=== PATIENT | male | born 1965 | race Caucasian/White ===

== ENCOUNTER 2019-08-29 09:37 | Outpatient (CLI) | payer MEDICARE, SELFPAY ==
[2019-08-29 09:49] LABS: Basophils Absolute Auto 0.06 K/mm3 (0.00-0.10); Basophils Percent Auto 1.2 % (0.0-1.0); Eosinophils Absolute Auto 0.16 K/mm3 (0.02-0.50); Eosinophils Percent Auto 3.2 % (1.0-6.0); Hematocrit 47.7 % (40.0-54.0); Hemoglobin 16.5 g/dL (14.0-18.0); Immature Granulocyte Absolute 0.02 K/mm3 (0.00-0.00); Immature Granulocyte Percent A 0.4 % (0.0-0.0); Lymphocytes Absolute Auto 1.23 K/mm3 (1.10-4.50); Lymphocytes Percent Auto 24.7 % (18.0-42.0); Mean Corpuscular HGB Conc 34.6 g/dL (32.0-36.0); Mean Corpuscular Hemoglobin 30.1 pg (27.0-31.0); Mean Corpuscular Volume 86.9 fL (78.0-102.0); Mean Platelet Volume 8.8 fl (8.7-11.0); Neutrophils Percent Auto 60.5 % (50.0-70.0); Platelet Count Result 269 K/mm3 (150-420); Red Blood Count 5.49 M/mm3 (4.70-6.10); Red Cell Distribution Width 12.8 % (11.6-14.4)
[2019-08-29 09:52] LABS: Add Urine Microscopic? NO; Appearance Urine Clear (Clear); Bilirubin Urine Negative (Negative); Blood Urine Negative (Negative); Color Urine Yellow (Yellow); Glucose Urine UA Negative (Negative); Ketones Urine Negative (Negative); Leukocyte Esterase Ur Negative (Negative); Nitrate Urine Negative (Negative); Protein Urine Negative (Negative); Specific Grav Ur <= 1.005 (1.010-1.020); Urobilinogen Urine 0.2 mg/dL (0.2-1.0)
[2019-08-29 10:00] LABS: Creatinine Urine < 13.00 mg/dL (40-278)
[2019-08-29 10:20] LABS: Microalbumin Urine Random < 1.3 mg/L
[2019-08-29 10:39] LABS: Alanine Aminotransferase 20 U/L (16-63); Alkaline Phosphatase 176 U/L (46-116); Anion Gap 10.2 mmol/L (7-16); Aspartate Amino Transferase 16 U/L (15-37); Bilirubin,Total 0.9 mg/dL (0.00-1.00); Blood Urea Nitrogen 9 mg/dL (7-18); Calcium 9.9 mg/dL (8.5-10.1); Carbon Dioxide 34 mmol/L (21-32); Chloride 99 mmol/L (98-108); Estimated Glomerular Filt Rate > 60; Glucose 90 mg/dL (70-99); Osmolality Calculated 286 mOsm/kg (285-295); Potassium 4.2 mmol/L (3.5-5.1); Sodium 139 mmol/L (136-145); Thyroid Stimulating Hormone 0.98 uIU/mL (0.36-3.74); Total Protein 7.4 g/dL (6.4-8.2)
== END 2019-08-29 09:38 | disposition home or self-care (01) ==
PROVIDERS: PCP Family Medicine; Visit Provider Family Medicine
DX: I10 Essential (primary) hypertension (principal)
CPT/HCPCS: 36415; 80053; 81003; 82043; 84443; 85025

== ENCOUNTER 2020-03-27 07:57 | Outpatient (CLI) | payer MEDICARE, SELFPAY ==
[2020-03-27 08:09] LABS: Basophils Absolute Auto 0.04 K/mm3 (0.00-0.10); Basophils Percent Auto 0.8 % (0.0-1.0); Eosinophils Absolute Auto 0.15 K/mm3 (0.02-0.50); Hematocrit 44.2 % (40.0-54.0); Hemoglobin 15.2 g/dL (14.0-18.0); Immature Granulocyte Absolute 0.01 K/mm3 (0.00-0.00); Immature Granulocyte Percent A 0.2 % (0.0-0.0); Lymphocytes Absolute Auto 1.13 K/mm3 (1.10-4.50); Mean Corpuscular HGB Conc 34.4 g/dL (32.0-36.0); Mean Corpuscular Hemoglobin 30.8 pg (27.0-31.0); Mean Corpuscular Volume 89.7 fL (78.0-102.0); Mean Platelet Volume 8.9 fl (8.7-11.0); Monocytes Absolute Auto 0.45 K/mm3 (0.10-0.90); Monocytes Percent Auto 9.1 % (2.0-11.0); Neutrophils Absolute Auto 3.1 K/mm3 (1.7-7.2); Neutrophils Percent Auto 63.9 % (50.0-70.0); Platelet Count Result 246 K/mm3 (150-420); Red Blood Count 4.93 M/mm3 (4.70-6.10); Red Cell Distribution Width 12.9 % (11.6-14.4); White Blood Count 4.9 K/mm3 (4.8-10.8)
[2020-03-27 08:24] LABS: Hemoglobin A1C 4.9 % (<5.7)
[2020-03-27 08:51] LABS: Alanine Aminotransferase 14 U/L (16-63); Albumin Level 3.9 g/dL (3.4-5.0); Alkaline Phosphatase 156 U/L (46-116); Anion Gap 8 mmol/L (8-16); Aspartate Amino Transferase < 10 U/L (15-37); Bilirubin,Total 0.9 mg/dL (0.00-1.00); Blood Urea Nitrogen 10 mg/dL (7-18); Calcium 9.6 mg/dL (8.5-10.1); Carbon Dioxide 31 mmol/L (21-32); Chloride 102 mmol/L (98-108); Cholesterol 155 mg/dL (0-200); Estimated Glomerular Filt Rate > 60; Glucose 100 mg/dL (70-99); HDL Direct 38 mg/dL (40-60); LDL Cholesterol Calculated 92 mg/dL (<130); Osmolality Calculated 291 mOsm/kg (285-295); Potassium 3.9 mmol/L (3.5-5.1); Sodium 141 mmol/L (136-145); Triglycerides 126 mg/dL (0-150)
== END 2020-03-27 07:58 | disposition home or self-care (01) ==
PROVIDERS: PCP Family Medicine; Visit Provider Family Medicine
DX: Z79.899 Other long term (current) drug therapy (principal); I10 Essential (primary) hypertension
CPT/HCPCS: 36415; 80053; 80061; 83036; 85025

== ENCOUNTER 2020-04-11 09:28 | Outpatient (CLI) | payer MEDICARE, SELFPAY ==
[2020-04-11 10:19] LABS: Influenza Control Valid (Valid); SARS-CoV-2 Ag Positive (Negative)
== END 2020-04-11 09:29 | disposition home or self-care (01) ==
LOC: CHSLAB 09:31
PROVIDERS: PCP Family Medicine; Visit Provider Family Medicine
DX: U07.1 COVID-19 (principal)
CPT/HCPCS: 87426; 87804

== ENCOUNTER 2020-05-23 12:26 | Emergency (ER) | payer MEDICARE, OTHER, SELFPAY ==
--- NOTE | ~2020-05-23 | XR_ITS ---
EXAMINATION: XR chest 2V DATE: 05/23/2020 13:30 INDICATION: Cough. Dyspnea. TECHNIQUE: Frontal and lateral views of the chest were obtained. COMPARISON: Chest 2 views 11/18/2018, chest CT 11/19/2018 FINDINGS: A calcified left lung nodule is consistent with old granulomatous disease. There are airspa ce opacities in right middle lobe and right lower lobe. There is an air/fluid level in right lower lo be. There are mild airspace opacities at left lung base. There is a small right pleural effusion. No pneumothorax. The heart size is normal. IMPRESSION: 1. Airspace opacities in right middle lobe and right lower lobe, consistent with pneumonia. An air/fl uid level in right lower lobe is suspicious for abscess. 2. Small right pleural effusion. 3. Mild airspace opacities at left lung base, consistent with atelectasis versus pneumonia. Reviewed, dictated and finalized at location [facility]. STRAPPER IMPRESSION: 1. Airspace opacities in right middle lobe and right lower lobe, consistent wit h pneumonia. An air/fluid level in right lower lobe is suspicious for abscess. 2. Small right pleural effusion. 3. Mild airspace opacities at left lung base, consistent with atelectasis versu s pneumonia.
[2020-05-23 12:51] VITALS: BP 145/85; PULSE 112; RESP 20; TEMP 36.3; O2SAT 98
--- NOTE | 2020-05-23 13:07 | ECG_ITS ---
Measurements Intervals [place] Rate: 112 P: 60 NE: 156 QRS: 74 QRSD: 91 T: 34 QT: 258 QTc: 353 Interpretive Statements SINUS TACHYCARDIA VOLTAGE CRITERIA FOR LVH BORDERLINE ST-T WAVE ABNORMALITY- ANTEROLAT/INF LEADS BASELINE WANDER- II, III, AVF ABNORMAL ECG Electronically Signed On 05-23-2020 15:10:58 CASH MANAGEMENT COORDINATOR by Flo Chowdary D.O.
[2020-05-23] MEDS: methylPREDNISolone SOD SUCC 125 MG VIAL IV PUSH (13:25)
[2020-05-23 13:28] LABS: Basophils Absolute Auto 0.02 K/mm3 (0.00-0.10); Basophils Percent Auto 0.1 % (0.0-1.0); Eosinophils Absolute Auto 0.02 K/mm3 (0.02-0.50); Eosinophils Percent Auto 0.1 % (1.0-6.0); Hematocrit 36.6 % (40.0-54.0); Hemoglobin 13.1 g/dL (14.0-18.0); Immature Granulocyte Absolute 0.12 K/mm3 (0.00-0.00); Immature Granulocyte Percent A 0.8 % (0.0-0.0); Lymphocytes Absolute Auto 1.05 K/mm3 (1.10-4.50); Lymphocytes Percent Auto 6.9 % (18.0-42.0); Mean Corpuscular HGB Conc 35.8 g/dL (32.0-36.0); Mean Corpuscular Hemoglobin 31.4 pg (27.0-31.0); Mean Corpuscular Volume 87.8 fL (78.0-102.0); Monocytes Absolute Auto 1.35 K/mm3 (0.10-0.90); Monocytes Percent Auto 8.8 % (2.0-11.0); Neutrophils Absolute Auto 12.7 K/mm3 (1.7-7.2); Neutrophils Percent Auto 83.3 % (50.0-70.0); Platelet Count Result 365 K/mm3 (150-420); Red Blood Count 4.17 M/mm3 (4.70-6.10); Red Cell Distribution Width 13.5 % (11.6-14.4); White Blood Count 15.3 K/mm3 (4.8-10.8)
[2020-05-23 13:45] VITALS: PULSE 114; RESP 24; O2SAT 96
[2020-05-23 13:45] LABS: Alanine Aminotransferase 26 U/L (16-63); Albumin Level 2.1 g/dL (3.4-5.0); Alkaline Phosphatase 259 U/L (46-116); Anion Gap 9 mmol/L (8-16); Aspartate Amino Transferase 26 U/L (15-37); Bilirubin,Total 1.1 mg/dL (0.00-1.00); Blood Urea Nitrogen 4 mg/dL (7-18); Calcium 8.4 mg/dL (8.5-10.1); Carbon Dioxide 32 mmol/L (21-32); Chloride 85 mmol/L (98-108); Estimated CRCL calculation 81 ml/min; Estimated Glomerular Filt Rate > 60; Glucose 153 mg/dL (70-99); Osmolality Calculated 261 mOsm/kg (285-295); Sodium 126 mmol/L (136-145); Total Protein 6.5 g/dL (6.4-8.2)
[2020-05-23 13:48] LABS: BNP 29.6 pg/mL (0-100); Potassium 2.3 mmol/L (3.5-5.1); Troponin I < 4.0 ng/L (0.00-60.4)
[2020-05-23] MEDS: IPRATROPIUM 0.5 MG/ALBUTEROL SULFATE 2.5 MG AMPUL.NEB 3 ML INHALATION (13:48)
[2020-05-23 13:56] VITALS: PULSE 112; RESP 20; O2SAT 98
--- NOTE | 2020-05-23 14:03 | ED.SOB ---
HPI - SOB/Dyspnea General Chief Complaint: Dizziness Stated Complaint: have eaten in last 3 or 4 days fever Source: patient Mode of arrival: ambulatory Limitations: no limitations History of Present Illness HPI Narrative: this is 55-year-old gentleman with history of lung cancer status post lung resection with a history of COPD continues tobacco use, presents with increasing shortness of breath cough that is productive of thick white to yellow sputum with no fever or chills no chest pain or pressure no abdominal pain no nausea vomiting. Patient also has a history of schizophrenia and hypertension. O2 sats on presentation 98% on room air currently afebrile with a blood pressure 145/85. MD elicited complaint: shortness of breath and cough Pertinent past history: COPD and other ( History of lung cancer) Onset (ago): day(s) Context: anxiety Severity: moderate Related Data Home Medications Medication Instructions Recorded Confirmed amlodipine 10 mg PO DAILY 05/23/20 05/23/20 folic acid 1 mg PO DAILY 05/23/20 05/23/20 haloperidol 5 mg PO TID 05/23/20 05/23/20 haloperidol decanoate 5 mg IM WEEKLY 05/23/20 05/23/20 propranolol 20 mg PO DAILY 05/23/20 05/23/20 risperidone 4 mg PO DAILY 05/23/20 05/23/20 sildenafil 100 mg PO DAILY 05/23/20 05/23/20 Allergies Allergy/AdvReac Type Severity Reaction Status Date / Time nitrofurantoin Allergy Unknown Unknown Verified 05/23/20 13:23 No Known Allergies Allergy Unverified 11/18/18 11:52 Review of Systems Review of Systems: All systems reviewed & are unremarkable except as noted in HPI and below PMFSH Past Medical History Medical History COPD (chronic obstructive pulmonary disease) Family History Family History Mother Patient's mother is in good health Family history of cardiovascular disease Father Patient's father is , Onset Age: 58 Sibling Patient's sister is in good health Patient's brother is in good health Social History Social History Smoking status: Current every day smoker Alcohol intake: never Gender identity (if verbalized by the patient): Male Exam Const: General: no acute distress and alert Orientation/consciousness: patient oriented x3 HENMT: Head: normal to inspection Eyes: Conjunctivae: conjunctivae normal Pupils: Equal, round and reactive pupils present Neck: Neck: normal visual inspection and no lymphadenopathy Chest: Chest palpation & inspection: normal inspection of the chest Resp: Auscultation: diminished lung sounds Cardio: Rate: regular rate and tachycardic GI: GI Palp: Yes Soft to palpation Skin: General skin exam: normal color Rashes: no rashes Neuro: General: patient oriented x3, moves all extremities, no meningeal signs and no focal motor deficits Extrem: General: normal to inspection Psych: Mental Status: mental status grossly normal Affect: normal affect and Anxious affect present Course Course Emergency Course: reassessment of patient, patient was advised that he had pneumonia in [place] right [place] [address] with a potassium level of 2.3. The patient was advised that he needs to be admitted and with continued antibiotics and to replace is decreased sodium levels. The patient stated that he can stay and needs to to take his dog out and his is incapable of taking the dog out, threatened to Anastasiya me if his falls at home. Will replace his potassium with p.o. potassium because he will not stay over 2 hours with [place] nadya. Will give him potassium p.o. and a dose of ceftriaxone prior to discharge and will send in potassium and antibiotics to his pharmacy. Also stated that he needs to sign out against medical advice given his current condition. Vital Signs Vital signs: Vital Signs Temperature 36.3 C L
[2020-05-23] MEDS: POTASSIUM CHLORIDE 20 MEQ TABLET 40 MEQ PO (14:13)
--- NOTE | 2020-05-23 14:15 | PC.NURSE ---
1355 pt refuses to be admitted in hospital states he can not leave home with dog she can not let him out; informed pt he needed to be admitted to receive meds to improve his potassium states he will go see his doctor
[2020-05-23 14:33] VITALS: PULSE 100; RESP 20; O2SAT 98
== END 2020-05-23 14:40 | disposition left against medical advice (07) ==
PROVIDERS: Emergency Provider Emergency Medicine; PCP Family Medicine
DX: E87.6 Hypokalemia (principal); J18.9 Pneumonia, unspecified organism; J44.9 Chronic obstructive pulmonary disease, unspecified; F17.200 Nicotine dependence, unspecified, uncomplicated
CPT/HCPCS: 36415; 71046; 80053; 83880; 84484; 85025; 93005; 94640; 96365; 96375; 99283; 99284; A9270; J0696; J2930

== ENCOUNTER 2020-05-27 10:29 | Outpatient (CLI) | payer MEDICARE, OTHER, SELFPAY ==
--- NOTE | ~2020-05-27 | XR_ITS ---
XR chest 2V DATE: 05/27/2020 11:00 INDICATION: Shortness of breath. History of lung cancer surgery one year ago. Pneumonia. TECHNIQUE: 2 views COMPARISON: 05/23/2020 2 view chest 11/18/2018 CT pulmonary scan FINDINGS: Large cavitating malignant mass or abscess is noted in the right lower chest. Consider CT t horax for further evaluation. No left lung infiltrate is noted. Mild right pleural effusion cannot be excluded. No pneumothorax. Normal heart size. IMPRESSION: Large cavitating mass or abscess, right lower chest Reviewed, dictated and finalized at location [facility]. Y HEAD START TEACHER
[2020-05-27 10:40] LABS: Hematocrit 39.5 % (40.0-54.0); Hemoglobin 13.5 g/dL (14.0-18.0); Mean Corpuscular HGB Conc 34.2 g/dL (32.0-36.0); Mean Corpuscular Hemoglobin 30.8 pg (27.0-31.0); Mean Corpuscular Volume 90.2 fL (78.0-102.0); Mean Platelet Volume 8.9 fl (8.7-11.0); Platelet Count Result 491 K/mm3 (150-420); Red Blood Count 4.38 M/mm3 (4.70-6.10); Red Cell Distribution Width 13.3 % (11.6-14.4); White Blood Count 17.5 K/mm3 (4.8-10.8)
[2020-05-27 11:35] LABS: Alanine Aminotransferase 57 U/L (16-63); Albumin Level 2.3 g/dL (3.4-5.0); Alkaline Phosphatase 305 U/L (46-116); Anion Gap 9 mmol/L (8-16); Aspartate Amino Transferase 32 U/L (15-37); Bilirubin,Total 0.9 mg/dL (0.00-1.00); Blood Urea Nitrogen 5 mg/dL (7-18); Calcium 8.6 mg/dL (8.5-10.1); Carbon Dioxide 31 mmol/L (21-32); Chloride 89 mmol/L (98-108); Estimated Glomerular Filt Rate > 60; Glucose 120 mg/dL (70-99); Osmolality Calculated 266 mOsm/kg (285-295); Potassium 4.6 mmol/L (3.5-5.1); Sodium 129 mmol/L (136-145); Total Protein 6.2 g/dL (6.4-8.2)
== END 2020-05-27 10:30 | disposition home or self-care (01) ==
LOC: CHSLAB 10:32
PROVIDERS: PCP Family Medicine; Visit Provider Family Medicine
DX: E87.6 Hypokalemia (principal); J18.9 Pneumonia, unspecified organism
CPT/HCPCS: 36415; 71046; 80053; 85027

== ENCOUNTER 2020-05-28 10:51 | Emergency (ER) | payer MEDICARE, OTHER, SELFPAY ==
--- NOTE | ~2020-05-28 | CT_ITS ---
EXAMINATION: CTA chest PE protocol DATE: 05/28/2020 11:48 INDICATION: Shortness of breath. Lethargy. TECHNIQUE: Computed tomography angiography (CTA) of the chest was performed with 100 mL Omnipaque-350 intravenous contrast timed to evaluate the pulmonary arteries. Coronal maximum intensity projection 3D-reconstructions were created by the technologist. Automated exposure control and iterative reconst ruction technique were employed. Exam dose: 273.57 mGy-cm total exam DLP. COMPARISON: May 27/2021 2 view chest 11/18/2018 CT pulmonary scan FINDINGS: There is diagnostic contrast enhancement of the pulmonary arteries and no evidence of pulmo nary embolism. There is occlusion of the right intermediate bronchus, likely due to malignancy, with postobstructive atelectasis and extensive consolidation of middle and lower lobes, with a 5 cm cavity with fluid lev el suggesting right lung abscess. Consider bronchoscopy with biopsy as clinically appropriate. Minimal right pleural effusion is suggested. No left pleural effusion. Normal heart size. No pericardial effusion. No hilar or mediastinal mass lesion is noted otherwise. No thoracic aortic aneurysm or dissection. There is emphysema, with bullous change in the right apex, minimally at the left apex. There is mild discoid atelectasis or scarring in the left lower lobe. Several faceted gallstones are noted in the gallbladder lumen. Small sliding hiatal hernia. No suspicious osteolytic or osteoblastic lesions are noted. IMPRESSION: Occluded right intermediate bronchus, likely due to malignancy, with postobstructive ate lectasis and consolidation of the right middle and lower lobes and probable 5 cm right lung abscess c avity with fluid level Emphysema Cholelithiasis Reviewed, dictated and finalized at [facility]. Reviewed, dictated and finalized at location [facility]. E PAPER HAMMERMILL OPERATOR IMPRESSION: Occluded right intermediate bronchus, likely due to malignancy, wi th postobstructive atelectasis and consolidation of the right middle and lower lobes and probable 5 cm right lung abscess cavity with fluid level Emphysema Cholelithiasis
[2020-05-28 10:55] VITALS: BP 114/75; PULSE 82; RESP 16; TEMP 36.8; O2SAT 94
--- NOTE | 2020-05-28 11:08 | ECG_ITS ---
Measurements Intervals [place] Rate: 87 P: 54 ID: [id number] QRS: 67 QRSD: 90 T: 45 QT: 396 QTc: 478 Interpretive Statements SINUS RHYTHM BASELINE WANDER- V1 NORMAL ECG Electronically Signed On 05-28-2020 11:59:06 MATERIAL SCHEDULER by Flo Chowdary D.O.
[2020-05-28 11:09] VITALS: PULSE 82
[2020-05-28 11:29] LABS: Basophils Absolute Auto 0.02 K/mm3 (0.00-0.10); Basophils Percent Auto 0.2 % (0.0-1.0); Eosinophils Absolute Auto 0.02 K/mm3 (0.02-0.50); Eosinophils Percent Auto 0.2 % (1.0-6.0); Hematocrit 36.5 % (40.0-54.0); Hemoglobin 12.6 g/dL (14.0-18.0); Immature Granulocyte Absolute 0.15 K/mm3 (0.00-0.00); Immature Granulocyte Percent A 1.1 % (0.0-0.0); Lymphocytes Absolute Auto 1.04 K/mm3 (1.10-4.50); Lymphocytes Percent Auto 7.9 % (18.0-42.0); Mean Corpuscular HGB Conc 34.5 g/dL (32.0-36.0); Mean Corpuscular Hemoglobin 31.1 pg (27.0-31.0); Mean Corpuscular Volume 90.1 fL (78.0-102.0); Mean Platelet Volume 8.8 fl (8.7-11.0); Monocytes Absolute Auto 1.07 K/mm3 (0.10-0.90); Monocytes Percent Auto 8.1 % (2.0-11.0); Neutrophils Absolute Auto 10.9 K/mm3 (1.7-7.2); Neutrophils Percent Auto 82.5 % (50.0-70.0); Platelet Count Result 491 K/mm3 (150-420); Red Blood Count 4.05 M/mm3 (4.70-6.10); Red Cell Distribution Width 13.2 % (11.6-14.4); White Blood Count 13.2 K/mm3 (4.8-10.8)
[2020-05-28 11:43] LABS: INR 1.2; Partial Thromboplastin Time 36.7 SEC (23.90-30.70); Prothrombin Time 12.2 Seconds (9.50-12.10)
[2020-05-28 11:47] LABS: BNP 13.8 pg/mL (0-100); D Dimer 1.97 mg/L (0.19-0.50)
[2020-05-28 11:49] LABS: Lactic Acid Reflex 1.1 mmol/L (0.4-2.0)
[2020-05-28 11:50] LABS: Anion Gap 8 mmol/L (8-16); Aspartate Amino Transferase 16 U/L (15-37); Blood Urea Nitrogen 5 mg/dL (7-18); Calcium 8.3 mg/dL (8.5-10.1); Carbon Dioxide 31 mmol/L (21-32); Chloride 89 mmol/L (98-108); Estimated CRCL calculation 100 ml/min; Estimated Glomerular Filt Rate > 60; Glucose 114 mg/dL (70-99); Magnesium 1.9 mg/dL (1.8-2.4); Osmolality Calculated 264 mOsm/kg (285-295); Potassium 3.3 mmol/L (3.5-5.1); Sodium 128 mmol/L (136-145)
[2020-05-28 11:51] LABS: Alanine Aminotransferase 42 U/L (16-63); Albumin Level 2.1 g/dL (3.4-5.0); Alkaline Phosphatase 234 U/L (46-116); Total Protein 6.4 g/dL (6.4-8.2)
[2020-05-28 12:15] VITALS: BP 119/82; PULSE 95; RESP 17; O2SAT 95
--- NOTE | 2020-05-28 13:34 | PC.NURSE ---
call to [facility]. spoke with shin. dr quiñonez speaking with shin
[2020-05-28] MEDS: POTASSIUM CHLORIDE 20 MEQ PACKET (FOR LIQUID) 40 MEQ BY MOUTH (13:38)
--- NOTE | 2020-05-28 13:41 | ED.SOB ---
HPI - SOB/Dyspnea General Chief Complaint: Shortness of Breath/Dyspnea Stated Complaint: sick Time Seen by Provider: 05/28/20 11:15 Source: patient Mode of arrival: ambulatory Limitations: no limitations History of Present Illness HPI Narrative: This gentleman comes in again wishing to be evaluated again. He had been here before and signed out AMA a few days ago when he was found to have a low potassium. He presents again with vague complaints of not feeling well and being run down. 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 Relieving factors: nothing Known history of: COPD Associated symptoms: denies other symptoms and chest pain Treatment prior to arrival: none Related Data Home oxygen amount: none Home Medications Medication Instructions Recorded Confirmed amlodipine 10 mg PO DAILY 05/23/20 05/28/20 folic acid 1 mg PO DAILY 05/23/20 05/28/20 haloperidol 5 mg PO TID 05/23/20 05/28/20 haloperidol decanoate 5 mg IM WEEKLY 05/23/20 05/28/20 propranolol 20 mg PO DAILY 05/23/20 05/28/20 risperidone 4 mg PO DAILY 05/23/20 05/28/20 sildenafil 100 mg PO DAILY 05/23/20 05/28/20 Allergies Allergy/AdvReac Type Severity Reaction Status Date / Time nitrofurantoin Allergy Unknown Unknown Verified 05/23/20 13:23 Review of Systems Review of Systems: All systems reviewed & are unremarkable except as noted in HPI and below ROS unobtainable: Yes unobtainable due to medical condition Constitutional: Constitutional: Reports as per HPI and Reports no additional constitutional complaints Eyes: Eyes: Reports as per HPI ENT: Reports as per HPI Cardiovascular: Cardiovascular: Reports as per HPI Respiratory: Respiratory: Denies as per HPI Gastrointestinal: Gastrointestinal: Reports as per HPI Genitourinary: Genitourinary: Reports no additional male genitourinary complaints Musculoskeletal: Musculoskeletal: Reports no additional musculoskeletal complaints Integumentary/Breasts: Skin/Breast: Denies system reviewed and no additional complaints, except as docu and Reports breast pain Neurologic: Reports system reviewed and no additional complaints, except as documented Psychiatric: Psychiatric: Reports no additional psychiatric complaints Endocrine: Endocrine: Reports no additional endocrine complaints Allergic/Immunologic: Allergic/Immunologic: Reports no additional allergic/immunologic complaints [facility] Past Medical History Medical History COPD (chronic obstructive pulmonary disease) Family History Family History Mother Patient's mother is in good health Family history of cardiovascular disease Father Patient's father is , Onset Age: 58 Sibling Patient's sister is in good health Patient's brother is in good health Social History Social History Smoking status: Current every day smoker Alcohol intake: never Gender identity (if verbalized by the patient): Male Exam Narrative: Exam Narrative: Patient comes in because he has not been feeling well. He has stated he is very run down Const: General: healthy appearing and no acute distress Orientation/consciousness: patient oriented x3 HENMT: Head: normal to inspection Ears: external ears normal and TM's normal bilaterally General nose exam: Normal external nose present Face and sinus: normal facial exam Mouth: Yes Abnormal oral and palatal mucosa present Throat: posterior oropharynx normal Eyes: Conjunctivae: conjunctivae normal Pupils: Equal, round and reactive pupils present Neck: Neck: normal visual inspection Chest: Chest palpation & inspection: normal inspection of
[2020-05-28 13:45] VITALS: BP 117/80; PULSE 107; RESP 20; TEMP 36.8; O2SAT 97
--- NOTE | 2020-05-28 14:23 | PC.NURSE ---
call to [facility], regarding no response. spoke with shin. awaiting response from doctor.
--- NOTE | 2020-05-28 15:09 | PC.NURSE ---
pt accepted at [facility], no bed placement til later tonight or tomorrow per shin, pt notified, AMA signed. will follow with FMD.
[2020-05-28 15:13] VITALS: BP 124/82; PULSE 97; RESP 20; TEMP 37.1; O2SAT 98
== END 2020-05-28 15:14 | disposition left against medical advice (07) ==
PROVIDERS: Emergency Provider Emergency Medicine; PCP Family Medicine
DX: J85.2 Abscess of lung without pneumonia (principal); F17.200 Nicotine dependence, unspecified, uncomplicated
CPT/HCPCS: 36415; 71275; 80053; 83605; 83735; 83880; 84484; 85025; 85380; 85610; 85730; 87040; 93005; 99283; 99284; A9270; Q9967

== ENCOUNTER 2020-06-01 01:10 | Emergency (ER) | payer MEDICARE, OTHER, SELFPAY ==
--- NOTE | ~2020-06-01 | XR_ITS ---
EXAMINATION: XR chest 2V DATE: 06/01/2020 02:38 INDICATION: Shortness of breath. TECHNIQUE: Frontal and lateral views of the chest were obtained. COMPARISON: Chest 2 views 05/27/2020, chest CT 06/01/2020 FINDINGS: There is mild scarring at the lung apices. There are changes of right lower lobectomy. Ther e are airspace opacities at right middle lobe at right lung base with air/fluid level and small right pleural effusion. The heart size is normal. IMPRESSION: 1. Stable airspace opacities in right middle lobe, consistent with pneumonia. An air/fluid level is l ikely an abscess. 2. Stable small right pleural effusion. Reviewed, dictated and finalized at location A. K OPERATOR IMPRESSION: 1. Stable airspace opacities in right middle lobe, consistent with pneumonia. A n air/fluid level is likely an abscess. 2. Stable small right pleural effusion.
--- NOTE | ~2020-06-01 | CT_ITS ---
EXAMINATION: CTA chest PE protocol DATE: 06/01/2020 07:34 INDICATION: Shortness of breath. TECHNIQUE: Computed tomography angiography (CTA) of the chest was performed with 100 mL Omnipaque-350 intravenous contrast timed to evaluate the pulmonary arteries. Coronal maximum intensity projection 3D-reconstructions were created by the technologist. Automated exposure control and iterative reconst ruction technique were employed. The dose-length product was 168.93 mGy-cm. COMPARISON: Chest CT 05/28/2020 FINDINGS: There is mild emphysema. There are changes of right lower lobectomy. There are airspace opa cities in right middle lobe with air bronchograms and areas of cavitation including an air/fluid leve l. There is a small right pleural effusion. The heart size is normal. There is no pulmonary embolus. There are old healed right rib fractures. There is mild thoracic spondylosis. IMPRESSION: 1. No pulmonary embolus. 2. Stable airspace opacities in right middle lobe with areas of cavitation and air/fluid level, consi stent with necrotizing pneumonia and abscess. 3. Stable small right pleural effusion. 4. Mild emphysema. Reviewed, dictated and finalized at location A. OR CONTROL ASSISTANT IMPRESSION: 1. No pulmonary embolus. 2. Stable airspace opacities in right middle lobe with areas of cavitation and air/fluid level, consistent with necrotizing pneumonia and abscess. 3. Stable small right pleural effusion. 4. Mild emphysema.
[2020-06-01 01:10] VITALS: BP 102/65; PULSE 88; RESP 18; TEMP 36.2; O2SAT 97
--- NOTE | 2020-06-01 01:41 | ECG_ITS ---
Measurements Intervals [place] Rate: 84 P: 64 MA: 156 QRS: 51 QRSD: 91 T: 53 QT: 387 QTc: 458 Interpretive Statements SINUS RHYTHM BASELINE ARTIFACT- I, II, III, AVF, V5-V6 NORMAL ECG Electronically Signed On 06-02-2020 11:30:05 BLUE CRABBER by Flo Chowdary D.O.
[2020-06-01 01:50] LABS: Basophils Absolute Auto 0.04 K/mm3 (0.00-0.10); Basophils Percent Auto 0.2 % (0.0-1.0); Eosinophils Absolute Auto 0.01 K/mm3 (0.02-0.50); Eosinophils Percent Auto 0.1 % (1.0-6.0); Hematocrit 34.3 % (40.0-54.0); Hemoglobin 12.1 g/dL (14.0-18.0); Immature Granulocyte Absolute 0.14 K/mm3 (0.00-0.00); Immature Granulocyte Percent A 0.9 % (0.0-0.0); Immature Platelet Fraction Pct 1.3 % (1.0-7.0); Lymphocytes Absolute Auto 0.87 K/mm3 (1.10-4.50); Lymphocytes Percent Auto 5.4 % (18.0-42.0); Mean Corpuscular HGB Conc 35.3 g/dL (32.0-36.0); Mean Corpuscular Hemoglobin 31.1 pg (27.0-31.0); Mean Corpuscular Volume 88.2 fL (78.0-102.0); Mean Platelet Volume 8.3 fl (8.7-11.0); Monocytes Absolute Auto 1.08 K/mm3 (0.10-0.90); Monocytes Percent Auto 6.7 % (2.0-11.0); Neutrophils Absolute Auto 13.9 K/mm3 (1.7-7.2); Neutrophils Percent Auto 86.7 % (50.0-70.0); Platelet Count Result 702 K/mm3 (150-420); Red Blood Count 3.89 M/mm3 (4.70-6.10); Red Cell Distribution Width 12.8 % (11.6-14.4); White Blood Count 16.1 K/mm3 (4.8-10.8)
[2020-06-01 01:53] VITALS: O2SAT 98
[2020-06-01 02:04] LABS: D Dimer 1.43 mg/L (0.19-0.50)
[2020-06-01 02:06] LABS: Lactic Acid Reflex 1.1 mmol/L (0.4-2.0)
[2020-06-01 02:07] LABS: Alanine Aminotransferase 26 U/L (16-63); Albumin Level 2.3 g/dL (3.4-5.0); Alkaline Phosphatase 167 U/L (46-116); Anion Gap 7 mmol/L (8-16); Aspartate Amino Transferase 17 U/L (15-37); Bilirubin,Total 1.4 mg/dL (0.00-1.00); Blood Urea Nitrogen 9 mg/dL (7-18); Calcium 8.3 mg/dL (8.5-10.1); Carbon Dioxide 31 mmol/L (21-32); Chloride 88 mmol/L (98-108); Estimated CRCL calculation 106 ml/min; Estimated Glomerular Filt Rate > 60; Glucose 103 mg/dL (70-99); Magnesium 1.9 mg/dL (1.8-2.4); Osmolality Calculated 260 mOsm/kg (285-295); Potassium 3.4 mmol/L (3.5-5.1); Sodium 126 mmol/L (136-145); Total Protein 6.7 g/dL (6.4-8.2); Troponin I 5.1 ng/L (0.00-60.4)
[2020-06-01 02:09] LABS: BNP 22.1 pg/mL (0-100)
[2020-06-01 02:19] VITALS: BP 112/77; PULSE 79; RESP 20; O2SAT 96
--- NOTE | 2020-06-01 02:30 | PC.NURSE ---
wants pt. transferred to [place] for care and further tx/procedures. Pt. and state some of his Drs. from past surgeries are located here.
[2020-06-01 03:00] VITALS: O2SAT 97
[2020-06-01] MEDS: ACETAMINOPHEN/CODEINE (*CRX) 300/30 MG TABLET 1 TAB PO (03:02)
--- NOTE | 2020-06-01 03:12 | PC.NURSE ---
Call placed to [facility] speaking c Dr. Danielle. Will await call back from specialist.
[2020-06-01 03:29] LABS: Add Urine Microscopic? NO; Appearance Urine Clear (Clear); Bilirubin Urine Negative (Negative); Blood Urine Negative (Negative); Color Urine Yellow (Yellow); Glucose Urine UA Negative (Negative); Ketones Urine Negative (Negative); Leukocyte Esterase Ur Negative (Negative); Nitrate Urine Negative (Negative); Protein Urine Negative (Negative); Specific Grav Ur <= 1.005 (1.010-1.020); Urobilinogen Urine 0.2 mg/dL (0.2-1.0)
--- NOTE | 2020-06-01 03:39 | ED.SOB ---
HPI - SOB/Dyspnea General Chief Complaint: Shortness of Breath/Dyspnea Stated Complaint: Shortness of Breath Source: patient and family Mode of arrival: ambulatory Limitations: no limitations History of Present Illness HPI Narrative: Patient comes in because of mild shortness of breath, cough, and fatigue. MD elicited complaint: shortness of breath and cough Pertinent past history: COPD and other (lung cancer and lobectoomy) Onset (ago): day(s) Context: occurred during exertion Severity: mild Exacerbating factors: nothing Relieving factors: nothing Associated symptoms: denies other symptoms Related Data Home Medications Medication Instructions Recorded Confirmed amlodipine 10 mg PO DAILY 05/23/20 06/01/20 folic acid 1 mg PO DAILY 05/23/20 06/01/20 haloperidol 5 mg PO TID 05/23/20 06/01/20 haloperidol decanoate 5 mg IM WEEKLY 05/23/20 06/01/20 propranolol 20 mg PO DAILY 05/23/20 06/01/20 risperidone 4 mg PO DAILY 05/23/20 06/01/20 sildenafil 100 mg PO DAILY 05/23/20 06/01/20 Allergies Allergy/AdvReac Type Severity Reaction Status Date / Time nitrofurantoin Allergy Unknown Unknown Verified 05/23/20 13:23 Review of Systems Constitutional: Constitutional: Reports no additional constitutional complaints Eyes: Eyes: Reports no additional eye complaints ENT: Reports system reviewed and no additional complaints, except as documented Cardiovascular: Cardiovascular: Reports no additional cardiovascular complaints Respiratory: Respiratory: Reports no additional respiratory complaints Gastrointestinal: Gastrointestinal: Reports no additional gastrointestinal complaints Genitourinary: Genitourinary: Reports no additional male genitourinary complaints Musculoskeletal: Musculoskeletal: Reports no additional musculoskeletal complaints Integumentary/Breasts: Skin/Breast: Reports system reviewed and no additional complaints, except as docu Neurologic: Reports system reviewed and no additional complaints, except as documented Psychiatric: Psychiatric: Reports no additional psychiatric complaints Endocrine: Endocrine: Reports no additional endocrine complaints Hematologic/Lymphatic: Hematologic/Lymphatic: Reports no additional hematologic/lymphatic complaints Allergic/Immunologic: Allergic/Immunologic: Reports no additional allergic/immunologic complaints [facility] Past Medical History Medical History COPD (chronic obstructive pulmonary disease) Family History Family History Mother Patient's mother is in good health Family history of cardiovascular disease Father Patient's father is , Onset Age: 58 Sibling Patient's sister is in good health Patient's brother is in good health Social History Social History Smoking status: Current every day smoker Alcohol intake: never Gender identity (if verbalized by the patient): Male Exam Const: General: alert Limitations: altered mental status HENMT: Head: normal to inspection Eyes: Conjunctivae: conjunctivae normal Neck: Neck: normal visual inspection Chest: Chest palpation & inspection: normal inspection of the chest Resp: Effort & Inspection: normal respiratory effort Other: decreased breath sounds in apex of right lung. Cardio: Rate: regular rate Rhythm: regular rhythm GI: GI Palp: Yes Soft to palpation (nontender) Skin: General skin exam: normal color Neuro: General: moves all extremities Extrem: General: normal to inspection Course Course Emergency Course: Labs, EKG, CXR and ct of chest were performed to evaluate Mr Tracy. He does not have a PE Vital Signs Vital signs: Vital Signs Temperature 36.2 C L 06/01/20 01:10 Pulse Rate 88 06/01/20 01:10 Respiratory Rate 18 06/01/20 01:10 Blood Pressure 102/65 06/01/20 01:10 Pulse Oximetry 97
--- NOTE | 2020-06-01 04:00 | PC.NURSE ---
Call back from Dr. Anguiano at [place], spoke c ERP Dr. Danielle, will accept for transfer but no medical beds available at this time. POC discussed c pt. and will make pt. ER Hold until bed is available for transfer.
[2020-06-01 04:03] VITALS: BP 104/81; PULSE 88; RESP 20; O2SAT 98
[2020-06-01 04:05] VITALS: BP 151/66; PULSE 91; RESP 16; TEMP 36.8; O2SAT 94
--- NOTE | 2020-06-01 04:20 | PC.NURSE ---
Pt. going to Rm [id number] for ED Hold, report to CHARLEEN Hong.
--- NOTE | 2020-06-01 05:58 | PC.NURSE ---
[facility] called with bed assignment, nurse given number to call report
--- NOTE | 2020-06-01 06:09 | PC.NURSE ---
Report given to Fani at [facility] for patient transfer and admission there.
--- NOTE | 2020-06-01 06:17 | PC.NURSE ---
call placed to [facility] for transport
[2020-06-01 06:18] LABS: SARS-CoV-2 Ag Negative (Negative)
--- NOTE | 2020-06-01 06:44 | PC.NURSE ---
pt discharged via stretcher with [facility] to [facility] in [facility], pt tolerated transfer to ems stretcher, belongings sent with pt
== END 2020-06-01 06:44 | disposition short-term general hospital (02) ==
LOC: CHSED 04:05 → CHS2ND 04:26
PROVIDERS: Emergency Provider Emergency Medicine; PCP Family Medicine
DX: J85.2 Abscess of lung without pneumonia (principal); J44.9 Chronic obstructive pulmonary disease, unspecified; F17.200 Nicotine dependence, unspecified, uncomplicated; Z20.822 Contact with and (suspected) exposure to COVID-19
CPT/HCPCS: 36415; 71046; 71275; 80053; 81003; 83605; 83735; 83880; 84484; 85025; 85055; 85380; 87426; 93005; 96365; 99285; A9270; C9803; J2543; Q9967

== ENCOUNTER 2020-06-28 10:39 | Outpatient (CLI) | payer MEDICARE, SELFPAY ==
[2020-06-28 10:56] LABS: Basophils Absolute Auto 0.03 K/mm3 (0.00-0.10); Basophils Percent Auto 0.5 % (0.0-1.0); Eosinophils Absolute Auto 0.08 K/mm3 (0.02-0.50); Eosinophils Percent Auto 1.4 % (1.0-6.0); Hematocrit 42.1 % (40.0-54.0); Hemoglobin 14.2 g/dL (14.0-18.0); Immature Granulocyte Absolute 0.02 K/mm3 (0.00-0.00); Immature Granulocyte Percent A 0.4 % (0.0-0.0); Lymphocytes Absolute Auto 0.98 K/mm3 (1.10-4.50); Lymphocytes Percent Auto 17.7 % (18.0-42.0); Mean Corpuscular HGB Conc 33.7 g/dL (32.0-36.0); Mean Corpuscular Hemoglobin 30.3 pg (27.0-31.0); Mean Corpuscular Volume 89.8 fL (78.0-102.0); Mean Platelet Volume 8.4 fl (8.7-11.0); Monocytes Absolute Auto 0.42 K/mm3 (0.10-0.90); Monocytes Percent Auto 7.6 % (2.0-11.0); Neutrophils Percent Auto 72.4 % (50.0-70.0); Platelet Count Result 324 K/mm3 (150-420); Red Blood Count 4.69 M/mm3 (4.70-6.10); Red Cell Distribution Width 13.3 % (11.6-14.4); White Blood Count 5.5 K/mm3 (4.8-10.8)
[2020-06-28 10:57] LABS: Add Urine Microscopic? NO; Appearance Urine Clear (Clear); Bilirubin Urine Negative (Negative); Blood Urine Negative (Negative); Color Urine Yellow (Yellow); Glucose Urine UA Negative (Negative); Ketones Urine Negative (Negative); Leukocyte Esterase Ur Negative LEU/UL (Negative); Nitrate Urine Negative (Negative); Protein Urine Negative (Negative); Urobilinogen Urine 0.2 mg/dL (0.2-1.0)
[2020-06-28 11:18] LABS: Alanine Aminotransferase 18 U/L (16-63); Albumin Level 3.5 g/dL (3.4-5.0); Alkaline Phosphatase 160 U/L (46-116); Anion Gap 6 mmol/L (8-16); Aspartate Amino Transferase 10 U/L (15-37); Bilirubin,Total 1.2 mg/dL (0.00-1.00); Blood Urea Nitrogen 8 mg/dL (7-18); Calcium 9.1 mg/dL (8.5-10.1); Carbon Dioxide 31 mmol/L (21-32); Chloride 98 mmol/L (98-108); Estimated Glomerular Filt Rate > 60; Glucose 80 mg/dL (70-99); Osmolality Calculated 277 mOsm/kg (285-295); Potassium 3.6 mmol/L (3.5-5.1); Sodium 135 mmol/L (136-145); Total Protein 7.6 g/dL (6.4-8.2)
== END 2020-06-28 10:40 | disposition home or self-care (01) ==
LOC: CHSLAB 10:40
PROVIDERS: PCP Family Medicine; Visit Provider Family Medicine
DX: J85.2 Abscess of lung without pneumonia (principal); R41.0 Disorientation, unspecified
CPT/HCPCS: 36415; 80053; 81003; 85025; 87040

== ENCOUNTER 2020-07-03 08:10 | Outpatient (CLI) | payer MEDICARE, OTHER, SELFPAY ==
--- NOTE | ~2020-07-03 | CT_ITS ---
EXAMINATION: CT diagnostic chest w con DATE: 07/03/2020 08:52 INDICATION: Right lower lobe mass TECHNIQUE: Transaxial computed tomographic images of the chest were obtained after the administration of 75 cc of Omnipaque 350 intravenous contrast. The dose-length product (DLP) was 154.86 mGy-cm. Ite rative reconstruction was used. COMPARISON: 06/01/2020 FINDINGS: There is mild emphysema. There is interval improvement in the previously described necrotiz ing pneumonia of the right middle lobe. No persistent pulmonary abscess is identified. There is a sma ll right pleural effusion. Changes of right lower lobectomy are noted. No pneumothorax is identified. No pathologically enlarged thoracic lymph nodes are identified. The heart size is normal. Stones are present in the nondistended gallbladder. There is mild thoracic spondylosis. IMPRESSION: 1. Improving right middle lobe pneumonia with resolved areas of cavitation. 2. Cholelithiasis. 3. Mild emphysema. Reviewed, dictated and finalized at location A. ER
== END 2020-07-03 08:11 | disposition home or self-care (01) ==
PROVIDERS: PCP Family Medicine
DX: R91.8 Other nonspecific abnormal finding of lung field (principal)
CPT/HCPCS: 71260; Q9967

== ENCOUNTER 2020-08-29 13:06 | Outpatient (CLI) | payer MEDICARE, OTHER, SELFPAY ==
--- NOTE | ~2020-08-29 | XR_ITS ---
EXAMINATION: XR chest 2V DATE: 08/29/2020 13:27 INDICATION: Right lower lobe pneumonia TECHNIQUE: PA and lateral views of the chest are obtained. COMPARISON: 06/01/2020; CT, 07/03/2020 FINDINGS: There is persistent but continued interval decrease in opacification of the right lower lob e, consistent with resolving pneumonia. Airspace opacities have nearly completely resolved. There is no pleural effusion or pneumothorax. The cardiomediastinal silhouette is normal. There is mild thorac ic spondylosis. IMPRESSION: 1. Persistent but decreased right lower lobe opacification, consistent with resolving pneumonia. Reviewed, dictated and finalized at location A. IMPRESSION: 1. Persistent but decreased right lower lobe opacification, consistent with res olving pneumonia.
== END 2020-08-29 13:07 | disposition home or self-care (01) ==
PROVIDERS: PCP Family Medicine; Visit Provider Family Medicine
DX: J18.9 Pneumonia, unspecified organism (principal)
CPT/HCPCS: 71046

== ENCOUNTER 2020-10-25 11:34 | Outpatient (CLI) | payer MEDICARE, OTHER, SELFPAY ==
[2020-10-25 11:44] LABS: Basophils Absolute Auto 0.06 K/mm3 (0.00-0.10); Basophils Percent Auto 0.9 % (0.0-1.0); Eosinophils Absolute Auto 0.15 K/mm3 (0.02-0.50); Eosinophils Percent Auto 2.4 % (1.0-6.0); Hematocrit 43.5 % (40.0-54.0); Immature Granulocyte Absolute 0.01 K/mm3 (0.00-0.00); Immature Granulocyte Percent A 0.2 % (0.0-0.0); Lymphocytes Absolute Auto 1.14 K/mm3 (1.10-4.50); Mean Corpuscular HGB Conc 34.5 g/dL (32.0-36.0); Mean Corpuscular Hemoglobin 28.7 pg (27.0-31.0); Mean Corpuscular Volume 83.3 fL (78.0-102.0); Mean Platelet Volume 8.6 fl (8.7-11.0); Monocytes Percent Auto 7.9 % (2.0-11.0); Neutrophils Absolute Auto 4.5 K/mm3 (1.7-7.2); Neutrophils Percent Auto 70.6 % (50.0-70.0); Platelet Count Result 247 K/mm3 (150-420); Red Blood Count 5.22 M/mm3 (4.70-6.10); Red Cell Distribution Width 13.8 % (11.6-14.4); White Blood Count 6.3 K/mm3 (4.8-10.8)
[2020-10-25 12:59] LABS: Alanine Aminotransferase 16 U/L (16-63); Alkaline Phosphatase 159 U/L (46-116); Anion Gap 10 mmol/L (8-16); Aspartate Amino Transferase 11 U/L (15-37); Blood Urea Nitrogen 5 mg/dL (7-18); Calcium 9.3 mg/dL (8.5-10.1); Carbon Dioxide 29 mmol/L (21-32); Chloride 99 mmol/L (98-108); Estimated Glomerular Filt Rate > 60; Glucose 75 mg/dL (70-99); Osmolality Calculated 282 mOsm/kg (285-295); Sodium 138 mmol/L (136-145); Thyroid Stimulating Hormone 0.62 uIU/mL (0.36-3.74)
== END 2020-10-25 11:35 | disposition home or self-care (01) ==
LOC: CHSLAB 11:36
PROVIDERS: PCP Family Medicine; Visit Provider Family Medicine
DX: I10 Essential (primary) hypertension (principal)
CPT/HCPCS: 36415; 80053; 84443; 85025

== ENCOUNTER 2020-11-07 08:30 | Outpatient (CLI) | payer MEDICARE, OTHER, SELFPAY ==
[2020-11-07 08:40] VITALS: PULSE 80; O2SAT 97
[2020-11-07 08:50] VITALS: PULSE 96; O2SAT 96
--- NOTE | 2020-11-07 08:56 | HOMEO2EVAL ---
Evaluation was performed at [facility] Home Oxygen Evaluation RC: Home Oxygen (O2) Evaluation Start: 11/07/20 08:52 Freq: Status: Active Protocol: RPE Activity Type Activity Date Activity User E-Sign Co-Sign Detail Recorded Client Recorded Date Recorded By Document 11/07/20 08:40 SJB [id number] 11/07/20 08:56 SJB Document 11/07/20 08:50 SJB [id number] 11/07/20 08:56 SJB 11/07/20 11/07/20 08:40 08:50 Home O2 Evaluation Test Phase Resting Exercise Oxygen Delivery Room Air Room Air Pulse Oximetry (90-100 %) 97 96 Pulse Rate (60-100 beats/min) 80 96 Activity Tolerance Excellent Rating of Perceived Dyspnea (PD) +1 Mild, +1 Mild, Noticeable to Noticeable to the Participant the Participant but Not to an but Not to an Observer Observer Rate of Perceived Exertion (PE) 6 Very, very 11 Fairly light light Ambulation Distance (feet) 770 Home Oxygen Evaluation Comments PT WALKED 770 FT ON ROOM AIR. [id number] WERE BETWEEN 96-97%. HR REMAINED IN THE MID 90S THROUGHOUT WALK . TOLERATED VERY WELL, TALKING DURING THE WHOLE WALK. Treatment Charges O2 Evaluation - Outpatient
--- NOTE | 2020-11-08 15:38 | P.PCNPFT_ITS ---
PFT Procedure Performed PFT Procedure Performed Spirometry with Pre/Post Bronchodilator Plethysmography (Lung Vol) Diffusing Cap (DLCO) Flow Vol Loop PFT Interpretation DOS: 11/07/2020 REQUESTING: Dr Munguia REASON FOR TESTING: COPD PULMONARY FUNCTION TESTS Results are reliable and reproducible. Spirometry: FEV1 is 72% predicted, 2.7 L. FVC is 74% predicted. The FEV1/FVC ratio is normal 96% predicted. There is no change with bronchodilator. FEF25- 75% is 59%. Lung volumes: Total lung capacity 85%, normal. Slow vital capacity 76%. Residual volume 103%. RV/TLC is increased 41% and this is consistent with air trapping. Airway resistance is elevated 129%. Diffusion: DLCO 73%. This is mildly reduced. Flow volume loop: Unremarkable. No scooping of the expiratory limb. IMPRESSION: Mild obstructive ventilatory impairment without change after bronchodilator, mild air trapping, mild diffusion impairment. Lack of response to bronchodilator should not preclude use if clinically indicated. Jenn Munguia MD
--- NOTE | 2020-11-08 15:44 | WPDSIXMINUTE ---
Six Minute Walk Procedure Procedure Performed Pulmonary Stress Test (6 min walk) Six Minute Walk Six Minute Walk: DOS: 11/07/2020 REQUESTING: Dr Munguia REASON: COPD SIX MINUTE WALK This test was conducted per ATS guidelines. On room air the saturation was 97% and the pulse was 80. The patient walked for 6 minutes without stopping. He completed 770 ft/235 meters. Saturation did not drop. He was able to talk throughout the study. IMPRESSION: No supplemental oxygen indicated with exertion. Distance walked is less than expected for his age.
== END 2020-11-07 08:31 | disposition home or self-care (01) ==
LOC: CHSCARD 08:33
PROVIDERS: PCP Family Medicine; Visit Provider Internal Medicine Critical Care Medicine
DX: J44.9 Chronic obstructive pulmonary disease, unspecified (principal); R06.02 Shortness of breath
CPT/HCPCS: 94060; 94618; 94726; 94729

== ENCOUNTER 2020-11-27 08:47 | Outpatient (CLI) | payer MEDICARE, OTHER, SELFPAY ==
--- NOTE | ~2020-11-27 | CT_ITS ---
EXAMINATION: CT diagnostic chest wo con DATE: 11/27/2020 09:12 INDICATION: Right lower lobe nodule TECHNIQUE: Computed tomography (CT) of the chest was performed without intravenous contrast. The dose -length product (DLP) was 84.05 mGy-cm. Automated exposure control and iterative reconstruction techn ique were employed. COMPARISON: 07/03/2020 FINDINGS: There is mild emphysema. The previously described right middle lobe pneumonia has nearly co mpletely resolved. There is minimal residual atelectasis. There has been interval development of a 4. 3 x 2.9 cm masslike opacity in the medial aspect of the left lower lobe. There is no pleural effusion or pneumothorax. Changes of right lower lobectomy are again noted. No pathologically enlarged thorac ic lymph nodes are identified. The heart size is normal. Borderline size right paratracheal lymph nod es are likely reactive. Cholelithiasis is noted. There is mild thoracic spondylosis. IMPRESSION: 1. Near complete resolution of the previously described right middle lobe pneumonia. 2. New masslike airspace opacity in the medial aspect of the left lower lobe, most consistent with pn eumonia given short interval between examinations. Reviewed, dictated and finalized at location A. IMPRESSION: 1. Near complete resolution of the previously described right middle lobe pneum onia. 2. New masslike airspace opacity in the medial aspect of the left lower lobe, m ost consistent with pneumonia given short interval between examinations.
== END 2020-11-27 08:48 | disposition home or self-care (01) ==
LOC: CHSIMG 08:49
PROVIDERS: PCP Family Medicine; Visit Provider Internal Medicine Critical Care Medicine
DX: R91.8 Other nonspecific abnormal finding of lung field (principal)
CPT/HCPCS: 71250

== ENCOUNTER 2021-03-03 11:41 | Outpatient (CLI) | payer MEDICARE, OTHER, SELFPAY ==
--- NOTE | ~2021-03-03 | XR_ITS ---
EXAMINATION: XR lumbar spine 2-3V DATE: 03/03/2021 12:12 INDICATION: Low back pain TECHNIQUE: Anteroposterior and lateral views of the lumbar spine, and cone-down lateral view of the l umbosacral junction were obtained. COMPARISON: 01/01/2009 FINDINGS: There are 3 mm of retrolisthesis of L5 on S1. There is moderate loss of intervertebral disc space height at L4-5. The vertebral body heights are maintained. Small degenerative osteophytes proj ect from the anterior endplates of multiple vertebral bodies. There is mild facet osteoarthritis of t he lower lumbar spine. Cholelithiasis is noted. IMPRESSION: 1. Mild lumbar spondylosis without acute findings. Reviewed, dictated and finalized at location B. STANT TO THE DEAN
--- NOTE | ~2021-03-03 | XR_ITS ---
EXAMINATION: XR thoracic spine 3V DATE: 03/03/2021 12:12 INDICATION: Back pain pain TECHNIQUE: AP, lateral and lateral swimmer's views of the thoracic spine were obtained. COMPARISON: CT, 11/27/2020 FINDINGS: Bone alignment is normal. There is no fracture. The vertebral body heights are maintained. There is mild loss of intervertebral disc space height at multiple levels in the thoracic spine. Smal l degenerative osteophytes project from the anterior endplates of multiple vertebral bodies. A left b asilar airspace opacity likely reflects resolving pneumonia seen on recent CT. IMPRESSION: 1. Mild thoracic spondylosis without acute findings. Reviewed, dictated and finalized at location B. 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
[2021-03-03 11:56] LABS: Basophils Absolute Auto 0.04 K/mm3 (0.00-0.10); Basophils Percent Auto 0.6 % (0.0-1.0); Eosinophils Absolute Auto 0.08 K/mm3 (0.02-0.50); Eosinophils Percent Auto 1.2 % (1.0-6.0); Hematocrit 41.2 % (40.0-54.0); Hemoglobin 13.9 g/dL (14.0-18.0); Immature Granulocyte Absolute 0.02 K/mm3 (0.00-0.00); Immature Granulocyte Percent A 0.3 % (0.0-0.0); Lymphocytes Absolute Auto 1.44 K/mm3 (1.10-4.50); Lymphocytes Percent Auto 21.8 % (18.0-42.0); Mean Corpuscular HGB Conc 33.7 g/dL (32.0-36.0); Mean Corpuscular Hemoglobin 28.4 pg (27.0-31.0); Mean Corpuscular Volume 84.3 fL (78.0-102.0); Mean Platelet Volume 8.5 fl (8.7-11.0); Monocytes Absolute Auto 0.55 K/mm3 (0.10-0.90); Monocytes Percent Auto 8.3 % (2.0-11.0); Neutrophils Absolute Auto 4.5 K/mm3 (1.7-7.2); Neutrophils Percent Auto 67.8 % (50.0-70.0); Platelet Count Result 304 K/mm3 (150-420); Red Blood Count 4.89 M/mm3 (4.70-6.10); Red Cell Distribution Width 14.4 % (11.6-14.4); White Blood Count 6.6 K/mm3 (4.8-10.8)
[2021-03-03 11:57] LABS: Add Urine Microscopic? NO; Appearance Urine Clear (Clear); Bilirubin Urine Negative (Negative); Blood Urine Negative (Negative); Color Urine Light Yellow (Yellow); Glucose Urine UA Negative (Negative); Ketones Urine Negative (Negative); Leukocyte Esterase Ur Negative LEU/UL (Negative); Nitrate Urine Negative (Negative); Protein Urine Negative (Negative); Specific Grav Ur <= 1.005 (1.010-1.020); Urobilinogen Urine 0.2 mg/dL (0.2-1.0); pH Urine 5.5 (5.0-8.0)
[2021-03-03 12:18] LABS: Alanine Aminotransferase 19 U/L (16-63); Albumin Level 3.5 g/dL (3.4-5.0); Alkaline Phosphatase 167 U/L (46-116); Amylase 35 U/L (25-115); Anion Gap 8 mmol/L (8-16); Aspartate Amino Transferase 10 U/L (15-37); Bilirubin,Total 0.9 mg/dL (0.00-1.00); Blood Urea Nitrogen 4 mg/dL (7-18); Calcium 9.6 mg/dL (8.5-10.1); Carbon Dioxide 30 mmol/L (21-32); Chloride 96 mmol/L (98-108); Estimated Glomerular Filt Rate > 60; Glucose 97 mg/dL (70-99); Lipase 87 U/L (73-393); Osmolality Calculated 274 mOsm/kg (285-295); Potassium 3.3 mmol/L (3.5-5.1); Sodium 134 mmol/L (136-145); Total Protein 7.8 g/dL (6.4-8.2)
== END 2021-03-03 11:42 | disposition home or self-care (01) ==
LOC: CHSLAB 11:44
PROVIDERS: PCP Family Medicine; Visit Provider Family Medicine
DX: R10.9 Unspecified abdominal pain (principal); M54.50 Low back pain, unspecified; M54.9 Dorsalgia, unspecified
CPT/HCPCS: 36415; 72072; 72100; 80053; 81003; 82150; 83690; 85025

== ENCOUNTER 2021-05-13 07:26 | Outpatient (CLI) | payer MEDICARE, OTHER, SELFPAY ==
--- NOTE | ~2021-05-13 | XR_ITS ---
XR chest 2V DATE: 05/13/2021 07:46 INDICATION: Abnormal left lung finding TECHNIQUE: 2 views COMPARISON: 11/27/2020 CT chest 07/03/2020 CT chest FINDINGS: There is bilateral hyperinflation and relative flattening the diaphragm and increased retro sternal airspace, consistent with COPD. There is chronic scarring in the right lower lobe. There is mild infiltrate, atelectasis and/or residual scarring in the left retrocardiac area, left lo wer lobe, where a focal area of masslike air opacity was described on 11/27/2020 CT chest examination, not present on 07/03/2020 CT chest. This is likely residual mild infiltrate, atelectasis or scarring. The lungs otherwise appear clear of infiltrate or consolidation. Normal heart size. No hilar or mediastinal enlargement. Mild aortic unfolding. Diffuse idiopathic skeletal hyperostosis of the lower thoracic spine. IMPRESSION: Probable mild residual infiltrate, atelectasis or scarring in the left lower lobe, improv ed since 11/2020 COPD Chronic right lower lobe scarring Reviewed, dictated and finalized at location A. BULATORY CARE COORDINATOR IMPRESSION: Probable mild residual infiltrate, atelectasis or scarring in the l eft lower lobe, improved since 11/2020 COPD Chronic right lower lobe scarring
== END 2021-05-13 07:27 | disposition home or self-care (01) ==
LOC: CHSIMG 07:29
PROVIDERS: PCP Family Medicine; Visit Provider Nurse Practitioner Family
DX: R91.8 Other nonspecific abnormal finding of lung field (principal)
CPT/HCPCS: 71046

== ENCOUNTER 2021-06-12 08:27 | Outpatient (CLI) | payer MEDICARE, OTHER, SELFPAY ==
--- NOTE | ~2021-06-12 | XR_ITS ---
XR knee LT 3V DATE: 06/12/2021 09:05 INDICATION: Generalized bilateral knee pain TECHNIQUE: 3 views COMPARISON: None FINDINGS: There is osteopenia. No fracture or dislocation or significant joint effusion. There is slight periarticular spurring of the patella. No periosteal reaction or bone destruction. Joint space s are well preserved. No radiopaque intra-articular loose body or chondrocalcinosis. IMPRESSION: Osteopenia Slight osteoarthritis at patellofemoral compartment Reviewed, dictated and finalized at location B. OFFICE MANAGER
--- NOTE | ~2021-06-12 | XR_ITS ---
XR shoulder RT min 2V DATE: 06/12/2021 09:04 INDICATION: Right shoulder pain, stiffness TECHNIQUE: 4 views COMPARISON: None FINDINGS: There is joint space narrowing and spurring at the right acromioclavicular joint. No fractu re, dislocation, periosteal reaction or bone destruction or abnormal soft tissue calcification. IMPRESSION: Degenerative change at the right acromioclavicular joint Reviewed, dictated and finalized at location B. MAKER
--- NOTE | ~2021-06-12 | XR_ITS ---
EXAMINATION: XR knee RT 3V DATE: 06/12/2021 09:05 INDICATION: Right knee pain TECHNIQUE: Three views of the right knee were obtained. COMPARISON: None. FINDINGS: Alignment is normal. No fracture or osteochondral lesion. There is mild tricompartmental os teoarthritis characterized by tiny marginal osteophytes. No joint effusion/synovitis. Soft tissues a re unremarkable. IMPRESSION: 1. Mild osteoarthritis without acute osseous abnormality. Reviewed, dictated and finalized at location A. EXAMINER
[2021-06-12 08:47] LABS: Basophils Absolute Auto 0.04 K/mm3 (0.00-0.10); Basophils Percent Auto 0.5 % (0.0-1.0); Eosinophils Absolute Auto 0.08 K/mm3 (0.02-0.50); Hematocrit 44.6 % (40.0-54.0); Hemoglobin 14.8 g/dL (14.0-18.0); Immature Granulocyte Absolute 0.04 K/mm3 (0.00-0.00); Immature Granulocyte Percent A 0.5 % (0.0-0.0); Lymphocytes Absolute Auto 1.33 K/mm3 (1.10-4.50); Lymphocytes Percent Auto 16.7 % (18.0-42.0); Mean Corpuscular HGB Conc 33.2 g/dL (32.0-36.0); Mean Corpuscular Hemoglobin 29.8 pg (27.0-31.0); Mean Corpuscular Volume 89.7 fL (78.0-102.0); Mean Platelet Volume 8.7 fl (8.7-11.0); Monocytes Absolute Auto 0.72 K/mm3 (0.10-0.90); Neutrophils Absolute Auto 5.8 K/mm3 (1.7-7.2); Neutrophils Percent Auto 72.3 % (50.0-70.0); Platelet Count Result 331 K/mm3 (150-420); Red Blood Count 4.97 M/mm3 (4.70-6.10); Red Cell Distribution Width 13.6 % (11.6-14.4)
[2021-06-12 09:04] LABS: Alanine Aminotransferase 17 U/L (16-63); Albumin Level 3.8 g/dL (3.4-5.0); Alkaline Phosphatase 164 U/L (46-116); Anion Gap 7 mmol/L (8-16); Aspartate Amino Transferase 14 U/L (15-37); Bilirubin,Total 0.8 mg/dL (0.00-1.00); Blood Urea Nitrogen 6 mg/dL (7-18); Calcium 9.4 mg/dL (8.5-10.1); Carbon Dioxide 31 mmol/L (21-32); Chloride 93 mmol/L (98-108); Estimated Glomerular Filt Rate > 60; Glucose 99 mg/dL (70-99); Osmolality Calculated 269 mOsm/kg (285-295); Potassium 3.9 mmol/L (3.5-5.1); Sodium 131 mmol/L (136-145); Total Protein 7.4 g/dL (6.4-8.2)
== END 2021-06-12 08:28 | disposition home or self-care (01) ==
LOC: CHSLAB 08:30
PROVIDERS: PCP Family Medicine; Visit Provider Family Medicine
DX: M25.511 Pain in right shoulder (principal); M25.562 Pain in left knee; M25.561 Pain in right knee; I10 Essential (primary) hypertension
CPT/HCPCS: 36415; 73030; 73562; 80053; 85025

== ENCOUNTER 2021-06-17 07:19 | Outpatient (CLI) | payer MEDICARE, OTHER, SELFPAY ==
--- NOTE | ~2021-06-17 | DEXA_ITS ---
Bone Density Report Name: DANK SOUSA Age: 56 Sex: Male Ethnicity: White Date of : 1965 Indication: height loss; asthma or emphysema; rheumatoid arthritis; Referring Provider: Mamadou Morales Study: Bone densitometry was performed. Exam Date: June 17, 2021 Accession number: [id number] Bone Density: Region BMD T-score Z-score Classification AP Spine(L1-L4) 1.275 1.7 2.2 Normal Femoral Neck (Left) 0.756 -1.3 -0.4 Osteopenia Total Hip (Left) 0.788 -1.6 -1.2 Osteopenia Femoral Neck (Right) 0.733 -1.4 -0.6 Osteopenia Total Hip (Right) 0.743 -1.9 -1.5 Osteopenia Femoral Neck Mean 0.745 -1.4 -0.5 Osteopenia Total Hip Mean 0.766 -1.8 -1.4 Osteopenia World Health Organization criteria for BMD impression classify patients as: Normal (T-score at or above -1.0), Osteopenia (T-score between -1.0 and -2.5), or Osteoporosis (T-score at or below -2.5). 10-year Fracture Risk(1): Major Osteoporotic Fracture 5.6% Hip Fracture 1.0% Reported Risk Factors: [place] (), Neck BMD=0.733, BMI=18.5, smoking, rheumatoid arthritis (1) FRAX(R) Version 3.08. Fracture probability calculated for an untreated patient. Fracture probability may be lower if the patient has received treatment. Clinical Information Provided by Patient: Smokes Has rheumatoid arthritis Has used the following medications: Vitamin D, Calcium Has the following medical conditions: Asthma or Emphysema Patient maximum height was 73 No regular weight bearing exercise Does not regularly consume dairy products Drinks caffeinated beverages Impression: The patient has low bone mass, based on the Right Total Hip T-score. The patient has risk factors, including: smoking. Discussion: BONE DENSITY IS LOW AT ONE OR MORE SKELETAL SITES. This patient's lowest T-score is low at one or more skeletal sites. It meets the World Health Organization's (WHO) criteria for ?low bone mass? (T-score between -1.0 and -2.5). The patient's 10-year risk of fracture as calculated by FRAX is less than the threshold where pharmacological therapy is recommended by the National Osteoporosis Foundation (NOF). However, all treatment decisions require clinical judgment and consideration of individual patient factors, including patient preferences, comorbidities, previous drug use, risk factors not captured in the FRAX model (e.g., frailty, falls, vitamin D deficiency, increased bone turnover, interval significant decline in bone density) and possible under or overestimation of fracture risk by FRAX. The patient should follow a healthful lifestyle (good nutrition with adequate calcium and vitamin D, and appropriate weight-bearing exercise). Follow-Up: Consider repeating this study in 2 to 3 years to reassess this patient's st
== END 2021-06-17 07:20 | disposition home or self-care (01) ==
LOC: CHSIMG 07:20
PROVIDERS: PCP Family Medicine; Visit Provider Family Medicine
DX: M81.0 Age-related osteoporosis without current pathological fracture (principal)
CPT/HCPCS: 77080

== ENCOUNTER 2021-08-11 10:16 | Outpatient (CLI) | payer MEDICARE, OTHER, SELFPAY ==
--- NOTE | ~2021-08-11 | CT_ITS ---
EXAMINATION: CT diagnostic chest wo con EXAM DATE: 08/11/2021 11:00 INDICATION: Abnormal weight/abnormal finding of lung field.. TECHNIQUE: Spiral CT of the chest without contrast. Axial, coronal and sagittal images of the chest were reviewed. Coronal maximum intensity pixel images of chest reviewed. The dose-length product ( DLP) for this examination was 144.98 mGy-cm. The exposure was tailored according to patient size (au to mA exposure control), and iterative reconstruction (ASIR) was used as additional dose reduction te chnique. Comparison is made to prior examination from 11/27/2020. FINDINGS: Partial right pneumonectomy. Scattered left basilar tree-in-bud pattern opacities, distrib ution suggests endobronchial spread of infection which could be acute or subacute. Tuberculosis not e xcludable. There is mild emphysema and moderate hyperinflation. Previously seen segmental left lower lobe opacity has essentially resolved with some residual postinfectious. There are no pleural or pericardial effusions. Tracheobronchial tree is patent. There is no media stinal, hilar or axillary lymphadenopathy. There is no pneumothorax. Heart normal in size. Ther e is mild coronary arterial calcification, arterial sclerosis. There is cholelithiasis. No osteobla stic or osteolytic lesions identified. IMPRESSION: 1. Scattered left basilar tree-in-bud airspace disease likely pneumonitis. 2. Residual left lower lobe scarring from previous pneumonia. 3. Partial right pneumonectomy. 4. Moderate hyperinflation. 5. Mild emphysema. 6. Cholelithiasis Reviewed, dictated and finalized at location A.
== END 2021-08-11 10:17 | disposition home or self-care (01) ==
LOC: CHSIMG 10:17
PROVIDERS: PCP Family Medicine; Visit Provider Nurse Practitioner Family
DX: R63.4 Abnormal weight loss (principal); R91.8 Other nonspecific abnormal finding of lung field
CPT/HCPCS: 71250

== ENCOUNTER 2021-08-27 07:34 | Outpatient (CLI) | payer MEDICARE, SELFPAY ==
[2021-08-27 08:12] LABS: Basophils Absolute Auto 0.06 K/mm3 (0.00-0.10); Eosinophils Absolute Auto 0.16 K/mm3 (0.02-0.50); Eosinophils Percent Auto 2.7 % (1.0-6.0); Hematocrit 44.1 % (40.0-54.0); Hemoglobin 14.8 g/dL (14.0-18.0); Immature Granulocyte Absolute 0.02 K/mm3 (0.00-0.00); Immature Granulocyte Percent A 0.3 % (0.0-0.0); Lymphocytes Absolute Auto 1.41 K/mm3 (1.10-4.50); Lymphocytes Percent Auto 23.9 % (18.0-42.0); Mean Corpuscular HGB Conc 33.6 g/dL (32.0-36.0); Mean Corpuscular Hemoglobin 30.8 pg (27.0-31.0); Mean Corpuscular Volume 91.9 fL (78.0-102.0); Mean Platelet Volume 8.9 fl (8.7-11.0); Monocytes Absolute Auto 0.47 K/mm3 (0.10-0.90); Neutrophils Absolute Auto 3.8 K/mm3 (1.7-7.2); Neutrophils Percent Auto 64.1 % (50.0-70.0); Platelet Count Result 310 K/mm3 (150-420); Red Cell Distribution Width 13.4 % (11.6-14.4); White Blood Count 5.9 K/mm3 (4.8-10.8)
[2021-08-27 08:17] LABS: Prostate Specific Antigen 0.9 ng/mL (< OR = 4.0)
[2021-08-29 16:36] LABS: NIL 0.01 IU/mL; Quantiferon TB Plus, 1T NEGATIVE (NEGATIVE)
== END 2021-08-27 07:35 | disposition home or self-care (01) ==
LOC: CHSLAB 07:39
PROVIDERS: PCP Family Medicine; Visit Provider Nurse Practitioner Family
DX: J18.9 Pneumonia, unspecified organism (principal); Z12.5 Encounter for screening for malignant neoplasm of prostate; R91.8 Other nonspecific abnormal finding of lung field
CPT/HCPCS: 36415; 84153; 85025; 86480; G0103

== ENCOUNTER 2022-03-20 10:02 | Outpatient (CLI) | payer MEDICARE, OTHER, SELFPAY ==
--- NOTE | ~2022-03-20 | XR_ITS ---
XR chest 2V 03/20/2022 10:43 Indication: Cough for 2-3 months Procedure: 2 view chest Comparison: Comparison to multiple prior studies sequentially, with oldest reviewed study dated 09/2020. Findings: There are emphysematous changes. There is left lower lobe airspace disease which may repres ent atelectasis and/or pneumonia. No significant effusion. No acute osseous abnormality. There is a c alcified granuloma left lower lung. Impression: 1: Left lower lobe airspace disease may represent atelectasis and/or pneumonia. 2: Emphysema. Chronic right basilar atelectasis/scarring. Reviewed, dictated and finalized at location A. ENT MANUFACTURER Impression: 1: Left lower lobe airspace disease may represent atelectasis and/or pneumonia. 2: Emphysema. Chronic right basilar atelectasis/scarring.
[2022-03-20 10:16] LABS: Basophils Absolute Auto 0.07 K/mm3 (0.00-0.10); Basophils Percent Auto 0.7 % (0.0-1.0); Eosinophils Absolute Auto 0.22 K/mm3 (0.02-0.50); Hematocrit 37.6 % (40.0-54.0); Hemoglobin 12.7 g/dL (14.0-18.0); Immature Granulocyte Absolute 0.06 K/mm3 (0.00-0.00); Immature Granulocyte Percent A 0.6 % (0.0-0.0); Lymphocytes Absolute Auto 1.41 K/mm3 (1.10-4.50); Lymphocytes Percent Auto 13.1 % (18.0-42.0); Mean Corpuscular HGB Conc 33.8 g/dL (32.0-36.0); Mean Corpuscular Volume 88.7 fL (78.0-102.0); Mean Platelet Volume 8.6 fl (8.7-11.0); Monocytes Absolute Auto 0.85 K/mm3 (0.10-0.90); Monocytes Percent Auto 7.9 % (2.0-11.0); Neutrophils Absolute Auto 8.1 K/mm3 (1.7-7.2); Neutrophils Percent Auto 75.7 % (50.0-70.0); Platelet Count Result 413 K/mm3 (150-420); Red Blood Count 4.24 M/mm3 (4.70-6.10); Red Cell Distribution Width 12.1 % (11.6-14.4); White Blood Count 10.7 K/mm3 (4.8-10.8)
[2022-03-20 11:14] LABS: Alanine Aminotransferase 16 U/L (16-63); Alkaline Phosphatase 187 U/L (46-116); Anion Gap 6 mmol/L (8-16); Aspartate Amino Transferase 14 U/L (15-37); Bilirubin,Total 0.7 mg/dL (0.00-1.00); Blood Urea Nitrogen 6 mg/dL (7-18); Calcium 8.8 mg/dL (8.5-10.1); Carbon Dioxide 33 mmol/L (21-32); Chloride 96 mmol/L (98-108); Estimated Glomerular Filt Rate > 60; Glucose 65 mg/dL (70-99); Osmolality Calculated 275 mOsm/kg (285-295); Potassium 4.1 mmol/L (3.5-5.1); Sodium 135 mmol/L (136-145); Thyroid Stimulating Hormone 0.41 uIU/mL (0.36-3.74); Total Protein 6.9 g/dL (6.4-8.2)
[2022-03-23 10:19] LABS: Ferritin 233 ng/mL (26-388); Iron 15 ug/dL (65-175); Percent Iron Saturation 8 % (12-57)
== END 2022-03-20 10:03 | disposition home or self-care (01) ==
LOC: CHSLAB 10:04
PROVIDERS: PCP Family Medicine; Visit Provider Family Medicine
DX: R05.9 Cough, unspecified (principal); I10 Essential (primary) hypertension; D64.9 Anemia, unspecified
CPT/HCPCS: 36415; 71046; 80053; 82728; 83540; 83550; 84443; 85025

== ENCOUNTER 2022-03-26 01:39 | Emergency (ER) | payer MEDICARE, OTHER, SELFPAY ==
--- NOTE | 2022-03-26 01:47 | PC.NURSE ---
Took pt to room to evaluate pt. He started yelling the minute this RN walked into room stating he wasn't going to sit or lie down on that bed. He stated he was here because he couldn't breathe, even though pt was yelling and talking s any distress. He stated his FMD Dr Morales put him on an antibiotic and it had his stomach in knots and he couldn't sleep. When asked if the he would do tests, or labs if ERP ordered them he countinues to yell and state I'm not going to be a guinea pig, I've already had all that done. I'll just wait to see my Dr tomorrow, I'm not going through this with you people . Pt then proceeded to walk out of ER and left stating he needed to just get some sleep.
== END 2022-03-26 01:47 | disposition left against medical advice (07) ==
PROVIDERS: Emergency Provider Emergency Medicine; PCP Family Medicine
DX: R10.9 Unspecified abdominal pain (principal); Z53.8 Procedure and treatment not carried out for other reasons
CPT/HCPCS: 99199

== ENCOUNTER 2022-03-28 12:57 | Emergency (ER) | payer MEDICARE, OTHER, SELFPAY ==
--- NOTE | ~2022-03-28 | XR_ITS ---
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 RESULT: Lines, tubes, and devices: None. Lungs and pleura: Right lower lung scar and bibasilar atelectasis. Possible trace right pleural effu meme versus chronic pleural parenchymal scarring. Hazy, graded opacity in the left mid and lower lung . Large, loculated left pleural effusion. Cardiomediastinal silhouette: Stable. Other: No acute osseous or upper abdominal finding. IMPRESSION: Large, likely loculated left pleural effusion. Adjacent left lower lung compressive atelectasis. Infe ction is not excluded. Reviewed, dictated and finalized at location K. L FURNITURE ASSEMBLER
--- NOTE | 2022-03-28 13:45 | PC.NURSE ---
pt lwbs at 1308.
== END 2022-03-28 13:10 | disposition left against medical advice (07) ==
PROVIDERS: Emergency Provider Emergency Medicine; PCP Family Medicine
DX: Z53.21 Procedure and treatment not carried out due to patient leaving prior to being seen by health care provider (principal)
CPT/HCPCS: 99199; 71045

== ENCOUNTER 2022-03-28 14:19 | Emergency (ER) | payer MEDICARE, OTHER, SELFPAY ==
--- NOTE | ~2022-03-28 | XR_ITS ---
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 RESULT: Lines, tubes, and devices: None. Lungs and pleura: Right lower lung scar and bibasilar atelectasis. Possible trace right pleural effu meme versus chronic pleural parenchymal scarring. Hazy, graded opacity in the left mid and lower lung . Large, loculated left pleural effusion. Cardiomediastinal silhouette: Stable. Other: No acute osseous or upper abdominal finding. IMPRESSION: Large, likely loculated left pleural effusion. Adjacent left lower lung compressive atelectasis. Infe ction is not excluded. Reviewed, dictated and finalized at location K. ING FLOOR OPERATOR IMPRESSION: Large, likely loculated left pleural effusion. Adjacent left lower lung dalia sive atelectasis. Infection is not excluded.
[2022-03-28 14:32] VITALS: BP 134/83; PULSE 120; RESP 22; TEMP 37.1; O2SAT 92
[2022-03-28 15:00] VITALS: PULSE 116; RESP 25
[2022-03-28] MEDS: IPRATROPIUM 0.5 MG/ALBUTEROL SULFATE 2.5 MG AMPUL.NEB 3 ML INHALATION (15:00)
[2022-03-28 15:02] VITALS: PULSE 116; RESP 23; O2SAT 93
[2022-03-28 15:09] VITALS: PULSE 111; RESP 24; O2SAT 95
[2022-03-28] MEDS: methylPREDNISolone ACETATE 40 MG/ML VIAL 80 MG IM (15:15)
[2022-03-28 15:17] VITALS: BP 123/85; PULSE 118; RESP 22; O2SAT 91
[2022-03-28] MEDS: levoFLOXacin 500 MG TABLET PO (16:25)
[2022-03-28] MEDS: KETOROLAC (*BKC) 60 MG/2 ML VIAL IM (16:25)
--- NOTE | 2022-03-28 16:25 | ED.SOB ---
HPI - SOB/Dyspnea General Chief Complaint: Shortness of Breath/Dyspnea Stated Complaint: trouble breathing allergic reaction to meds Time Seen by Provider: 03/28/22 14:40 Source: patient Mode of arrival: ambulatory Limitations: no limitations History of Present Illness HPI Narrative: this is a 57-year-old gentleman with a history of COPD follows with his primary care physician and had placed patient on antibiotics which patient states that caused reaction currently there is mild shortness of breath with some no fever chills no nausea vomiting no abdominal pain no flank pain no chest pain. MD elicited complaint: shortness of breath Pertinent past history: COPD Onset (ago): day(s) Severity: mild Related Data Home Medications Medication Instructions Recorded Confirmed amlodipine 10 mg tablet 10 mg PO DAILY 05/23/20 03/28/22 folic acid 1 mg tablet 1 mg PO DAILY 05/23/20 03/28/22 haloperidol 5 mg tablet 5 mg PO TID 05/23/20 03/28/22 haloperidol decanoate 100 mg/mL 5 mg IM WEEKLY 05/23/20 03/28/22 intramuscular solution propranolol 20 mg tablet 20 mg PO DAILY 05/23/20 03/28/22 sildenafil 100 mg tablet 100 mg PO DAILY 05/23/20 03/28/22 benztropine 0.5 mg tablet 0.5 mg PO BID 05/09/21 03/28/22 cholecalciferol (vitamin D3) 125 125 mcg PO DAILY 05/09/21 03/28/22 mcg (5,000 unit) capsule omeprazole 20 mg capsule,delayed 20 mg PO DAILY 05/09/21 03/28/22 release Allergies Allergy/AdvReac Type Severity Reaction Status Date / Time nitrofurantoin Allergy Unknown Unknown Verified 08/01/21 14:30 Review of Systems Review of Systems: All systems reviewed & are unremarkable except as noted in HPI and below PMFSH Past Medical History Medical History COPD (chronic obstructive pulmonary disease) Depression DJD of AC (acromioclavicular) joint History of tobacco abuse Hoarseness Hypertension Lung mass IGOR (obstructive sleep apnea) Rheumatoid arthritis Right shoulder pain RLL pneumonia Rotator cuff tendinitis SOB (shortness of breath) Tobacco abuse Unintentional weight loss Surgical History Surgical History History of lobectomy of lung 2019 Family History Family History Mother Patient's mother is in good health Family history of cardiovascular disease Father Patient's father is , Onset Age: 58 Sibling Patient's sister is in good health Patient's brother is in good health Other Arthritis Cancer Depression Heart disease High cholesterol Hypertension Social History Social History Smoking packs per day: 1 Smoking cigarettes per day: 20.0 Years smoked: 47 Smoking pack-years: 47.00 Smoking status: Current every day smoker Alcohol intake: current Drinks per week: 1 Gender identity (if verbalized by the patient): Male Exam Const: General: healthy appearing Nutritional Appearance: well nourished Orientation/consciousness: patient oriented x3 Limitations: no limitations HENMT: Head: normal to inspection Throat: posterior oropharynx normal Eyes: Conjunctivae: conjunctivae normal Pupils: Equal, round and reactive pupils present EOM: EOMs intact bilaterally Neck: Neck: normal visual inspection Chest: Chest palpation & inspection: normal inspection of the chest Resp: Effort & Inspection: normal respiratory effort Auscultation: clear to auscultation bilaterally Cardio: Rate: regular rate Rhythm: regular rhythm GI: GI Palp: Yes Soft to palpation Auscultation: normal bowel sounds : Male General Exam: Yes normal external exam Urinary Catheter: Urinary Catheter: patent and draining Back/Spine/Pelvis: Back: no CVA tenderness Skin: General skin exam: normal color Rashes: no rashes Neuro: General: patient oriented x3 and moves a
[2022-03-28 16:27] VITALS: BP 121/79; PULSE 81; RESP 20; TEMP 36.9; O2SAT 91
== END 2022-03-28 16:38 | disposition home or self-care (01) ==
PROVIDERS: Emergency Provider Emergency Medicine; PCP Family Medicine
DX: J44.9 Chronic obstructive pulmonary disease, unspecified (principal); R91.8 Other nonspecific abnormal finding of lung field; J18.9 Pneumonia, unspecified organism; F17.200 Nicotine dependence, unspecified, uncomplicated
CPT/HCPCS: 71045; 94640; 96372; 99284; A9270; J1030; J1885

== ENCOUNTER 2022-04-01 10:20 | Emergency (ER) | payer MEDICARE, OTHER, SELFPAY ==
[2022-04-01] VITALS (47 sets, daily range): BP systolic 90–126; BP diastolic 64–85; PULSE 64–97; RESP 13–21; TEMP 36.7; O2SAT 91–100
--- NOTE | ~2022-04-01 | US_ITS ---
EXAMINATION: US thoracentesis DATE: 04/01/2022 15:46 INDICATION: Unilateral complex loculated left pleural effusion. TECHNIQUE: The procedure and its risks and benefits were discussed with the patient. Potential risks discussed included bleeding, infection, and pneumothorax. The patient understood the risks and agreed to proceed. The skin was prepped and draped in sterile fashion. 1% lidocaine was used for local anes thesia. Under ultrasound guidance, a 5 Fr catheter with trochar was advanced into the large complex l eft pleural effusion pleural effusion. Fluid was aspirated. The catheter was removed, and a dressing was applied. There were no immediate complications. FINDINGS: Ultrasound images demonstrate a large complex pleural effusion, predominantly hypoechoic with a few s mall loculated more anechoic components near the left lung base. Images demonstrate the catheter with in the fluid. Initially the catheter was positioned in the hypoechoic fluid at the lateral left midlu ng zone which yielded minimal thick dark bloody fluid. Cloudy orange-colored serosanguineous fluid wa s obtained following repositioning of the catheter into one of these small were anechoic pockets at t he lung bases. IMPRESSION: 1. Successful ultrasound-guided thoracentesis yielding initially scant amount of dark bloody fluid a nd following repositioning, 500 mL of cloudy orange-colored fluid. Reviewed, dictated and finalized at location A. RENTAL SERVICE ATTENDANT IMPRESSION: 1. Successful ultrasound-guided thoracentesis yielding initially scant amount of dark bloody fluid and following repositioning, 500 mL of cloudy orange-color ed fluid.
--- NOTE | ~2022-04-01 | XR_ITS ---
XR_[id number]_CR DATE: 04/01/2022 15:49 INDICATION: Post left thoracentesis for left pleural effusion TECHNIQUE: Portable upright AP chest on 04/01/2022 at 1546 hours COMPARISON: 03/28/2022 portable AP chest FINDINGS: There is mild interval improvement but prominent residual left pleural effusion on the left . There is no evidence of pneumothorax following thoracentesis. IMPRESSION: No evidence of left postthoracentesis pneumothorax; large residual loculated left pleural effusion Reviewed, dictated and finalized at Location A. Reviewed, dictated and finalized at location B. AURANT SUPERVISOR
--- NOTE | ~2022-04-01 | CT_ITS ---
EXAMINATION: CTA chest PE protocol DATE: 04/01/2022 12:07 INDICATION: Chest pain, shortness of breath. Pneumonia. Elevated d-dimer. TECHNIQUE: Computed tomography angiography (CTA) of the chest was performed with 100 mL Omnipaque-350 intravenous contrast timed to evaluate the pulmonary arteries. Coronal maximum intensity projection 3D-reconstructions were created by the technologist. Automated exposure control and iterative reconst ruction technique were employed. Exam dose: 191.00 mGy-cm total exam DLP. COMPARISON: 04/14/2022 portable AP chest FINDINGS: There is moderate opacification the pulmonary arteries and no evidence of pulmonary embolis m. Borderline aortic size. Normal heart size. No pericardial effusion. No hilar or mediastinal mass lesi on or lymphadenopathy is detected. There is a very large loculated effusion along the left lateral chest wall, extending from the base o f the left thorax nearly to the left apex. There is associated compressive atelectasis of left upper and particularly left lower lobes. Emphysematous changes of the lungs. Focal posterolateral right upper lobe peripheral probable interst itial fibrosis and honeycombing. No suspicious osteolytic or osteoblastic lesions are noted. IMPRESSION: No evidence of pulmonary embolism Very large loculated left pleural fluid collection with associated compressive atelectasis of the lef t upper and particularly left lower lobes Emphysema Reviewed, dictated and finalized at Location A. Reviewed, dictated and finalized at location B. ICAL TRIAL SPECIALIST IMPRESSION: No evidence of pulmonary embolism Very large loculated left pleural fluid collection with associated compressive atelectasis of the left upper and particularly left lower lobes Emphysema
[2022-04-01 11:01] LABS: Basophils Percent Auto 0.1 % (0.2-1.2); Hemoglobin 13.1 g/dL (14.0-18.0); Immature Granulocyte Absolute 0.18 K/mm3 (0.00-0.031); Immature Granulocyte Percent A 0.9 % (0-0.5); Lymphocytes Absolute Auto 1.39 K/mm3 (0.9-3.2); Mean Corpuscular HGB Conc 33.6 g/dl (32-36); Mean Corpuscular Hemoglobin 29.2 pg (26-34); Mean Corpuscular Volume 87.1 fl (80-100); Mean Platelet Volume 8.2 fl (7.4-10.4); Monocytes Absolute Auto 1.2 K/mm3 (0.1-0.6); Neutrophils Absolute Auto 17.2 K/mm3 (1.3-6.7); Platelet Count Result 460 k/mm3 (150-375); Red Blood Count 4.48 M/mm3 (4.6-6.20); Red Cell Distribution Width 13.3 % (11.5-14.5)
[2022-04-01 11:09] LABS: INR 1.2; Lactic Acid Reflex 1.2 mmol/L (0.7-2.0); Prothrombin Time 14.3 Seconds (11.1-14.7)
[2022-04-01 11:10] LABS: Partial Thromboplastin Time 35.2 SECONDS (22.3-36.8)
[2022-04-01 11:11] LABS: Alanine Aminotransferase 152 U/L (6-50); Albumin Level 3.4 g/dL (3.5-5.1); Alkaline Phosphatase 584 U/L (38-126); Anion Gap 7 mmol/L (8-16); Aspartate Amino Transferase 361 U/L (17-59); Bilirubin,Total 1.1 mg/dL (0.2-1.3); Blood Urea Nitrogen 9 mg/dL (9-20); Calcium 8.3 mg/dL (8.4-10.2); Carbon Dioxide 34 mmol/L (22-30); Chloride 83 mmol/L (98-107); Estimated CRCL calculation 102 ml/min; Estimated Glomerular Filt Rate > 60; Glucose 111 mg/dL (65-110); Potassium 3.3 mmol/L (3.4-5.0); Sodium 124 mmol/L (137-145)
[2022-04-01 11:26] LABS: D Dimer 2.35 ug/mL (<0.48)
--- NOTE | 2022-04-01 11:34 | ED.SOB ---
HPI - SOB/Dyspnea General Chief Complaint: Shortness of Breath/Dyspnea <Roxann Lewis PA-C - Last Filed: 04/01/22 19:45> Stated Complaint: shortness of breath - hx COPD <Roxann Lewis PA-C - Last Filed: 04/01/22 19:45> Time Seen by Provider: 04/01/22 10:39 <Roxann Lewis PA-C - Last Filed: 04/01/22 19:45> Source: patient <Roxann Lewis PA-C - Last Filed: 04/01/22 19:45> Mode of arrival: EMS <MARGARET Peterson Last Filed: 04/01/22 19:45> Limitations: no limitations <Roxann Lewis PA-C - Last Filed: 04/01/22 19:45> History of Present Illness HPI Narrative: This is a 57-year-old male that presents to the emergency department for shortness of breath. Worsening over the last couple of days. Associated with cough and fevers. He was evaluated at [facility] and found to have pneumonia. He was started on levofloxacin. He has been taking this medication with little relief. He does have history of COPD and follows with Dr. Munguia. Reports intermittent sharp chest pains. Denies any current chest pain. <Roxann Lewis PA-C - Last Filed: 04/01/22 19:45> Related Data Home Medications: Home Medications Medication Instructions Recorded Confirmed amlodipine 10 mg tablet 10 mg PO DAILY 05/23/20 03/28/22 folic acid 1 mg tablet 1 mg PO DAILY 05/23/20 03/28/22 haloperidol 5 mg tablet 5 mg PO TID 05/23/20 03/28/22 haloperidol decanoate 100 mg/mL 5 mg IM WEEKLY 05/23/20 03/28/22 intramuscular solution propranolol 20 mg tablet 20 mg PO DAILY 05/23/20 03/28/22 sildenafil 100 mg tablet 100 mg PO DAILY 05/23/20 03/28/22 benztropine 0.5 mg tablet 0.5 mg PO BID 05/09/21 03/28/22 cholecalciferol (vitamin D3) 125 125 mcg PO DAILY 05/09/21 03/28/22 mcg (5,000 unit) capsule omeprazole 20 mg capsule,delayed 20 mg PO DAILY 05/09/21 03/28/22 release <Roxann Lewis PA-C - Last Filed: 04/01/22 19:45> Allergies/Adverse Reactions: Allergies Allergy/AdvReac Type Severity Reaction Status Date / Time nitrofurantoin Allergy Unknown Unknown Verified 08/01/21 14:30 <Roxann Lewis PA-C - Last Filed: 04/01/22 19:45> Review of Systems Review of Systems: CONSTITUTIONAL: Reports fever EYES: Denies redness, or discharge. ENT: Reports congestion CARDIOVASCULAR: Reports chest pain. Denies edema. RESPIRATORY: Reports cough and dyspnea. PSYCHIATRIC: Reports schizophrenia <MARGARET Peterson Last Filed: 04/01/22 19:45> All systems reviewed & are unremarkable except as noted in HPI and below <Roxann Lewis PA-C - Last Filed: 04/01/22 19:45> [facility] Past Medical History Medical History: Medical History COPD (chronic obstructive pulmonary disease) Depression DJD of AC (acromioclavicular) joint History of tobacco abuse Hoarseness Hypertension Lung mass IGOR (obstructive sleep apnea) Rheumatoid arthritis Right shoulder pain RLL pneumonia Rotator cuff tendinitis SOB (shortness of breath) Tobacco abuse Unintentional weight loss <Roxann Lewis PA-C - Last Filed: 04/01/22 19:45> Surgical History Surgical History: Surgical History History of lobectomy of lung 2019 <MARGARET Peterson Last Filed: 04/01/22 19:45> Family History Family History: Family History Mother Patient's mother is in good health Family history of cardiovascular disease Father Patient's father is , Onset Age: 58 Sibling Patient's sister is in good health Patient's brother is in good health Other Arthritis Cancer Depression Heart disease High cholesterol Hypertension <MARGARET Peterson Last Filed: 04/01/22 19:45> Social History Social History: Social History Smoking packs per day: 1 Smoking
[2022-04-01 11:37] LABS: Influenza A QL RT-PCR Negative (Negative); Influenza B QL RT-PCR Negative (Negative); SARS-CoV-2 RNA PCR Negative
[2022-04-01] MEDS: HALOPERIDOL 5 MG TABLET PO ×2 (11:42→12:15)
[2022-04-01 12:00] LABS: Troponin I < 0.012 ng/mL (0.000-0.034)
[2022-04-01 16:03] LABS: pH Pleural Fluid 7.424 (7.210-7.500)
[2022-04-01] MEDS: PIPERACILLIN/TAZOBACTAM SOD 4.5 GM in SODIUM CHLORIDE 0.9% IV 100 ML 200 ML IVPB (16:09)
[2022-04-01 16:46] LABS: Appearance Pleural Fluid Bloody (Clear); Color Pleural Fluid Red (Colorless); Nucleated Cell Pleural Fluid 3946 /uL (0-1000); Pleural fluid source Pleural fluid
[2022-04-01 16:47] LABS: Lymphocytes Pleural Fluid 7 %; Monocytes Pleural Fluid 5 %; Neutrophils Pleural Fluid 88 % (0-25); RBC Pleural Fluid 13402 /uL (0-0)
[2022-04-01] MEDS: BENZTROPINE MESYLATE 0.5 MG TABLET PO (17:55)
[2022-04-01] MEDS: PROPRANOLOL HCL 20 MG TABLET PO (17:55)
[2022-04-01] MEDS: HALOPERIDOL 5 MG TABLET 10 MG PO (17:56)
--- NOTE | 2022-04-01 18:25 | PC.NURSE ---
1817 transfer access line called at [facility] pt placed on wait list for bed placement
--- NOTE | 2022-04-01 19:39 | PHAR ---
PATIENT'S HOME MEDICATION: HALOPERIDOL DECANOATE 100 MG/ML 5 ML INJECTION VERIFIED BY PHARMACY
[2022-04-01] MEDS: POTASSIUM CHLORIDE 20 MEQ PACKET (FOR LIQUID) 40 MEQ PO (19:49)
[2022-04-01] MEDS: IBUPROFEN 600 MG TABLET PO (19:49)
--- NOTE | 2022-04-01 22:11 | PC.NURSE ---
Patient called at this time and let her know that he was accepted to [facility] in [facility]. We do not have a bed at this time but we do have an accepting hospital and doctor.
[2022-04-01] MEDS: diphenhydrAMINE HCl INJ 50 MG/ML VIAL IV PUSH (22:28)
[2022-04-01] MEDS: SODIUM CHLORIDE 0.9% IV 1,000 ML 999 ML IV CONT (22:34)
[2022-04-01] MEDS: methylPREDNISolone SOD SUCC 125 MG VIAL IV PUSH (22:35)
[2022-04-01] MEDS: FAMOTIDINE 20 MG/2 ML VIAL 40 MG IV PUSH (22:35)
[2022-04-02] VITALS (17 sets, daily range): BP systolic 100–116; BP diastolic 55–78; PULSE 61–90; RESP 12–24; TEMP 36.7; O2SAT 98–100
[2022-04-02] MEDS: SODIUM CHLORIDE 0.9% IV 1,000 ML 125 ML IV CONT ×2 (00:15→08:18)
[2022-04-02] MEDS: HYDROcodone/acetaminophen (*CRX) 5-325 MG TABLET 1 TAB PO (00:15)
--- NOTE | 2022-04-02 00:22 | PC.NURSE ---
2320: Patient accepted to [place], [place]. Called [facility] for ALS transport. This is a long distance trip and requires classified advertising supervisor approval. Trip was approved, although ETA will not be available until after day shift arrives, to see what is available. Trip #[id number]
[2022-04-02] MEDS: PIPERACILLIN/TAZOBACTAM SOD 4.5 GM in SODIUM CHLORIDE 0.9% IV 100 ML 200 ML IVPB ×2 (01:24→08:18)
--- NOTE | 2022-04-02 05:58 | PC.NURSE ---
This RN gave report to Ernestine GILBERT at [facility] in [facility]. All questions answered at this time. Ernestine GILBERT stated give them a call when EMS gets here to head there way, call [phone]
[2022-04-02 06:28] LABS: Basophils Percent Auto 0.1 % (0.2-1.2); Hematocrit 42.6 % (42.0-52.0); Immature Granulocyte Absolute 0.06 K/mm3 (0.00-0.031); Immature Granulocyte Percent A 0.6 % (0-0.5); Lymphocytes Absolute Auto 0.44 K/mm3 (0.9-3.2); Lymphocytes Percent Auto 4.1 % (18.3-44.2); Mean Corpuscular HGB Conc 32.9 g/dl (32-36); Mean Corpuscular Hemoglobin 29.1 pg (26-34); Mean Corpuscular Volume 88.6 fl (80-100); Mean Platelet Volume 8.3 fl (7.4-10.4); Monocytes Absolute Auto 0.1 K/mm3 (0.1-0.6); Monocytes Percent Auto 0.9 % (2.6-8.5); Neutrophils Absolute Auto 10.2 K/mm3 (1.3-6.7); Neutrophils Percent Auto 94.3 % (45.5-73.1); Platelet Count Result 402 k/mm3 (150-375); Red Blood Count 4.81 M/mm3 (4.6-6.20); Red Cell Distribution Width 13.3 % (11.5-14.5); White Blood Count 10.8 K/mm3 (4.5-10.0)
--- NOTE | 2022-04-02 06:33 | PC.NURSE ---
[facility] call at [phone] ,Not able to take patient to [facility] until tomorrow morning 04/03/22. Call [facility] at 0614 not able to transfer at this time. Call [facility] at 0616 not able to transfer due to staffing. Call [facility] at 0617 decline to transfer. Call [facility] at 0617 not able to do any transfer for [facility]. Call [facility] at 0622, Patient has been accepted and will call back after 0830 to give a eta.
[2022-04-02 06:39] LABS: Alanine Aminotransferase 244 U/L (6-50); Albumin Level 3.2 g/dL (3.5-5.1); Alkaline Phosphatase 671 U/L (38-126); Anion Gap 4 mmol/L (8-16); Aspartate Amino Transferase 361 U/L (17-59); Blood Urea Nitrogen 9 mg/dL (9-20); Calcium 8.3 mg/dL (8.4-10.2); Carbon Dioxide 33 mmol/L (22-30); Chloride 94 mmol/L (98-107); Estimated CRCL calculation 102 ml/min; Estimated Glomerular Filt Rate > 60; Glucose 138 mg/dL (65-110); Potassium 4.1 mmol/L (3.4-5.0); Sodium 131 mmol/L (137-145)
[2022-04-02] MEDS: FOLIC ACID 1 MG TABLET PO (07:09)
[2022-04-02] MEDS: amLODIPine BESYLATE 5 MG TABLET 10 MG PO (07:10)
[2022-04-02] MEDS: HALOPERIDOL 5 MG TABLET 10 MG PO (07:10)
[2022-04-02] MEDS: BENZTROPINE MESYLATE 0.5 MG TABLET PO (07:11)
[2022-04-02] MEDS: PROPRANOLOL HCL 20 MG TABLET PO (07:11)
[2022-04-02] MEDS: PANTOPRAZOLE SOD SESQUIHYDRATE 20 MG TAB PO (07:12)
--- NOTE | 2022-04-02 09:45 | PC.NURSE ---
ALS - [facility] Accepted transfer to [facility] ETA 45min [facility] Cancelled
[2022-04-04 18:08] LABS: Amylase, Pleural Fluid 12 U/L
[2022-04-05 19:47] LABS: Glucose Pleural Fluid 66 mg/dL; Total Protein Pleural Fluid 4.5 g/dL
== END 2022-04-02 10:27 | disposition short-term general hospital (02) ==
PROVIDERS: Physician Assistant; Emergency Provider Emergency Medicine; PCP Family Medicine
DX: J90 Pleural effusion, not elsewhere classified (principal); J96.01 Acute respiratory failure with hypoxia; J18.9 Pneumonia, unspecified organism; J43.9 Emphysema, unspecified; E87.1 Hypo-osmolality and hyponatremia; E87.6 Hypokalemia; R74.01 Elevation of levels of liver transaminase levels; F20.9 Schizophrenia, unspecified; Z20.822 Contact with and (suspected) exposure to COVID-19; I10 Essential (primary) hypertension; G47.33 Obstructive sleep apnea (adult) (pediatric); M19.019 Primary osteoarthritis, unspecified shoulder; M06.9 Rheumatoid arthritis, unspecified; F32.A Depression, unspecified; Z90.2 Acquired absence of lung [part of]; F17.210 Nicotine dependence, cigarettes, uncomplicated
CPT/HCPCS: 32555; 36415; 71275; 80053; 82150; 82945; 83605; 83615; 83986; 84157; 84478; 84484; 85025; 85380; 85610; 85730; 87015; 87040; 87070; 87075; 87102; 87116; 87205; 87206; 87636; 88108; 88184; 88305; 89051; 96361; 96365; 96366; 96367; 96372; 96375; 99291; A9270; C1729; J1200; J1956; J2543; J2930; J3370; J7030; Q9967

== ENCOUNTER 2022-05-29 16:01 | Emergency (ER) | payer MEDICARE, OTHER, SELFPAY ==
--- NOTE | ~2022-05-29 | CT_ITS ---
EXAMINATION: CT brain wo con DATE: 05/29/2022 16:29 INDICATION: Head injury. TECHNIQUE: Computed tomography (CT) of the head was performed without intravenous contrast. The mA wa s adjusted according to patient size. Iterative reconstruction technique was employed. The dose-lengt h product was 681.00 mGy-cm. COMPARISON: Head CT 12/03/2009 FINDINGS: There is an old infarct in the right basal ganglia. There are scattered areas of low attenu ation in the cerebral white matter. There is no intracranial hemorrhage, acute infarction, or abnorma l intracranial mass lesion. The ventricles are normal in size. There is mild mucosal thickening in th e ethmoid sinuses. There are likely changes of ocular lens replacement surgeries. The mastoid air florencia ls are normal. There is a right-sided scalp laceration. IMPRESSION: 1. Old infarct in the right basal ganglia. 2. Mild nonspecific cerebral white matter disease, which likely represents chronic small vessel ische fabrice disease. Reviewed, dictated and finalized at location A. AND ARRIVAL ATTENDANT IMPRESSION: 1. Old infarct in the right basal ganglia. 2. Mild nonspecific cerebral white matter disease, which likely represents senior government program analyst chase small vessel ischemic disease.
--- NOTE | ~2022-05-29 | CT_ITS ---
EXAMINATION: CT cervical spine wo con DATE: 05/29/2022 16:29 INDICATION: Head injury. Neck pain. TECHNIQUE: Computed tomography (CT) of the cervical spine was performed without intravenous contrast. Automated exposure control and iterative reconstruction technique were employed. The dose-length pro duct was 195.08 mGy-cm. COMPARISON: None FINDINGS: There is mild emphysema. Bone alignment is normal. There is mild chronic anterior wedging o f C7 vertebral body. There is moderately decreased disc height at C4-C5 and mildly decreased disc hei ght at C5-C6 and C6-C7. The following disc levels are specifically discussed: C2-C3: There is severe right and mild left uncovertebral joint osteoarthritis. There is mild bilatera l facet joint osteoarthritis. There is mild right neural foraminal stenosis. There is no central steffany l stenosis. C3-C4: There is severe right and moderate left uncovertebral joint osteoarthritis. There is no facet joint osteoarthritis. There is mild bilateral neural foraminal stenosis. There is mild central canal stenosis. C4-C5: There is severe bilateral uncovertebral joint osteoarthritis. There is mild bilateral facet shon int osteoarthritis. There is severe right and moderate left neural foraminal stenosis. There is moder ate central canal stenosis. C5-C6: There is severe right and mild left mild bilateral uncovertebral joint osteoarthritis. There i s mild right facet joint osteoarthritis. There is mild neural foraminal stenosis. There is mild centr al canal stenosis. C6-C7: There is mild bilateral uncovertebral joint osteoarthritis. There is no facet joint osteoarthr itis. There is mild right neural foraminal stenosis. There is no central canal stenosis. C7-T1: There is no uncovertebral joint osteoarthritis. There is severe right and mild left facet join t osteoarthritis. There is no neural foraminal stenosis. There is no central canal stenosis. IMPRESSION: 1. No fracture. 2. Moderate cervical spondylosis. Reviewed, dictated and finalized at location A. APPLICATIONS DEVELOPER
[2022-05-29 16:05] VITALS: BP 150/98; PULSE 97; RESP 20; TEMP 35.6; O2SAT 99
[2022-05-29] MEDS: TETANUS,DIPHTHERIA,AC PERTUSSIS ADULT 0.5 ML (ADACEL) (16:28)
--- NOTE | 2022-05-29 17:22 | ED.GENADULT ---
HPI - General Adult General Chief complaint: Wound/Laceration Stated complaint: head injury Time Seen by Provider: 05/29/22 16:12 Source: patient Mode of arrival: ambulatory Limitations: no limitations History of Present Illness HPI narrative: Patient was [employer] when he hit his on the doorframe causing a laceration his right posterior scalp. No loss of consciousness denies other symptoms except for pain at site. No weakness numbness paresthesias. Walking talking seen hearing fine has not been sick or any recently. Eating drinking stooling and voiding well no rash or itching lumps or bumps. Related Data Home Medications Medication Instructions Recorded Confirmed amlodipine 10 mg tablet 10 mg PO DAILY 05/23/20 05/29/22 folic acid 1 mg tablet 1 mg PO DAILY 05/23/20 05/29/22 haloperidol 5 mg tablet 5 mg PO TID 05/23/20 05/29/22 haloperidol decanoate 100 mg/mL 5 mg IM WEEKLY 05/23/20 05/29/22 intramuscular solution propranolol 20 mg tablet 20 mg PO DAILY 05/23/20 05/29/22 sildenafil 100 mg tablet 100 mg PO DAILY 05/23/20 05/29/22 benztropine 0.5 mg tablet 0.5 mg PO BID 05/09/21 05/29/22 cholecalciferol (vitamin D3) 125 125 mcg PO DAILY 05/09/21 05/29/22 mcg (5,000 unit) capsule omeprazole 20 mg capsule,delayed 20 mg PO DAILY 05/09/21 05/29/22 release Allergies Allergy/AdvReac Type Severity Reaction Status Date / Time nitrofurantoin Allergy Unknown Unknown Verified 08/01/21 14:30 vancomycin Allergy Hives Verified 04/02/22 08:01 Review of Systems Constitutional: Constitutional: Reports no additional constitutional complaints Eyes: Eyes: Reports no additional eye complaints and Denies change in vision ENT: Reports system reviewed and no additional complaints, except as documented Cardiovascular: Cardiovascular: Reports no additional cardiovascular complaints and Denies chest pain Respiratory: Respiratory: Reports no additional respiratory complaints Gastrointestinal: Gastrointestinal: Reports no additional gastrointestinal complaints Genitourinary: Genitourinary: Reports no additional male genitourinary complaints Musculoskeletal: Musculoskeletal: Reports no additional musculoskeletal complaints and Reports as per HPI Neurologic: Reports system reviewed and no additional complaints, except as documented, Denies confusion, Denies vertigo, Denies dizziness, Denies syncope, Reports headache(s), Denies focal weakness, Denies numbness and Denies weakness Psychiatric: Psychiatric: Reports no additional psychiatric complaints Endocrine: Endocrine: Reports no additional endocrine complaints PMFSH Past Medical History Medical History COPD (chronic obstructive pulmonary disease) Depression DJD of AC (acromioclavicular) joint History of tobacco abuse Hoarseness Hypertension Lung mass IGOR (obstructive sleep apnea) Rheumatoid arthritis Right shoulder pain RLL pneumonia Rotator cuff tendinitis SOB (shortness of breath) Tobacco abuse Unintentional weight loss Surgical History Surgical History History of lobectomy of lung 2019 Family History Family History Mother Patient's mother is in good health Family history of cardiovascular disease Father Patient's father is , Onset Age: 58 Sibling Patient's sister is in good health Patient's brother is in good health Other Arthritis Cancer Depression Heart disease High cholesterol Hypertension Social History Social History Smoking packs per day: 1 Smoking cigarettes per day: 20.0 Years smoked: 47 Smoking pack-years: 47.00 Smoking status: Current every day smoker Alcohol intake: current Drinks per week: 1 Gender identity (if verbalized by the patient): Male Exam Narra
[2022-05-29] MEDS: LIDOCAINE HCL 1% LOCAL INJ 10 ML VIAL INFILTRATE (17:27)
[2022-05-29 17:30] VITALS: BP 148/87; PULSE 97; RESP 20; TEMP 36.9; O2SAT 99
== END 2022-05-29 18:02 | disposition home or self-care (01) ==
PROVIDERS: Emergency Provider Emergency Medicine; PCP Family Medicine
DX: S01.01XA Laceration without foreign body of scalp, initial encounter (principal); I10 Essential (primary) hypertension; J44.9 Chronic obstructive pulmonary disease, unspecified; F17.210 Nicotine dependence, cigarettes, uncomplicated; Z23 Encounter for immunization; W45.8XXA Other foreign body or object entering through skin, initial encounter; Y92.524 Gas station as the place of occurrence of the external cause
CPT/HCPCS: 12002; 70450; 72125; 90471; 90715; 99284

== ENCOUNTER 2022-12-30 10:44 | Outpatient (CLI) | payer MEDICARE, SELFPAY ==
[2022-12-30 11:00] LABS: Basophils Absolute Auto 0.06 K/mm3 (0.00-0.10); Basophils Percent Auto 0.9 % (0.0-1.0); Eosinophils Absolute Auto 0.08 K/mm3 (0.02-0.50); Eosinophils Percent Auto 1.2 % (1.0-6.0); Hematocrit 43.8 % (40.0-54.0); Hemoglobin 15.7 g/dL (14.0-18.0); Immature Granulocyte Absolute 0.03 K/mm3 (0.00-0.00); Immature Granulocyte Percent A 0.5 % (0.0-0.0); Lymphocytes Absolute Auto 1.43 K/mm3 (1.10-4.50); Mean Corpuscular HGB Conc 35.8 g/dL (32.0-36.0); Mean Corpuscular Hemoglobin 30.8 pg (27.0-31.0); Mean Corpuscular Volume 85.9 fL (78.0-102.0); Mean Platelet Volume 8.5 fl (8.7-11.0); Monocytes Absolute Auto 0.52 K/mm3 (0.10-0.90); Neutrophils Absolute Auto 4.4 K/mm3 (1.7-7.2); Neutrophils Percent Auto 67.4 % (50.0-70.0); Platelet Count Result 301 K/mm3 (150-420); Red Cell Distribution Width 12.5 % (11.6-14.4); White Blood Count 6.5 K/mm3 (4.8-10.8)
[2022-12-30 11:02] LABS: Appearance Urine Clear (Clear); Bilirubin Urine Negative (Negative); Blood Urine Trace-Intact (Negative); Color Urine Light Yellow (Yellow); Glucose Urine UA Negative (Negative); Ketones Urine Negative (Negative); Leukocyte Esterase Ur Negative (Negative); Nitrate Urine Negative (Negative); Protein Urine Negative (Negative); Specific Grav Ur <= 1.005 (1.010-1.020); Urobilinogen Urine 0.2 mg/dL (0.2-1.0); pH Urine 6.5 (5.0-8.0)
[2022-12-30 11:10] LABS: Add Urine Microscopic? NO; Bacteria Urine None seen /hpf; RBC Urine None seen /hpf (0-2); WBC Urine None seen /hpf (0-3)
[2022-12-30 11:14] LABS: Microalbumin Urine Random < 13.0 mg/L
[2022-12-30 11:16] LABS: Creatinine Urine < 13.00 mg/dL (40-278)
[2022-12-30 11:48] LABS: Alanine Aminotransferase 13 U/L (16-63); Albumin Level 3.5 g/dL (3.4-5.0); Alkaline Phosphatase 172 U/L (46-116); Anion Gap 6 mmol/L (8-16); Aspartate Amino Transferase 14 U/L (15-37); Bilirubin,Total 1.6 mg/dL (0.00-1.00); Blood Urea Nitrogen 4 mg/dL (7-18); Calcium 9.1 mg/dL (8.5-10.1); Carbon Dioxide 31 mmol/L (21-32); Chloride 93 mmol/L (98-108); Estimated Glomerular Filt Rate > 60; Glucose 93 mg/dL (70-99); Osmolality Calculated 266 mOsm/kg (285-295); Potassium 3.4 mmol/L (3.5-5.1); Sodium 130 mmol/L (136-145); Thyroid Stimulating Hormone 0.61 uIU/mL (0.36-3.74); Total Protein 6.8 g/dL (6.4-8.2)
== END 2022-12-30 10:45 | disposition home or self-care (01) ==
LOC: CHSLAB 10:45
PROVIDERS: PCP Family Medicine; Visit Provider Family Medicine
DX: I10 Essential (primary) hypertension (principal)
CPT/HCPCS: 36415; 80053; 81003; 82043; 84443; 85025

== ENCOUNTER 2023-01-18 12:21 | Outpatient (CLI) | payer MEDICARE, SELFPAY ==
[2023-01-18 12:44] LABS: Microalbumin Urine Random < 13.0 mg/L
[2023-01-18 12:48] LABS: Creatinine Urine < 13.00 mg/dL (40-278)
[2023-01-18 13:33] LABS: Alanine Aminotransferase 14 U/L (16-63); Alkaline Phosphatase 171 U/L (46-116); Anion Gap 9 mmol/L (8-16); Aspartate Amino Transferase < 10 U/L (15-37); Bilirubin Direct 0.3 mg/dL (0-0.2); Bilirubin Indirect 1.5 mg/dL (0-1.0); Bilirubin,Total 1.8 mg/dL (0.00-1.00); Blood Urea Nitrogen 6 mg/dL (7-18); Calcium 10.2 mg/dL (8.5-10.1); Carbon Dioxide 30 mmol/L (21-32); Chloride 100 mmol/L (98-108); Estimated Glomerular Filt Rate > 60; Glucose 89 mg/dL (70-99); Osmolality Calculated 284 mOsm/kg (285-295); Potassium 4.1 mmol/L (3.5-5.1); Sodium 139 mmol/L (136-145); Total Protein 7.1 g/dL (6.4-8.2)
== END 2023-01-18 12:22 | disposition home or self-care (01) ==
LOC: CHSLAB 12:23
PROVIDERS: PCP Family Medicine; Visit Provider Family Medicine
DX: I10 Essential (primary) hypertension (principal); E87.6 Hypokalemia; J44.9 Chronic obstructive pulmonary disease, unspecified
CPT/HCPCS: 36415; 80053; 82043; 82248

== ENCOUNTER 2023-01-21 07:01 | Outpatient (CLI) | payer MEDICARE, OTHER, SELFPAY ==
--- NOTE | ~2023-01-21 | US_ITS ---
Abdominal Sonogram: Real-time sonographic imaging of the abdomen was performed. Clinical History: Disorder bilirubin metabolism Findings: The liver appears normal with no evidence of mass lesion or bile duct dilatation. Main por herson vein demonstrates normal direction of flow. The spleen is normal in size without evidence of foca l lesion. The gallbladder is well distended, and contains echogenic, shadowing gallstones. No gallbl adder wall thickening. The common bile duct measures 6 mm. The pancreas is obscured by bowel gas sha dowing. No aortic aneurysm evident. IVC unremarkable. The right kidney measures 9.7 cm in length and the left kidney measures 11.5 cm. There is no hydronephrosis or renal calculus. Impression: Cholelithiasis. Reviewed, dictated and finalized at location . Impression: Cholelithiasis.
--- NOTE | ~2023-01-21 | XR_ITS ---
XR chest 2V 01/21/2023 07:21 Indication: Cough and shortness of breath Procedure: 2 view chest Comparison: Comparison to multiple prior studies sequentially, with oldest reviewed study dated 05/13. Findings: Heart size normal. There is emphysema. Small pleural effusions. No focal pneumonia, edema o r pneumothorax. No acute osseous abnormality. Impression: 1: Small pleural effusions. 2: Emphysema. Reviewed, dictated and finalized at location L. Impression: 1: Small pleural effusions. 2: Emphysema.
== END 2023-01-21 07:02 | disposition home or self-care (01) ==
LOC: CHSIMG 07:02
PROVIDERS: PCP Family Medicine; Visit Provider Family Medicine
DX: E80.6 Other disorders of bilirubin metabolism (principal); K80.20 Calculus of gallbladder without cholecystitis without obstruction; J90 Pleural effusion, not elsewhere classified; J43.9 Emphysema, unspecified
CPT/HCPCS: 71046; 76700

== ENCOUNTER 2023-03-15 09:28 | Outpatient (CLI) | payer MEDICARE, OTHER, SELFPAY ==
[2023-03-15 10:15] LABS: Anion Gap 9 mmol/L (8-16); Blood Urea Nitrogen 5 mg/dL (7-18); Calcium 9.5 mg/dL (8.5-10.1); Carbon Dioxide 32 mmol/L (21-32); Chloride 94 mmol/L (98-108); Estimated Glomerular Filt Rate > 60; Glucose 93 mg/dL (70-99); Osmolality Calculated 277 mOsm/kg (285-295); Potassium 3.5 mmol/L (3.5-5.1); Sodium 135 mmol/L (136-145)
== END 2023-03-15 09:29 | disposition home or self-care (01) ==
LOC: CHSLAB 09:32
PROVIDERS: PCP Family Medicine; Visit Provider Family Medicine
DX: E87.1 Hypo-osmolality and hyponatremia (principal)
CPT/HCPCS: 36415; 80048

== ENCOUNTER 2023-09-08 12:16 | Outpatient (CLI) | payer MEDICARE, SELFPAY ==
[2023-09-08 12:58] LABS: Basophils Absolute Auto 0.06 K/mm3 (0.00-0.10); Eosinophils Absolute Auto 0.14 K/mm3 (0.02-0.50); Eosinophils Percent Auto 2.4 % (1.0-6.0); Hematocrit 45.2 % (40.0-54.0); Hemoglobin 15.6 g/dL (14.0-18.0); Immature Granulocyte Absolute 0.02 K/mm3 (0.00-0.00); Immature Granulocyte Percent A 0.3 % (0.0-0.0); Lymphocytes Absolute Auto 1.59 K/mm3 (1.10-4.50); Lymphocytes Percent Auto 27.2 % (18.0-42.0); Mean Corpuscular HGB Conc 34.5 g/dL (32-36); Mean Corpuscular Hemoglobin 29.3 pg (27.0-31.0); Mean Platelet Volume 8.8 fl (8.7-11.0); Monocytes Absolute Auto 0.56 K/mm3 (0.10-0.90); Monocytes Percent Auto 9.6 % (2.0-11.0); Neutrophils Absolute Auto 3.47 K/mm3 (1.70-7.20); Neutrophils Percent Auto 59.5 % (50.0-70.0); Platelet Count Result 276 K/mm3 (150-420); Red Blood Count 5.32 M/mm3 (4.70-6.10); Red Cell Distribution Width 13.2 % (11.6-14.4); White Blood Count 5.8 K/mm3 (4.8-10.8)
[2023-09-08 13:04] LABS: Appearance Urine Clear (Clear); Bilirubin Urine Negative (Negative); Blood Urine Negative (Negative); Color Urine Light Yellow (Yellow); Glucose Urine UA Negative (Negative); Ketones Urine Negative (Negative); Leukocyte Esterase Ur Negative (Negative); Nitrate Urine Negative (Negative); Protein Urine Negative (Negative); Specific Grav Ur <= 1.005 (1.010-1.020); Urobilinogen Urine 0.2 mg/dL (0.2-1.0); pH Urine 6.5 (5.0-8.0)
[2023-09-08 13:16] LABS: Creatinine Urine < 13.00 mg/dL (40-278)
[2023-09-08 13:17] LABS: Microalbumin Urine Random < 1.3 mg/L
[2023-09-08 13:21] LABS: Add Urine Microscopic? NO
[2023-09-08 13:44] LABS: Alanine Aminotransferase 17 U/L (16-63); Albumin Level 4.1 g/dL (3.4-5.0); Alkaline Phosphatase 168 U/L (46-116); Anion Gap 9 mmol/L (4-12); Aspartate Amino Transferase 16 U/L (15-37); Bilirubin,Total 1.2 mg/dL (0.00-1.00); Blood Urea Nitrogen 9 mg/dL (7-18); Calcium 9.6 mg/dL (8.5-10.1); Carbon Dioxide 30 mmol/L (21-32); Chloride 94 mmol/L (98-108); Estimated Glomerular Filt Rate > 60; Glucose 86 mg/dL (70-99); Osmolality Calculated 273 mOsm/kg (285-295); Prostate Specific Antigen 1.1 ng/mL (< OR = 4.0); Sodium 133 mmol/L (136-145); Thyroid Stimulating Hormone 0.77 uIU/mL (0.36-3.74); Total Protein 7.1 g/dL (6.4-8.2)
[2023-09-09 08:59] LABS: Bilirubin Direct 0.2 mg/dL (0-0.2)
== END 2023-09-08 12:17 | disposition home or self-care (01) ==
LOC: CHSLAB 12:18
PROVIDERS: PCP Family Medicine; Visit Provider Family Medicine
DX: Z12.5 Encounter for screening for malignant neoplasm of prostate (principal); I10 Essential (primary) hypertension
CPT/HCPCS: 36415; 80053; 81003; 82043; 82248; 84153; 84443; 85025; G0103

== ENCOUNTER 2023-10-01 08:56 | Outpatient (CLI) | payer MEDICARE, SELFPAY ==
[2023-10-01 10:44] LABS: Vitamin B12 378 pg/mL (193-986)
[2023-10-03 02:34] LABS: Vitamin D 25 Hydroxy 27 ng/mL (30-100)
[2023-10-06 11:08] LABS: Methylmalonic Acid 242 nmol/L (87-318)
== END 2023-10-01 08:57 | disposition home or self-care (01) ==
LOC: CHSLAB 08:59
PROVIDERS: PCP Family Medicine; Visit Provider Family Medicine
DX: E55.9 Vitamin D deficiency, unspecified (principal); E53.8 Deficiency of other specified B group vitamins
CPT/HCPCS: 36415; 82306; 82607; 82784; 83516; 83921

== ENCOUNTER 2023-12-14 07:17 | Outpatient (CLI) | payer MEDICARE, SELFPAY ==
[2023-12-14 07:37] LABS: Hematocrit 45.6 % (40.0-54.0); Hemoglobin 16.2 g/dL (14.0-18.0); Mean Corpuscular HGB Conc 35.5 g/dL (32-36); Mean Corpuscular Hemoglobin 31.4 pg (27.0-31.0); Mean Corpuscular Volume 88.4 fL (78.0-102.0); Mean Platelet Volume 8.7 fl (8.7-11.0); Platelet Count Result 278 K/mm3 (150-420); Red Blood Count 5.16 M/mm3 (4.70-6.10); Red Cell Distribution Width 13.2 % (11.6-14.4); White Blood Count 6.4 K/mm3 (4.8-10.8)
[2023-12-14 08:49] LABS: Alanine Aminotransferase 18 U/L (16-63); Albumin Level 4.3 g/dL (3.4-5.0); Alkaline Phosphatase 171 U/L (46-116); Anion Gap 6 mmol/L (4-12); Aspartate Amino Transferase 18 U/L (15-37); Bilirubin,Total 1.2 mg/dL (0.00-1.00); Blood Urea Nitrogen 5 mg/dL (7-18); Calcium 9.4 mg/dL (8.5-10.1); Carbon Dioxide 32 mmol/L (21-32); Chloride 88 mmol/L (98-108); Cholesterol 152 mg/dL (0-200); Estimated Glomerular Filt Rate > 60; Free T4 Free Thyroxine 1.03 ng/dL (0.76-1.46); Glucose 105 mg/dL (70-99); HDL Direct 40 mg/dL (40-60); LDL Cholesterol Calculated 92 mg/dL (<130); Osmolality Calculated 259 mOsm/kg (285-295); Potassium 4.4 mmol/L (3.5-5.1); Sodium 126 mmol/L (136-145); Thyroid Stimulating Hormone 0.96 uIU/mL (0.36-3.74); Total Protein 7.4 g/dL (6.4-8.2); Triglycerides 98 mg/dL (0-150); Vitamin B12 656 pg/mL (193-986)
[2023-12-15 21:38] LABS: Vitamin D 25 Hydroxy 47 ng/mL (30-100)
[2023-12-16 17:58] LABS: Red Blood Cell Folate 452 ng/mL RBC (>280)
== END 2023-12-14 07:18 | disposition home or self-care (01) ==
LOC: CHSLAB 07:18
PROVIDERS: PCP Family Medicine; Visit Provider Family Medicine
DX: I10 Essential (primary) hypertension (principal); E55.9 Vitamin D deficiency, unspecified
CPT/HCPCS: 36415; 80053; 80061; 82306; 82607; 82747; 84439; 84443; 85027

== ENCOUNTER 2023-12-21 11:01 | Outpatient (CLI) | payer MEDICARE, SELFPAY ==
[2023-12-21 12:24] LABS: Anion Gap 6 mmol/L (4-12); Blood Urea Nitrogen 8 mg/dL (7-18); Calcium 9.2 mg/dL (8.5-10.1); Carbon Dioxide 33 mmol/L (21-32); Chloride 95 mmol/L (98-108); Estimated Glomerular Filt Rate > 60; Glucose 79 mg/dL (70-99); Osmolality Calculated 275 mOsm/kg (285-295); Sodium 134 mmol/L (136-145)
== END 2023-12-21 11:02 | disposition home or self-care (01) ==
LOC: CHSLAB 11:04
PROVIDERS: PCP Family Medicine; Visit Provider Family Medicine
DX: E87.1 Hypo-osmolality and hyponatremia (principal)
CPT/HCPCS: 36415; 80048

== ENCOUNTER 2024-01-06 07:01 | Outpatient (CLI) | payer MEDICARE, SELFPAY ==
--- NOTE | ~2024-01-06 | XR_ITS ---
Clinical Indication: Chest pain PA and lateral views of the chest: Comparison: 01/13/2023 Findings: The lungs are clear, without evidence of focal consolidation or pleural effusion. Probable COPD. Cardiomediastinal silhouette is within normal limits. Bones and soft tissues are unremarkable. Impression: Probable COPD. No acute abnormality seen. Reviewed, dictated and finalized at location . Impression: Probable COPD. No acute abnormality seen.
== END 2024-01-06 07:02 | disposition home or self-care (01) ==
LOC: CHSIMG 07:02
PROVIDERS: PCP Family Medicine; Visit Provider Family Medicine
DX: R07.9 Chest pain, unspecified (principal)
CPT/HCPCS: 71046

== ENCOUNTER 2024-01-28 09:14 | Outpatient (CLI) | payer MEDICARE, SELFPAY ==
--- NOTE | ~2024-01-28 | XR_ITS ---
Cervical Spine: AP, lateral, open-mouth views Clinical History: Pain Findings: The normal lordotic curve is maintained. The vertebral bodies and posterior elements appea r intact. There is mild degenerative disc disease at C4-C5, C5-C6, C6 and C7. There is mild facet art hropathy. Pre-vertebral soft tissues are unremarkable. Impression: Mild degenerative spondylosis, as above. Reviewed, dictated and finalized at location . Impression: Mild degenerative spondylosis, as above.
== END 2024-01-28 09:15 | disposition home or self-care (01) ==
LOC: CHSIMG 09:17
PROVIDERS: PCP Family Medicine; Visit Provider Family Medicine
DX: M54.2 Cervicalgia (principal); M43.02 Spondylolysis, cervical region
CPT/HCPCS: 72040

== ENCOUNTER 2024-02-01 07:54 | Outpatient (RCR) | payer MEDICARE, OTHER, SELFPAY ==
--- NOTE | 2024-02-01 08:48 | OPREHPOC ---
Outpatient Therapy Plan of Care This is a Multidisciplinary Plan of Care that may contain components documented by all disciplines (PT, OT, and ST.) PT Problem 1 PT Problem #1 Knowledge Deficit PT Goal 1 Goal / Goal Update 1. independent and compliant with HEP Target Visit 4 PT Problem 2 PT Problem #2 Pain PT Goal 1 Goal / Goal Update 1. decrease pain at worst to 4/10 or less in the cervical spine. Target Visit 8 PT Problem 3 PT Problem #3 Impaired Range of Motion PT Goal 1 Goal / Goal Update 1. 30 degrees bilateral active cervical side bending 2. 65 degrees bilateral active cervical rotation 3. 45 degrees active cervical extension Target Visit 8 PT Problem 4 PT Problem #4 Impaired Functional Mobil PT Goal 1 Goal / Goal Update 1. NDI to display 30% or less functional defictis 2. patient to display improved posture of the neck and shoulders in sitting and standing 3. patient to report using his computer at home for 1 hour at a time without increased symptoms or pain Target Visit 8
--- NOTE | 2024-02-01 08:48 | PTOPEVAL1 ---
Assessment and note entered by JT File, PT Evaluation Information Assessment Status Evaluation ICD-10 Condition Codes (PT) Cervicalgia M54.2 Onset 01/28/24 Subjective Information he reports his neck is eased up a bit right now, but reports when his pain is worse he is unable to turn his neck and look over his shoulders bilat. he reports his symptoms can be relieved with a pain pill, but reports the help only lasts about 3 -4 hours. he reports he has increased pain with holding his R arm out to use his computer at home. he reports the R side of the neck is worse. he reports he does not get symptoms into the hands or arms. he reports he has had an xray. Reported Pain Level Pain Score 3: Self Report Assessment PT Clinical Summary mr. bajwa is a 59 yo man who presents to skilled PT services for evaluation and treatment of cervical spine pain. he presents today with deficits in pain free active cervical rom, UE strength, posture, and functional activity performance. his signs and symptoms are consistent with DDD of the cervical spine. he would benefit from continued skilled PT to address his objective /functional deficits and return to his prior level functional activity performance/quality of life. Plan of Care Interventions Electrical Stimulation,Hot Pack/Cold Pack,Manual Therapy,Mechanical Traction,Neuro Re-education, Patient/Caregiver Educati,Therapeutic Activities, Therapeutic Exercise PT Services Indicated Yes Treatment Frequency and 2x weekly for 8 visits Duration These treatments will address the objective and functional deficits as defined above. The patient will be advanced safely and appropriately in order for the patient to progress towards his/her prior level of function. Additional exercises will be introduced and as well as a comprehensive home exercise program upon discharge, if needed, ?to ensure carryover of functional gains achieved in the clinic. This treatment plan has been reviewed and agreement upon by the patient.
--- NOTE | 2024-02-24 09:04 | PCPTNOTE ---
Mr. Tracy contact the clinic this morning stating that he was not improving and would like to cancel all remaining appointments. He states that he will be undergoing MRI of his neck. He has attended a total of 5 treatment sessions consisting of modality care to reduce pain, manual techniques to improve mobility and exercise to improve posture and mobility. At this time he will be discharged from our care. Thank you for the referral of this patient. Alvaro Marshall, MPT
== END 2024-02-17 20:00 | disposition home or self-care (01) ==
LOC: CHSPT 07:54
PROVIDERS: Visit Provider Family Medicine
DX: M54.2 Cervicalgia (principal)
CPT/HCPCS: 97014; 97110; 97140; 97161; G0283

== ENCOUNTER 2024-03-02 15:43 | Emergency (ER) | payer MEDICARE, OTHER, SELFPAY ==
[2024-03-02] VITALS (28 sets, daily range): BP systolic 102–139; BP diastolic 65–113; PULSE 2–108; RESP 18–24; TEMP 36.6–36.9; O2SAT 82–94
--- NOTE | ~2024-03-02 | XR_ITS ---
XR chest 1V portable 03/02/2024 16:12 Indication: Shortness of breath, cough and chest pain Procedure: AP portable chest Comparison: Comparison to multiple prior studies sequentially, with oldest reviewed study dated 06/2021. Findings: There is bilateral airspace disease, most confluent in the right mid and lower lung, consis tent with pneumonia. Heart size normal. No significant effusion. No pneumothorax. No acute osseous ab normality. Impression: 1: Extensive bilateral airspace disease, right greater than left, consistent with multifocal pneumoni a. Reviewed, dictated and finalized at location B. ES INSPECTOR Impression: 1: Extensive bilateral airspace disease, right greater than left, consistent wi th multifocal pneumonia.
--- NOTE | 2024-03-02 15:54 | ECG_ITS ---
Test Date: 2024-03-02 16:17:07 Measurements Intervals [place] Rate: 103 P: 66 NH: 160 QRS: 61 QRSD: 86 T: 60 QT: 359 QTc: 471 Interpretive Statements SINUS TACHYCARDIA POSSIBLE RIGHT ATRIAL ENLARGEMENT POSSIBLE LEFT ATRIAL ENLARGEMENT RIGHT VENTRICULAR CONDUCTION DELAY NONSPECIFIC T-WAVE ABNORMALITY- DIFFUSE LEADS BASELINE ARTIFACT- I, II, III, AVR, AVL, AVF BORDERLINE ECG No previous ECG available for comparison Electronically Signed On 03-02-2024 18:02:34 MEDICAL CODING TECHNICIAN by Flo Chowdary D.O.
--- NOTE | 2024-03-02 16:00 | PC.NURSE ---
covid swab sent to lab
[2024-03-02] MEDS: methylPREDNISolone SOD SUCC 125 MG VIAL IV PUSH (16:03)
[2024-03-02] MEDS: IPRATROPIUM 0.5 MG/ALBUTEROL SULFATE 2.5 MG AMPUL.NEB 3 ML INHALATION (16:08)
[2024-03-02 16:28] LABS: Hematocrit 34.7 % (40.0-54.0); Hemoglobin 12.7 g/dL (14.0-18.0); Mean Corpuscular HGB Conc 36.6 g/dL (32-36); Mean Corpuscular Hemoglobin 30.8 pg (27.0-31.0); Mean Corpuscular Volume 84.2 fL (78.0-102.0); Mean Platelet Volume 8.8 fl (8.7-11.0); Platelet Count Result 333 K/mm3 (150-420); Red Blood Count 4.12 M/mm3 (4.70-6.10); Red Cell Distribution Width 12.4 % (11.6-14.4)
[2024-03-02 16:31] LABS: White Blood Count 29.5 K/mm3 (4.8-10.8)
--- NOTE | 2024-03-02 16:41 | ED_ITS ---
HPI - URI/Sore Throat General Chief Complaint: Upper Respiratory Infection Stated Complaint: bad cough Time Seen by Provider: 03/02/24 15:54 Source: patient Mode of arrival: ambulatory Limitations: no limitations History of Present Illness HPI Narrative: this is a 59-year-old male that presents with some cough and congestion patient has a symptoms for the last 5 days cough is productive of brown yellow sputum pa tient is afebrile no chest pain no nausea vomiting no fever chills. Patient has a history of COPD and history of a right lung resection which showed no malignancy. Patient also has a history of schizophrenia and hypertension and follows with Pulmonary. A history of 1 pack per day smoking. MD elicited complaint: cough Pertinent past history: COPD Onset (ago): day(s) Consistency: constant Severity: moderate Description of mucous: yellow and green Exacerbating factors: nothing Related Data Home Medications Medication Instructions Recorded Confirmed amlodipine 10 mg tablet 10 mg PO DAILY 05/23/20 05/29/22 folic acid 1 mg tablet 1 mg PO DAILY 05/23/20 05/29/22 haloperidol 5 mg tablet 5 mg PO TID 05/23/20 05/29/22 haloperidol decanoate 100 mg/mL 5 mg IM WEEKLY 05/23/20 05/29/22 intramuscular solution propranolol 20 mg tablet 20 mg PO DAILY 05/23/20 05/29/22 sildenafil 100 mg tablet 100 mg PO DAILY 05/23/20 05/29/22 benztropine 0.5 mg tablet 0.5 mg PO BID 05/09/21 05/29/22 cholecalciferol (vitamin D3) 125 125 mcg PO DAILY 05/09/21 05/29/22 mcg (5,000 unit) capsule omeprazole 20 mg capsule,delayed 20 mg PO DAILY 05/09/21 05/29/22 release Allergies Allergy/AdvReac Type Severity Reaction Status Date / Time nitrofurantoin Allergy Unknown Unknown Verified 03/02/24 15:51 vancomycin Allergy Hives Verified 03/02/24 15:51 Review of Systems Review of Systems: All systems reviewed & are unremarkable except as noted in HPI and below PMFSH Past Medical History Medical History COPD (chronic obstructive pulmonary disease) Depression DJD of AC (acromioclavicular) joint History of tobacco abuse Hoarseness Hypertension Lung mass IGOR (obstructive sleep apnea) Rheumatoid arthritis Right shoulder pain RLL pneumonia Rotator cuff tendinitis SOB (shortness of breath) Tobacco abuse Unintentional weight loss Surgical History Surgical History History of lobectomy of lung 2019 Family History Family History Mother Patient's mother is in good health Family history of cardiovascular disease Father Patient's father is , Onset Age: 58 Sibling Patient's sister is in good health Patient's brother is in good health Other Arthritis Cancer Depression Heart disease High cholesterol Hypertension Social History Social History Smoking packs per day: 1 Smoking cigarettes per day: 20.0 Years smoked: 47 Smoking pack-years: 47.00 Smoking status: Current every day smoker Alcohol intake: current Drinks per week: 1 Gender identity (if verbalized by the patient): Male Exam Const: General: ill appearing Nutritional Appearance: well nourished Limitations: no limitations HENMT: Head: normal to inspection Chest: Chest palpation & inspection: normal inspection of the chest Resp: Effort & Inspection: normal respiratory effort Auscultation: wheezes and diminished lung sounds ( right-sided) on the right Cardio: Rate: regular rate Rhythm: regular rhythm GI: GI Palp: Yes Soft to palpation Auscultation: normal bowel sounds : General: Yes bladder normal to palpation Skin: General skin exam: normal color Rashes: no rashes Wounds: no wounds Neuro: General: patient oriented x3, moves all extremities, no meningeal signs and no focal motor deficits Extrem: General: normal to inspection, no clubbing, cyanosis or edema and no pedal edema Psych: Mental Status: mental status grossly normal Affect: normal affect Attitude: cooperative Course Course Emergency Course: x-ray performed shows some extensive pneumonia with right lung [place]. [place] [id number]. Patient received a DuoNeb currently satting at around 88% on room air and started on 2L of O2 also received DuoNeb/ Solu-Medrol and for pneumonia started on ceftriaxone and azithromycin. CMP performed shows the acute renal insufficiency with a creatinine of 4.96, appears at his baseline back in November of 2023 was 0.67, with a current sodium level 122 and a potassium 2.6. Normal saline started IV fluids, along with potassium replacement. Vital Signs Vital signs: Vital Signs Temperature 36.6 C 03/02/24 15:45 Pulse Rate 108 H 03/02/24 15:45 Respiratory Rate 18 03/02/24 15:45 Blood Pressure 131/84 03/02/24 15:45 Pulse Oximetry 89 L 03/02/24 15:45 Oxygen Delivery Room Air 03/02/24 15:45 Temperature 36.6 C 03/02/24 15:45 Pulse Rate 72 03/02/24 17:01 Respiratory Rate 20 03/02/24 17:16 Blood Pressure 117/87 03/02/24 17:15 Pulse Oximetry 91 03/02/24 17:16 Oxygen Delivery Nasal Cannula 03/02/24 16:36 Oxygen Flow Rate 2 03/02/24 16:36 MDM - URI/Sore Throat Lab Data 03/02/24 16:23 03/02/24 16:23 Labs: Lab Results 03/02/24 03/02/24 Range/Units 15:54 16:23 WBC 29.5 H* (4.8-10.8) K/mm3 RBC 4.12 L (4.70-6.10) M/mm3 Hgb 12.7 L (14.0-18.0) g/dL Hct 34.7 L (40.0-54.0) % MCV 84.2 (78.0-102.0) fL MCH 30.8 (27.0-31.0) pg MCHC 36.6 H (32-36) g/dL RDW 12.4 (11.6-14.4) % Plt Count 333 (150-420) K/mm3 MPV 8.8 (8.7-11.0) fl Immature Gran % (Auto) Not Reportable Neut % (Auto) Not Reportable Lymph % (Auto) Not Reportable [place] % (Auto) Not Reportable Eos % (Auto) Not Reportable Baso % (Auto) Not Reportable Lymph # (Auto) Not Reportable [place] # (Auto) Not Reportable Eos # (Auto) Not Reportable Baso # (Auto) Not Reportable Abs Immat Gran (auto) Not Reportable Absolute Neuts (auto) Not Reportable Absolute Nucleated RBC Not Reportable Total Counted 100 Neutrophils % (Manual) 84 H (46-73) % Band Neutrophils % 5 (0-6) % Lymphocytes % (Manual) 4 L (18-44) % Monocytes % (Manual) 7 (3-9) % Eosinophils % (Manual) 0 L (1-6) % Basophils % (Manual) 0 (0-1) % Nucleated RBC % Not Reportable Abs Neuts (Manual) 26.25 H (1.3-6.7) K/mm3 Abs Lymphs (Manual) 1.18 (1.1-4.5) K/mm3 Abs Monocytes (Manual) 2.06 H (0.1-0.90) K/mm3 Absolute Eos (Manual) 0.00 L (0.02-0.50) K/mm3 Abs Basophils (Manual) 0.00 (0-0.1) K/mm3 Platelet Estimate Adequate (Adequate) Schistocytes Not Reportable Sodium 122 L (136-145) mmol/L Potassium 2.6 L (3.5-5.1) mmol/L Chloride 81 L (98-108) mmol/L Carbon Dioxide 32 (21-32) mmol/L Anion Gap 9 (4-12) mmol/L BUN 8 (7-18) mg/dL Creatinine 4.96 H* (0.70-1.30) mg/dL Estim Creat Clear Calc 14 ml/min Estimated GFR 12 L (59 - ) Glucose 119 H (70-99) mg/dL Calculated Osmolality 253 L (285-295) mOsm/kg Lactic Acid 1.6 (0.4-2.0) mmol/L Calcium 8.8 (8.5-10.1) mg/dL Total Bilirubin 2.4 H (0.00-1.00) mg/dL AST 28 (15-37) U/L ALT 25 (16-63) U/L Alkaline Phosphatase 182 H (46-116) U/L NT-Pro-B Natriuret Pep 518 H (0-125) pg/mL Total Protein 6.0 L (6.4-8.2) g/dL Albumin 2.0 L (3.4-5.0) g/dL Influenza A (RT-PCR) Pending Influenza B (RT-PCR) Pending RSV (RT-PCR) Pending SARS-CoV-2 RNA (RT-PCR) Pending Critical Care Time Critical Care Time Critical Care Time: No Discharge Plan Discharge Clinical Impression: Tobacco abuse, Acute kidney insufficiency, Acute hyponatremia, Acute hyp okalemia COPD (chronic obstructive pulmonary disease) Qualifiers: COPD type: unspecified COPD Qualified Code(s): J44.9 - Chronic obstructive pulmonary disease, unspecified Pneumonia Qualifiers: Pneumonia type: due to unspecified organism Laterality: unspecified laterality Lung location: lower lobe of lung Qualified Code(s): J18.9 - Pneumonia, unspecified organism Patient Disposition: Acute Care Hospital [facility] Condition: Guarded Prognosis Prescriptions: No Action haloperidol 5 mg tablet 5 mg PO TID haloperidol decanoate 100 mg/mL solution 5 mg IM WEEKLY Rx Instructions: every other week sildenafil 100 mg tablet 100 mg PO DAILY amlodipine 10 mg tablet 10 mg PO DAILY folic acid 1 mg tablet 1 mg PO DAILY propranolol 20 mg tablet 20 mg PO DAILY oxycodone-acetaminophen [Percocet] 5-325 mg tablet 1 tablet PO Q6H PRN (Reason: pain) Qty: 20 0RF benztropine 0.5 mg tablet 0.5 mg PO BID omeprazole 20 mg capsule,delayed release(DR/EC) 20 mg PO DAILY cholecalciferol (vitamin D3) 125 mcg (5,000 unit) capsule 125 mcg PO DAILY Anoro Ellipta 62.5-25 mcg/actuation blister with device 1 inh inhalation Q24H 90 Days Qty: 180 1RF albuterol sulfate 90 mcg/actuation HFA aerosol inhaler 1 - 2 inh inhalation Q4-6H PRN (Reason: shortness of breath or wheezing) 90 Days Qty: 25.5 1RF Follow-up/Referrals: UNKNOWN,DOCTOR [Non-Staff] -
[2024-03-02 16:47] LABS: Lactic Acid Reflex 1.6 mmol/L (0.4-2.0)
[2024-03-02 16:54] LABS: Alanine Aminotransferase 25 U/L (16-63); Alkaline Phosphatase 182 U/L (46-116); Anion Gap 9 mmol/L (4-12); Aspartate Amino Transferase 28 U/L (15-37); Bilirubin,Total 2.4 mg/dL (0.00-1.00); Blood Urea Nitrogen 8 mg/dL (7-18); Calcium 8.8 mg/dL (8.5-10.1); Carbon Dioxide 32 mmol/L (21-32); Chloride 81 mmol/L (98-108); Estimated CRCL calculation 14 ml/min; Estimated Glomerular Filt Rate 12; Glucose 119 mg/dL (70-99); NT Pro B Type Natriuretic Pept 518 pg/mL (0-125); Osmolality Calculated 253 mOsm/kg (285-295); Potassium 2.6 mmol/L (3.5-5.1); Sodium 122 mmol/L (136-145)
[2024-03-02 16:56] LABS: Band Neutrophils Percent 5 % (0-6); Basophils Percent Manual 0 % (0-1); Eosinophils Percent Manual 0 % (1-6); Lymphocytes Absolute Manual 1.18 K/mm3 (1.1-4.5); Lymphocytes Percent Manual 4 % (18-44); Monocytes Absolute Manual 2.06 K/mm3 (0.1-0.90); Monocytes Percent Manual 7 % (3-9); Neutrophils Absolute Manual 26.25 K/mm3 (1.3-6.7); Neutrophils Percent Manual 84 % (46-73); Total Cells Counted 100
[2024-03-02 16:57] LABS: Platelet Estimate Adequate (Adequate)
[2024-03-02] MEDS: POTASSIUM BICARBONATE 25 MEQ TABEF 50 MEQ PO (17:07)
[2024-03-02] MEDS: AZITHROMYCIN 500 MG/NS 250 ML 500 MG/250 ML BAG 250 MG IVPB (17:08)
[2024-03-02] MEDS: SODIUM CHLORIDE 0.9% IV 1,000 ML 150 ML IV CONT (17:14)
[2024-03-02 17:26] LABS: Influenza A QL RT-PCR Negative (Negative); Influenza B QL RT-PCR Negative (Negative); RSV RNA, RT-PCR Negative (Negative); SARS-CoV-2 RNA PCR Negative (Negative)
[2024-03-02] MEDS: KCL 20 MEQ/SW 100 ML 100 ML 50 MEQ IVPB (18:04)
--- NOTE | 2024-03-03 17:21 | PC.NURSE ---
pt blood culture preliminary noted no growth. awaiting final
--- NOTE | 2024-03-04 13:10 | PC.NURSE ---
BLOOD CULTURE PRELIMINARY RESULTS, FAXED TO BOBBY MILLER RN @ [address]
--- NOTE | 2024-03-05 15:35 | PC.NURSE ---
PRELIMINARY BLOOD CULTURE REPORT: FAXED TO BOBBY MILLER RN/[facility] [address] [place] [address] ON 03-04-2024 AT 1040 FAXED TO [phone]
--- NOTE | 2024-03-06 14:10 | PC.NURSE ---
FINAL BLOOD CULTURE RESULTS: ISOLATE 1: MRSA FROM AEROBIC AND ANAEROBIC BOTTLES IN LEFT ARM. RESULTS CALLED TO [facility] AT [facility]. SHE IS AWARE, PROVIDER HAS BEEN NOTIFIED.
== END 2024-03-02 19:23 | disposition short-term general hospital (02) ==
PROVIDERS: Emergency Provider Emergency Medicine; PCP Family Medicine
DX: J44.9 Chronic obstructive pulmonary disease, unspecified (principal); N28.9 Disorder of kidney and ureter, unspecified; E87.1 Hypo-osmolality and hyponatremia; E87.6 Hypokalemia; J18.9 Pneumonia, unspecified organism; I10 Essential (primary) hypertension; F17.210 Nicotine dependence, cigarettes, uncomplicated; Z20.822 Contact with and (suspected) exposure to COVID-19
CPT/HCPCS: 36415; 71045; 80053; 83605; 83880; 85025; 87040; 87181; 87637; 93005; 94640; 96365; 96367; 96375; 99285; A9270; J0456; J0696; J2919; J3480; J7030

== ENCOUNTER 2024-03-03 08:01 | Inpatient (IN) | payer MEDICARE, OTHER, SELFPAY ==
--- NOTE | 2024-03-02 20:23 | ADMGEN ---
This patient, Raz Tracy, was admitted to 2 Medical Room 257-. Patient/family oriented to hospital policies and general routines including ID bracelet, bed and alarms, visiting hours, pain management, procedures, bathroom and other care routines, personal items, smoking policy, room service/diet, and visiting hours. Information on how to activate the Rapid Response Team has been discussed. Patient/Family are encouraged to report perceived risks to care and to ask questions if they do not understand what they are told or what they should do.
[2024-03-02 20:59] VITALS: BP 98/54; PULSE 94; RESP 18; TEMP 36.7; O2SAT 95
[2024-03-02 21:05] VITALS: BMI 19.5
--- NOTE | 2024-03-02 21:34 | ECG_ITS ---
Test Date: 2024-03-03 09:16:03 Measurements Intervals [place] Rate: 104 P: 62 IA: 180 QRS: 42 QRSD: 83 T: 50 QT: 351 QTc: 464 Interpretive Statements SINUS TACHYCARDIA POSSIBLE RIGHT ATRIAL ENLARGEMENT POSSIBLE LEFT ATRIAL ENLARGEMENT BORDERLINE T WAVE ABNORMALITY- Diffuse leads BORDERLINE ECG Compared to ECG 03/02/2024 16:17:07 NO SIGNIFICANT CHANGE Electronically Signed On 03-03-2024 09:25:18 [employer]BORIST by Flo Chowdary D.O.
[2024-03-02 21:57] LABS: Basophils Absolute Auto 0.1 K/mm3 (0.0-0.1); Basophils Percent Auto 0.3 % (0.2-1.2); Eosinophils Absolute Auto 0.1 K/mm3 (0-0.3); Eosinophils Percent Auto 0.3 % (0-4.4); Hematocrit 35.7 % (42.0-52.0); Hemoglobin 13.1 g/dL (14.0-18.0); Immature Granulocyte Absolute 0.19 K/mm3 (0.00-0.031); Immature Granulocyte Percent A 0.8 % (0-0.5); Lymphocytes Absolute Auto 0.51 K/mm3 (0.9-3.2); Lymphocytes Percent Auto 2.2 % (18.3-44.2); Mean Corpuscular HGB Conc 36.7 g/dl (32-36); Mean Corpuscular Hemoglobin 31.5 pg (26-34); Mean Corpuscular Volume 85.8 fl (80-100); Mean Platelet Volume 8.9 fl (7.4-10.4); Monocytes Absolute Auto 0.8 K/mm3 (0.1-0.6); Monocytes Percent Auto 3.2 % (2.6-8.5); Neutrophils Absolute Auto 21.6 K/mm3 (1.3-6.7); Neutrophils Percent Auto 93.2 % (45.5-73.1); Platelet Count Result 335 k/mm3 (150-375); Red Blood Count 4.16 M/mm3 (4.6-6.20); Red Cell Distribution Width 12.7 % (11.5-14.5); White Blood Count 23.1 K/mm3 (4.5-10.0)
[2024-03-02 22:06] LABS: Lactic Acid Reflex 1.2 mmol/L (0.7-2.0)
[2024-03-02 22:07] LABS: Anion Gap 8 mmol/L (4-12); Blood Urea Nitrogen 10 mg/dL (9-20); Calcium 8.6 mg/dL (8.4-10.2); Carbon Dioxide 33 mmol/L (22-30); Chloride 80 mmol/L (98-107); Estimated CRCL calculation 103 ml/min; Estimated Glomerular Filt Rate > 60; Glucose 127 mg/dL (65-110); INR 1.2; Magnesium 1.9 mg/dL (1.6-2.3); Potassium 2.9 mmol/L (3.4-5.0); Prothrombin Time 16.1 Seconds (11.1-14.7); Sodium 121 mmol/L (137-145)
[2024-03-02 22:08] LABS: Partial Thromboplastin Time 34.5 Seconds (22.3-36.8)
[2024-03-02 22:19] VITALS: O2SAT 95
[2024-03-02] MEDS: HALOPERIDOL 5 MG TABLET PO (22:26)
[2024-03-02] MEDS: SODIUM CHLORIDE 0.9% IV 1,000 ML 100 ML IV CONT (22:26)
[2024-03-02 22:37] VITALS: PULSE 99
[2024-03-03] VITALS (15 sets, daily range): BP systolic 96–120; BP diastolic 56–71; PULSE 95–114; RESP 18–22; TEMP 36.4–37.1; O2SAT 91–96; BMI 19.5
--- NOTE | ~2024-03-03 | XR_ITS ---
Exam: Abdomen 2V HISTORY: ileus COMPARISON: None. TECHNIQUE: 2 supine images of the abdomen FINDINGS: Multiple loops of aerated nondilated small bowel with mural thickening. No air is identified within t he rectum. The colon is not visualized. There is no free air or deep sulci. No pathologic calcifications are seen. Lung bases are unremarkable. Bones and soft tissues are unremarkable. IMPRESSION: Findings consistent with distal small bowel obstruction, as detailed above. Cross-sectional imaging is recommended. Reviewed, dictated and finalized at location A. DESIGN CHECKER
--- NOTE | ~2024-03-03 | XR_ITS ---
Portable chest x-ray Comparison: 03/02/2024 Clinical History: Shortness of breath Findings: Extensive right lung consolidation and present, compatible with pneumonia. Left lung clear . Cardiomediastinal silhouette is stable. Bones and soft tissues are unremarkable. Impression: Extensive right lung pneumonia is essentially unchanged. Reviewed, dictated and finalized at location M. OLOGY PROFESSOR Impression: Extensive right lung pneumonia is essentially unchanged.
--- NOTE | ~2024-03-03 | XR_ITS ---
EXAMINATION: XR barium swallow modified DATE: 03/04/2024 12:44 INDICATION: Dysphagia. TECHNIQUE: The patient was given barium-containing material of multiple consistencies to swallow by t randolph speech pathologist while I performed fluoroscopy. Fluoroscopy exposure time was 0.9 minutes. The n umber of fluoroscopy images saved to the PACS was 1. Dose-area product was 0.488 Gy-cm^2. FINDINGS: There is reduced laryngeal elevation, reduced laryngeal adduction, reduced tongue base retraction, re duced pharyngeal squeeze, vallecular residue, pyriform sinus residue, and pharyngeal wall residue. Th ere is laryngeal penetration and aspiration. IMPRESSION: 1. Aspiration. 2. Please refer to the speech therapy report for recommendations. Reviewed, dictated and finalized at location A. ONAL ACCOUNTS RECRUITER
[2024-03-03] MEDS: SODIUM CHLORIDE 0.9% IV 1,000 ML 125 ML IV CONT ×2 (08:31→18:04)
[2024-03-03] MEDS: ENOXAPARIN 40 MG/0.4 ML SYRINGE SUB-Q (08:33)
--- NOTE | 2024-03-03 08:57 | P.HP_ITS ---
H&P: HPI History of Present Illness Date/Time: 03/03/24 08:57 Chief Complaint: Intermittent coughs Narrative: Patient presented to the ER with reports of intermittent coughs and congestion, with episodes of yellowish to brownish sputum. He has been having symptoms for almost a week now, feeling hot at night too but unsure whether fevers. Denies any chest pain or chills. Patient has a history of COPD and and 2 packs per day smoking. Patient also has a Hx of right lower lung resection which showed no malignancy, and pt follows up with pulmonary. Patient also has a history of schizophrenia and hypertension. Patient noted with 88% O2 Sats on RA and was placed on 2L/NC. Pt does not use supplemental O2 at home. Review of Systems Review of Systems: All systems reviewed & are unremarkable except as noted in HPI and below PMFSH Past Medical History Medical History (Updated 03/03/24 @ 09:44 by Shannan Romo NP) COPD (chronic obstructive pulmonary disease) Depression DJD of AC (acromioclavicular) joint History of tobacco abuse Hoarseness Hypertension Lung mass IGOR (obstructive sleep apnea) Rheumatoid arthritis Right shoulder pain RLL pneumonia Rotator cuff tendinitis SOB (shortness of breath) Tobacco abuse Unintentional weight loss Surgical History Surgical History (Updated 03/03/24 @ 09:21 by Shannan Romo NP) History of lobectomy of lung 2019 Family History Family History Mother Patient's mother is in good health Family history of cardiovascular disease Father Patient's father is , Onset Age: 58 Sibling Patient's sister is in good health Patient's brother is in good health Other Arthritis Cancer Depression Heart disease High cholesterol Hypertension Social History Social History Smoking packs per day: 2 Smoking cigarettes per day: 40.0 Years smoked: 47 Smoking pack-years: 94.00 Smoking status: Current every day smoker Tobacco type: cigarettes Alcohol intake: never Drinks per week: 1 Substance use: never Do You Feel Safe in your Home?: Yes Lack of Transportation: No Lack of Food: Never True Current Housing: I Have Housing Concerned About Future Housing: No Difficulty Paying Gas/Electric Bills: No Difficulty Paying for Meds: No Currently Unemployed: No Education: High School Diploma/GED Difficulty w/ Childcare or Family Care: No Gender identity (if verbalized by the patient): Male Spiritual care concerns: No Meds Home Medications and Allergies Home Medications Medication Instructions Recorded Confirmed Type amlodipine 10 mg tablet 10 mg PO DAILY 05/23/20 03/02/24 History folic acid 1 mg tablet 1 mg PO DAILY 05/23/20 03/02/24 History haloperidol 5 mg tablet 5 mg PO TID PRN Anxiety 05/23/20 03/02/24 History haloperidol decanoate 100 mg/mL 200 mg IM .[id number] 05/23/20 03/02/24 History intramuscular solution propranolol 20 mg tablet 20 mg PO DAILY 05/23/20 03/02/24 History benztropine 0.5 mg tablet 0.5 mg PO BID PRN .tight muscles 05/09/21 03/02/24 History omeprazole 20 mg capsule,delayed 20 mg PO DAILY 05/09/21 03/02/24 History release Allergies Allergy/AdvReac Type Severity Reaction Status Date / Time nitrofurantoin Allergy Unknown Unknown Verified 03/02/24 15:51 vancomycin Allergy Hives Verified 03/02/24 15:51 Vital Signs Vital Signs - 24 hr 03/02/24 20:59 03/02/24 22:19 03/02/24 22:37 Temperature 98.0 F Pulse Rate 94 99 Respiratory Rate 18 Blood Pressure 98/54 L Pulse Oximetry 95 95 Oxygen Delivery Nasal Cannula Oxygen Flow Rate 3 03/03/24 00:00 03/03/24 04:00 03/03/24 04:39 Temperature 97.7 F Pulse Rate 98 103 H 95 Respiratory Rate 18 Blood Pressure 96/56 L Pulse Oximetry 96 Oxygen Delivery Oxygen Flow Rate Exam Narrative: HEENT: Atraumatic, PERRL, EOM, non-icteric, moist mucosa. Neck: Supple. Lungs: Coarse bilaterally, faint expiratory wheezes bilaterally, intermittent coughs with congestion. Heart: RRR, no murmurs. ABdomen: Soft, non-tender, non-distended, +ve bowel sounds X4 quadrants. Extremities: No edema. 2+ pedal pulses. Skin: Warm, dry and pink, no lesions. Neuro: Fairly well oriented, no focal neuro deficits noted. Psych: Pleasant and co-operative. H&P: Results Labs Labs: Short CBC 03/02/24 Range/Units 21:47 WBC 23.1 H (4.5-10.0) K/mm3 Hgb 13.1 L (14.0-18.0) g/dL Hct 35.7 L (42.0-52.0) % Plt Count 335 (150-375) k/mm3 BMP 03/02/24 21:47 Sodium 121 L Potassium 2.9 L Chloride 80 L Carbon Dioxide 33 H BUN 10 Creatinine 0.60 L Glucose 127 H Calcium 8.6 Assessment and Plan Assessment and plan (1) Acute respiratory failure with hypoxia: Code(s): J96.01 - Acute respiratory failure with hypoxia Status: Inactive Assessment and Plan: - Likely secondary to below and possibly COPD exacerbation. - Currently good O2 sats > 90 % on 2L/NC. - Continue bronchodilators anb broad-spectrum IV abx. - Wean O2 as tolerated to maintain sats > 90 %. - Further mgt as # 2. (2) Bilateral pneumonia: Code(s): J18.9 - Pneumonia, unspecified organism Status: Acute Assessment and Plan: - CXR: Impression: Extensive bilateral airspace disease, right greater than left, consistent with multifocal pneumonia. - Blood cultures collected. - Legionella and Strep. pneumo urine Ag ordered. - Started on broad-spectrum IV abx. - Follow cultures. - Continue supplemental O2 to maintain sats > 90 %. (3) COPD (chronic obstructive pulmonary disease): Qualifiers: COPD type: unspecified COPD Qualified Code(s): J44.9 - Chronic obstructive pulmonary disease, unspecified Code(s): J44.9 - Chronic obstructive pulmonary disease, unspecified Status: Acute Assessment and Plan: - Possibly in exacerbation. - Admits to 2packs/day smoking. - Started on Symbicort and scheduled duoneb updrafts. - Continue supplemental O2 to maintain sats > 90 %. - Continue IV abx. (4) Acute hyponatremia: Code(s): E87.1 - Hypo-osmolality and hyponatremia Status: Inactive Assessment and Plan: - Asymptomatic. - Unclear etiology and pt with episodes of hyponatremia previously per medical records. - Urine sodium pending. - Continue IVF hydration. - We'll consider nephro consult if no improvement. - Monitor levels closely, Q6hrs for now, to avoid rapid correction. (5) Acute kidney insufficiency: Code(s): N28.9 - Disorder of kidney and ureter, unspecified Status: Inactive Assessment and Plan: - Unclear etiology. - Possibly related to poor PO intake from lung infection. - Renal function appears normalized currently. (6) COPD (chronic obstructive pulmonary disease): Qualifiers: COPD type: unspecified COPD Qualified Code(s): J44.9 - Chronic obstructive pulmonary disease, unspecified Code(s): J44.9 - Chronic obstructive pulmonary disease, unspecified Status: Inactive Assessment and Plan: - Possibly acute on chronic. - Started on Symbicort and scheduled duoneb updrafts. - Continue IV abx. - Continue supplemental O2 for sats > 90 %, wean as tolerated. (7) History of pneumonectomy: Code(s): Z98.890 - Other specified postprocedural states; Z90.2 - Acquired absence of lung [part of] Status: Acute Assessment and Plan: - Stable. - Continue outpatient f/u with [facility] supervisor. (8) Hypertension: Code(s): I10 - Essential (primary) hypertension Status: Acute Assessment and Plan: - BP currently trending low. - Hold BP meds. - Monitor closely. Plan Continue IV antibiotics and bronchodilators for mgt of PNA and COPD exacerbation. Monitor Na levels closely. Continue supplemental O2 and wean as tolerated for sats > 90 %. Quality VTE Prophylaxis VTE prophylaxis: pharmacologic ordered Hospitalist MIPS Advance Care Plan I have confirmed that the patient's Advanced Care Plan is present, code status is documented, or surrogate decision maker is listed in patient medical record.: Yes Medication Reconciliation I have utilized all available resources to obtain, update and review the patients current medications (includes all prescriptions, OTC, herbals, cannabis, and nutritional supplements).: Yes
[2024-03-03] MEDS: DOXYCYCLINE 100 MG/NS 100 ML 100 MG/100 ML BAG IVPB ×2 (10:27→21:45)
[2024-03-03 10:39] LABS: Sodium 127 mmol/L (137-145)
--- NOTE | 2024-03-03 12:11 | P.CONGS_ITS ---
Assessment and Plan Assessment and plan (1) Ileus: Code(s): K56.7 - Ileus, unspecified Status: Acute Assessment and Plan: Likely ileus secondary to bilateral pneumonia and UTI, abdominal exam completely benign at this point, having bowel fxn, will start diet, cont serial exams (2) COPD (chronic obstructive pulmonary disease): Qualifiers: COPD type: unspecified COPD Qualified Code(s): J44.9 - Chronic obstructive pulmonary disease, unspecified Code(s): J44.9 - Chronic obstructive pulmonary disease, unspecified Status: Acute Assessment and Plan: Management per primary team, on supplemental oxygen at home (3) Bilateral pneumonia: Code(s): J18.9 - Pneumonia, unspecified organism Status: Acute Assessment and Plan: management per primary team, continue antibiotics History of Present Illness Consult details Consult date: 03/03/24 Reason for consult: other (sbo) Requesting physician: Tyrone Bourne MD Narrative: The patient is a 59-year-old male with multiple medical issues including severe COPD presenting from outside hospital for bilateral pneumonia and UTI. The patient reports he initially did have some abdominal pain, however that has since resolved. The patient reports that he has had multiple bowel movements and is passing flatus. The patient currently does not have any abdominal pain, nausea or vomiting. The patient reports that he is hungry. KUB done yesterday does show some dilated loops of small intestine. Review of Systems Review of Systems: All systems reviewed & are unremarkable except as noted in HPI and below PMFSH Past Medical History Medical History COPD (chronic obstructive pulmonary disease) Depression DJD of AC (acromioclavicular) joint History of tobacco abuse Hoarseness Hypertension Lung mass IGOR (obstructive sleep apnea) Rheumatoid arthritis Right shoulder pain RLL pneumonia Rotator cuff tendinitis SOB (shortness of breath) Tobacco abuse Unintentional weight loss Surgical History Surgical History History of lobectomy of lung 2019 Family History Family History Mother Patient's mother is in good health Family history of cardiovascular disease Father Patient's father is , Onset Age: 58 Sibling Patient's sister is in good health Patient's brother is in good health Other Arthritis Cancer Depression Heart disease High cholesterol Hypertension Social History Social History Smoking packs per day: 2 Smoking cigarettes per day: 40.0 Years smoked: 47 Smoking pack-years: 94.00 Smoking status: Current every day smoker Tobacco type: cigarettes Alcohol intake: never Drinks per week: 1 Substance use: never Do You Feel Safe in your Home?: Yes Lack of Transportation: No Lack of Food: Never True Current Housing: I Have Housing Concerned About Future Housing: No Difficulty Paying Gas/Electric Bills: No Difficulty Paying for Meds: No Currently Unemployed: No Education: High School Diploma/GED Difficulty w/ Childcare or Family Care: No Gender identity (if verbalized by the patient): Male Spiritual care concerns: No Meds Home Medications and Allergies Home Medications Medication Instructions Recorded Confirmed Type amlodipine 10 mg tablet 10 mg PO DAILY 05/23/20 03/02/24 History folic acid 1 mg tablet 1 mg PO DAILY 05/23/20 03/02/24 History haloperidol 5 mg tablet 5 mg PO TID PRN Anxiety 05/23/20 03/02/24 History haloperidol decanoate 100 mg/mL 200 mg IM .[id number] 05/23/20 03/02/24 History intramuscular solution propranolol 20 mg tablet 20 mg PO DAILY 05/23/20 03/02/24 History benztropine 0.5 mg tablet 0.5 mg PO BID PRN .tight muscles 05/09/21 03/02/24 History omeprazole 20 mg capsule,delayed 20 mg PO DAILY 05/09/21 03/02/24 History release Allergies Allergy/AdvReac Type Severity Reaction Status Date / Time nitrofurantoin Allergy Unknown Unknown Verified 03/02/24 15:51 vancomycin Allergy Hives Verified 03/02/24 15:51 Vital Signs Vital Signs - 24 hr 03/02/24 20:59 03/02/24 22:19 03/02/24 22:37 Temperature 36.7 C Pulse Rate 94 99 Respiratory Rate 18 Blood Pressure 98/54 L Pulse Oximetry 95 95 Oxygen Delivery Nasal Cannula Oxygen Flow Rate 3 03/03/24 00:00 03/03/24 04:00 03/03/24 04:39 Temperature 36.5 C Pulse Rate 98 103 H 95 Respiratory Rate 18 Blood Pressure 96/56 L Pulse Oximetry 96 Oxygen Delivery Oxygen Flow Rate 03/03/24 08:28 03/03/24 08:00 Temperature Pulse Rate 104 H Respiratory Rate Blood Pressure Pulse Oximetry 96 Oxygen Delivery Nasal Cannula Oxygen Flow Rate 2 Exam Const: General: cooperative, comfortable, no acute distress and ill appearing HENMT: Head: normal to inspection, normocephalic and atraumatic Eyes: General: appearance normal, both eyes and all related structures Resp: Auscultation: diminished lung sounds Cardio: Rate: regular rate Rhythm: regular rhythm GI: Inspection: normal to inspection and non-distended GI Palp: No abdominal tenderness, Yes Soft to palpation and No Tenderness to palpation present (GI) Skin: General skin exam: normal color and no rashes or lesions noted Neuro: General: patient oriented x3 and CN's II-XI intact bilaterally Extrem: General: normal to inspection and full ROM Results Labs 03/02/24 21:47 03/03/24 09:51 Labs: Abnormal lab results 03/02/24 03/03/24 Range/Units 21:47 09:51 WBC 23.1 H (4.5-10.0) K/mm3 RBC 4.16 L (4.6-6.20) M/mm3 Hgb 13.1 L (14.0-18.0) g/dL Hct 35.7 L (42.0-52.0) % MCHC 36.7 H (32-36) g/dl Immature Gran % (Auto) 0.8 H (0-0.5) % Neut % (Auto) 93.2 H (45.5-73.1) % Lymph % (Auto) 2.2 L (18.3-44.2) % Lymph # (Auto) 0.51 L (0.9-3.2) K/mm3 [place] # (Auto) 0.8 H (0.1-0.6) K/mm3 Abs Immat Gran (auto) 0.19 H (0.00-0.031) K/mm3 Absolute Neuts (auto) 21.6 H (1.3-6.7) K/mm3 PT 16.1 H (11.1-14.7) Seconds Sodium 121 L 127 L (137-145) mmol/L Potassium 2.9 L (3.4-5.0) mmol/L Chloride 80 L (98-107) mmol/L Carbon Dioxide 33 H (22-30) mmol/L Creatinine 0.60 L (0.7-1.3) mg/dL Glucose 127 H (65-110) mg/dL Diabetes panel 03/02/24 03/03/24 Range/Units 21:47 09:51 Sodium 121 L 127 L (137-145) mmol/L Potassium 2.9 L (3.4-5.0) mmol/L Chloride 80 L (98-107) mmol/L Carbon Dioxide 33 H (22-30) mmol/L BUN 10 (9-20) mg/dL Creatinine 0.60 L (0.7-1.3) mg/dL Glucose 127 H (65-110) mg/dL Calcium 8.6 (8.4-10.2) mg/dL Calcium panel 03/02/24 Range/Units 21:47 Calcium 8.6 (8.4-10.2) mg/dL Phosphorus 3.0 (2.5-4.5) mg/dL Pituitary panel 03/02/24 03/03/24 Range/Units 21:47 09:51 Sodium 121 L 127 L (137-145) mmol/L Potassium 2.9 L (3.4-5.0) mmol/L Chloride 80 L (98-107) mmol/L Carbon Dioxide 33 H (22-30) mmol/L BUN 10 (9-20) mg/dL Creatinine 0.60 L (0.7-1.3) mg/dL Glucose 127 H (65-110) mg/dL Calcium 8.6 (8.4-10.2) mg/dL Adrenal panel 03/02/24 03/03/24 Range/Units 21:47 09:51 Sodium 121 L 127 L (137-145) mmol/L Potassium 2.9 L (3.4-5.0) mmol/L Chloride 80 L (98-107) mmol/L Carbon Dioxide 33 H (22-30) mmol/L BUN 10 (9-20) mg/dL Creatinine 0.60 L (0.7-1.3) mg/dL Glucose 127 H (65-110) mg/dL Calcium 8.6 (8.4-10.2) mg/dL All other labs normal.
[2024-03-03] MEDS: POTASSIUM CHLORIDE 20 MEQ ER TABLET 40 MEQ PO (13:03)
[2024-03-03] MEDS: IPRATROPIUM 0.5 MG/ALBUTEROL SULFATE 2.5 MG AMPUL.NEB 3 ML INHALATION ×2 (13:36→20:29)
[2024-03-03] MEDS: HALOPERIDOL 5 MG TABLET PO (20:00)
[2024-03-03] MEDS: FLUTICASONE/SALMETEROL 115-21 MCG INHALER 1 PUFF 2 PUFF INHALATION (20:29)
[2024-03-04] VITALS (15 sets, daily range): BP systolic 124–134; BP diastolic 69–80; PULSE 92–120; RESP 18–22; TEMP 36.4–37; O2SAT 93–95
[2024-03-04] MEDS: IPRATROPIUM 0.5 MG/ALBUTEROL SULFATE 2.5 MG AMPUL.NEB 3 ML INHALATION ×2 (02:48→07:45)
[2024-03-04] MEDS: SODIUM CHLORIDE 0.9% IV 1,000 ML 125 ML IV CONT ×2 (03:40→17:03)
[2024-03-04 06:07] LABS: Sodium 129 mmol/L (137-145)
[2024-03-04 07:02] LABS: Basophils Percent Auto 0.2 % (0.2-1.2); Hematocrit 35.6 % (42.0-52.0); Hemoglobin 12.5 g/dL (14.0-18.0); Immature Granulocyte Absolute 0.22 K/mm3 (0.00-0.031); Immature Granulocyte Percent A 1.3 % (0-0.5); Lymphocytes Absolute Auto 0.68 K/mm3 (0.9-3.2); Mean Corpuscular HGB Conc 35.1 g/dl (32-36); Mean Corpuscular Hemoglobin 31.3 pg (26-34); Mean Corpuscular Volume 89.2 fl (80-100); Mean Platelet Volume 8.9 fl (7.4-10.4); Monocytes Absolute Auto 1.1 K/mm3 (0.1-0.6); Monocytes Percent Auto 6.5 % (2.6-8.5); Neutrophils Absolute Auto 15.1 K/mm3 (1.3-6.7); Platelet Count Result 351 k/mm3 (150-375); Red Blood Count 3.99 M/mm3 (4.6-6.20); Red Cell Distribution Width 13.1 % (11.5-14.5); White Blood Count 17.1 K/mm3 (4.5-10.0)
[2024-03-04 07:08] LABS: Anion Gap 8 mmol/L (4-12); Blood Urea Nitrogen 9 mg/dL (9-20); Calcium 8.5 mg/dL (8.4-10.2); Carbon Dioxide 31 mmol/L (22-30); Chloride 91 mmol/L (98-107); Estimated CRCL calculation 148 ml/min; Estimated Glomerular Filt Rate > 60; Glucose 131 mg/dL (65-110); Potassium 2.6 mmol/L (3.4-5.0); Sodium 130 mmol/L (137-145)
[2024-03-04] MEDS: FLUTICASONE/SALMETEROL 115-21 MCG INHALER 1 PUFF 2 PUFF INHALATION (07:54)
[2024-03-04] MEDS: POTASSIUM CHLORIDE INJ 40 MEQ in SODIUM CHLORIDE 0.9% IV 500 ML 130 MEQ IVPB (08:55)
[2024-03-04] MEDS: ENOXAPARIN 40 MG/0.4 ML SYRINGE SUB-Q (08:56)
[2024-03-04] MEDS: FOLIC ACID 1 MG TABLET PO (10:00)
[2024-03-04] MEDS: PANTOPRAZOLE 40 MG TABLET PO (10:02)
[2024-03-04] MEDS: PROPRANOLOL HCL 20 MG TABLET PO (10:02)
[2024-03-04] MEDS: DOXYCYCLINE 100 MG/NS 100 ML 100 MG/100 ML BAG IVPB ×2 (10:05→21:28)
--- NOTE | 2024-03-04 10:43 | PM.PNGS ---
Progress Note: A&P Assessment and Plan (1) Ileus: Code(s): K56.7 - Ileus, unspecified Status: Acute Assessment and Plan: exam benign, +bowel fxn, swallow study to evaluate aspiration, no acute surgical issues, will s/o, call c ?s, issues Subjective Subjective Date/Time Seen: 03/04/24 10:43 Interval history: feels better, no abd pain, +bowel fxn Review of Systems Review of Systems: All systems reviewed & are unremarkable except as noted in HPI and below Exam Const: General: cooperative, comfortable, no acute distress and ill appearing Resp: Auscultation: diminished lung sounds Cardio: Rate: regular rate Rhythm: regular rhythm GI: Inspection: normal to inspection and non-distended GI Palp: No abdominal tenderness and Yes Soft to palpation Objective Data Vital Signs Vital Signs: Vital Signs - 24 hr 03/03/24 12:00 03/03/24 13:35 03/03/24 13:50 Temperature Pulse Rate 113 H 114 H 107 H Respiratory Rate 20 20 Blood Pressure Pulse Oximetry Oxygen Delivery Oxygen Flow Rate 03/03/24 14:00 03/03/24 16:00 03/03/24 20:06 Temperature 36.4 C 37.1 C Pulse Rate 110 H 105 H 102 H Respiratory Rate 20 22 H Blood Pressure 120/71 120/65 Pulse Oximetry 91 94 Oxygen Delivery Oxygen Flow Rate 03/03/24 20:31 03/03/24 20:33 03/03/24 20:36 Temperature Pulse Rate 101 H 104 H Respiratory Rate 22 H 22 H Blood Pressure Pulse Oximetry 93 Oxygen Delivery Nasal Cannula Oxygen Flow Rate 2 03/03/24 20:00 03/03/24 21:00 03/04/24 00:00 Temperature Pulse Rate 106 H 110 H Respiratory Rate Blood Pressure Pulse Oximetry Oxygen Delivery Nasal Cannula Oxygen Flow Rate 2 03/04/24 02:49 03/04/24 02:55 03/04/24 04:00 Temperature Pulse Rate 110 H 120 H 115 H Respiratory Rate 20 20 Blood Pressure Pulse Oximetry Oxygen Delivery Oxygen Flow Rate 03/04/24 04:57 03/04/24 07:50 03/04/24 07:50 Temperature 36.4 C L Pulse Rate 113 H 120 H Respiratory Rate 20 20 Blood Pressure 124/69 Pulse Oximetry 94 93 Oxygen Delivery Nasal Cannula Oxygen Flow Rate 2 03/04/24 08:00 03/04/24 10:02 Temperature Pulse Rate 117 H 120 H Respiratory Rate 20 Blood Pressure Pulse Oximetry Oxygen Delivery Oxygen Flow Rate Intake/Output Intake/Output: Intake & Output 03/01/24 03/02/24 03/03/24 03/04/24 23:59 23:59 23:59 23:59 Intake Total 4390 1550 Output Total 900 600 Balance -900 3790 1550 Meds/Results Medications: Active Medications Generic Name Dose Route Start Last Admin Trade Name Freq PRN Reason Stop Dose Admin Al Hydrox/Mg Hydrox/Simethicone 30 ml 03/02/24 21:29 Mag Hydrox/Al Hydrox/Simeth 30 Ml Udc PO QID PRN Dyspepsia Albuterol/Ipratropium 3 ml 03/03/24 09:30 03/04/24 07:45 Ipratropium 0.5 Mg/Albuterol Sulfate 2.5 Mg Ampul.Neb 3 Ml INHALATION 3 ml Q6HRT SHALINI Administration Benztropine Mesylate 0.5 mg 03/02/24 21:34 Benztropine Mesylate 0.5 Mg Tablet PO BID PRN .tight muscles Enoxaparin Sodium 40 mg 03/03/24 09:00 03/04/24 08:56 Enoxaparin 40 Mg/0.4 Ml Syringe SUB-Q 40 mg DAILY SHALINI Administration Folic Acid 1 mg 03/03/24 09:00 03/04/24 10:00 Folic Acid 1 Mg Tablet PO 1 mg DAILY SHALINI Administration Haloperidol 5 mg 03/02/24 21:34 03/03/24 20:00 Haloperidol 5 Mg Tablet PO 5 mg TID PRN Administration Anxiety Sodium Chloride 1,000 mls @ 125 mls/hr 03/02/24 21:30 03/04/24 03:40 Normal Saline Iv IV CONT 125 mls/hr .Q8H SHALINI Administration Ceftriaxone Sodium 1 gm in 50 mls @ 100 mls/hr 03/03/24 09:00 03/04/24 08:57 Rocephin 1 Gm/Ns 50 Ml IVPB 100 mls/hr Q24H SHALINI Administration Doxycycline Hyclate 100 mg in 100 mls @ 100 mls/hr 03/03/24 09:00 03/04/24 10:05 Vibramycin 100 Mg/Ns 100 Ml IVPB 100 mls/hr Q12H SHALINI Administration Potassium Chloride 40 meq/ 520 mls @ 130 mls/hr 03/04/24 07:31 03/04/24 08:55 Sodium Chloride IVPB 03/04/24 11:30 130 mls/hr ONCE ONE Administration Magnesium Hydroxide 30 ml 03/02/24 21:29 Magnesium Hydroxide Susp 30 Ml Udc PO DAILY PRN Constipation Morphine Sulfate 2 mg 03/02/24 21:29 Morphine Sulfate (*Crx) 2 Mg/Ml Inj IV PUSH Q4H PRN Pain Rated 7-10 Ondansetron HCl 4 mg 03/02/24 21:29 Ondansetron Inj 4 Mg/2 Ml Vial IV PUSH Q6H PRN Nausea And Vomiting Pantoprazole Sodium 40 mg 03/03/24 09:00 03/04/24 10:02 Pantoprazole 40 Mg Tablet PO 40 mg QAM SHALINI Administration Propranolol HCl 20 mg 03/03/24 09:00 03/04/24 10:02 Propranolol Hcl 20 Mg Tablet PO 20 mg DAILY SHALINI Administration Fluticasone/Salmeterol 2 puff 03/03/24 09:30 03/04/24 07:54 Fluticasone/Salmeterol 115-21 Mcg Inhaler 1 Puff INHALATION 2 puff Q12HRT SHALINI Administration Radiology Results: ITS Impressions Abdomen X-Ray 03/02/24 22:39 IMPRESSION: Findings consistent with distal small bowel obstruction, as detailed above. Cross-sectional imaging is recommended. Labs Labs: Laboratory Results - last 24 hr 03/04/24 03/04/24 03/04/24 05:01 05:06 05:07 WBC 17.1 H RBC 3.99 L Hgb 12.5 L Hct 35.6 L MCV 89.2 MCH 31.3 MCHC 35.1 RDW 13.1 Plt Count 351 MPV 8.9 Immature Gran % (Auto) 1.3 H Neut % (Auto) 88.0 H Lymph % (Auto) 4.0 L [place] % (Auto) 6.5 Eos % (Auto) 0.0 Baso % (Auto) 0.2 Lymph # (Auto) 0.68 L [place] # (Auto) 1.1 H Eos # (Auto) 0.0 Baso # (Auto) 0.0 Abs Immat Gran (auto) 0.22 H Absolute Neuts (auto) 15.1 H Absolute Nucleated RBC 0.000 Nucleated RBC % 0.0 Sodium 130 L 129 L Potassium 2.6 L* Chloride 91 L Carbon Dioxide 31 H Anion Gap 8 BUN 9 Creatinine 0.40 L Estim Creat Clear Calc 148 Estimated GFR > 60 Glucose 131 H Calcium 8.5
--- NOTE | 2024-03-04 11:47 | P.PNIM_ITS ---
Progress Note: A&P Assessment and Plan (1) Acute respiratory failure with hypoxia: Code(s): J96.01 - Acute respiratory failure with hypoxia Status: Inactive Assessment and Plan: - Likely secondary to below and possibly COPD exacerbation. - Currently good O2 sats > 90 % on 2L/NC. - Continue bronchodilators anb broad-spectrum IV abx. - Wean O2 as tolerated to maintain sats > 90 %. - Further mgt as # 2. (2) Bilateral pneumonia: Code(s): J18.9 - Pneumonia, unspecified organism Status: Acute Assessment and Plan: - CXR: Impression: Extensive bilateral airspace disease, right greater than left, consistent with multifocal pneumonia. - Blood cultures growing gram positive cocci. - Legionella and Strep. pneumo urine Ag pending. - Continue broad-spectrum IV abx. - Continue to follow cultures. - Continue supplemental O2 to maintain sats > 90 %. (3) COPD (chronic obstructive pulmonary disease): Qualifiers: COPD type: unspecified COPD Qualified Code(s): J44.9 - Chronic obstructive pulmonary disease, unspecified Code(s): J44.9 - Chronic obstructive pulmonary disease, unspecified Status: Acute Assessment and Plan: - Possibly in exacerbation. - Admits to 2packs/day smoking. - Started on Symbicort and scheduled duoneb updrafts. - Continue supplemental O2 to maintain sats > 90 %. - Continue IV abx. (4) SBO (small bowel obstruction): Code(s): K56.609 - Unspecified intestinal obstruction, unspecified as to partial versus complete obstruction Status: Acute Assessment and Plan: - KUB; IMPRESSION: Findings consistent with distal small bowel obstruction, as detailed above. Cross-sectional imaging is recommended. - Patient denies abdominal pain, nausea or vomiting. - Currently NPO pending modified barium swallow eval. - Resume regular diet per general surgery if swallow eval normal. - Monitor closely for abd pain, nausea and vomiting. - Continue IVF hydration currently with NPO status. - Avoid narcotics. (5) Acute hyponatremia: Code(s): E87.1 - Hypo-osmolality and hyponatremia Status: Inactive Assessment and Plan: - Asymptomatic. - Slowly improving. - Unclear etiology and pt with episodes of hyponatremia previously per medical records. - Urine sodium pending. - Continue IVF hydration. - We'll still consider nephro consult if no significant improvement. - Monitor levels closely, Q6hrs for now, to avoid rapid correction. (6) Tachycardia: Code(s): R00.0 - Tachycardia, unspecified Status: Acute Assessment and Plan: - Chronic and pt on Propranolol at home. - Possibly worsened by bronchodilators. - Started on Cardizem. - Adjust meds as needed for optimal control. (7) Acute kidney insufficiency: Code(s): N28.9 - Disorder of kidney and ureter, unspecified Status: Inactive Assessment and Plan: - Unclear etiology. - Possibly related to poor PO intake from lung infection vs infection vs other. - Renal function appears normalized currently. (8) History of pneumonectomy: Code(s): Z98.890 - Other specified postprocedural states; Z90.2 - Acquired absence of lung [part of] Status: Acute Assessment and Plan: - Stable. - Continue outpatient f/u with buffing and polishing wheel repairer. (9) Hypertension: Code(s): I10 - Essential (primary) hypertension Status: Acute Assessment and Plan: - BP currently trending wnl. - Hold Amlodipine. - Monitor closely. Plan Continue IV antibiotics and bronchodilators for mgt of PNA and COPD exacerbation. Monitor Na levels closely. Continue supplemental O2 and wean as tolerated for sats > 90 %. Time Spent With Patient Time with patient: 25 - 35 minutes Subjective Date/time seen: 03/04/24 11:47 Patient states he's still coughing up some yellowish stuff. States he's worried about his health because he's been informed that he's not swallowing well. Interval history: Patient calm on bedrest, noted with intermittent coughs and congestion, not to be in acute distress. Review of Systems Review of Systems: All systems reviewed & are unremarkable except as noted in HPI and below Exam Narrative: HEENT: Atraumatic, PERRL, EOM, non-icteric, moist mucosa. Neck: Supple. Lungs: Coarse and congested bilaterally, intermittent coughs with congestion. Heart: RRR, no murmurs. ABdomen: Soft, non-tender, non-distended, +ve bowel sounds X4 quadrants. Extremities: No edema. 2+ pedal pulses. Skin: Warm, dry and pink, no lesions. Neuro: Fairly well oriented, no focal neuro deficits noted. Psych: Pleasant and co-operative. Objective Data Vital Signs Vital Signs: Vital Signs - 24 hr 03/03/24 12:00 03/03/24 13:35 03/03/24 13:50 Temperature Pulse Rate 113 H 114 H 107 H Respiratory Rate 20 20 Blood Pressure Pulse Oximetry Oxygen Delivery Oxygen Flow Rate 03/03/24 14:00 03/03/24 16:00 03/03/24 20:06 Temperature 97.6 F 98.8 F Pulse Rate 110 H 105 H 102 H Respiratory Rate 20 22 H Blood Pressure 120/71 120/65 Pulse Oximetry 91 94 Oxygen Delivery Oxygen Flow Rate 03/03/24 20:31 03/03/24 20:33 03/03/24 20:36 Temperature Pulse Rate 101 H 104 H Respiratory Rate 22 H 22 H Blood Pressure Pulse Oximetry 93 Oxygen Delivery Nasal Cannula Oxygen Flow Rate 2 03/03/24 20:00 03/03/24 21:00 03/04/24 00:00 Temperature Pulse Rate 106 H 110 H Respiratory Rate Blood Pressure Pulse Oximetry Oxygen Delivery Nasal Cannula Oxygen Flow Rate 2 03/04/24 02:49 03/04/24 02:55 03/04/24 04:00 Temperature Pulse Rate 110 H 120 H 115 H Respiratory Rate 20 20 Blood Pressure Pulse Oximetry Oxygen Delivery Oxygen Flow Rate 03/04/24 04:57 03/04/24 07:50 03/04/24 07:50 Temperature 97.5 F L Pulse Rate 113 H 120 H Respiratory Rate 20 20 Blood Pressure 124/69 Pulse Oximetry 94 93 Oxygen Delivery Nasal Cannula Oxygen Flow Rate 2 03/04/24 08:00 03/04/24 10:02 03/04/24 08:45 Temperature Pulse Rate 117 H 120 H Respiratory Rate 20 Blood Pressure Pulse Oximetry 93 Oxygen Delivery Nasal Cannula Oxygen Flow Rate 2 03/04/24 08:00 Temperature Pulse Rate 119 H Respiratory Rate Blood Pressure Pulse Oximetry Oxygen Delivery Oxygen Flow Rate Intake/Output Intake/Output: Intake & Output 03/01/24 03/02/24 03/03/24 03/04/24 23:59 23:59 23:59 23:59 Intake Total 4390 1550 Output Total 900 600 Balance -900 3790 1550 Meds/Results Medications: Active Medications Generic Name Dose Route Start Last Admin Trade Name Freq PRN Reason Stop Dose Admin Al Hydrox/Mg Hydrox/Simethicone 30 ml 03/02/24 21:29 Mag Hydrox/Al Hydrox/Simeth 30 Ml Udc PO QID PRN Dyspepsia Albuterol/Ipratropium 3 ml 03/03/24 09:30 03/04/24 07:45 Ipratropium 0.5 Mg/Albuterol Sulfate 2.5 Mg Ampul.Neb 3 Ml INHALATION 3 ml Q6HRT SHALINI Administration Benztropine Mesylate 0.5 mg 03/02/24 21:34 Benztropine Mesylate 0.5 Mg Tablet PO BID PRN .tight muscles Enoxaparin Sodium 40 mg 03/03/24 09:00 03/04/24 08:56 Enoxaparin 40 Mg/0.4 Ml Syringe SUB-Q 40 mg DAILY SHALINI Administration Folic Acid 1 mg 03/03/24 09:00 03/04/24 10:00 Folic Acid 1 Mg Tablet PO 1 mg DAILY SHALINI Administration Haloperidol 5 mg 03/02/24 21:34 03/03/24 20:00 Haloperidol 5 Mg Tablet PO 5 mg TID PRN Administration Anxiety Sodium Chloride 1,000 mls @ 125 mls/hr 03/02/24 21:30 03/04/24 03:40 Normal Saline Iv IV CONT 125 mls/hr .Q8H SHALINI Administration Ceftriaxone Sodium 1 gm in 50 mls @ 100 mls/hr 03/03/24 09:00 03/04/24 08:57 Rocephin 1 Gm/Ns 50 Ml IVPB 100 mls/hr Q24H SHALINI Administration Doxycycline Hyclate 100 mg in 100 mls @ 100 mls/hr 03/03/24 09:00 03/04/24 10:05 Vibramycin 100 Mg/Ns 100 Ml IVPB 100 mls/hr Q12H SHALINI Administration Magnesium Hydroxide 30 ml 03/02/24 21:29 Magnesium Hydroxide Susp 30 Ml Udc PO DAILY PRN Constipation Morphine Sulfate 2 mg 03/02/24 21:29 Morphine Sulfate (*Crx) 2 Mg/Ml Inj IV PUSH Q4H PRN Pain Rated 7-10 Ondansetron HCl 4 mg 03/02/24 21:29 Ondansetron Inj 4 Mg/2 Ml Vial IV PUSH Q6H PRN Nausea And Vomiting Pantoprazole Sodium 40 mg 03/03/24 09:00 03/04/24 10:02 Pantoprazole 40 Mg Tablet PO 40 mg QAM SHALINI Administration Propranolol HCl 20 mg 03/03/24 09:00 03/04/24 10:02 Propranolol Hcl 20 Mg Tablet PO 20 mg DAILY SHALINI Administration Fluticasone/Salmeterol 2 puff 03/03/24 09:30 03/04/24 07:54 Fluticasone/Salmeterol 115-21 Mcg Inhaler 1 Puff INHALATION 2 puff Q12HRT SHALINI Administration Radiology Results: ITS Impressions Abdomen X-Ray 03/02/24 22:39 IMPRESSION: Findings consistent with distal small bowel obstruction, as detailed above. Cross-sectional imaging is recommended. Labs Labs: Laboratory Results - last 24 hr 03/04/24 03/04/24 03/04/24 05:01 05:06 05:07 WBC 17.1 H RBC 3.99 L Hgb 12.5 L Hct 35.6 L MCV 89.2 MCH 31.3 MCHC 35.1 RDW 13.1 Plt Count 351 MPV 8.9 Immature Gran % (Auto) 1.3 H Neut % (Auto) 88.0 H Lymph % (Auto) 4.0 L [place] % (Auto) 6.5 Eos % (Auto) 0.0 Baso % (Auto) 0.2 Lymph # (Auto) 0.68 L [place] # (Auto) 1.1 H Eos # (Auto) 0.0 Baso # (Auto) 0.0 Abs Immat Gran (auto) 0.22 H Absolute Neuts (auto) 15.1 H Absolute Nucleated RBC 0.000 Nucleated RBC % 0.0 Sodium 130 L 129 L Potassium 2.6 L* Chloride 91 L Carbon Dioxide 31 H Anion Gap 8 BUN 9 Creatinine 0.40 L Estim Creat Clear Calc 148 Estimated GFR > 60 Glucose 131 H Calcium 8.5 Quality VTE Prophylaxis VTE prophylaxis: pharmacologic ordered Hospitalist MIPS Advance Care Plan I have confirmed that the patient's Advanced Care Plan is present, code status is documented, or surrogate decision maker is listed in patient medical record.: Yes Medication Reconciliation I have utilized all available resources to obtain, update and review the patients current medications (includes all prescriptions, OTC, herbals, cannabis, and nutritional supplements).: Yes
--- NOTE | 2024-03-04 13:08 | REHSTMBS ---
Assessment and note entered by YOVANA Armijo Modified Barium Swallow Evaluation Feeding Type Recommended Oral Food Consistency Soft and Bite Size, Level Liquid Consistency Mildly Thick (2) Treatment Recommendations Laryngeal Elevation Exerc,Tongue Base Exercise ST Clinical Summary MODIFIED BARIUM SWALLOW STUDY This 59-year-old Patient presented to the ER with reports of intermittent coughs and congestion, with episodes of yellowish to brownish sputum. He has been having symptoms for almost a week now, feeling hot at night too but unsure whether fevers . Denies any chest pain or chills. Patient has a history of COPD and and 2 packs per day smoking. Patient also has a Hx of right lower lung resection which showed no malignancy, and pt follows up with pulmonary. Patient also has a history of schizophrenia and hypertension. Pt does not use supplemental O2 at home. Pt was initially referred for bedside swallow evaluation (BSE), but after talking to pt and pt?s nurse, who both reported trouble with swallowing (e.g., nurse reported definite presence of cough post-swallows with thin liquids causing a worse reaction; nurse administered some pills to patient in applesauce which pt consumed without coughing) , SHIP CLEANER recommended skipping BSE for modified barium swallow study to better investigate etiology of potential aspiration. Pt was administered thin liquids via straw, mildly thickened liquids via straw, pudding via spoon, and mixed consistency via spoon. Patient presented with trace aspiration after trials of thin liquid and started coughing post-swallows. Pt?s swallow significantly improved on trials with mildly thickened liquids, as evidenced by none to trace penetration. Pt was administered trials of pudding via spoon without s/s of penetration or aspiration. Pt was administered trials of mixed consistency and reported that he was unable to chew due to lack of teeth or dentures, refusing trial of cracker for the same reason. Based on today?s evaluation, SHIP CLEANER recommends a modified diet of Mildly Thick Liquids (Level 2) and Soft and Bite-Sized (Level 6) food. Shannan Romo NP has been notified of recommendations. Thank you for this referral!
[2024-03-04] MEDS: LINEZOLID 600 MG/300 ML 600 MG/300 ML SOLN 300 MG IVPB ×2 (13:43→22:28)
--- NOTE | 2024-03-04 15:20 | ECG_ITS ---
Test Date: 2024-03-04 16:06:44 Measurements Intervals [place] Rate: 98 P: 53 ND: 183 QRS: 20 QRSD: 88 T: 30 QT: 372 QTc: 477 Interpretive Statements SINUS RHYTHM BORDERLINE T WAVE ABNORMALITY- INFERIOR LEADS BORDERLINE ECG Compared to ECG 03/03/2024 09:16:03 HEART RATRE HAS DECREASED Electronically Signed On 03-04-2024 16:16:37 ENVIRONMENTAL HEALTH PHYSICIAN by Flo Chowdary D.O.
[2024-03-04] MEDS: HALOPERIDOL 5 MG TABLET PO ×2 (15:22→23:40)
[2024-03-04 17:03] LABS: Troponin I < 0.012 ng/mL (0.000-0.034)
--- NOTE | 2024-03-04 17:24 | PCRCNOTE ---
Window of time for administration has passed. See next scheduled administration.
[2024-03-04] MEDS: POTASSIUM CHLORIDE 20 MEQ ER TABLET 40 MEQ PO (18:29)
[2024-03-04] MEDS: guaiFENesin/DEXTROMETHORPHAN 10 ML UDC PO (21:32)
[2024-03-05] VITALS (17 sets, daily range): BP systolic 115–146; BP diastolic 69–96; PULSE 91–143; RESP 18–26; TEMP 36.4–36.9; O2SAT 91–93
[2024-03-05] MEDS: IPRATROPIUM 0.5 MG/ALBUTEROL SULFATE 2.5 MG AMPUL.NEB 3 ML INHALATION ×4 (03:19→20:14)
[2024-03-05] MEDS: SODIUM CHLORIDE 0.9% IV 1,000 ML 125 ML IV CONT ×2 (04:20→14:56)
[2024-03-05] MEDS: guaiFENesin/DEXTROMETHORPHAN 10 ML UDC PO ×2 (05:30→11:46)
[2024-03-05 06:11] LABS: Sodium 128 mmol/L (137-145)
[2024-03-05] MEDS: FLUTICASONE/SALMETEROL 115-21 MCG INHALER 1 PUFF 2 PUFF INHALATION ×2 (06:58→20:14)
[2024-03-05] MEDS: PROPRANOLOL HCL 20 MG TABLET PO (07:32)
--- NOTE | 2024-03-05 07:34 | PC.NURSE ---
Shannan Romo NP notified at 0727aboutr patient pulse ranging from 120-139. Pulse has increased over night and has been asymptomatic. Doctor approved to give scheduled 9am Propranolol 20mg early. Continue to monitor patient.
[2024-03-05 08:38] LABS: Basophils Absolute Auto 0.1 K/mm3 (0.0-0.1); Basophils Percent Auto 0.4 % (0.2-1.2); Hematocrit 39.7 % (42.0-52.0); Hemoglobin 13.8 g/dL (14.0-18.0); Immature Granulocyte Percent A 1.8 % (0-0.5); Lymphocytes Absolute Auto 1.06 K/mm3 (0.9-3.2); Lymphocytes Percent Auto 6.4 % (18.3-44.2); Mean Corpuscular HGB Conc 34.8 g/dl (32-36); Mean Corpuscular Hemoglobin 31.3 pg (26-34); Mean Platelet Volume 9.1 fl (7.4-10.4); Monocytes Absolute Auto 1.2 K/mm3 (0.1-0.6); Neutrophils Percent Auto 84.4 % (45.5-73.1); Platelet Count Result 405 k/mm3 (150-375); Red Blood Count 4.41 M/mm3 (4.6-6.20); Red Cell Distribution Width 13.5 % (11.5-14.5); White Blood Count 16.6 K/mm3 (4.5-10.0)
[2024-03-05 08:43] LABS: Anion Gap 9 mmol/L (4-12); Blood Urea Nitrogen 8 mg/dL (9-20); Calcium 8.6 mg/dL (8.4-10.2); Carbon Dioxide 32 mmol/L (22-30); Chloride 88 mmol/L (98-107); Estimated CRCL calculation 121 ml/min; Estimated Glomerular Filt Rate > 60; Glucose 102 mg/dL (65-110); Potassium 2.9 mmol/L (3.4-5.0); Sodium 129 mmol/L (137-145)
[2024-03-05] MEDS: DOXYCYCLINE 100 MG/NS 100 ML 100 MG/100 ML BAG IVPB ×2 (09:18→20:42)
[2024-03-05] MEDS: PANTOPRAZOLE 40 MG TABLET PO (09:57)
[2024-03-05] MEDS: HALOPERIDOL 5 MG TABLET PO ×3 (09:57→17:37)
[2024-03-05] MEDS: ENOXAPARIN 40 MG/0.4 ML SYRINGE SUB-Q (09:57)
[2024-03-05] MEDS: amLODIPine BESYLATE 10 MG TABLET PO (09:57)
[2024-03-05] MEDS: LINEZOLID 600 MG/300 ML 600 MG/300 ML SOLN 300 MG IVPB ×2 (09:57→21:49)
[2024-03-05] MEDS: FOLIC ACID 1 MG TABLET PO (09:57)
[2024-03-05] MEDS: BENZTROPINE MESYLATE 0.5 MG TABLET PO ×2 (11:46→17:37)
--- NOTE | 2024-03-05 13:18 | P.PNIM_ITS ---
Progress Note: A&P Assessment and Plan (1) Acute respiratory failure with hypoxia: Code(s): J96.01 - Acute respiratory failure with hypoxia Status: Inactive Assessment and Plan: - Likely secondary to below and possibly COPD exacerbation. - Currently good O2 sats > 90 % on 2L/NC. - Continue bronchodilators and broad-spectrum IV abx. - Supplemental O2 PRN to maintain sats > 90 %. - Further mgt as # 2. (2) Bilateral pneumonia: Code(s): J18.9 - Pneumonia, unspecified organism Status: Acute Assessment and Plan: - CXR: Impression: Extensive bilateral airspace disease, right greater than left, consistent with multifocal pneumonia. - Likely aspiration. - Blood cultures growing MRSA. - Legionella and Strep. pneumo urine Ag pending. - Started on Linelozid 03/04/2024. - Ceftriaxone discontinued. - Repeat CXR ordered. - Continue supplemental O2 PRN to maintain sats > 90 %. (3) COPD (chronic obstructive pulmonary disease): Qualifiers: COPD type: unspecified COPD Qualified Code(s): J44.9 - Chronic obstructive pulmonary disease, unspecified Code(s): J44.9 - Chronic obstructive pulmonary disease, unspecified Status: Acute Assessment and Plan: - Possibly in exacerbation. - Admits to 2packs/day smoking. - Started on Symbicort and scheduled duoneb updrafts. - Started on Mucinex due to congestion. - Supplemental O2 PRN to maintain sats > 90 %. - Continue IV abx. (4) SBO (small bowel obstruction): Code(s): K56.609 - Unspecified intestinal obstruction, unspecified as to partial versus complete obstruction Status: Acute Assessment and Plan: - KUB; IMPRESSION: Findings consistent with distal small bowel obstruction, as detailed above. Cross-sectional imaging is recommended. - Patient denies abdominal pain, nausea or vomiting. - Tolerating meals well with no abdominal discomfort. - Resume rgular diet per general surgery if swallow eval normal. - Monitor closely for abd discomfort. - Avoid narcotics. (5) Acute hyponatremia: Code(s): E87.1 - Hypo-osmolality and hyponatremia Status: Inactive Assessment and Plan: - Asymptomatic. - Continues to slowly improve. - Unclear etiology and pt with episodes of hyponatremia previously per medical records. - Urine sodium pending. - Continue IVF hydration. - Monitor levels closely, Q6hrs for now, to avoid rapid correction. (6) Dysphagia: Code(s): R13.10 - Dysphagia, unspecified Status: Acute Assessment and Plan: - Unclear etiology, possibly mechanical vs neurogenic vs other. - MBS eval done and small bite meals with thickened liquids recommended per ST. - Possibly cause for PNA with aspiration. - ST continues to follow. - Assist with meals and monitor for aspiration. (7) Acute kidney insufficiency: Code(s): N28.9 - Disorder of kidney and ureter, unspecified Status: Inactive Assessment and Plan: - Unclear etiology. - Possibly related to poor PO intake from lung infection vs infection vs other. - Renal function appears normalized currently. - Monitor closely with abx. (8) Tachycardia: Code(s): R00.0 - Tachycardia, unspecified Status: Acute Assessment and Plan: - Chronic and pt on Propranolol at home. - Possibly worsened by bronchodilators. - Fairly well controlled by propranolol, low 100's. - Continue tele monitoring. (9) Schizophrenia: Qualifiers: Schizophrenia type: unspecified Qualified Code(s): F20.9 - Schizophrenia, unspecified Code(s): F20.9 - Schizophrenia, unspecified Status: Inactive Assessment and Plan: - Patient with episodes of confusion but no aggressive behavior. - Home meds restarted. - Monitor for safety and assist with care. (10) History of pneumonectomy: Code(s): Z98.890 - Other specified postprocedural states; Z90.2 - Acquired absence of lung [part of] Status: Acute Assessment and Plan: - Stable. - Continue outpatient f/u with correspondence school instructor. (11) Hypertension: Code(s): I10 - Essential (primary) hypertension Status: Acute Assessment and Plan: - BP currently trending normal highs. - Resume Amlodipine. - Monitor closely. Plan Continue IV antibiotics and bronchodilators for mgt of PNA and COPD exacerbation. Monitor Na levels closely. Continue supplemental O2 and wean as tolerated for sats > 90 %. Time Spent With Patient Time with patient: 25 - 35 minutes Subjective Date/time seen: 03/05/24 13:18 Patient states he feels alright except for coughing and congestion. Denies any pain or other distress. Interval history: Patient calm on bedrest, noted with intermittent coughs with congestion, not in any acute distress. Review of Systems Review of Systems: All systems reviewed & are unremarkable except as noted in HPI and below Exam Narrative: HEENT: Atraumatic, PERRL, EOM, non-icteric, moist mucosa. Neck: Supple. Lungs: Coarse and congestion bilaterally, intermittent coughs with congestion. Heart: Tachycardia, no murmurs. ABdomen: Soft, non-tender, non-distended, +ve bowel sounds X4 quadrants. Extremities: No edema. 2+ pedal pulses. Skin: Warm, dry and pink, no lesions. Neuro: Oriented to self, no focal neuro deficits noted. Psych: Calm and co-operative. Objective Data Vital Signs Vital Signs: Vital Signs - 24 hr 03/04/24 15:34 03/04/24 16:00 03/04/24 20:10 Temperature 98.1 F 98.6 F Pulse Rate 97 100 112 H Respiratory Rate 18 22 H Blood Pressure 134/73 129/80 Pulse Oximetry 95 93 Oxygen Delivery Oxygen Flow Rate 03/04/24 20:00 03/05/24 00:00 03/04/24 21:28 Temperature Pulse Rate 107 H 112 H Respiratory Rate Blood Pressure Pulse Oximetry 93 Oxygen Delivery Nasal Cannula Oxygen Flow Rate 2 03/05/24 04:00 03/05/24 04:55 03/05/24 06:51 Temperature 98.4 F Pulse Rate 133 H 131 H Respiratory Rate 26 H Blood Pressure 145/78 H Pulse Oximetry 91 91 Oxygen Delivery Room Air Oxygen Flow Rate 03/05/24 07:00 03/05/24 07:00 03/05/24 07:32 Temperature Pulse Rate 134 H 134 H 141 H Respiratory Rate 18 18 Blood Pressure Pulse Oximetry 92 Oxygen Delivery Room Air Oxygen Flow Rate 03/05/24 08:00 03/05/24 10:01 03/05/24 09:15 Temperature 98 F Pulse Rate 143 H Respiratory Rate Blood Pressure 146/96 H Pulse Oximetry Oxygen Delivery Room Air Oxygen Flow Rate Intake/Output Intake/Output: Intake & Output 03/02/24 03/03/24 03/04/24 03/05/24 23:59 23:59 23:59 23:59 Intake Total 4390 3920 1751.7 Output Total 741 719 6226 Balance -900 3790 2620 1751.7 Meds/Results Medications: Active Medications Generic Name Dose Route Start Last Admin Trade Name Freq PRN Reason Stop Dose Admin Al Hydrox/Mg Hydrox/Simethicone 30 ml 03/02/24 21:29 Mag Hydrox/Al Hydrox/Simeth 30 Ml Udc PO QID PRN Dyspepsia Albuterol/Ipratropium 3 ml 03/03/24 09:30 03/05/24 06:58 Ipratropium 0.5 Mg/Albuterol Sulfate 2.5 Mg Ampul.Neb 3 Ml INHALATION 3 ml Q6HRT SHALINI Administration Amlodipine Besylate 10 mg 03/05/24 09:55 03/05/24 09:57 Amlodipine Besylate 10 Mg Tablet PO 10 mg DAILY SHALINI Administration Benztropine Mesylate 0.5 mg 03/05/24 17:00 Benztropine Mesylate 0.5 Mg Tablet PO BID SHALINI Enoxaparin Sodium 40 mg 03/03/24 09:00 03/05/24 09:57 Enoxaparin 40 Mg/0.4 Ml Syringe SUB-Q 40 mg DAILY SHALINI Administration Folic Acid 1 mg 03/03/24 09:00 03/05/24 09:57 Folic Acid 1 Mg Tablet PO 1 mg DAILY SHALINI Administration Guaifenesin/Dextromethorphan 10 ml 03/04/24 17:26 03/05/24 11:46 Guaifenesin/Dextromethorphan 10 Ml Udc PO 10 ml Q4H PRN Administration Cough Haloperidol 5 mg 03/05/24 13:00 03/05/24 12:48 Haloperidol 5 Mg Tablet PO 5 mg TID SHALINI Administration Sodium Chloride 1,000 mls @ 125 mls/hr 03/02/24 21:30 03/05/24 09:58 Normal Saline Iv IV CONT Not Given .Q8H SHALINI Ceftriaxone Sodium 1 gm in 50 mls @ 100 mls/hr 03/03/24 09:00 03/05/24 09:18 Rocephin 1 Gm/Ns 50 Ml IVPB Infused Q24H SHALINI Infusion Doxycycline Hyclate 100 mg in 100 mls @ 100 mls/hr 03/03/24 09:00 03/05/24 09:58 Vibramycin 100 Mg/Ns 100 Ml IVPB 0 mls/hr Q12H SHALINI Infusion Linezolid 600 mg in 300 mls @ 300 mls/hr 03/04/24 12:30 03/05/24 09:57 Zyvox IVPB 300 mls/hr Q12HR SHALINI Administration Magnesium Hydroxide 30 ml 03/02/24 21:29 Magnesium Hydroxide Susp 30 Ml Udc PO DAILY PRN Constipation Morphine Sulfate 2 mg 03/02/24 21:29 Morphine Sulfate (*Crx) 2 Mg/Ml Inj IV PUSH Q4H PRN Pain Rated 7-10 Ondansetron HCl 4 mg 03/02/24 21:29 Ondansetron Inj 4 Mg/2 Ml Vial IV PUSH Q6H PRN Nausea And Vomiting Pantoprazole Sodium 40 mg 03/03/24 09:00 03/05/24 09:57 Pantoprazole 40 Mg Tablet PO 40 mg QAM SHALINI Administration Propranolol HCl 20 mg 03/03/24 09:00 03/05/24 07:32 Propranolol Hcl 20 Mg Tablet PO 20 mg DAILY SHALINI Administration Fluticasone/Salmeterol 2 puff 03/03/24 09:30 03/05/24 06:58 Fluticasone/Salmeterol 115-21 Mcg Inhaler 1 Puff INHALATION 2 puff Q12HRT SHALINI Administration Radiology Results: ITS Impressions Abdomen X-Ray 03/02/24 22:39 IMPRESSION: Findings consistent with distal small bowel obstruction, as detailed above. Cross-sectional imaging is recommended. Modified Barium Swallow 03/04/24 13:10 IMPRESSION: 1. Aspiration. 2. Please refer to the speech therapy report for recommendations. Labs Labs: Laboratory Results - last 24 hr 03/04/24 03/05/24 03/05/24 15:45 05:38 05:40 WBC 16.6 H RBC 4.41 L Hgb 13.8 L Hct 39.7 L MCV 90.0 MCH 31.3 MCHC 34.8 RDW 13.5 Plt Count 405 H MPV 9.1 Immature Gran % (Auto) 1.8 H Neut % (Auto) 84.4 H Lymph % (Auto) 6.4 L [place] % (Auto) 7.0 Eos % (Auto) 0.0 Baso % (Auto) 0.4 Lymph # (Auto) 1.06 [place] # (Auto) 1.2 H Eos # (Auto) 0.0 Baso # (Auto) 0.1 Abs Immat Gran (auto) 0.30 H Absolute Neuts (auto) 14.0 H Absolute Nucleated RBC 0.000 Nucleated RBC % 0.0 Sodium 129 L 128 L Potassium 3.0 L 2.9 L Chloride 88 L Carbon Dioxide 32 H Anion Gap 9 BUN 8 L Creatinine 0.50 L Estim Creat Clear Calc 121 Estimated GFR > 60 Glucose 102 Calcium 8.6 Troponin I < 0.012 Quality VTE Prophylaxis VTE prophylaxis: pharmacologic ordered Hospitalist MIPS Advance Care Plan I have confirmed that the patient's Advanced Care Plan is present, code status is documented, or surrogate decision maker is listed in patient medical record.: Yes Medication Reconciliation I have utilized all available resources to obtain, update and review the patients current medications (includes all prescriptions, OTC, herbals, cannabis, and nutritional supplements).: Yes
[2024-03-05] MEDS: POTASSIUM CHLORIDE 20 MEQ PACKET (FOR LIQUID) 40 MEQ PO (18:23)
[2024-03-05] MEDS: POTASSIUM CHLORIDE 20 MEQ PACKET (FOR LIQUID) PO (20:41)
[2024-03-05] MEDS: guaiFENesin 12 HR 600 MG TABCR PO (20:44)
[2024-03-05 22:54] LABS: Glucose Point of Care 148 mg/dl (65-105)
[2024-03-06] VITALS (19 sets, daily range): BP systolic 98–119; BP diastolic 59–60; PULSE 76–105; RESP 16–20; TEMP 36.6–37.1; O2SAT 90–95
[2024-03-06] MEDS: SODIUM CHLORIDE 0.9% IV 1,000 ML 125 ML IV CONT ×3 (01:53→22:19)
[2024-03-06] MEDS: IPRATROPIUM 0.5 MG/ALBUTEROL SULFATE 2.5 MG AMPUL.NEB 3 ML INHALATION ×4 (02:01→19:41)
[2024-03-06 05:25] LABS: Hematocrit 35.1 % (42.0-52.0); Hemoglobin 12.1 g/dL (14.0-18.0); Mean Corpuscular HGB Conc 34.5 g/dl (32-36); Mean Corpuscular Hemoglobin 31.2 pg (26-34); Mean Corpuscular Volume 90.5 fl (80-100); Mean Platelet Volume 8.9 fl (7.4-10.4); Platelet Count Result 326 k/mm3 (150-375); Red Blood Count 3.88 M/mm3 (4.6-6.20); Red Cell Distribution Width 13.7 % (11.5-14.5); White Blood Count 15.1 K/mm3 (4.5-10.0)
[2024-03-06 05:36] LABS: Anion Gap 6 mmol/L (4-12); Blood Urea Nitrogen 8 mg/dL (9-20); Carbon Dioxide 33 mmol/L (22-30); Chloride 90 mmol/L (98-107); Estimated CRCL calculation 148 ml/min; Estimated Glomerular Filt Rate > 60; Glucose 99 mg/dL (65-110); Potassium 2.9 mmol/L (3.4-5.0); Sodium 129 mmol/L (137-145)
[2024-03-06] MEDS: FLUTICASONE/SALMETEROL 115-21 MCG INHALER 1 PUFF 2 PUFF INHALATION ×2 (08:03→19:41)
--- NOTE | 2024-03-06 08:22 | REHSTMBS ---
Assessment and note entered by YOVANA Armijo Modified Barium Swallow Evaluation Feeding Type Recommended Oral Food Consistency Soft and Bite Size, Level Liquid Consistency Mildly Thick (2) Treatment Recommendations Laryngeal Elevation Exerc,Tongue Base Exercise ST Clinical Summary MODIFIED BARIUM SWALLOW STUDY This 59-year-old Patient presented to the ER with reports of intermittent coughs and congestion, with episodes of yellowish to brownish sputum. He has been having symptoms for almost a week now, feeling hot at night too but unsure whether fevers . Denies any chest pain or chills. Patient has a history of COPD and and 2 packs per day smoking. Patient also has a Hx of right lower lung resection which showed no malignancy, and pt follows up with pulmonary. Patient also has a history of schizophrenia and hypertension. Pt does not use supplemental O2 at home. Pt was initially referred for bedside swallow evaluation (BSE), but after talking to pt and pt?s nurse, who both reported trouble with swallowing (e.g., nurse reported definite presence of cough post-swallows with thin liquids causing a worse reaction; nurse administered some pills to patient in applesauce which pt consumed without coughing) , LINING CLOSER recommended skipping BSE for modified barium swallow study to better investigate etiology of potential aspiration. Pt was administered thin liquids via straw, mildly thickened liquids via straw, pudding via spoon, and mixed consistency via spoon. Patient presented with trace aspiration after trials of thin liquid and started coughing post-swallows. Pt?s swallow significantly improved on trials with mildly thickened liquids, as evidenced by none to trace penetration. Pt was administered trials of pudding via spoon without s/s of penetration or aspiration. Pt was administered trials of mixed consistency and reported that he was unable to chew due to lack of teeth or dentures, refusing trial of cracker for the same reason. Based on today?s evaluation, LINING CLOSER recommends a modified diet of Mildly Thick Liquids (Level 2) and Soft and Bite-Sized (Level 6) food. Shannan Romo NP has been notified of recommendations. Based on the results of this MBS, speech therapy services are warranted to strengthen tongue base retraction, laryngeal elevation, and laryngeal closure to reduce instances of penetration/ aspiration. Thank you for this referral!
[2024-03-06] MEDS: BENZTROPINE MESYLATE 0.5 MG TABLET PO ×2 (09:14→17:42)
[2024-03-06] MEDS: PANTOPRAZOLE 40 MG TABLET PO (09:14)
[2024-03-06] MEDS: amLODIPine BESYLATE 10 MG TABLET PO (09:15)
[2024-03-06] MEDS: PROPRANOLOL HCL 20 MG TABLET PO (09:15)
[2024-03-06] MEDS: FOLIC ACID 1 MG TABLET PO (09:15)
[2024-03-06] MEDS: HALOPERIDOL 5 MG TABLET PO ×3 (09:15→17:42)
[2024-03-06] MEDS: POTASSIUM CHLORIDE 20 MEQ ER TABLET 40 MEQ PO ×2 (09:15→12:51)
[2024-03-06] MEDS: guaiFENesin 12 HR 600 MG TABCR PO ×2 (09:15→20:55)
[2024-03-06] MEDS: ENOXAPARIN 40 MG/0.4 ML SYRINGE SUB-Q (09:15)
[2024-03-06] MEDS: DOXYCYCLINE 100 MG/NS 100 ML 100 MG/100 ML BAG IVPB (09:16)
[2024-03-06 09:57] LABS: Sodium 128 mmol/L (137-145)
--- NOTE | 2024-03-06 10:15 | PM.IMPN ---
Progress Note: A&P Assessment and Plan (1) Acute respiratory failure with hypoxia: Code(s): J96.01 - Acute respiratory failure with hypoxia Status: Inactive Assessment and Plan: - Likely secondary to below and possibly COPD exacerbation. - Currently good O2 sats > 90 % on 2L/NC. - Continue bronchodilators and broad-spectrum IV and oral abx. - Supplemental O2 PRN to maintain sats > 90 %. - Incentive spirometer (2) Bilateral pneumonia: Code(s): J18.9 - Pneumonia, unspecified organism Status: Acute Assessment and Plan: - CXR: Impression: Extensive bilateral airspace disease, right greater than left, consistent with multifocal pneumonia. - Likely aspiration. - Blood cultures growing MRSA. - Legionella and Strep. pneumo urine Ag pending. - Started on Linelozid 03/04/2024. - Ceftriaxone 2 gm ivpb daily and Doxycycline 100 mg IVPB q 12. - CXR 03/05/24 showed extensive right lung pneumonia. - Continue supplemental O2 PRN to maintain sats > 90 %. - Add PT/OT - Incentive spirometer. (3) COPD (chronic obstructive pulmonary disease): Qualifiers: COPD type: unspecified COPD Qualified Code(s): J44.9 - Chronic obstructive pulmonary disease, unspecified Code(s): J44.9 - Chronic obstructive pulmonary disease, unspecified Status: Acute Assessment and Plan: - Possibly in exacerbation. - Admits to 2packs/day smoking. - Started on Symbicort and scheduled duoneb updrafts. - Started on Mucinex due to congestion. - Supplemental O2 PRN to maintain sats > 90 %. - Continue IV and oral abx. (4) SBO (small bowel obstruction): Code(s): K56.609 - Unspecified intestinal obstruction, unspecified as to partial versus complete obstruction Status: Acute Assessment and Plan: - KUB; IMPRESSION: Findings consistent with distal small bowel obstruction, as detailed above. Cross-sectional imaging is recommended. - Patient denies abdominal pain, nausea or vomiting. - Tolerating meals well with no abdominal discomfort. - Swallow study showed trace aspiration with thin liquids. Patient recommended a mildly thick liquid level 2, soft bite sized level 6 food. - Monitor closely for abd discomfort. - Avoid narcotics. (5) Acute hyponatremia: Code(s): E87.1 - Hypo-osmolality and hyponatremia Status: Inactive Assessment and Plan: - Asymptomatic. - Continues to slowly improve. - Unclear etiology and pt with episodes of hyponatremia previously per medical records. - Urine sodium pending. - Continue IVF hydration. - Monitor levels closely, Q6hrs for now, to avoid rapid correction. - Sodium 128. (6) Dysphagia: Code(s): R13.10 - Dysphagia, unspecified Status: Acute Assessment and Plan: - Unclear etiology, possibly mechanical vs neurogenic vs other. - MBS eval done and small bite meals with thickened liquids recommended per ST. - Possibly cause for PNA with aspiration. - ST continues to follow. - Assist with meals and monitor for aspiration. (7) Acute kidney insufficiency: Code(s): N28.9 - Disorder of kidney and ureter, unspecified Status: Inactive Assessment and Plan: - Unclear etiology. - Possibly related to poor PO intake from lung infection vs infection vs other. - Renal function appears normalized currently. - Monitor closely with abx. (8) Tachycardia: Code(s): R00.0 - Tachycardia, unspecified Status: Acute Assessment and Plan: - Chronic and pt on Propranolol at home. - Possibly worsened by bronchodilators. - Fairly well controlled by propranolol, low 100's. - Continue tele monitoring. (9) Schizophrenia: Qualifiers: Schizophrenia type: unspecified Qualified Code(s): F20.9 - Schizophrenia, unspecified Code(s): F20.9 - Schizophrenia, unspecified Status: Inactive Assessment and Plan: - Patient with episodes of confusion but no aggressive behavior. - Home meds restarted. - Monitor for safety and assist with care. (10) History of pneumonectomy: Code(s): Z98.890 - Other specified postprocedural states; Z90.2 - Acquired absence of lung [part of] Status: Acute Assessment and Plan: - Stable. - Continue outpatient f/u with clinical medical transcriptionist. (11) Hypertension: Code(s): I10 - Essential (primary) hypertension Status: Acute Assessment and Plan: - BP 119/60. - Continue Amlodipine. - Monitor closely. Plan Continue IV and oral antibiotics and bronchodilators for mgt of PNA and COPD exacerbation. Monitor Na levels closely. Continue supplemental O2 and wean as tolerated for sats > 90 %. Subjective Date/time seen: 03/06/24 10:15 Interval history: Patient denies chest pain, palpitations, headache, or dizziness. Patient reports shortness of breath at times and cough with clear sputum. Review of Systems Review of Systems: All systems reviewed & are unremarkable except as noted in HPI and below Exam Const: General: no acute distress Neck: Neck: supple Resp: Other: Coarse and congestion bilaterally, intermittent coughs with congestion. Cardio: Rate: tachycardic Other: Telemetry- ST 105 GI: GI Palp: Yes Soft to palpation Auscultation: normal bowel sounds Skin: General skin exam: no rashes or lesions noted Neuro: Speech: normal speech Extrem: General: normal to inspection Psych: Affect: normal affect Objective Data Vital Signs Vital Signs: Vital Signs - 24 hr 03/05/24 12:04 03/05/24 14:00 03/05/24 16:00 Temperature 98.3 F Pulse Rate 102 H 97 106 H Respiratory Rate 19 Blood Pressure 115/69 Pulse Oximetry 91 Oxygen Delivery Oxygen Flow Rate 03/05/24 20:14 03/05/24 20:22 03/05/24 20:24 Temperature Pulse Rate 99 110 H Respiratory Rate 20 20 Blood Pressure Pulse Oximetry 93 Oxygen Delivery Nasal Cannula Oxygen Flow Rate 2 03/05/24 20:31 03/05/24 20:03 03/05/24 20:42 Temperature 97.6 F Pulse Rate 96 91 Respiratory Rate 22 H Blood Pressure 131/71 Pulse Oximetry 93 93 Oxygen Delivery Nasal Cannula Oxygen Flow Rate 2 03/06/24 00:01 03/06/24 02:02 03/06/24 04:04 Temperature Pulse Rate 95 100 105 H Respiratory Rate 16 Blood Pressure Pulse Oximetry Oxygen Delivery Oxygen Flow Rate 03/06/24 05:11 03/06/24 08:06 03/06/24 08:06 Temperature 98.7 F Pulse Rate 100 104 H Respiratory Rate 18 20 Blood Pressure 119/60 Pulse Oximetry 94 93 Oxygen Delivery Nasal Cannula Oxygen Flow Rate 2 03/06/24 09:15 Temperature Pulse Rate 94 Respiratory Rate Blood Pressure Pulse Oximetry Oxygen Delivery Oxygen Flow Rate Intake/Output Intake/Output: Intake & Output 03/03/24 03/04/24 03/05/24 03/06/24 23:59 23:59 23:59 23:59 Intake Total 4390 3920 3451.7 1350 Output Total 600 1300 200 800 Balance 3790 2620 3251.7 550 Meds/Results Medications: Active Medications Generic Name Dose Route Start Last Admin Trade Name Freq PRN Reason Stop Dose Admin Al Hydrox/Mg Hydrox/Simethicone 30 ml 03/02/24 21:29 Mag Hydrox/Al Hydrox/Simeth 30 Ml Udc PO QID PRN Dyspepsia Albuterol/Ipratropium 3 ml 03/03/24 09:30 03/06/24 08:04 Ipratropium 0.5 Mg/Albuterol Sulfate 2.5 Mg Ampul.Neb 3 Ml INHALATION 3 ml Q6HRT SHALINI Administration Amlodipine Besylate 10 mg 03/05/24 09:55 03/06/24 09:15 Amlodipine Besylate 10 Mg Tablet PO 10 mg DAILY SHALINI Administration Benztropine Mesylate 0.5 mg 03/05/24 17:00 03/06/24 09:14 Benztropine Mesylate 0.5 Mg Tablet PO 0.5 mg BID SHALINI Administration Enoxaparin Sodium 40 mg 03/03/24 09:00 03/06/24 09:15 Enoxaparin 40 Mg/0.4 Ml Syringe SUB-Q 40 mg DAILY SHALINI Administration Folic Acid 1 mg 03/03/24 09:00 03/06/24 09:15 Folic Acid 1 Mg Tablet PO 1 mg DAILY SHALINI Administration Guaifenesin 600 mg 03/05/24 21:00 03/06/24 09:15 Guaifenesin 12 Hr 600 Mg Tabcr PO 600 mg Q12HR SHALINI Administration Guaifenesin/Dextromethorphan 10 ml 03/04/24 17:26 03/05/24 11:46 Guaifenesin/Dextromethorphan 10 Ml Udc PO 10 ml Q4H PRN Administration Cough Haloperidol 5 mg 03/05/24 13:00 03/06/24 09:15 Haloperidol 5 Mg Tablet PO 5 mg TID SHALINI Administration Sodium Chloride 1,000 mls @ 125 mls/hr 03/02/24 21:30 03/06/24 01:53 Normal Saline Iv IV CONT 125 mls/hr .Q8H SHALINI Administration Doxycycline Hyclate 100 mg in 100 mls @ 100 mls/hr 03/03/24 09:00 03/06/24 09:16 Vibramycin 100 Mg/Ns 100 Ml IVPB 100 mls/hr Q12H SHALINI Administration Linezolid 600 mg in 300 mls @ 300 mls/hr 03/04/24 12:30 03/06/24 09:16 Zyvox IVPB 300 mls/hr Q12HR SHALINI Administration Magnesium Hydroxide 30 ml 03/02/24 21:29 Magnesium Hydroxide Susp 30 Ml Udc PO DAILY PRN Constipation Morphine Sulfate 2 mg 03/02/24 21:29 Morphine Sulfate (*Crx) 2 Mg/Ml Inj IV PUSH Q4H PRN Pain Rated 7-10 Ondansetron HCl 4 mg 03/02/24 21:29 Ondansetron Inj 4 Mg/2 Ml Vial IV PUSH Q6H PRN Nausea And Vomiting Pantoprazole Sodium 40 mg 03/03/24 09:00 03/06/24 09:14 Pantoprazole 40 Mg Tablet PO 40 mg QAM SHALINI Administration Potassium Chloride 40 meq 03/06/24 12:00 Potassium Chloride 20 Meq Er Tablet PO 03/06/24 12:01 ONCE ONE Propranolol HCl 20 mg 03/03/24 09:00 03/06/24 09:15 Propranolol Hcl 20 Mg Tablet PO 20 mg DAILY SHALINI Administration Fluticasone/Salmeterol 2 puff 03/03/24 09:30 03/06/24 08:03 Fluticasone/Salmeterol 115-21 Mcg Inhaler 1 Puff INHALATION 2 puff Q12HRT SHALINI Administration Radiology Results: ITS Impressions Abdomen X-Ray 03/02/24 22:39 IMPRESSION: Findings consistent with distal small bowel obstruction, as detailed above. Cross-sectional imaging is recommended. Modified Barium Swallow 03/04/24 13:10 IMPRESSION: 1. Aspiration. 2. Please refer to the speech therapy report for recommendations. Chest X-Ray 03/05/24 13:55 Impression: Extensive right lung pneumonia is essentially unchanged. Labs Labs: Laboratory Results - last 24 hr 03/05/24 03/06/24 03/06/24 22:47 04:56 09:43 WBC 15.1 H RBC 3.88 L Hgb 12.1 L Hct 35.1 L MCV 90.5 MCH 31.2 MCHC 34.5 RDW 13.7 Plt Count 326 MPV 8.9 Sodium 129 L 128 L Potassium 2.9 L Chloride 90 L Carbon Dioxide 33 H Anion Gap 6 BUN 8 L Creatinine 0.40 L Estim Creat Clear Calc 148 Estimated GFR > 60 Glucose 99 POC Capillary Glucose 148 H Calcium 8.0 L Quality VTE Prophylaxis VTE prophylaxis: pharmacologic ordered
[2024-03-06] MEDS: LINEZOLID 600 MG/300 ML 600 MG/300 ML SOLN 300 MG IVPB (10:45)
[2024-03-06] MEDS: cefTRIAXone 2 GM/NS 100 ML 2 GM/100 ML BAG IVPB (12:51)
--- NOTE | 2024-03-06 13:05 | PCNFU ---
Nutrition Follow-Up Complete: Severe Protein Calorie Malnutrition as related to inadequate protein energy intake with increased energy needs in setting of chronic disease as evidenced by poor po intake reported for at least 3 months, significant weight loss of 12%(20 ibs) 6 months, moderate muscle wasting (temporalis) and moderate subcutaneous fat loss(orbital fat pads). Adequate Intake of at least 75% of meals/supplements Goal: Pt current nutrition is Heart healthy diet, soft & bite sized, level 6; mildly thick level2 liquids. Intakes 0-5% Nutrition recommendation: Oral nutrition supplements: Ensure Enlive BID for additional 350 kcal and 20 g protein each Last recorded weight is 65.5 kg. Bowel Motility: last BM 03/03/24 Labs Reviewed: Hgb 12.1, Hct 35.1, Na 129, K+ 2.9, Cre 0.4 Meds Noted: Folic acid, milk of magnesia, Zofran, protonix Skin: No skin issues noted Additional Notes: Pt tells me he is not eating because he does not like the food. Agreeable to Ensure BID. Will monitor weight labs, skin, meds, diet orders every 3 days.
[2024-03-06 15:12] LABS: Alanine Aminotransferase 39 U/L (6-50); Albumin Level 2.4 g/dL (3.5-5.1); Alkaline Phosphatase 104 U/L (38-126); Anion Gap 4 mmol/L (4-12); Aspartate Amino Transferase 46 U/L (17-59); Bilirubin,Total 0.8 mg/dL (0.2-1.3); Blood Urea Nitrogen 7 mg/dL (9-20); Calcium 7.9 mg/dL (8.4-10.2); Carbon Dioxide 33 mmol/L (22-30); Chloride 91 mmol/L (98-107); Estimated CRCL calculation 148 ml/min; Estimated Glomerular Filt Rate > 60; Glucose 95 mg/dL (65-110); Potassium 3.5 mmol/L (3.4-5.0); Sodium 128 mmol/L (137-145)
[2024-03-06] MEDS: LINEZOLID 600 MG TABLET PO (20:55)
[2024-03-06] MEDS: DOXYCYCLINE HYCLATE 100 MG TABLET PO (20:55)
[2024-03-07] VITALS (16 sets, daily range): BP systolic 106–117; BP diastolic 60–69; PULSE 74–103; RESP 18–20; TEMP 36.4–37; O2SAT 92–96
--- NOTE | 2024-03-07 02:36 | PCRCNOTE ---
At the patients evening breathing tx on 03/06/24, he stated he did not want to be woken for 0200 breathing tx on 03/07/24. RT noticed patient was asleep at 0230, therefore she did not wake patient as he wished. See next scheduled breathing tx at 0800.
[2024-03-07] MEDS: guaiFENesin/DEXTROMETHORPHAN 10 ML UDC PO (03:48)
[2024-03-07] MEDS: SODIUM CHLORIDE 0.9% IV 1,000 ML 125 ML IV CONT ×2 (04:07→17:15)
[2024-03-07 06:10] LABS: Hematocrit 33.7 % (42.0-52.0); Hemoglobin 11.5 g/dL (14.0-18.0); Mean Corpuscular HGB Conc 34.1 g/dl (32-36); Mean Corpuscular Hemoglobin 30.9 pg (26-34); Mean Corpuscular Volume 90.6 fl (80-100); Mean Platelet Volume 8.8 fl (7.4-10.4); Platelet Count Result 302 k/mm3 (150-375); Red Blood Count 3.72 M/mm3 (4.6-6.20); Red Cell Distribution Width 13.4 % (11.5-14.5); White Blood Count 15.4 K/mm3 (4.5-10.0)
[2024-03-07 06:27] LABS: Alanine Aminotransferase 44 U/L (6-50); Albumin Level 2.4 g/dL (3.5-5.1); Alkaline Phosphatase 118 U/L (38-126); Anion Gap 4 mmol/L (4-12); Aspartate Amino Transferase 44 U/L (17-59); Blood Urea Nitrogen 6 mg/dL (9-20); Calcium 7.7 mg/dL (8.4-10.2); Carbon Dioxide 31 mmol/L (22-30); Chloride 92 mmol/L (98-107); Estimated CRCL calculation 148 ml/min; Estimated Glomerular Filt Rate > 60; Glucose 103 mg/dL (65-110); Potassium 3.1 mmol/L (3.4-5.0); Sodium 127 mmol/L (137-145)
[2024-03-07] MEDS: IPRATROPIUM 0.5 MG/ALBUTEROL SULFATE 2.5 MG AMPUL.NEB 3 ML INHALATION ×2 (07:48→22:00)
[2024-03-07] MEDS: FLUTICASONE/SALMETEROL 115-21 MCG INHALER 1 PUFF 2 PUFF INHALATION ×2 (07:57→22:00)
[2024-03-07] MEDS: PROPRANOLOL HCL 20 MG TABLET PO (08:53)
[2024-03-07] MEDS: LINEZOLID 600 MG TABLET PO ×2 (08:53→20:57)
[2024-03-07] MEDS: POTASSIUM CHLORIDE 20 MEQ ER TABLET 40 MEQ PO ×2 (08:53→12:42)
[2024-03-07] MEDS: FOLIC ACID 1 MG TABLET PO (08:53)
[2024-03-07] MEDS: PANTOPRAZOLE 40 MG TABLET PO (08:53)
[2024-03-07] MEDS: guaiFENesin 12 HR 600 MG TABCR PO ×2 (08:53→20:57)
[2024-03-07] MEDS: amLODIPine BESYLATE 10 MG TABLET PO (08:53)
[2024-03-07] MEDS: BENZTROPINE MESYLATE 0.5 MG TABLET PO ×2 (08:54→17:15)
[2024-03-07] MEDS: ENOXAPARIN 40 MG/0.4 ML SYRINGE SUB-Q (08:54)
[2024-03-07] MEDS: DOXYCYCLINE HYCLATE 100 MG TABLET PO ×2 (08:54→20:58)
[2024-03-07] MEDS: HALOPERIDOL 5 MG TABLET PO ×3 (08:54→17:15)
[2024-03-07] MEDS: cefTRIAXone 2 GM/NS 100 ML 2 GM/100 ML BAG IVPB (08:54)
--- NOTE | 2024-03-07 10:16 | P.PNIM_ITS ---
Progress Note: A&P Assessment and Plan (1) Acute respiratory failure with hypoxia: Code(s): J96.01 - Acute respiratory failure with hypoxia Status: Inactive Assessment and Plan: - Likely secondary to below and possibly COPD exacerbation. - Currently good O2 sats > 90 % on 2L/NC. - Continue bronchodilators and broad-spectrum IV and oral abx. - Supplemental O2 PRN to maintain sats > 90 %. - Incentive spirometer (2) Bilateral pneumonia: Code(s): J18.9 - Pneumonia, unspecified organism Status: Acute Assessment and Plan: - CXR: Impression: Extensive bilateral airspace disease, right greater than left, consistent with multifocal pneumonia. - Likely aspiration. - Blood cultures growing MRSA. - WBC: 29.5-> 23.1->17.1->16.6->15.1->15.4 - Legionella and Strep. pneumo urine Ag pending. - Started on Linelozid 03/04/2024. - Ceftriaxone 2 gm ivpb daily and Doxycycline 100 mg IVPB q 12. - CXR 03/05/24 showed extensive right lung pneumonia. - Continue supplemental O2 PRN to maintain sats > 90 %. - Add PT/OT - Incentive spirometer. (3) COPD (chronic obstructive pulmonary disease): Qualifiers: COPD type: unspecified COPD Qualified Code(s): J44.9 - Chronic obstructive pulmonary disease, unspecified Code(s): J44.9 - Chronic obstructive pulmonary disease, unspecified Status: Acute Assessment and Plan: - Possibly in exacerbation. - Admits to 2packs/day smoking. - Symbicort and scheduled duoneb updrafts. - Started on Mucinex due to congestion. - Supplemental O2 PRN to maintain sats > 90 %. - Continue IV and oral abx. (4) SBO (small bowel obstruction): Code(s): K56.609 - Unspecified intestinal obstruction, unspecified as to partial versus complete obstruction Status: Acute Assessment and Plan: - KUB; IMPRESSION: Findings consistent with distal small bowel obstruction, as detailed above. Cross-sectional imaging is recommended. - Patient denies abdominal pain, nausea or vomiting. - Tolerating meals well with no abdominal discomfort. - Swallow study showed trace aspiration with thin liquids. Patient recommended a mildly thick liquid level 2, soft bite sized level 6 food. - Monitor closely for abd discomfort. - Avoid narcotics. (5) Acute hyponatremia: Code(s): E87.1 - Hypo-osmolality and hyponatremia Status: Inactive Assessment and Plan: - Asymptomatic. - Continues to slowly improve. - Unclear etiology and pt with episodes of hyponatremia previously per medical records. - Urine sodium pending. - Continue IVF hydration, NS @ 125 ml/hr. - Monitor levels closely, Q6hrs for now, to avoid rapid correction. - Sodium 127. (6) Dysphagia: Code(s): R13.10 - Dysphagia, unspecified Status: Acute Assessment and Plan: - Unclear etiology, possibly mechanical vs neurogenic vs other. - MBS eval done and small bite meals with thickened liquids recommended per ST. - Possibly cause for PNA with aspiration. - ST continues to follow. - Assist with meals and monitor for aspiration. (7) Acute kidney insufficiency: Code(s): N28.9 - Disorder of kidney and ureter, unspecified Status: Inactive Assessment and Plan: - Unclear etiology. - Possibly related to poor PO intake from lung infection vs infection vs other. - Renal function appears normalized currently. - Monitor closely with abx. (8) Tachycardia: Code(s): R00.0 - Tachycardia, unspecified Status: Acute Assessment and Plan: - Chronic and pt on Propranolol at home. - Possibly worsened by bronchodilators. - Fairly well controlled by propranolol, low 100's. - Continue tele monitoring. (9) Schizophrenia: Qualifiers: Schizophrenia type: unspecified Qualified Code(s): F20.9 - Schizophrenia, unspecified Code(s): F20.9 - Schizophrenia, unspecified Status: Inactive Assessment and Plan: - Patient with episodes of confusion but no aggressive behavior. - Home meds restarted. - Monitor for safety and assist with care. (10) History of pneumonectomy: Code(s): Z98.890 - Other specified postprocedural states; Z90.2 - Acquired absence of lung [part of] Status: Acute Assessment and Plan: - Stable. 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 (11) Hypertension: Code(s): I10 - Essential (primary) hypertension Status: Acute Assessment and Plan: - BP 106/69 - Continue Amlodipine. - Monitor closely. Plan Continue IV and oral antibiotics and bronchodilators for mgt of PNA and COPD exacerbation. Monitor Na levels closely. Continue supplemental O2 and wean as tolerated for sats > 90 %. Subjective Date/time seen: 03/07/24 10:16 Interval history: Patient denies chest pain, palpitations, shortness of breath, headache, or dizziness. Patient reports cough with yellow green sputum. Patient wanting to know when he can go home, patient reports missing his . Patients to come see him today. Review of Systems Review of Systems: All systems reviewed & are unremarkable except as noted in HPI and below Exam Const: General: no acute distress Resp: Other: coarse with decreased congestion. Cardio: Rate: tachycardic Other: Telemetry- ST 104. GI: GI Palp: Yes Soft to palpation Auscultation: normal bowel sounds Skin: General skin exam: no rashes or lesions noted Neuro: Speech: normal speech Extrem: General: normal to inspection Psych: Affect: normal affect Objective Data Vital Signs Vital Signs: Vital Signs - 24 hr 03/06/24 12:00 03/06/24 14:02 03/06/24 14:14 Temperature Pulse Rate 76 91 92 Respiratory Rate 18 18 Blood Pressure Pulse Oximetry Oxygen Delivery Oxygen Flow Rate 03/06/24 14:00 03/06/24 15:15 03/06/24 16:00 Temperature 97.8 F Pulse Rate 83 88 Respiratory Rate 20 Blood Pressure 98/59 L Pulse Oximetry 92 Oxygen Delivery Nasal Cannula Oxygen Flow Rate 2 03/06/24 19:43 03/06/24 19:44 03/06/24 19:51 Temperature Pulse Rate 94 92 Respiratory Rate 18 18 Blood Pressure Pulse Oximetry 90 Oxygen Delivery Nasal Cannula Oxygen Flow Rate 2 03/06/24 19:51 03/06/24 21:09 03/06/24 20:04 Temperature 98.2 F Pulse Rate 96 99 Respiratory Rate 20 Blood Pressure 110/60 Pulse Oximetry 92 92 Oxygen Delivery Nasal Cannula Oxygen Flow Rate 3 03/06/24 20:55 03/07/24 00:00 03/07/24 04:04 Temperature Pulse Rate 91 95 Respiratory Rate Blood Pressure Pulse Oximetry 92 Oxygen Delivery Nasal Cannula Oxygen Flow Rate 3 03/07/24 06:00 03/07/24 07:48 03/07/24 07:48 Temperature 98.6 F Pulse Rate 93 100 Respiratory Rate 20 18 Blood Pressure 117/63 Pulse Oximetry 93 92 Oxygen Delivery Nasal Cannula Oxygen Flow Rate 2 03/07/24 08:02 03/07/24 08:53 03/07/24 09:05 Temperature Pulse Rate 103 H 85 Respiratory Rate 18 Blood Pressure Pulse Oximetry Oxygen Delivery Nasal Cannula Oxygen Flow Rate 2 03/07/24 08:50 03/07/24 08:00 Temperature Pulse Rate 103 H Respiratory Rate Blood Pressure Pulse Oximetry 94 Oxygen Delivery Nasal Cannula Oxygen Flow Rate 2 Intake/Output Intake/Output: Intake & Output 03/04/24 03/05/24 03/06/24 03/07/24 23:59 23:59 23:59 23:59 Intake Total 3920 3451.7 4760 900 Output Total 1266 953 5532 1000 Balance 2620 3251.7 2960 -100 Meds/Results Medications: Active Medications Generic Name Dose Route Start Last Admin Trade Name Freq PRN Reason Stop Dose Admin Al Hydrox/Mg Hydrox/Simethicone 30 ml 03/02/24 21:29 Mag Hydrox/Al Hydrox/Simeth 30 Ml Udc PO QID PRN Dyspepsia Albuterol/Ipratropium 3 ml 03/03/24 09:30 03/07/24 07:48 Ipratropium 0.5 Mg/Albuterol Sulfate 2.5 Mg Ampul.Neb 3 Ml INHALATION 3 ml Q6HRT SHALINI Administration Amlodipine Besylate 10 mg 03/05/24 09:55 03/07/24 08:53 Amlodipine Besylate 10 Mg Tablet PO 10 mg DAILY SHALINI Administration Benztropine Mesylate 0.5 mg 03/05/24 17:00 03/07/24 08:54 Benztropine Mesylate 0.5 Mg Tablet PO 0.5 mg BID SHALINI Administration Doxycycline Hyclate 100 mg 03/06/24 21:00 03/07/24 08:54 Doxycycline Hyclate 100 Mg Tablet PO 03/07/24 21:01 100 mg Q12HR SHALINI Administration Enoxaparin Sodium 40 mg 03/03/24 09:00 03/07/24 08:54 Enoxaparin 40 Mg/0.4 Ml Syringe SUB-Q 40 mg DAILY SHALINI Administration Folic Acid 1 mg 03/03/24 09:00 03/07/24 08:53 Folic Acid 1 Mg Tablet PO 1 mg DAILY SHALINI Administration Guaifenesin 600 mg 03/05/24 21:00 03/07/24 08:53 Guaifenesin 12 Hr 600 Mg Tabcr PO 600 mg Q12HR SHALINI Administration Guaifenesin/Dextromethorphan 10 ml 03/04/24 17:26 03/07/24 03:48 Guaifenesin/Dextromethorphan 10 Ml Udc PO 10 ml Q4H PRN Administration Cough Haloperidol 5 mg 03/05/24 13:00 03/07/24 08:54 Haloperidol 5 Mg Tablet PO 5 mg TID SHALINI Administration Sodium Chloride 1,000 mls @ 125 mls/hr 03/02/24 21:30 03/07/24 04:07 Normal Saline Iv IV CONT 125 mls/hr .Q8H SHALINI Administration Ceftriaxone Sodium 2 gm in 100 mls @ 200 mls/hr 03/06/24 11:30 03/07/24 08:54 Rocephin 2 Gm/Ns 100 Ml IVPB 03/09/24 09:29 200 mls/hr DAILY SHALINI Administration Linezolid 600 mg 03/06/24 21:00 03/07/24 08:53 Linezolid 600 Mg Tablet PO 600 mg Q12HR SHALINI Administration Magnesium Hydroxide 30 ml 03/02/24 21:29 Magnesium Hydroxide Susp 30 Ml Udc PO DAILY PRN Constipation Morphine Sulfate 2 mg 03/02/24 21:29 Morphine Sulfate (*Crx) 2 Mg/Ml Inj IV PUSH Q4H PRN Pain Rated 7-10 Ondansetron HCl 4 mg 03/02/24 21:29 Ondansetron Inj 4 Mg/2 Ml Vial IV PUSH Q6H PRN Nausea And Vomiting Pantoprazole Sodium 40 mg 03/03/24 09:00 03/07/24 08:53 Pantoprazole 40 Mg Tablet PO 40 mg QAM SHALINI Administration Potassium Chloride 40 meq 03/07/24 13:00 Potassium Chloride 20 Meq Er Tablet PO 03/07/24 13:01 ONCE ONE Propranolol HCl 20 mg 03/03/24 09:00 03/07/24 08:53 Propranolol Hcl 20 Mg Tablet PO 20 mg DAILY SHALINI Administration Fluticasone/Salmeterol 2 puff 03/03/24 09:30 03/07/24 07:57 Fluticasone/Salmeterol 115-21 Mcg Inhaler 1 Puff INHALATION 2 puff Q12HRT SHALINI Administration Radiology Results: ITS Impressions Abdomen X-Ray 03/02/24 22:39 IMPRESSION: Findings consistent with distal small bowel obstruction, as detailed above. Cross-sectional imaging is recommended. Modified Barium Swallow 03/04/24 13:10 IMPRESSION: 1. Aspiration. 2. Please refer to the speech therapy report for recommendations. Chest X-Ray 03/05/24 13:55 Impression: Extensive right lung pneumonia is essentially unchanged. Labs Labs: Laboratory Results - last 24 hr 03/06/24 03/07/24 14:57 05:30 WBC 15.4 H RBC 3.72 L Hgb 11.5 L Hct 33.7 L MCV 90.6 MCH 30.9 MCHC 34.1 RDW 13.4 Plt Count 302 MPV 8.8 Sodium 128 L 127 L Potassium 3.5 3.1 L Chloride 91 L 92 L Carbon Dioxide 33 H 31 H Anion Gap 4 4 BUN 7 L 6 L Creatinine 0.40 L 0.40 L Estim Creat Clear Calc 148 148 Estimated GFR > 60 > 60 Glucose 95 103 Calcium 7.9 L 7.7 L Total Bilirubin 0.8 1.0 AST 46 44 ALT 39 44 Alkaline Phosphatase 104 118 Total Protein 5.0 L 5.0 L Albumin 2.4 L 2.4 L Quality VTE Prophylaxis VTE prophylaxis: pharmacologic ordered
--- NOTE | 2024-03-07 13:53 | PCOTNOTE ---
Patient refused to participate in OT services this afternoon. Patient stated did therapy already.
[2024-03-08] VITALS (18 sets, daily range): BP systolic 104–117; BP diastolic 60–66; PULSE 80–99; RESP 16–20; TEMP 36.5–36.8; O2SAT 94–97
[2024-03-08] MEDS: SODIUM CHLORIDE 0.9% IV 1,000 ML 125 ML IV CONT ×3 (01:45→16:04)
[2024-03-08] MEDS: IPRATROPIUM 0.5 MG/ALBUTEROL SULFATE 2.5 MG AMPUL.NEB 3 ML INHALATION ×3 (02:45→13:40)
[2024-03-08 05:40] LABS: Hematocrit 35.6 % (42.0-52.0); Hemoglobin 11.9 g/dL (14.0-18.0); Mean Corpuscular HGB Conc 33.4 g/dl (32-36); Mean Corpuscular Hemoglobin 30.4 pg (26-34); Mean Platelet Volume 8.9 fl (7.4-10.4); Platelet Count Result 302 k/mm3 (150-375); Red Blood Count 3.91 M/mm3 (4.6-6.20); Red Cell Distribution Width 13.2 % (11.5-14.5); White Blood Count 10.3 K/mm3 (4.5-10.0)
[2024-03-08 05:43] LABS: Sodium 127 mmol/L (137-145)
[2024-03-08 05:51] LABS: Alanine Aminotransferase 43 U/L (6-50); Albumin Level 2.4 g/dL (3.5-5.1); Alkaline Phosphatase 116 U/L (38-126); Anion Gap 2 mmol/L (4-12); Aspartate Amino Transferase 40 U/L (17-59); Bilirubin,Total 0.9 mg/dL (0.2-1.3); Blood Urea Nitrogen 4 mg/dL (9-20); Calcium 7.6 mg/dL (8.4-10.2); Carbon Dioxide 30 mmol/L (22-30); Chloride 95 mmol/L (98-107); Estimated CRCL calculation 148 ml/min; Estimated Glomerular Filt Rate > 60; Glucose 96 mg/dL (65-110); Potassium 3.4 mmol/L (3.4-5.0); Sodium 127 mmol/L (137-145)
[2024-03-08] MEDS: FLUTICASONE/SALMETEROL 115-21 MCG INHALER 1 PUFF 2 PUFF INHALATION (08:05)
[2024-03-08] MEDS: cefTRIAXone 2 GM/NS 100 ML 2 GM/100 ML BAG IVPB (08:15)
[2024-03-08] MEDS: BENZTROPINE MESYLATE 0.5 MG TABLET PO ×2 (08:16→16:04)
[2024-03-08] MEDS: ENOXAPARIN 40 MG/0.4 ML SYRINGE SUB-Q (08:16)
[2024-03-08] MEDS: LINEZOLID 600 MG TABLET PO ×2 (08:16→21:53)
[2024-03-08] MEDS: guaiFENesin 12 HR 600 MG TABCR PO ×2 (08:16→21:53)
[2024-03-08] MEDS: FOLIC ACID 1 MG TABLET PO (08:16)
[2024-03-08] MEDS: HALOPERIDOL 5 MG TABLET PO ×2 (08:17→16:04)
[2024-03-08] MEDS: PANTOPRAZOLE 40 MG TABLET PO (08:17)
[2024-03-08] MEDS: PROPRANOLOL HCL 20 MG TABLET PO (08:17)
[2024-03-08] MEDS: amLODIPine BESYLATE 10 MG TABLET PO (08:17)
[2024-03-08] MEDS: SODIUM CHLORIDE 500 MG TABLET PO (08:28)
[2024-03-08] MEDS: POTASSIUM CHLORIDE 10 MEQ ER TABLET PO (08:28)
--- NOTE | 2024-03-08 11:24 | PCOTNOTE ---
Attempted to see PAtient at this time. Patient stated he just returned to bed, tired and not right now. Will try back at a later time.
--- NOTE | 2024-03-08 12:16 | PM.IMPN ---
Progress Note: A&P Assessment and Plan (1) Acute respiratory failure with hypoxia: Code(s): J96.01 - Acute respiratory failure with hypoxia Status: Inactive Assessment and Plan: - Likely secondary to below and possibly COPD exacerbation. - Currently good O2 sats > 90 % on 2L/NC. - Continue bronchodilators and broad-spectrum IV and oral abx. - Supplemental O2 PRN to maintain sats > 90 %. - Incentive spirometer (2) Bilateral pneumonia: Code(s): J18.9 - Pneumonia, unspecified organism Status: Acute Assessment and Plan: - CXR: Impression: Extensive bilateral airspace disease, right greater than left, consistent with multifocal pneumonia. - Likely aspiration. - Blood cultures growing MRSA. - WBC: 29.5-> 23.1->17.1->16.6->15.1->15.4->10.3. - Legionella and Strep. pneumo urine Ag pending. - Started on Linelozid 03/04/2024. - Ceftriaxone 2 gm ivpb daily and Doxycycline 100 mg IVPB q 12. - CXR 03/05/24 showed extensive right lung pneumonia. - Continue supplemental O2 PRN to maintain sats > 90 %. - Add PT/OT - Incentive spirometer. (3) COPD (chronic obstructive pulmonary disease): Qualifiers: COPD type: unspecified COPD Qualified Code(s): J44.9 - Chronic obstructive pulmonary disease, unspecified Code(s): J44.9 - Chronic obstructive pulmonary disease, unspecified Status: Acute Assessment and Plan: - Possibly in exacerbation. - Admits to 2packs/day smoking. - Symbicort and scheduled [facility] updrafts. - Started on Mucinex due to congestion. - Supplemental O2 PRN to maintain sats > 90 %. - Continue IV and oral abx. (4) SBO (small bowel obstruction): Code(s): K56.609 - Unspecified intestinal obstruction, unspecified as to partial versus complete obstruction Status: Acute Assessment and Plan: - KUB; IMPRESSION: Findings consistent with distal small bowel obstruction, as detailed above. Cross-sectional imaging is recommended. - Patient denies abdominal pain, nausea or vomiting. - Tolerating meals well with no abdominal discomfort. - Swallow study showed trace aspiration with thin liquids. Patient recommended a mildly thick liquid level 2, soft bite sized level 6 food. - Monitor closely for abd discomfort. - Avoid narcotics. (5) Acute hyponatremia: Code(s): E87.1 - Hypo-osmolality and hyponatremia Status: Inactive Assessment and Plan: - Asymptomatic. - Continues to slowly improve. - Unclear etiology and pt with episodes of hyponatremia previously per medical records. - Urine sodium pending. - Continue IVF hydration, NS @ 125 ml/hr. - Monitor levels closely, Q6hrs for now, to avoid rapid correction. - Sodium 127. - Add Sodium Chloride 500 mg PO daily. - Changed Pantoprazole to Famotidine. (6) Dysphagia: Code(s): R13.10 - Dysphagia, unspecified Status: Acute Assessment and Plan: - Unclear etiology, possibly mechanical vs neurogenic vs other. - MBS eval done and small bite meals with thickened liquids recommended per ST. - Possibly cause for PNA with aspiration. - ST continues to follow. - Assist with meals and monitor for aspiration. (7) Acute kidney insufficiency: Code(s): N28.9 - Disorder of kidney and ureter, unspecified Status: Inactive Assessment and Plan: - Unclear etiology. - Possibly related to poor PO intake from lung infection vs infection vs other. - Renal function appears normalized currently. - Monitor closely with abx. (8) Tachycardia: Code(s): R00.0 - Tachycardia, unspecified Status: Acute Assessment and Plan: - Chronic and pt on Propranolol at home. - Possibly worsened by bronchodilators. - Fairly well controlled by propranolol, SR 83 today. Improved. - Continue tele monitoring. (9) Schizophrenia: Qualifiers: Schizophrenia type: unspecified Qualified Code(s): F20.9 - Schizophrenia, unspecified Code(s): F20.9 - Schizophrenia, unspecified Status: Inactive Assessment and Plan: - Patient with episodes of confusion but no aggressive behavior. - Home meds restarted. - Monitor for safety and assist with care. (10) History of pneumonectomy: Code(s): Z98.890 - Other specified postprocedural states; Z90.2 - Acquired absence of lung [part of] Status: Acute Assessment and Plan: - Stable. 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 (11) Hypertension: Code(s): I10 - Essential (primary) hypertension Status: Acute Assessment and Plan: - BP 105/60 - Continue Amlodipine. - Monitor closely. Plan Continue IV and oral antibiotics and bronchodilators for mgt of PNA and COPD exacerbation. Monitor Na levels closely. Continue supplemental O2 and wean as tolerated for sats > 90 %. Subjective Date/time seen: 03/08/24 12:16 Interval history: Patient denies chest pain, palpitations, shortness of breath, headache, or dizziness. Patient reports that his sputum is changing to clear and that he is using the incentive spirometer. Review of Systems Review of Systems: All systems reviewed & are unremarkable except as noted in HPI and below Exam Const: General: comfortable and no acute distress Resp: Effort & Inspection: normal respiratory effort Auscultation: diminished lung sounds Cardio: Rate: regular rate Rhythm: regular rhythm Other: Telemetry- SR 83. GI: GI Palp: Yes Soft to palpation Auscultation: normal bowel sounds Skin: General skin exam: no rashes or lesions noted Neuro: Speech: normal speech Extrem: General: normal to inspection Psych: Affect: normal affect Objective Data Vital Signs Vital Signs: Vital Signs - 24 hr 03/07/24 14:00 03/07/24 16:00 03/07/24 20:01 Temperature 97.6 F 98.3 F Pulse Rate 74 86 78 Respiratory Rate 19 20 Blood Pressure 106/69 108/60 Pulse Oximetry 96 95 Oxygen Delivery Oxygen Flow Rate 03/07/24 22:00 03/07/24 22:11 03/07/24 20:00 Temperature Pulse Rate 83 83 81 Respiratory Rate 18 18 Blood Pressure Pulse Oximetry Oxygen Delivery Oxygen Flow Rate 03/07/24 20:48 03/08/24 00:00 03/08/24 02:45 Temperature Pulse Rate 87 92 Respiratory Rate 18 Blood Pressure Pulse Oximetry 95 Oxygen Delivery Nasal Cannula Oxygen Flow Rate 2 03/08/24 02:55 03/08/24 04:00 03/08/24 04:24 Temperature 98.2 F Pulse Rate 88 93 98 Respiratory Rate 18 18 Blood Pressure 117/66 Pulse Oximetry 94 Oxygen Delivery Oxygen Flow Rate 03/08/24 08:05 03/08/24 08:05 03/08/24 08:17 Temperature Pulse Rate 84 96 Respiratory Rate 18 Blood Pressure Pulse Oximetry 94 Oxygen Delivery Nasal Cannula Oxygen Flow Rate 2 03/08/24 08:32 03/08/24 08:15 Temperature Pulse Rate 88 96 Respiratory Rate 18 Blood Pressure Pulse Oximetry Oxygen Delivery Oxygen Flow Rate Intake/Output Intake/Output: Intake & Output 03/05/24 03/06/24 03/07/24 03/08/24 23:59 23:59 23:59 23:59 Intake Total 3451.7 4760 1480 2172.5 Output Total 200 1800 3200 1100 Balance 3251.7 2960 -1720 1072.5 Meds/Results Medications: Active Medications Generic Name Dose Route Start Last Admin Trade Name Freq PRN Reason Stop Dose Admin Acetaminophen 650 mg 03/07/24 15:26 Acetaminophen 325 Mg Tablet PO Q6H PRN Mild Pain (1-3) or Fever Albuterol/Ipratropium 3 ml 03/07/24 20:00 03/08/24 08:05 Ipratropium 0.5 Mg/Albuterol Sulfate 2.5 Mg Ampul.Neb 3 Ml INHALATION 3 ml Q6HRT SHALINI Administration Amlodipine Besylate 10 mg 03/08/24 09:00 03/08/24 08:17 Amlodipine Besylate 10 Mg Tablet PO 10 mg DAILY SHALINI Administration Benztropine Mesylate 0.5 mg 03/07/24 17:00 03/08/24 08:16 Benztropine Mesylate 0.5 Mg Tablet PO 0.5 mg BID SHALINI Administration Enoxaparin Sodium 40 mg 03/08/24 09:00 03/08/24 08:16 Enoxaparin 40 Mg/0.4 Ml Syringe SUB-Q 40 mg DAILY SHALINI Administration Famotidine 20 mg 03/09/24 09:00 Famotidine 20 Mg Tablet PO DAILY SHALINI Folic Acid 1 mg 03/08/24 09:00 03/08/24 08:16 Folic Acid 1 Mg Tablet PO 1 mg DAILY SHALINI Administration Guaifenesin 600 mg 03/07/24 21:00 03/08/24 08:16 Guaifenesin 12 Hr 600 Mg Tabcr PO 03/12/24 20:59 600 mg Q12HR SHALINI Administration Haloperidol 5 mg 03/07/24 15:15 03/08/24 08:17 Haloperidol 5 Mg Tablet PO 5 mg TID PRN Administration Anxiety Sodium Chloride 1,000 mls @ 125 mls/hr 03/07/24 15:15 03/08/24 08:15 Normal Saline Iv IV CONT 125 mls/hr .Q8H SHALINI Administration Ceftriaxone Sodium 2 gm in 100 mls @ 200 mls/hr 03/08/24 09:00 03/08/24 08:15 Rocephin 2 Gm/Ns 100 Ml IVPB 03/09/24 09:29 200 mls/hr DAILY SHALINI Administration Linezolid 600 mg 03/07/24 21:00 03/08/24 08:16 Linezolid 600 Mg Tablet PO 03/20/24 21:01 600 mg Q12HR SHALINI Administration Ondansetron HCl 4 mg 03/07/24 15:17 Ondansetron Inj 4 Mg/2 Ml Vial IV PUSH Q6H PRN Nausea And Vomiting Potassium Chloride 10 meq 03/08/24 08:20 03/08/24 08:28 Potassium Chloride 10 Meq Er Tablet PO 10 meq DAILY@0800 SHALINI Administration Propranolol HCl 20 mg 03/08/24 09:00 03/08/24 08:17 Propranolol Hcl 20 Mg Tablet PO 20 mg DAILY SHALINI Administration Fluticasone/Salmeterol 2 puff 03/07/24 20:00 03/08/24 08:05 Fluticasone/Salmeterol 115-21 Mcg Inhaler 1 Puff INHALATION 2 puff Q12HRT SHALINI Administration Sodium Chloride 500 mg 03/08/24 09:00 03/08/24 08:28 Sodium Chloride 500 Mg Tablet PO 500 mg QAM SHALINI Administration Radiology Results: ITS Impressions Abdomen X-Ray 03/02/24 22:39 IMPRESSION: Findings consistent with distal small bowel obstruction, as detailed above. Cross-sectional imaging is recommended. Modified Barium Swallow 03/04/24 13:10 IMPRESSION: 1. Aspiration. 2. Please refer to the speech therapy report for recommendations. Chest X-Ray 03/05/24 13:55 Impression: Extensive right lung pneumonia is essentially unchanged. Labs Labs: Laboratory Results - last 24 hr 03/08/24 03/08/24 05:05 05:05 WBC 10.3 H RBC 3.91 L Hgb 11.9 L Hct 35.6 L MCV 91.0 MCH 30.4 MCHC 33.4 RDW 13.2 Plt Count 302 MPV 8.9 Sodium 127 L 127 L Potassium 3.4 Chloride 95 L Carbon Dioxide 30 Anion Gap 2 L BUN 4 L Creatinine 0.40 L Estim Creat Clear Calc 148 Estimated GFR > 60 Glucose 96 Calcium 7.6 L Total Bilirubin 0.9 AST 40 ALT 43 Alkaline Phosphatase 116 Total Protein 6.0 L Albumin 2.4 L Quality VTE Prophylaxis VTE prophylaxis: pharmacologic ordered
[2024-03-09] VITALS (18 sets, daily range): BP systolic 110–122; BP diastolic 70–72; PULSE 77–107; RESP 18–20; TEMP 36.4–36.7; O2SAT 94–97
[2024-03-09] MEDS: SODIUM CHLORIDE 0.9% IV 1,000 ML 125 ML IV CONT (01:10)
[2024-03-09 06:02] LABS: Basophils Absolute Auto 0.1 K/mm3 (0.0-0.1); Basophils Percent Auto 0.6 % (0.2-1.2); Eosinophils Absolute Auto 0.1 K/mm3 (0-0.3); Eosinophils Percent Auto 1.1 % (0-4.4); Hematocrit 36.5 % (42.0-52.0); Hemoglobin 12.1 g/dL (14.0-18.0); Immature Granulocyte Absolute 0.33 K/mm3 (0.00-0.031); Immature Granulocyte Percent A 4.2 % (0-0.5); Lymphocytes Absolute Auto 0.77 K/mm3 (0.9-3.2); Lymphocytes Percent Auto 9.7 % (18.3-44.2); Mean Corpuscular HGB Conc 33.2 g/dl (32-36); Mean Corpuscular Hemoglobin 30.3 pg (26-34); Mean Corpuscular Volume 91.5 fl (80-100); Mean Platelet Volume 8.8 fl (7.4-10.4); Monocytes Absolute Auto 0.7 K/mm3 (0.1-0.6); Monocytes Percent Auto 8.2 % (2.6-8.5); Neutrophils Percent Auto 76.2 % (45.5-73.1); Platelet Count Result 329 k/mm3 (150-375); Red Blood Count 3.99 M/mm3 (4.6-6.20); White Blood Count 7.9 K/mm3 (4.5-10.0)
[2024-03-09 06:20] LABS: Alanine Aminotransferase 44 U/L (6-50); Albumin Level 2.5 g/dL (3.5-5.1); Alkaline Phosphatase 112 U/L (38-126); Anion Gap 5 mmol/L (4-12); Aspartate Amino Transferase 36 U/L (17-59); Bilirubin,Total 0.8 mg/dL (0.2-1.3); Blood Urea Nitrogen 4 mg/dL (9-20); Calcium 7.9 mg/dL (8.4-10.2); Carbon Dioxide 31 mmol/L (22-30); Chloride 94 mmol/L (98-107); Estimated CRCL calculation 121 ml/min; Estimated Glomerular Filt Rate > 60; Glucose 100 mg/dL (65-110); Potassium 3.3 mmol/L (3.4-5.0); Sodium 130 mmol/L (137-145)
[2024-03-09] MEDS: IPRATROPIUM 0.5 MG/ALBUTEROL SULFATE 2.5 MG AMPUL.NEB 3 ML INHALATION ×3 (07:55→20:49)
[2024-03-09] MEDS: FLUTICASONE/SALMETEROL 115-21 MCG INHALER 1 PUFF 2 PUFF INHALATION ×2 (07:56→20:50)
--- NOTE | 2024-03-09 08:42 | P.PNIM_ITS ---
Progress Note: A&P Assessment and Plan (1) Acute respiratory failure with hypoxia: Code(s): J96.01 - Acute respiratory failure with hypoxia Status: Inactive Assessment and Plan: - Likely secondary to below and possibly COPD exacerbation. - Currently good O2 sats > 90 % on 2L/NC. - Continue bronchodilators and broad-spectrum IV and oral abx. - Supplemental O2 PRN to maintain sats > 90 %. - Incentive spirometer home oxygen study (2) Bilateral pneumonia: Code(s): J18.9 - Pneumonia, unspecified organism Status: Acute Assessment and Plan: - CXR: Impression: Extensive bilateral airspace disease, right greater than left, consistent with multifocal pneumonia. - Likely aspiration. - Blood cultures growing MRSA. - WBC: 29.5-> 23.1->17.1->16.6->15.1->15.4->10.3. - Legionella and Strep. pneumo urine Ag pending. - Started on Linelozid 03/04/2024. - Ceftriaxone 2 gm ivpb daily and Doxycycline 100 mg IVPB q 12. - CXR 03/05/24 showed extensive right lung pneumonia. - Continue supplemental O2 PRN to maintain sats > 90 %. - Add PT/OT - Incentive spirometer. (3) COPD (chronic obstructive pulmonary disease): Qualifiers: COPD type: unspecified COPD Qualified Code(s): J44.9 - Chronic obstructive pulmonary disease, unspecified Code(s): J44.9 - Chronic obstructive pulmonary disease, unspecified Status: Acute Assessment and Plan: - Possibly in exacerbation. - Admits to 2packs/day smoking. - Symbicort and scheduled duoneb updrafts. - Started on Mucinex due to congestion. - Supplemental O2 PRN to maintain sats > 90 %. - Continue IV and oral abx. (4) SBO (small bowel obstruction): Code(s): K56.609 - Unspecified intestinal obstruction, unspecified as to partial versus complete obstruction Status: Acute Assessment and Plan: - KUB; IMPRESSION: Findings consistent with distal small bowel obstruction, as detailed above. Cross-sectional imaging is recommended. - Patient denies abdominal pain, nausea or vomiting. - Tolerating meals well with no abdominal discomfort. - Swallow study showed trace aspiration with thin liquids. Patient recommended a mildly thick liquid level 2, soft bite sized level 6 food. - Monitor closely for abd discomfort. - Avoid narcotics. (5) Acute hyponatremia: Code(s): E87.1 - Hypo-osmolality and hyponatremia Status: Inactive Assessment and Plan: - Asymptomatic. - Continues to slowly improve. - Unclear etiology and pt with episodes of hyponatremia previously per medical records. - Urine sodium pending. - DC IVF hydration, NS @ 125 ml/hr. - Monitor levels closely, Q6hrs for now, to avoid rapid correction. - Sodium 127. - Add Sodium Chloride 500 mg PO daily. - Changed Pantoprazole to Famotidine. repeat sodium in the afternoon (6) Dysphagia: Code(s): R13.10 - Dysphagia, unspecified Status: Acute Assessment and Plan: - Unclear etiology, possibly mechanical vs neurogenic vs other. - MBS eval done and small bite meals with thickened liquids recommended per ST. - Possibly cause for PNA with aspiration. - ST continues to follow. - Assist with meals and monitor for aspiration. (7) Acute kidney insufficiency: Code(s): N28.9 - Disorder of kidney and ureter, unspecified Status: Inactive Assessment and Plan: - Unclear etiology. - Possibly related to poor PO intake from lung infection vs infection vs other. - Renal function appears normalized currently. - Monitor closely with abx. (8) Tachycardia: Code(s): R00.0 - Tachycardia, unspecified Status: Acute Assessment and Plan: - Chronic and pt on Propranolol at home. - Possibly worsened by bronchodilators. - Fairly well controlled by propranolol, SR 83 today. Improved. - Continue tele monitoring. (9) Schizophrenia: Qualifiers: Schizophrenia type: unspecified Qualified Code(s): F20.9 - Schizophrenia, unspecified Code(s): F20.9 - Schizophrenia, unspecified Status: Inactive Assessment and Plan: - Patient with episodes of confusion but no aggressive behavior. - Home meds restarted. - Monitor for safety and assist with care. (10) History of pneumonectomy: Code(s): Z98.890 - Other specified postprocedural states; Z90.2 - Acquired absence of lung [part of] Status: Acute Assessment and Plan: - Stable. 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 (11) Hypertension: Code(s): I10 - Essential (primary) hypertension Status: Acute Assessment and Plan: - BP 105/60 - Continue Amlodipine. - Monitor closely. Plan Continue IV and oral antibiotics and bronchodilators for mgt of PNA and COPD exacerbation. Monitor Na levels closely. Continue supplemental O2 and wean as tolerated for sats > 90 %. Time Spent With Patient Time with patient: Greater than 35 minutes Subjective Date/time seen: 03/09/24 08:42 Interval history: Patient presented to the ER with reports of intermittent coughs and congestion, with episodes of yellowish to brownish sputum likely aspiration pneumonia Patient denies chest pain, palpitations, shortness of breath, headache, or dizziness. Patient reports that his sputum is changing to clear and that he is using the incentive spirometer. sodium slowly improving, sodium 130, potassium 3.3, patient started on p.o. Zyvox patient wishes today, will recheck sodium later on this afternoon and do a home oxygen study Review of Systems Review of Systems: All systems reviewed & are unremarkable except as noted in HPI and below Exam Narrative: HEENT: Atraumatic, PERRL, EOM, non-icteric, moist mucosa. Neck: Supple. Lungs: Coarse and congestion bilaterally, intermittent coughs with congestion. Heart: Tachycardia, no murmurs. ABdomen: Soft, non-tender, non-distended, +ve bowel sounds X4 quadrants. Extremities: No edema. 2+ pedal pulses. Skin: Warm, dry and pink, no lesions. Neuro: Oriented to self, no focal neuro deficits noted. Psych: Calm and co-operative. Const: General: comfortable and no acute distress Neck: Neck: supple Resp: Effort & Inspection: normal respiratory effort Auscultation: diminished lung sounds Other: coarse with decreased congestion. Cardio: Rate: regular rate and tachycardic Rhythm: regular rhythm Other: Telemetry- SR 83. GI: Auscultation: normal bowel sounds Skin: General skin exam: no rashes or lesions noted Neuro: Speech: normal speech Extrem: General: normal to inspection Psych: Affect: normal affect Objective Data Vital Signs Vital Signs: Vital Signs - 24 hr 03/08/24 13:42 03/08/24 13:51 03/08/24 12:00 Temperature Pulse Rate 80 92 84 Respiratory Rate 20 20 Blood Pressure Pulse Oximetry Oxygen Delivery Oxygen Flow Rate 03/08/24 14:00 03/08/24 16:00 03/08/24 19:54 Temperature 98.3 F 97.8 F Pulse Rate 86 82 95 Respiratory Rate 18 16 Blood Pressure 105/60 104/60 Pulse Oximetry 97 95 Oxygen Delivery Oxygen Flow Rate 03/08/24 22:00 03/08/24 21:45 03/08/24 20:00 Temperature 97.7 F Pulse Rate 99 94 Respiratory Rate 16 Blood Pressure 109/60 Pulse Oximetry 96 95 Oxygen Delivery Nasal Cannula Oxygen Flow Rate 2 03/09/24 00:00 03/09/24 04:00 03/09/24 05:52 Temperature 97.7 F Pulse Rate 80 101 H 98 Respiratory Rate 18 Blood Pressure 119/70 Pulse Oximetry 97 Oxygen Delivery Oxygen Flow Rate 03/09/24 07:58 03/09/24 07:58 03/09/24 08:14 Temperature Pulse Rate 86 82 Respiratory Rate 18 18 Blood Pressure Pulse Oximetry 96 Oxygen Delivery Nasal Cannula Oxygen Flow Rate 2 Intake/Output Intake/Output: Intake & Output 03/06/24 03/07/24 03/08/24 03/09/24 23:59 23:59 23:59 23:59 Intake Total 4760 1480 4089.6 1000 Output Total 1800 3200 2500 2600 Balance 2960 -1720 1589.6 -1600 Meds/Results Medications: Active Medications Generic Name Dose Route Start Last Admin Trade Name Freq PRN Reason Stop Dose Admin Acetaminophen 650 mg 03/07/24 15:26 Acetaminophen 325 Mg Tablet PO Q6H PRN Mild Pain (1-3) or Fever Albuterol/Ipratropium 3 ml 03/07/24 20:00 03/09/24 07:55 Ipratropium 0.5 Mg/Albuterol Sulfate 2.5 Mg Ampul.Neb 3 Ml INHALATION 3 ml Q6HRT SHALINI Administration Amlodipine Besylate 10 mg 03/08/24 09:00 03/08/24 08:17 Amlodipine Besylate 10 Mg Tablet PO 10 mg DAILY SHALINI Administration Benztropine Mesylate 0.5 mg 03/07/24 17:00 03/08/24 16:04 Benztropine Mesylate 0.5 Mg Tablet PO 0.5 mg BID SHALINI Administration Enoxaparin Sodium 40 mg 03/08/24 09:00 03/08/24 08:16 Enoxaparin 40 Mg/0.4 Ml Syringe SUB-Q 40 mg DAILY SHALINI Administration Famotidine 20 mg 03/09/24 09:00 Famotidine 20 Mg Tablet PO DAILY SHALINI Folic Acid 1 mg 03/08/24 09:00 03/08/24 08:16 Folic Acid 1 Mg Tablet PO 1 mg DAILY SHALINI Administration Guaifenesin 600 mg 03/07/24 21:00 03/08/24 21:53 Guaifenesin 12 Hr 600 Mg Tabcr PO 03/12/24 20:59 600 mg Q12HR SHALINI Administration Haloperidol 5 mg 03/07/24 15:15 03/08/24 16:04 Haloperidol 5 Mg Tablet PO 5 mg TID PRN Administration Anxiety Sodium Chloride 1,000 mls @ 125 mls/hr 03/07/24 15:15 03/09/24 01:10 Normal Saline Iv IV CONT 125 mls/hr .Q8H SHALINI Administration Ceftriaxone Sodium 2 gm in 100 mls @ 200 mls/hr 03/08/24 09:00 03/08/24 08:45 Rocephin 2 Gm/Ns 100 Ml IVPB 03/09/24 09:29 Infused DAILY SHALINI Infusion Linezolid 600 mg 03/07/24 21:00 03/08/24 21:53 Linezolid 600 Mg Tablet PO 03/20/24 21:01 600 mg Q12HR SHALINI Administration Ondansetron HCl 4 mg 03/07/24 15:17 Ondansetron Inj 4 Mg/2 Ml Vial IV PUSH Q6H PRN Nausea And Vomiting Potassium Chloride 10 meq 03/08/24 08:20 03/08/24 08:28 Potassium Chloride 10 Meq Er Tablet PO 10 meq DAILY@0800 SHALINI Administration Propranolol HCl 20 mg 03/08/24 09:00 03/08/24 08:17 Propranolol Hcl 20 Mg Tablet PO 20 mg DAILY SHALINI Administration Fluticasone/Salmeterol 2 puff 03/07/24 20:00 03/09/24 07:56 Fluticasone/Salmeterol 115-21 Mcg Inhaler 1 Puff INHALATION 2 puff Q12HRT SHALINI Administration Sodium Chloride 500 mg 03/08/24 09:00 03/08/24 08:28 Sodium Chloride 500 Mg Tablet PO 500 mg QAM SHALINI Administration Radiology Results: ITS Impressions Abdomen X-Ray 03/02/24 22:39 IMPRESSION: Findings consistent with distal small bowel obstruction, as detailed above. Cross-sectional imaging is recommended. Modified Barium Swallow 03/04/24 13:10 IMPRESSION: 1. Aspiration. 2. Please refer to the speech therapy report for recommendations. Chest X-Ray 03/05/24 13:55 Impression: Extensive right lung pneumonia is essentially unchanged. Labs Labs: Laboratory Results - last 24 hr 03/09/24 05:36 WBC 7.9 RBC 3.99 L Hgb 12.1 L Hct 36.5 L MCV 91.5 MCH 30.3 MCHC 33.2 RDW 13.0 Plt Count 329 MPV 8.8 Immature Gran % (Auto) 4.2 H Neut % (Auto) 76.2 H Lymph % (Auto) 9.7 L [place] % (Auto) 8.2 Eos % (Auto) 1.1 Baso % (Auto) 0.6 Lymph # (Auto) 0.77 L [place] # (Auto) 0.7 H Eos # (Auto) 0.1 Baso # (Auto) 0.1 Abs Immat Gran (auto) 0.33 H Absolute Neuts (auto) 6.0 Absolute Nucleated RBC 0.000 Nucleated RBC % 0.0 Sodium 130 L Potassium 3.3 L Chloride 94 L Carbon Dioxide 31 H Anion Gap 5 BUN 4 L Creatinine 0.50 L Estim Creat Clear Calc 121 Estimated GFR > 60 Glucose 100 Calcium 7.9 L Total Bilirubin 0.8 AST 36 ALT 44 Alkaline Phosphatase 112 Total Protein 6.0 L Albumin 2.5 L Quality VTE Prophylaxis VTE prophylaxis: pharmacologic ordered Hospitalist MIPS Advance Care Plan I have confirmed that the patient's Advanced Care Plan is present, code status is documented, or surrogate decision maker is listed in patient medical record.: Yes Medication Reconciliation I have utilized all available resources to obtain, update and review the patien ts current medications (includes all prescriptions, OTC, herbals, cannabis, and nutritional supplements).: Yes
[2024-03-09] MEDS: cefTRIAXone 2 GM/NS 100 ML 2 GM/100 ML BAG IVPB (09:09)
[2024-03-09] MEDS: LINEZOLID 600 MG TABLET PO ×2 (09:09→20:13)
[2024-03-09] MEDS: BENZTROPINE MESYLATE 0.5 MG TABLET PO ×2 (09:09→17:39)
[2024-03-09] MEDS: SODIUM CHLORIDE 500 MG TABLET PO ×2 (09:09→17:39)
[2024-03-09] MEDS: FAMOTIDINE 20 MG TABLET PO (09:10)
[2024-03-09] MEDS: amLODIPine BESYLATE 10 MG TABLET PO (09:10)
[2024-03-09] MEDS: FOLIC ACID 1 MG TABLET PO (09:10)
[2024-03-09] MEDS: PROPRANOLOL HCL 20 MG TABLET PO (09:10)
[2024-03-09] MEDS: ENOXAPARIN 40 MG/0.4 ML SYRINGE SUB-Q (09:11)
[2024-03-09] MEDS: guaiFENesin 12 HR 600 MG TABCR PO ×2 (09:11→20:13)
[2024-03-09] MEDS: POTASSIUM CHLORIDE 20 MEQ PACKET (FOR LIQUID) 40 MEQ PO (09:11)
--- NOTE | 2024-03-09 10:55 | PCNFU ---
Nutrition Follow-Up Complete: Severe Protein Calorie Malnutrition as related to inadequate protein energy intake with increased energy needs in setting of chronic disease as evidenced by poor po intake reported for at least 3 months, significant weight loss of 12%(20 ibs) 6 months, moderate muscle wasting (temporalis) and moderate subcutaneous fat loss(orbital fat pads). goal: Adequate Intake of at least 75% of meals/supplements Patient is progressing towards goal. We will continue current goal. Pt current nutrition is Soft and Bite Sized,Level 6 with Moderately Thick liquids, Level 2. Last recorded weight is 65.5 kg, no new weight to report. Bowel Motility: +Bm reported 03/08 Labs Reviewed: Cr 0.5, BUN 4, Na 130, K 3.3 Meds Noted: Folic Acid, Lovenox, Mucinex. Skin: WNL Additional Notes: Patient is currently on a Soft and Bite Sized, Level 6 diet with Moderately thick liquids, Level 2 diet. Intake has improved 50-75% of meals. Patient is drinking diet supplements of Ensure Enlive TID for additional 350 kcal and 20 gm protein. Agree with diet orders at this time. Will monitor weight labs, skin, meds, diet orders every 5 days.
[2024-03-09] MEDS: LOPERAMIDE HCL 2 MG CAPSULE 4 MG PO (13:21)
[2024-03-09 15:03] LABS: Sodium 126 mmol/L (137-145)
[2024-03-09] MEDS: ACETAMINOPHEN 325 MG TABLET 650 MG PO (20:12)
[2024-03-09 21:53] LABS: Pneumococcal Antigen Urine NOT DETECTED
[2024-03-10] VITALS (11 sets, daily range): BP systolic 111; BP diastolic 66; PULSE 64–99; RESP 18–20; TEMP 36.6; O2SAT 93–98
--- NOTE | 2024-03-10 04:40 | PCRCNOTE ---
Patient refused his 0200 updraft treatment. Pt states he is not having difficulty breathing and is unsure why he is on scheduled treatments. He also stated he does not even have a nebulizer machine at home for treatments. Pt would like to be switched to PRN.
[2024-03-10 06:04] LABS: Basophils Percent Auto 0.5 % (0.2-1.2); Eosinophils Absolute Auto 0.1 K/mm3 (0-0.3); Eosinophils Percent Auto 1.4 % (0-4.4); Hematocrit 36.2 % (42.0-52.0); Hemoglobin 12.1 g/dL (14.0-18.0); Immature Granulocyte Absolute 0.27 K/mm3 (0.00-0.031); Immature Granulocyte Percent A 4.2 % (0-0.5); Lymphocytes Absolute Auto 0.77 K/mm3 (0.9-3.2); Lymphocytes Percent Auto 12.1 % (18.3-44.2); Mean Corpuscular HGB Conc 33.4 g/dl (32-36); Mean Corpuscular Hemoglobin 30.6 pg (26-34); Mean Corpuscular Volume 91.6 fl (80-100); Mean Platelet Volume 8.9 fl (7.4-10.4); Monocytes Absolute Auto 0.7 K/mm3 (0.1-0.6); Monocytes Percent Auto 10.5 % (2.6-8.5); Neutrophils Absolute Auto 4.6 K/mm3 (1.3-6.7); Neutrophils Percent Auto 71.3 % (45.5-73.1); Platelet Count Result 327 k/mm3 (150-375); Red Blood Count 3.95 M/mm3 (4.6-6.20); White Blood Count 6.4 K/mm3 (4.5-10.0)
[2024-03-10 06:17] LABS: Alanine Aminotransferase 39 U/L (6-50); Albumin Level 2.7 g/dL (3.5-5.1); Alkaline Phosphatase 115 U/L (38-126); Anion Gap 3 mmol/L (4-12); Aspartate Amino Transferase 30 U/L (17-59); Bilirubin,Total 0.9 mg/dL (0.2-1.3); Blood Urea Nitrogen 5 mg/dL (9-20); Carbon Dioxide 32 mmol/L (22-30); Chloride 95 mmol/L (98-107); Estimated CRCL calculation 121 ml/min; Estimated Glomerular Filt Rate > 60; Glucose 115 mg/dL (65-110); Potassium 3.7 mmol/L (3.4-5.0); Sodium 130 mmol/L (137-145)
[2024-03-10] MEDS: FLUTICASONE/SALMETEROL 115-21 MCG INHALER 1 PUFF 2 PUFF INHALATION (08:04)
--- NOTE | 2024-03-10 08:39 | P.PNIM_ITS ---
Progress Note: A&P Assessment and Plan (1) Acute respiratory failure with hypoxia: Code(s): J96.01 - Acute respiratory failure with hypoxia Status: Inactive Assessment and Plan: - Likely secondary to below and possibly COPD exacerbation. - Currently good O2 sats > 90 % on 2L/NC. - Continue bronchodilators and broad-spectrum IV and oral abx. - Supplemental O2 PRN to maintain sats > 90 %. - Incentive spirometer home oxygen study (2) Bilateral pneumonia: Code(s): J18.9 - Pneumonia, unspecified organism Status: Acute Assessment and Plan: - CXR: Impression: Extensive bilateral airspace disease, right greater than left, consistent with multifocal pneumonia. - Likely aspiration. - Blood cultures growing MRSA. - WBC: 29.5-> 23.1->17.1->16.6->15.1->15.4->10.3. - Legionella and Strep. pneumo urine Ag pending. - Started on Linelozid 03/04/2024. - Ceftriaxone 2 gm ivpb daily and Doxycycline 100 mg IVPB q 12. - CXR 03/05/24 showed extensive right lung pneumonia. - Continue supplemental O2 PRN to maintain sats > 90 %. - Add PT/OT - Incentive spirometer. (3) COPD (chronic obstructive pulmonary disease): Qualifiers: COPD type: unspecified COPD Qualified Code(s): J44.9 - Chronic obstructive pulmonary disease, unspecified Code(s): J44.9 - Chronic obstructive pulmonary disease, unspecified Status: Acute Assessment and Plan: - Possibly in exacerbation. - Admits to 2packs/day smoking. - Symbicort and scheduled duoneb updrafts. - Started on Mucinex due to congestion. - Supplemental O2 PRN to maintain sats > 90 %. - Continue IV and oral abx. (4) SBO (small bowel obstruction): Code(s): K56.609 - Unspecified intestinal obstruction, unspecified as to partial versus complete obstruction Status: Acute Assessment and Plan: - KUB; IMPRESSION: Findings consistent with distal small bowel obstruction, as detailed above. Cross-sectional imaging is recommended. - Patient denies abdominal pain, nausea or vomiting. - Tolerating meals well with no abdominal discomfort. - Swallow study showed trace aspiration with thin liquids. Patient recommended a mildly thick liquid level 2, soft bite sized level 6 food. - Monitor closely for abd discomfort. - Avoid narcotics. (5) Acute hyponatremia: Code(s): E87.1 - Hypo-osmolality and hyponatremia Status: Inactive Assessment and Plan: - Asymptomatic. - Continues to slowly improve. - Unclear etiology and pt with episodes of hyponatremia previously per medical records. - Urine sodium pending. - DC IVF hydration, NS @ 125 ml/hr. - Monitor levels closely, Q6hrs for now, to avoid rapid correction. - Sodium 127. - Add Sodium Chloride 500 mg PO daily. - Changed Pantoprazole to Famotidine. repeat sodium in the afternoon (6) Dysphagia: Code(s): R13.10 - Dysphagia, unspecified Status: Acute Assessment and Plan: - Unclear etiology, possibly mechanical vs neurogenic vs other. - MBS eval done and small bite meals with thickened liquids recommended per ST. - Possibly cause for PNA with aspiration. - ST continues to follow. - Assist with meals and monitor for aspiration. (7) Acute kidney insufficiency: Code(s): N28.9 - Disorder of kidney and ureter, unspecified Status: Inactive Assessment and Plan: - Unclear etiology. - Possibly related to poor PO intake from lung infection vs infection vs other. - Renal function appears normalized currently. - Monitor closely with abx. (8) Tachycardia: Code(s): R00.0 - Tachycardia, unspecified Status: Acute Assessment and Plan: - Chronic and pt on Propranolol at home. - Possibly worsened by bronchodilators. - Fairly well controlled by propranolol, SR 83 today. Improved. - Continue tele monitoring. (9) Schizophrenia: Qualifiers: Schizophrenia type: unspecified Qualified Code(s): F20.9 - Schizophrenia, unspecified Code(s): F20.9 - Schizophrenia, unspecified Status: Inactive Assessment and Plan: - Patient with episodes of confusion but no aggressive behavior. - Home meds restarted. - Monitor for safety and assist with care. (10) History of pneumonectomy: Code(s): Z98.890 - Other specified postprocedural states; Z90.2 - Acquired absence of lung [part of] Status: Acute Assessment and Plan: - Stable. 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 (11) Hypertension: Code(s): I10 - Essential (primary) hypertension Status: Acute Assessment and Plan: - BP 105/60 - Continue Amlodipine. - Monitor closely. Plan Continue IV and oral antibiotics and bronchodilators for mgt of PNA and COPD exacerbation. Monitor Na levels closely. Continue supplemental O2 and wean as tolerated for sats > 90 %. Subjective Date/time seen: 03/10/24 08:39 Interval history: patient states that he is refusing to do thin liquids because home he has high likelihood for aspiration pneumonia again sodium tabs wishes today b.i.d. with improvement in sodium to 130 this morning Review of Systems Review of Systems: All systems reviewed & are unremarkable except as noted in HPI and below Exam Narrative: HEENT: Atraumatic, PERRL, EOM, non-icteric, moist mucosa. Neck: Supple. Lungs: Coarse and congestion bilaterally, intermittent coughs with congestion. Heart: Tachycardia, no murmurs. ABdomen: Soft, non-tender, non-distended, +ve bowel sounds X4 quadrants. Extremities: No edema. 2+ pedal pulses. Skin: Warm, dry and pink, no lesions. Neuro: Oriented to self, no focal neuro deficits noted. Psych: Calm and co-operative. Const: General: comfortable and no acute distress Neck: Neck: supple Resp: Effort & Inspection: normal respiratory effort Auscultation: diminished lung sounds Other: coarse with decreased congestion. Cardio: Rate: regular rate and tachycardic Rhythm: regular rhythm Other: Telemetry- SR 83. GI: Auscultation: normal bowel sounds Skin: General skin exam: no rashes or lesions noted Neuro: Speech: normal speech Extrem: General: normal to inspection Psych: Affect: normal affect Objective Data Vital Signs Vital Signs: Vital Signs - 24 hr 03/09/24 09:10 03/09/24 09:00 03/09/24 13:59 Temperature Pulse Rate 107 H Respiratory Rate Blood Pressure Pulse Oximetry 96 96 Oxygen Delivery Nasal Cannula Nasal Cannula Oxygen Flow Rate 2 2 03/09/24 13:59 03/09/24 14:07 03/09/24 14:00 Temperature 97.6 F Pulse Rate 79 77 96 Respiratory Rate 20 20 19 Blood Pressure 122/72 Pulse Oximetry 97 Oxygen Delivery Oxygen Flow Rate 03/09/24 12:00 03/09/24 16:00 03/09/24 20:04 Temperature 98.0 F Pulse Rate 79 80 88 Respiratory Rate 18 Blood Pressure 110/70 Pulse Oximetry 96 Oxygen Delivery Oxygen Flow Rate 03/09/24 20:50 03/09/24 20:59 03/09/24 21:00 Temperature Pulse Rate 88 84 88 Respiratory Rate 20 20 Blood Pressure Pulse Oximetry 94 Oxygen Delivery Nasal Cannula Oxygen Flow Rate 2 03/09/24 20:00 03/09/24 20:00 03/10/24 00:00 Temperature Pulse Rate 88 79 81 Respiratory Rate 20 Blood Pressure Pulse Oximetry 94 Oxygen Delivery Nasal Cannula Oxygen Flow Rate 2 03/10/24 04:21 03/10/24 04:00 03/10/24 08:06 Temperature 97.8 F Pulse Rate 87 87 Respiratory Rate 18 Blood Pressure 111/66 Pulse Oximetry 98 96 Oxygen Delivery Nasal Cannula Oxygen Flow Rate 2 03/10/24 08:06 Temperature Pulse Rate 89 Respiratory Rate 20 Blood Pressure Pulse Oximetry Oxygen Delivery Oxygen Flow Rate Intake/Output Intake/Output: Intake & Output 03/07/24 03/08/24 03/09/24 03/10/24 23:59 23:59 23:59 23:59 Intake Total 1480 4089.6 1500 240 Output Total 3200 2500 3100 800 Balance -1720 1589.6 -1600 -560 Meds/Results Medications: Active Medications Generic Name Dose Route Start Last Admin Trade Name Freq PRN Reason Stop Dose Admin Acetaminophen 650 mg 03/07/24 15:26 03/09/24 20:12 Acetaminophen 325 Mg Tablet PO 650 mg Q6H PRN Administration Mild Pain (1-3) or Fever Albuterol/Ipratropium 3 ml 03/07/24 20:00 03/10/24 08:03 Ipratropium 0.5 Mg/Albuterol Sulfate 2.5 Mg Ampul.Neb 3 Ml INHALATION Not Given Q6HRT [facility] Amlodipine Besylate 10 mg 03/08/24 09:00 03/09/24 09:10 Amlodipine Besylate 10 Mg Tablet PO 10 mg DAILY SHALINI Administration Benztropine Mesylate 0.5 mg 03/07/24 17:00 03/09/24 17:39 Benztropine Mesylate 0.5 Mg Tablet PO 0.5 mg BID SHALINI Administration Enoxaparin Sodium 40 mg 03/08/24 09:00 03/09/24 09:11 Enoxaparin 40 Mg/0.4 Ml Syringe SUB-Q 40 mg DAILY SHALINI Administration Famotidine 20 mg 03/09/24 09:00 03/09/24 09:10 Famotidine 20 Mg Tablet PO 20 mg DAILY SHALINI Administration Folic Acid 1 mg 03/08/24 09:00 03/09/24 09:10 Folic Acid 1 Mg Tablet PO 1 mg DAILY SHALINI Administration Guaifenesin 600 mg 03/07/24 21:00 03/09/24 20:13 Guaifenesin 12 Hr 600 Mg Tabcr PO 03/12/24 20:59 600 mg Q12HR SHALINI Administration Haloperidol 5 mg 03/07/24 15:15 03/08/24 16:04 Haloperidol 5 Mg Tablet PO 5 mg TID PRN Administration Anxiety Linezolid 600 mg 03/07/24 21:00 03/09/24 20:13 Linezolid 600 Mg Tablet PO 03/20/24 21:01 600 mg Q12HR SHALINI Administration Miconazole Nitrate 1 applic 03/09/24 21:00 03/09/24 20:14 Miconazole Nitrate 2% Cream 30 Gm Tube TOPICAL Not Given Q12HR [facility] Ondansetron HCl 4 mg 03/07/24 15:17 Ondansetron Inj 4 Mg/2 Ml Vial IV PUSH Q6H PRN Nausea And Vomiting Potassium Chloride 10 meq 03/08/24 08:20 03/09/24 09:03 Potassium Chloride 10 Meq Er Tablet PO Not Given DAILY@0800 [facility] Propranolol HCl 20 mg 03/08/24 09:00 03/09/24 09:10 Propranolol Hcl 20 Mg Tablet PO 20 mg DAILY SHALINI Administration Fluticasone/Salmeterol 2 puff 03/07/24 20:00 03/10/24 08:04 Fluticasone/Salmeterol 115-21 Mcg Inhaler 1 Puff INHALATION 2 puff Q12HRT [facility] Administration Sodium Chloride 500 mg 03/09/24 17:00 03/09/24 17:39 Sodium Chloride 500 Mg Tablet PO 500 mg BID SHALINI Administration Radiology Results: ITS Impressions Abdomen X-Ray 03/02/24 22:39 IMPRESSION: Findings consistent with distal small bowel obstruction, as detailed above. Cross-sectional imaging is recommended. Modified Barium Swallow 03/04/24 13:10 IMPRESSION: 1. Aspiration. 2. Please refer to the speech therapy report for recommendations. Chest X-Ray 03/05/24 13:55 Impression: Extensive right lung pneumonia is essentially unchanged. Labs Labs: Laboratory Results - last 24 hr 03/05/24 03/09/24 03/10/24 14:10 14:51 05:31 WBC 6.4 RBC 3.95 L Hgb 12.1 L Hct 36.2 L MCV 91.6 MCH 30.6 MCHC 33.4 RDW 13.0 Plt Count 327 MPV 8.9 Immature Gran % (Auto) 4.2 H Neut % (Auto) 71.3 Lymph % (Auto) 12.1 L [place] % (Auto) 10.5 H Eos % (Auto) 1.4 Baso % (Auto) 0.5 Lymph # (Auto) 0.77 L [place] # (Auto) 0.7 H Eos # (Auto) 0.1 Baso # (Auto) 0.0 Abs Immat Gran (auto) 0.27 H Absolute Neuts (auto) 4.6 Absolute Nucleated RBC 0.000 Nucleated RBC % 0.0 Sodium 126 L 130 L Potassium 3.7 Chloride 95 L Carbon Dioxide 32 H Anion Gap 3 L BUN 5 L Creatinine 0.50 L Estim Creat Clear Calc 121 Estimated GFR > 60 Glucose 115 H Calcium 8.0 L Total Bilirubin 0.9 AST 30 ALT 39 Alkaline Phosphatase 115 Total Protein 6.0 L Albumin 2.7 L Urine Pneumococcal Ag Not detected Quality VTE Prophylaxis VTE prophylaxis: pharmacologic ordered
[2024-03-10] MEDS: HALOPERIDOL 5 MG TABLET PO (09:38)
[2024-03-10] MEDS: ENOXAPARIN 40 MG/0.4 ML SYRINGE SUB-Q (09:38)
[2024-03-10] MEDS: guaiFENesin 12 HR 600 MG TABCR PO (09:39)
[2024-03-10] MEDS: BENZTROPINE MESYLATE 0.5 MG TABLET PO (09:39)
[2024-03-10] MEDS: FOLIC ACID 1 MG TABLET PO (09:39)
[2024-03-10] MEDS: POTASSIUM CHLORIDE 10 MEQ ER TABLET PO (09:40)
[2024-03-10] MEDS: FAMOTIDINE 20 MG TABLET PO (09:40)
[2024-03-10] MEDS: PROPRANOLOL HCL 20 MG TABLET PO (09:41)
[2024-03-10] MEDS: amLODIPine BESYLATE 10 MG TABLET PO (09:42)
[2024-03-10] MEDS: LINEZOLID 600 MG TABLET PO (09:42)
[2024-03-10] MEDS: SODIUM CHLORIDE 500 MG TABLET PO (09:43)
--- NOTE | 2024-03-10 10:06 | PCRTNOTE ---
Pt refused 0800 nebulizer treatment
--- NOTE | 2024-03-10 10:09 | PCRCNOTE ---
Pt refused 0800 nebulizer treatment
--- NOTE | 2024-03-10 11:56 | HOMEO2EVAL ---
Evaluation was performed at [facility] Home Oxygen Evaluation RC: Home Oxygen (O2) Evaluation Start: 03/10/24 10:52 Freq: ONCE Status: Active Protocol: RPE Activity Type Activity Date Activity User E-sign Co-sign Detail Recorded Client Recorded Date Recorded By Document 03/10/24 11:30 DJO [email or web address] 03/10/24 11:56 DJO Document 03/10/24 11:35 DJO [email or web address] 03/10/24 11:56 DJO Document 03/10/24 11:45 DJO [email or web address] 03/10/24 11:56 DJO 03/10/24 03/10/24 03/10/24 11:30 11:35 11:45 Home O2 Evaluation [Oxygen] -Test Phase Resting Exercise Resting -Oxygen Delivery Room Air Room Air [Pulse Oximetry] -Pulse Oximetry (90-100 %) 95 93 95 [Pulse Rate] -Pulse Rate (60-100 beats/min) 84 99 86 [Evaluation] -Activity Tolerance Good
--- NOTE | 2024-03-10 11:56 | PCRCNOTE ---
HOME O2 EVAL COMPLETE, NO REQUIRMENTS
--- NOTE | 2024-03-10 12:18 | PM.DS ---
DS: Admitting Diagnosis Discharge Date 03/10/24 Admitting Diagnosis Aspiration pneumonia DS: Discharge Diagnosis Discharge Diagnosis (1) Acute respiratory failure with hypoxia: Code(s): J96.01 - Acute respiratory failure with hypoxia Status: Inactive Assessment and Plan: improving - Likely secondary to below and possibly COPD exacerbation. - Currently good O2 sats > 90 % on 2L/NC. - Continue bronchodilators and broad-spectrum IV and oral abx. - Supplemental O2 PRN to maintain sats > 90 %. - Incentive spirometer home oxygen study (2) Bilateral pneumonia: Code(s): J18.9 - Pneumonia, unspecified organism Status: Acute Assessment and Plan: improving - CXR: Impression: Extensive bilateral airspace disease, right greater than left, consistent with multifocal pneumonia. - Likely aspiration. - Blood cultures growing MRSA. - WBC: 29.5-> 23.1->17.1->16.6->15.1->15.4->10.3. - Legionella and Strep. pneumo urine Ag pending. - Started on Linelozid 03/04/2024. - Ceftriaxone 2 gm ivpb daily and Doxycycline 100 mg IVPB q 12. - CXR 03/05/24 showed extensive right lung pneumonia. - Continue supplemental O2 PRN to maintain sats > 90 %. - Add PT/OT okay for home with cane - Incentive spirometer. (3) COPD (chronic obstructive pulmonary disease): Qualifiers: COPD type: unspecified COPD Qualified Code(s): J44.9 - Chronic obstructive pulmonary disease, unspecified Code(s): J44.9 - Chronic obstructive pulmonary disease, unspecified Status: Acute Assessment and Plan: resolved - Possibly in exacerbation. - Admits to 2packs/day smoking. - Symbicort and scheduled duoneb updrafts. - Started on Mucinex due to congestion. - Supplemental O2 PRN to maintain sats > 90 %. - Continue IV and oral abx. (4) SBO (small bowel obstruction): Code(s): K56.609 - Unspecified intestinal obstruction, unspecified as to partial versus complete obstruction Status: Acute Assessment and Plan: having bowel movements - KUB; IMPRESSION: Findings consistent with distal small bowel obstruction, as detailed above. Cross-sectional imaging is recommended. - Patient denies abdominal pain, nausea or vomiting. - Tolerating meals well with no abdominal discomfort. - Swallow study showed trace aspiration with thin liquids. Patient recommended a mildly thick liquid level 2, soft bite sized level 6 food. - Monitor closely for abd discomfort. - Avoid narcotics. (5) Acute hyponatremia: Code(s): E87.1 - Hypo-osmolality and hyponatremia Status: Inactive Assessment and Plan: stable - Asymptomatic. - Continues to slowly improve. - Unclear etiology and pt with episodes of hyponatremia previously per medical records. - Urine sodium pending. - DC IVF hydration, NS @ 125 ml/hr. - Monitor levels closely, Q6hrs for now, to avoid rapid correction. - Sodium 127. - Add Sodium Chloride 500 mg PO b.i.d. - Changed Pantoprazole to Famotidine. (6) Dysphagia: Code(s): R13.10 - Dysphagia, unspecified Status: Acute Assessment and Plan: - Unclear etiology, possibly mechanical vs neurogenic vs other. - MBS eval done and small bite meals with thickened liquids recommended per ST. - Possibly cause for PNA with aspiration. - ST continues to follow. - Assist with meals and monitor for aspiration. will discharge on thickened liquids follow-up with speech outpatient (7) Acute kidney insufficiency: Code(s): N28.9 - Disorder of kidney and ureter, unspecified Status: Inactive Assessment and Plan: improved - Unclear etiology. - Possibly related to poor PO intake from lung infection vs infection vs other. - Renal function appears normalized currently. - Monitor closely with abx. (8) Tachycardia: Code(s): R00.0 - Tachycardia, unspecified Status: Acute Assessment and Plan: improved - Chronic and pt on Propranolol at home. - Possibly worsened by bronchodilators. - Fairly well controlled by propranolol, SR 83 today. Improved. - Continue tele monitoring. (9) Schizophrenia: Qualifiers: Schizophrenia type: unspecified Qualified Code(s): F20.9 - Schizophrenia, unspecified Code(s): F20.9 - Schizophrenia, unspecified Status: Inactive Assessment and Plan: confusion resolved - Patient with episodes of confusion but no aggressive behavior. - Home meds restarted. - Monitor for safety and assist with care. (10) History of pneumonectomy: Code(s): Z98.890 - Other specified postprocedural states; Z90.2 - Acquired absence of lung [part of] Status: Acute Assessment and Plan: - Stable. 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 (11) Hypertension: Code(s): I10 - Essential (primary) hypertension Status: Acute Assessment and Plan: - BP 105/60 - Continue Amlodipine. - Monitor closely. DS: Summary Hospital Course Reason for hospitalization: aspiration pneumonia Hospital Course: Patient presented to the ER with reports of intermittent coughs and congestion, with episodes of yellowish to brownish sputum. He has been having symptoms for almost a week now, feeling hot at night too but unsure whether fevers. Denies any chest pain or chills. Patient has a history of COPD and and 2 packs per day smoking. Patient also has a Hx of right lower lung resection which showed no malignancy, and pt follows up with pulmonary. Patient also has a history of schizophrenia and hypertension. Patient noted with 88% O2 Sats on RA and was placed on 2L/NC. Pt does not use supplemental O2 at home. patient was found to have severe aspiration pneumonia and started on broad-spectrum antibiotics. Patient was also hyponatremic when he came in and was started on IV fluids and then transition to salt tabs. His sodium is stable on 500 mg salt tabs b.i.d. which he will discharge home on follow-up in 1 week with his primary care provider. Patient was also seen by speech for swallow eval due to his aspiration pneumonia with recommendations to be on thickened liquids which patient has agreed to. He will need to follow up with speech outpatient. He was seen by PT OT with recommendations to use a cane he states that there is 1 at home. Patient is on oral antibiotics for his aspiration pneumonia and leukocytosis is resolved. While he was in the hospital he did have an ileus which is now resolved yesterday had diarrhea which is improved since then. Vital signs are stable on patient is ready to go home and be with his . Status at Discharge Functional status at discharge: uses cane/walker Time Spent with Patient Time attestation: Total time spent providing and/or coordinating discharge services: Time spent: Greater than 30 minutes Exam Narrative: HEENT: Atraumatic, PERRL, EOM, non-icteric, moist mucosa. Neck: Supple. Lungs: Clear bilaterally, intermittent coughs with congestion. Heart: , no murmurs. ABdomen: Soft, non-tender, non-distended, +ve bowel sounds X4 quadrants. Extremities: No edema. 2+ pedal pulses. Skin: Warm, dry and pink, no lesions. Neuro: Oriented to self, no focal neuro deficits noted. Psych: Calm and co-operative. Const: General: comfortable and no acute distress Neck: Neck: supple Resp: Effort & Inspection: normal respiratory effort Auscultation: diminished lung sounds Other: coarse with decreased congestion. Cardio: Rate: regular rate and tachycardic Rhythm: regular rhythm Other: Telemetry- SR 83. GI: Auscultation: normal bowel sounds Skin: General skin exam: no rashes or lesions noted Neuro: Speech: normal speech Extrem: General: normal to inspection Psych: Affect: normal affect DS: Data Data Completed and Pending Labs on day of discharge: Labs from last 24 hours 03/10/24 03/09/24 03/05/24 05:31 14:51 14:10 WBC 6.4 RBC 3.95 L Hgb 12.1 L Hct 36.2 L MCV 91.6 MCH 30.6 MCHC 33.4 RDW 13.0 Plt Count 327 MPV 8.9 Immature Gran % (Auto) 4.2 H Neut % (Auto) 71.3 Lymph % (Auto) 12.1 L [place] % (Auto) 10.5 H Eos % (Auto) 1.4 Baso % (Auto) 0.5 Lymph # (Auto) 0.77 L [place] # (Auto) 0.7 H Eos # (Auto) 0.1 Baso # (Auto) 0.0 Abs Immat Gran (auto) 0.27 H Absolute Neuts (auto) 4.6 Absolute Nucleated RBC 0.000 Nucleated RBC % 0.0 Sodium 130 L 126 L Potassium 3.7 Chloride 95 L Carbon Dioxide 32 H Anion Gap 3 L BUN 5 L Creatinine 0.50 L Estim Creat Clear Calc 121 Estimated GFR > 60 Glucose 115 H Calcium 8.0 L Total Bilirubin 0.9 AST 30 ALT 39 Alkaline Phosphatase 115 Total Protein 6.0 L Albumin 2.7 L Urine Pneumococcal Ag Not detected Preliminary micro results at discharge 03/06/24 11:29 Blood Culture - Preliminary Blood 03/06/24 11:25 Blood Culture - Preliminary Blood Discharge Plan Discharge Consulting providers: Marlena Cheney Discharging Clinician: Ellyn Bray Anticipated Discharge Date/Time: 03/09/24 14:43 Patient Disposition: Home Health Service Activity: may shower Diet: other - see discharge instructions Discharge Instructions: Per Care Coordination Patient has been accepted to have [facility] for RN, PT, [phone]. [facility] will call to arrange a time to see you in your house Discharge instructions: Take medications as prescribed New medications prescribed: you have been started on sodium tabs will need to follow-up with 1 week with lab work at her PCP. you will go home on antibiotics propranolol for your heart rate benztropine home oxygen thickened liquids to prevent aspiration and pneumonia You are activity as tolerated Monitor blood pressures Avoid social areas, you wear a mask when in social settings Encouraged to continue with yearly vaccinations Return to the emergency department if he developed sudden shortness of breath, chest pain, nausea, vomiting, upset stomach or intractable diarrhea Return to the emergency department if you develop fever greater than 101.5 Follow-up with: Your primary care physician within 1-2 weeks for post hospitalization check up with lab work speech therapy Thank you for choosing [facility] for your healthcare needs Patient Instructions: Antibiotic Form, How to Stop Smoking (DC), Hyponatremia (DC), Aspiration Pneumonia (DC), Aspiration Pneumonia (GEN), Aspiration Pneumonia (IP) Stand Alone Forms: General Discharge Information Follow-up/Referrals: Mamadou Morales MD [Primary Care Provider] - 1 Week ( [facility]) Discharge Medications: New benztropine 1 mg Tablet 0.5 mg PO BID 90 Days Qty: 90 0RF linezolid 600 mg Tablet 600 mg PO Q12HR Qty: 23 0RF sodium chloride 1,000 mg tablet,soluble 500 mg PO BID 14 Days Qty: 28 0RF propranolol 20 mg Tablet 20 mg PO DAILY 90 Days Qty: 90 0RF Continued haloperidol 5 mg tablet 5 mg PO TID PRN (Reason: Anxiety) haloperidol decanoate 100 mg/mL solution 200 mg IM .[id number] Rx Instructions: every 3 weeks amlodipine 10 mg tablet 10 mg PO DAILY folic acid 1 mg tablet 1 mg PO DAILY propranolol 20 mg tablet 20 mg PO DAILY benztropine 0.5 mg tablet 0.5 mg PO BID PRN (Reason: .tight muscles) omeprazole 20 mg capsule,delayed release(DR/EC) 20 mg PO DAILY Other Ambulatory Orders: Basic Metabolic Panel (Routine) Timeframe: 1 Week Location: Determined by Patient Ordered By: Ellyn Bray Date of admission: 03/06/24 08:28 Primary Care Provider: Mamadou Morales Admitting Provider: Tyrone Bourne Attending physician on admission: Tyrone Bourne Condition: Improved Quality VTE Prophylaxis VTE prophylaxis: pharmacologic ordered Hospitalist MIPS Heart Failure (Exclusion) Patient has history of Heart Transplant or Left Ventricular Assistive Device?: No IF YES, STOP HERE Heart Failure (Qualifier) Patient has current or prior documentation of LVEF less than or equal to 40%, or mod/servere depressed LVSF?: No IF NO, STOP HERE
[2024-03-16 21:43] LABS: Legionella pneumophila Ag Ur NOT DETECTED
== END 2024-03-10 13:36 | disposition home health service (06) | DRG 178 ==
PROVIDERS: Internal Medicine; Nurse Practitioner Adult Health; Nurse Practitioner Family; Admitting Provider Internal Medicine; PCP Family Medicine; Visit Provider Nurse Practitioner Gerontology
DX: J69.0 Pneumonitis due to inhalation of food and vomit (principal); E44.0 Moderate protein-calorie malnutrition; J44.0 Chronic obstructive pulmonary disease with (acute) lower respiratory infection; J44.1 Chronic obstructive pulmonary disease with (acute) exacerbation; E87.1 Hypo-osmolality and hyponatremia; K56.7 Ileus, unspecified; Z68.1 Body mass index [BMI] 19.9 or less, adult; B95.62 Methicillin resistant Staphylococcus aureus infection as the cause of diseases classified elsewhere; F17.210 Nicotine dependence, cigarettes, uncomplicated; F20.9 Schizophrenia, unspecified; G47.33 Obstructive sleep apnea (adult) (pediatric); I10 Essential (primary) hypertension; M06.9 Rheumatoid arthritis, unspecified; N28.9 Disorder of kidney and ureter, unspecified; R00.0 Tachycardia, unspecified; Z90.2 Acquired absence of lung [part of]
CPT/HCPCS: 36415; 71045; 74018; 80048; 80053; 82948; 83605; 83735; 84100; 84132; 84295; 84484; 85025; 85027; 85610; 85730; 87040; 87449; 87899; 92526; 92611; 93005; 94640; 96365; 96366; 96367; 96372; 96375; 97110; 97161; 97165; 97530; A9270; G0378; J0696; J1650; J2020; J3480; J7030; J7040

== ENCOUNTER 2024-03-17 11:43 | Outpatient (NON) | payer MEDICARE, OTHER, SELFPAY ==
[2024-03-17 13:18] LABS: Anion Gap 4 mmol/L (4-12); Blood Urea Nitrogen 7 mg/dL (9-20); Calcium 8.6 mg/dL (8.4-10.2); Carbon Dioxide 34 mmol/L (22-30); Chloride 93 mmol/L (98-107); Estimated Glomerular Filt Rate > 60; Glucose 97 mg/dL (65-110); Potassium 3.9 mmol/L (3.4-5.0); Sodium 131 mmol/L (137-145)
== END 2024-03-17 11:44 | disposition home or self-care (01) ==
LOC: HOME HLTH 11:44
PROVIDERS: PCP Family Medicine; Visit Provider Nurse Practitioner Gerontology
DX: E87.1 Hypo-osmolality and hyponatremia (principal); J96.01 Acute respiratory failure with hypoxia; J44.9 Chronic obstructive pulmonary disease, unspecified; K56.609 Unspecified intestinal obstruction, unspecified as to partial versus complete obstruction
CPT/HCPCS: 80048

== ENCOUNTER 2024-03-28 14:48 | Outpatient (NON) | payer MEDICARE, OTHER, SELFPAY ==
[2024-03-28 15:25] LABS: Anion Gap 9 mmol/L (4-12); Blood Urea Nitrogen 3 mg/dL (7-18); Calcium 8.7 mg/dL (8.5-10.1); Carbon Dioxide 27 mmol/L (21-32); Chloride 99 mmol/L (98-108); Estimated Glomerular Filt Rate > 60; Glucose 124 mg/dL (70-99); Osmolality Calculated 277 mOsm/kg (285-295); Potassium 3.1 mmol/L (3.5-5.1); Sodium 135 mmol/L (136-145)
== END 2024-03-28 14:49 | disposition home or self-care (01) ==
LOC: CHSLAB 14:51 → CHSHH 14:54
PROVIDERS: Visit Provider Family Medicine
DX: J69.0 Pneumonitis due to inhalation of food and vomit (principal); B95.62 Methicillin resistant Staphylococcus aureus infection as the cause of diseases classified elsewhere; R13.10 Dysphagia, unspecified; J44.0 Chronic obstructive pulmonary disease with (acute) lower respiratory infection
CPT/HCPCS: 80048

== ENCOUNTER 2024-04-02 08:41 | Emergency (ER) | payer MEDICARE, OTHER, SELFPAY ==
--- NOTE | ~2024-04-02 | XR_ITS ---
EXAMINATION: XR chest 2V DATE: 04/02/2024 09:55 INDICATION: Altered mental status. Cough. TECHNIQUE: Frontal and lateral views of the chest were obtained. COMPARISON: Chest single view 03/05/2024 FINDINGS: There are lucencies in the lungs, consistent with emphysema. There are airspace opacities i n right mid and lower lung zones with interval improvement. There is mild atelectasis in left lower l janelle zone. There is a small right pleural effusion. There is mild scarring at right lung apex. No pneu mothorax. The heart size is normal. IMPRESSION: 1. Airspace opacities in right mid and lower lung zones with interval improvement, consistent with pn eumonia. 2. Small right pleural effusion. 3. Emphysema. Reviewed, dictated and finalized at location A. HARGE SPECIALIST IMPRESSION: 1. Airspace opacities in right mid and lower lung zones with interval improveme nt, consistent with pneumonia. 2. Small right pleural effusion. 3. Emphysema.
--- NOTE | ~2024-04-02 | CT_ITS ---
EXAMINATION: CT brain wo con DATE: 04/02/2024 09:55 INDICATION: Altered mental status. TECHNIQUE: Computed tomography (CT) of the head was performed without intravenous contrast. The mA wa s adjusted according to patient size. Iterative reconstruction technique was employed. The dose-lengt h product was 681.00 mGy-cm. COMPARISON: Head CT 05/29/2022 FINDINGS: There is an old infarct in the right basal ganglia. There are scattered areas of low attenu ation in the cerebral white matter. There is no intracranial hemorrhage, acute infarction, or abnorma l intracranial mass lesion. The ventricles are normal in size. The paranasal sinuses are clear. There are likely changes of ocular lens replacement surgeries. The mastoid air cells are normal. IMPRESSION: 1. Old infarct in the right basal ganglia. 2. Stable mild nonspecific cerebral white matter disease, which likely represents chronic small vesse l ischemic disease. Reviewed, dictated and finalized at location A. HER COUNSELOR IMPRESSION: 1. Old infarct in the right basal ganglia. 2. Stable mild nonspecific cerebral white matter disease, which likely represen ts chronic small vessel ischemic disease.
--- NOTE | 2024-04-02 08:45 | ED.NEUROSD ---
HPI - Neuro Symptoms/Deficit General Chief Complaint: Neuro Symptoms/Deficit Stated Complaint: drooling and tremors Time Seen by Provider: 04/02/24 08:42 Source: patient Mode of arrival: ambulatory Limitations: other ( patient has chronic psychological disease process and is on Haldol for 40 years) History of Present Illness HPI Narrative: patient is a 59-year-old male with right hand greater than left hand tremors and drooling for the past 2 weeks. He was recently on BuSpar and stop this medication. He said these complaints are related to the time frame he was on BuSpar. patient's medications not correlate with his home management of his medicine. He is taking Haldol both intramuscular and orally. And he is taking benztropine less than prescribed. Onset (ago): week(s) (2) Timing confirmed by: other ( None) Location: other ( recent drooling and right hand greater than left hand tremor) History of same: No Severity: mild Quality: other ( none) Relieving factors: none Exacerbating factors: none Context: other ( patient started drooling and right hand greater than left hand tremor over past 2 weeks on new BuSpar; he stopped BuSpar a few days ago) On Anticoagulants: No Associated symptoms: denies other symptoms Treatments Prior to Arrival: none Related Data Home Medications Medication Instructions Recorded Confirmed amlodipine 10 mg tablet 10 mg PO DAILY 05/23/20 04/02/24 folic acid 1 mg tablet 1 mg PO DAILY 05/23/20 04/02/24 haloperidol 5 mg tablet 5 mg PO TID PRN Anxiety 05/23/20 04/02/24 haloperidol decanoate 100 mg/mL 200 mg IM .3WEEKS 05/23/20 04/02/24 intramuscular solution omeprazole 20 mg capsule,delayed 20 mg PO DAILY 05/09/21 04/02/24 release buspirone 5 mg tablet 5 mg PO TID 04/02/24 04/02/24 propranolol 20 mg tablet 20 mg PO BID 04/02/24 04/02/24 quetiapine 25 mg tablet 12.5 mg PO HS 04/02/24 04/02/24 Allergies Allergy/AdvReac Type Severity Reaction Status Date / Time nitrofurantoin Allergy Unknown Unknown Verified 04/02/24 09:01 vancomycin Allergy Hives Verified 04/02/24 09:01 Review of Systems Review of Systems: All systems reviewed & are unremarkable except as noted in HPI and below Constitutional: Constitutional: Reports no additional constitutional complaints Eyes: Eyes: Reports no additional eye complaints ENT: Reports system reviewed and no additional complaints, except as documented Cardiovascular: Cardiovascular: Reports no additional cardiovascular complaints Respiratory: Respiratory: Reports no additional respiratory complaints Gastrointestinal: Gastrointestinal: Reports no additional gastrointestinal complaints Genitourinary: Genitourinary: Reports no additional male genitourinary complaints Musculoskeletal: Musculoskeletal: Reports no additional musculoskeletal complaints Integumentary/Breasts: Skin/Breast: Reports system reviewed and no additional complaints, except as docu Neurologic: Reports system reviewed and no additional complaints, except as documented Psychiatric: Psychiatric: Reports no additional psychiatric complaints Endocrine: Endocrine: Reports no additional endocrine complaints Hematologic/Lymphatic: Hematologic/Lymphatic: Reports no additional hematologic/lymphatic complaints Allergic/Immunologic: Allergic/Immunologic: Reports no additional allergic/immunologic complaints PMFSH Past Medical History Medical History COPD (chronic obstructive pulmonary disease) Depression DJD of AC (acromioclavicular) joint History of tobacco abuse Hoarseness Hypertension Lung mass IGOR (obstructive sleep apnea) Rheumatoid arthritis Right shoulder pain RLL pneumonia Rotator cuff tendinitis SOB (shortness of breath) Tobacco abuse Unintentional weight loss Surgical History Surgical History History of lobectomy of lung 2019 Family History Family History Mother Patient's mother is in good health Family history of cardiovascular disease Father Patient's father is , Onset Age: 58 Sibling Patient's sister is in good health Patient's brother is in good health Other Arthritis Cancer Depression Heart disease High cholesterol Hypertension Social History Social History Smoking packs per day: 2 Smoking cigarettes per day: 40.0 Years smoked: 47 Smoking pack-years: 94.00 Smoking status: Current every day smoker Tobacco type: cigarettes Alcohol intake: never Drinks per week: 1 Substance use: never Do You Feel Safe in your Home?: Yes Lack of Transportation: No Lack of Food: Never True Current Housing: I Have Housing Concerned About Future Housing: No Difficulty Paying Gas/Electric Bills: No Difficulty Paying for Meds: No Currently Unemployed: No Education: High School Diploma/GED Difficulty w/ Childcare or Family Care: No Gender identity (if verbalized by the patient): Male Spiritual care concerns: No Exam Const: General: healthy appearing Nutritional Appearance: well nourished Orientation/consciousness: patient oriented x3 Limitations: behavioral limitations HENMT: Head: normal to inspection Ears: external ears normal Face/Nose/Sinus: Normal external nose present Eyes: Conjunctivae: conjunctivae normal Pupils: Equal, round and reactive pupils present EOM: EOMs intact bilaterally Neck: Neck: normal visual inspection Chest: Chest palpation & inspection: normal inspection of the chest Resp: Effort & Inspection: normal respiratory effort and not labored Auscultation: clear to auscultation bilaterally and no crackles Cardio: Rate: regular rate Rhythm: regular rhythm Heart sounds: no murmurs GI: Inspection: non-distended GI Palp: Yes Soft to palpation, No Tenderness to palpation present (GI) and No Guarding due to palpation present (GI) Auscultation: normal bowel sounds : General: Yes bladder normal to palpation Back/Spine/Pelvis: Back: no CVA tenderness Skin: General skin exam: normal color Rashes: no rashes Wounds: no wounds Neuro: General: patient oriented x3 Cranial nerves: Yes Nystagmus not present Speech: normal speech Gait exam (Neuro): Normal gait present Other: Fast exam is negative, NIH score 0, glass co coma Score is 15 Extrem: General: normal to inspection Psych: Mental Status: mental status grossly normal Affect: normal affect Attitude: cooperative ( occasionally cooperative but then becomes belligerent) Other: patient has started to go AMA but has returned back to the room a multiple occasions; patient does not want to stay for workup at times Course Vital Signs Vital signs: Vital Signs Temperature 36.6 C 04/02/24 08:49 Pulse Rate 90 04/02/24 08:49 Respiratory Rate 20 04/02/24 08:49 Blood Pressure 122/90 04/02/24 08:49 Pulse Oximetry 97 04/02/24 08:49 Oxygen Delivery Room Air 04/02/24 08:49 Temperature 36.6 C 04/02/24 08:49 Pulse Rate 90 04/02/24 08:49 Respiratory Rate 20 04/02/24 08:49 Blood Pressure 122/90 04/02/24 08:49 Pulse Oximetry 97 04/02/24 08:49 Oxygen Delivery Room Air 04/02/24 08:49 MDM - Neuro Symptoms/Deficit MDM Narrative Medical decision making narrative: patient is a 59-year-old male with psychiatric/behavioral medical disease and he is on Haldol. He is not taking as much benztropine as he decreased his Haldol on his own. We will increase his Haldol back to twice a day and increase to 1 mg dose. it appears the Haldol is over powering the lesser Cogentin level. We will go ahead and increase his Cogentin to 1 mg twice a day now. He is only on a 0.5 mg at bedtime. there is pneumonia the chest x-ray and we will give him Augmentin. He also has a cough noted while he is in the room. Lab Data Attestation: I reviewed the patient's lab results. 04/02/24 09:26 04/02/24 09:26 Labs: Lab Results 04/02/24 Range/Units 09:26 WBC 10.2 (4.8-10.8) K/mm3 RBC 4.45 L (4.70-6.10) M/mm3 Hgb 13.5 L (14.0-18.0) g/dL Hct 39.2 L (40.0-54.0) % MCV 88.1 (78.0-102.0) fL MCH 30.3 (27.0-31.0) pg MCHC 34.4 (32-36) g/dL RDW 13.2 (11.6-14.4) % Plt Count 448 H (150-420) K/mm3 MPV 8.4 L (8.7-11.0) fl Immature Gran % (Auto) 0.6 H (0.0-0.0) % Neut % (Auto) 69.1 (50.0-70.0) % Lymph % (Auto) 17.6 L (18.0-42.0) % [place] % (Auto) 7.5 (2.0-11.0) % Eos % (Auto) 4.3 (1.0-6.0) % Baso % (Auto) 0.9 (0.0-1.0) % Lymph # (Auto) 1.79 (1.10-4.50) K/mm3 [place] # (Auto) 0.76 (0.10-0.90) K/mm3 Eos # (Auto) 0.44 (0.02-0.50) K/mm3 Baso # (Auto) 0.09 (0.00-0.10) K/mm3 Abs Immat Gran (auto) 0.06 H (0.00-0.00) K/mm3 Absolute Neuts (auto) 7.05 (1.70-7.20) K/mm3 Absolute Nucleated RBC 0.00 (0.00-0.00) K/mm3 Nucleated RBC % 0.0 (0-0.0) % Sodium 135 L (136-145) mmol/L Potassium 3.6 (3.5-5.1) mmol/L Chloride 98 (98-108) mmol/L Carbon Dioxide 30 (21-32) mmol/L Anion Gap 7 (4-12) mmol/L BUN 6 L (7-18) mg/dL Creatinine 0.62 L (0.70-1.30) mg/dL Estim Creat Clear Calc 98 ml/min Estimated GFR > 60 (59 - ) Glucose 93 (70-99) mg/dL Calculated Osmolality 277 L (285-295) mOsm/kg Calcium 9.1 (8.5-10.1) mg/dL Total Bilirubin 0.7 (0.00-1.00) mg/dL AST 19 (15-37) U/L ALT 23 (16-63) U/L Alkaline Phosphatase 178 H (46-116) U/L Troponin I < 4.0 (0.00-60.4) ng/L Total Protein 7.6 (6.4-8.2) g/dL Albumin 2.9 L (3.4-5.0) g/dL TSH 0.61 (0.36-3.74) uIU/mL Urine Color Light yellow (Yellow) Urine Appearance Clear (Clear) Urine pH 6.0 (5.0-8.0) Ur Specific [place] <= 1.005 L (1.010-1.020) Urine Protein Negative (Negative) Urine Glucose (UA) Negative (Negative) Urine Ketones Negative (Negative) Ur Blood (Man) Negative (Negative) Urine Nitrate Negative (Negative) Urine Bilirubin Negative (Negative) Urine Urobilinogen 0.2 (0.2-1.0) mg/dL Leukocyte Esterase Rfl Negative (Negative) DAYANA/UL Imaging Data Attestation: I personally reviewed and interpreted this imaging study as follows: Radiologist's impression: chest x-ray shows IMPRESSION: 1. Airspace opacities in right mid and lower lung zones with interval improvement, consistent with pneumonia. 2. Small right pleural effusion. 3. Emphysema. CT scan of the brain was negative for acute process ECG Data EKG #1: Attestation: I personally reviewed and interpreted this ECG as follows: ECG completion date: 04/02/24 ECG completion time: 10:08 EKG Interpretation: normal rate, sinus rhythm, no ectopy, no ST changes, normal QRS, normal QT, NL axis and no acute changes Discharge Plan Discharge Clinical Impression: Extrapyramidal disorder Pneumonia Qualifiers: Pneumonia type: due to unspecified organism Laterality: unspecified laterality Lung location: unspecified part of lung Qualified Code(s): J18.9 - Pneumonia, unspecified organism Patient Disposition: Home, Self-Care Condition: Stable Instructions: Extrapyramidal Symptoms (ED) Additional Instructions: please follow-up with the primary doctor in the next week. It appears your benztropine needs to be back at twice a day and increased to 1 mg dose; I have sent a script to the pharmacy of the higher dose. You have decreased to once a day and that his load side effects of Haldol to become apparent such as tremor and drooling. Prescriptions: New benztropine 1 mg tablet 1 mg PO BID Qty: 60 0RF amoxicillin-pot clavulanate 875-125 mg tablet 1 tablet PO BID 10 Days Qty: 20 0RF No Action quetiapine 25 mg Tablet 12.5 mg PO HS buspirone 5 mg Tablet 5 mg PO TID propranolol 20 mg tablet 20 mg PO BID haloperidol 5 mg tablet 5 mg PO TID PRN (Reason: Anxiety) haloperidol decanoate 100 mg/mL solution 200 mg IM .3WEEKS Rx Instructions: every 3 weeks amlodipine 10 mg tablet 10 mg PO DAILY folic acid 1 mg tablet 1 mg PO DAILY omeprazole 20 mg capsule,delayed release(DR/EC) 20 mg PO DAILY sodium chloride 1,000 mg tablet,soluble 500 mg PO BID 14 Days Qty: 28 0RF benztropine 1 mg Tablet 0.5 mg PO BID 90 Days Qty: 90 0RF Follow-up/Referrals: Mamadou Morales MD [Primary Care Provider] - Time of Disposition: 10:25
[2024-04-02 08:49] VITALS: BP 122/90; PULSE 90; RESP 20; TEMP 36.6; O2SAT 97
--- NOTE | 2024-04-02 09:12 | ECG_ITS ---
Test Date: 2024-04-02 09:31:40 Measurements Intervals [place] Rate: 80 P: 39 WI: 176 QRS: 75 QRSD: 77 T: 62 QT: 359 QTc: 416 Interpretive Statements SINUS RHYTHM Compared to ECG 03/04/2024 16:06:44 No significant changes Electronically Signed On 04-03-2024 20:16:42 TRANSPORT ASSISTANT by Charly Bartholomew M.D.
[2024-04-02 09:50] LABS: Basophils Absolute Auto 0.09 K/mm3 (0.00-0.10); Basophils Percent Auto 0.9 % (0.0-1.0); Eosinophils Absolute Auto 0.44 K/mm3 (0.02-0.50); Eosinophils Percent Auto 4.3 % (1.0-6.0); Hematocrit 39.2 % (40.0-54.0); Hemoglobin 13.5 g/dL (14.0-18.0); Immature Granulocyte Absolute 0.06 K/mm3 (0.00-0.00); Immature Granulocyte Percent A 0.6 % (0.0-0.0); Lymphocytes Absolute Auto 1.79 K/mm3 (1.10-4.50); Lymphocytes Percent Auto 17.6 % (18.0-42.0); Mean Corpuscular HGB Conc 34.4 g/dL (32-36); Mean Corpuscular Hemoglobin 30.3 pg (27.0-31.0); Mean Corpuscular Volume 88.1 fL (78.0-102.0); Mean Platelet Volume 8.4 fl (8.7-11.0); Monocytes Absolute Auto 0.76 K/mm3 (0.10-0.90); Monocytes Percent Auto 7.5 % (2.0-11.0); Neutrophils Absolute Auto 7.05 K/mm3 (1.70-7.20); Neutrophils Percent Auto 69.1 % (50.0-70.0); Platelet Count Result 448 K/mm3 (150-420); Red Blood Count 4.45 M/mm3 (4.70-6.10); Red Cell Distribution Width 13.2 % (11.6-14.4); White Blood Count 10.2 K/mm3 (4.8-10.8)
[2024-04-02 09:51] LABS: Add Urine Microscopic? NO; Appearance Urine Clear (Clear); Bilirubin Urine Negative (Negative); Blood Urine Negative (Negative); Color Urine Light Yellow (Yellow); Glucose Urine UA Negative (Negative); Ketones Urine Negative (Negative); Leukocyte Esterase Ur Negative LEU/UL (Negative); Nitrate Urine Negative (Negative); Protein Urine Negative (Negative); Specific Grav Ur <= 1.005 (1.010-1.020); Urobilinogen Urine 0.2 mg/dL (0.2-1.0)
[2024-04-02 10:17] LABS: Alanine Aminotransferase 23 U/L (16-63); Albumin Level 2.9 g/dL (3.4-5.0); Alkaline Phosphatase 178 U/L (46-116); Anion Gap 7 mmol/L (4-12); Aspartate Amino Transferase 19 U/L (15-37); Bilirubin,Total 0.7 mg/dL (0.00-1.00); Blood Urea Nitrogen 6 mg/dL (7-18); Calcium 9.1 mg/dL (8.5-10.1); Carbon Dioxide 30 mmol/L (21-32); Chloride 98 mmol/L (98-108); Estimated CRCL calculation 98 ml/min; Estimated Glomerular Filt Rate > 60; Glucose 93 mg/dL (70-99); Osmolality Calculated 277 mOsm/kg (285-295); Potassium 3.6 mmol/L (3.5-5.1); Sodium 135 mmol/L (136-145); Thyroid Stimulating Hormone 0.61 uIU/mL (0.36-3.74); Total Protein 7.6 g/dL (6.4-8.2)
[2024-04-02 10:18] LABS: Troponin I < 4.0 ng/L (0.00-60.4)
[2024-04-02 10:37] VITALS: BP 124/89; PULSE 87; RESP 20; TEMP 36.7; O2SAT 97
== END 2024-04-02 10:39 | disposition home or self-care (01) ==
PROVIDERS: Emergency Provider Emergency Medicine; PCP Family Medicine
DX: G25.9 Extrapyramidal and movement disorder, unspecified (principal); J18.9 Pneumonia, unspecified organism; I10 Essential (primary) hypertension; J44.9 Chronic obstructive pulmonary disease, unspecified; M06.9 Rheumatoid arthritis, unspecified; F17.210 Nicotine dependence, cigarettes, uncomplicated; Z79.899 Other long term (current) drug therapy
CPT/HCPCS: 36415; 70450; 71046; 80053; 81003; 84443; 84484; 85025; 93005; 99284

== ENCOUNTER 2024-05-31 10:59 | Outpatient (CLI) | payer MEDICARE, OTHER, SELFPAY ==
[2024-05-31 11:50] LABS: Alanine Aminotransferase 17 U/L (16-63); Albumin Level 3.8 g/dL (3.4-5.0); Alkaline Phosphatase 143 U/L (46-116); Anion Gap 5 mmol/L (4-12); Aspartate Amino Transferase 14 U/L (15-37); Bilirubin,Total 0.6 mg/dL (0.00-1.00); Blood Urea Nitrogen 6 mg/dL (7-18); Calcium 9.5 mg/dL (8.5-10.1); Carbon Dioxide 33 mmol/L (21-32); Chloride 97 mmol/L (98-108); Estimated Glomerular Filt Rate > 60; Glucose 102 mg/dL (70-99); Osmolality Calculated 277 mOsm/kg (285-295); Sodium 135 mmol/L (136-145); Total Protein 7.3 g/dL (6.4-8.2)
--- OUTSIDE RECORDS SUMMARY | 2024-05-31 12:39 | XMS_ITS | Clinical Summary ---
Author Organization [facility] Address [address] [place] [address] Phone Care Team Providers Care Saw Offbearer Name Role Phone Unavailable Primary Care Provider Unavailabl e Allergies No known active allergies Medications haloperidoL (HALDOL) 5 mg tablet Take 5 mg by mouth every 6 hours. Active benztropine (COGENTIN) 0.5 mg tablet Take 0.5 mg by mouth 2 times daily. Active amLODIPine (NORVASC) 10 mg tablet Take 10 mg by mouth daily. Active propranoloL (INDERAL) 20 mg tablet Take 20 mg by mouth 2 times daily. Active folic acid (FOLVITE) 1 mg tablet Take 1 mg by mouth daily. Active omeprazole (PriLOSEC) 20 mg Capsule, Delayed Release(E.C.) Take 20 mg by mouth daily. Active Social History Tobacco Use Types Packs/Day Years Used Date Smoking Tobacco: Every Day Cigarettes Tobacco Cessation:Ready to Q uit: Not Asked; Counseling Given: Not Answered Alcohol Use Standard Drinks/Week Comments Not Currently 0 (1 standard drink = 0.6 oz pur e alcohol) Feeling Safe Answer Date Recorded Are you in a relationship wi th someone who hurts you emotionally and/or physically? 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 Gender Identity Not on file Sexual Orientation Not on file Last Filed Vital Signs Vital Sign Reading Time Taken Comments Blood Pressure 148/82 01/03/2023 6:00 PM CDT Pulse 88 01/03/2023 6:00 PM CDT Temperature 36.4 ??C (97.5 ??F) 01/03/2023 2:57 PM CD T Respiratory Rate 14 01/03/2023 6:00 PM CDT Oxygen Saturation 98% 01/03/2023 6:00 PM CDT Inhaled Oxygen Concentration - - Weight 68 kg (150 lb) 01/03/2023 2:57 PM CDT Height 182.9 cm (6') 01/03/2023 2:57 PM CDT Body Mass Index 20.34 01/03/2023 2:57 PM CDT Plan of Treatment Health Maintenance Due Date Last Done Comments PNEUMOCOCCAL VACCINE 0-64 YE ARS (1 of 2 - PCV) 01/15/1970 01/23/1998 DTAP/TDAP/TD VACCINES (1 - Tdap) 08/30/2007 08/29/19 08 COLORECTAL SCREENING 01/15/2009 Colorectal Cancer Screening 01/15/2009 FIT-DNA Q 3 years 01/15/2009 FIT/FOBT Q 1 year 01/15/2009 Flex Sig/CT Colonography Q 5 years 01/15/2009 ZOSTER VACCINE (1 of 2) 01/15/2014 INFLUENZA VACCINE (#1) 2023 RSV VACCINE (60+ or ) (1 - Risk 60-74 years 1-dose series) 2024 HEPATITIS B VACCINES Aged Out No long er eligible based on patient's age to complete this topic Insurance MEDICARE PART A AND B [employer]
--- OUTSIDE RECORDS SUMMARY | 2024-05-31 12:39 | XMS_ITS | Encounter Summary ---
Author Organization [facility] Address 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
--- OUTSIDE RECORDS SUMMARY | 2024-05-31 12:39 | XMS_ITS | Encounter Summary ---
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
--- OUTSIDE RECORDS SUMMARY | 2024-05-31 12:39 | XMS_ITS | Clinical Summary ---
Author Organization [facility] Address [address] [place] [address] Care Team Providers Care Chemical Processing Technician Name Role Phone Mamadou Morales MD Primary Care Provider [phone] Allergies Active Allergy Reactions Criticality Noted Date Comments Nitrofurantoin Hives 04/02/2022 Vancomycin Hives 04/02/2022 Medications benztropine (COGENTIN) 0.5 MG Tab Take 2 mg by mouth 2 (two) times daily. 11/29/2021 Active propranolol (INDERAL) 20 MG tablet Take 20 mg by mouth 2 (two) times daily. 03/28/2022 Active folic acid (FOLVITE) 1 MG tablet Take 1 mg by mouth daily. 08/14/2021 Active omeprazole (PRILOSEC) 20 MG capsule Take 20 mg by mouth every morning before breakfast. 03/22/2022 Active amLODIPine (NORVASC) 10 MG tablet Take 1 tablet by mouth daily. 02/10/2022 Active haloperidol (HALDOL) 5 MG tablet Take 2 tablets by mouth 3 (three) times daily. 07/17/2021 Active haloperidol decanoate (HALDOL) 100 MG/ML injection Inject 200 mg into the muscle every 21 days. 04/01/2022 Active PROAIR HFA 108 (90 Base) MCG/ACT inhaler Inhale 1 puff into the lungs as needed. 12/22/2021 Active Active Problems Problem Noted Date Diagnosed Date Loculated pleural effusion 04/02/2022 Family History Medical History Relation Comments No Known Problems Brother Cancer Father No Known Problems Maternal Grandfather Diabetes Maternal Grandmother Hypertension Maternal Grandmother Hypertension Mother No Known Problems Paternal Grandfather No Known Problems Paternal Grandmother Relation Status Comments Brother Father Maternal Grandfather Maternal Grandmother Mother Paternal Grandfather Paternal Grandmother Social History Tobacco Use Types Packs/Day Years Used Date Smoking Tobacco: Former Cigarettes 2 40 1 05/31/1981 - 03/30/2022 Smokeless Tobacco: Never Tobacco Cessation:Counseling Given: Yes Alcohol Use Standard Drinks/Week Comments Not Currently 0 (1 standard drink = 0.6 oz pur e alcohol) Sex and Gender Information Value Date Recorded Sex Assigned at Not on file Legal Sex Male 10:20 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 Gender Identity Not on file Sexual Orientation Not on file Last Filed Vital Signs Vital Sign Reading Time Taken Comments Blood Pressure 98/68 04/07/2022 3:39 AM CORE LAYER MACHINE OPERATOR Pulse 75 04/07/2022 3:39 AM CORE LAYER MACHINE OPERATOR Temperature 36.8 ??C (98.2 ??F) 04/06/2022 8:41 PM CS T Respiratory Rate 18 04/05/2022 4:15 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 Oxygen Saturation 100% 04/06/2022 4:13 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 Inhaled Oxygen Concentration - - Weight 63 kg (138 lb 14.2 oz) 04/02/2022 12:12 P M CORE LAYER MACHINE OPERATOR Height 182.9 cm (6') 04/02/2022 12:12 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 Body Mass Index 18.84 04/02/2022 12:12 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 Plan of Treatment Health Maintenance Due Date Last Done Comments Colorectal Cancer Screening Colonoscopy (10 Years) 1964 Annual Physical 01/15/1967 Hepatitis C 01/15/1982 DTaP, Tdap and Td Vaccines ( 1 - Tdap) 01/15/1983 Zoster Vaccines (1 of 2) 01/15/2014 COVID-19 Vaccine (4 - 2023-2 5 season) 2023 03/09/2021, 07/23/2020, 07/02/2020 Influenza Adult (#1) 2024 12/17/2021, 02/05/2021 RSV Immunization or 60+ Years (1 - 1-dose 75+ series) 01/15/2039 Pneumococcal Vaccine: Pediatrics (0 to 5 Years) and At-Risk Patients (6 to 64 Years) Aged Out 02/13/2021 No longer eligible b ased on patient's age to complete this topic Meningococcal B Vaccine Aged Out No l onger eligible based on patient's age to complete this topic Meningococcal Vaccine Aged Out No callie mushtaq eligible based on patient's age to complete this topic RSV Immunizations Under 20 Months Aged Out No longer eligible b ased on patient's age to complete this topic Goals Goal Patient Goal Type Associated Problems Recent Progress Patient-Stated? Author Safety - demonstrates understanding of home safety measures Lifestyle Leona Manzanares, RN Insurance MEDICARE [facility] Advance Directives * Full Code (Latest Code Status on File) Date Activated Date Inactivated Comments 04/02/2022 12:30 PM 04/07/2022 4:55 PM Care Teams Chemical Processing Technician Relationship Specialty Start Date End Date Mamadou Morales MD [address] [place] [address] PCP - General FAMILY PRACTICE 03/28/22
--- OUTSIDE RECORDS SUMMARY | 2024-05-31 12:39 | XMS_ITS | Encounter Summary ---
Author Organization [facility] Address [address] [place] [address] Care Team Providers Care Spooler Operator Name Role Phone Unavailable Primary Care Provider Unavailabl e Encounter Details Date Type Department Care Team (Late st Contact Info) Description 04/29/2005 Outpatient Historical [facility] Chucho Carballo MD [address] [place] [address] Er, Authorized P NO ADDRESS ON FILE HYPOPOTASSEMIA (Primary Dx) Social History Tobacco Use Types Packs/Day Years Used Date Smoking Tobacco: Never Assessed Sex and Gender Information Value Date Recorded Sex Assigned at Not on file Legal Sex Male 4:59 AM UNION STEWARD Gender Identity Not on file Sexual Orientation Not on file documented as of this encounter Plan of Treatment Not on file documented as of this encounter Procedures Procedure Name Priority Date/Time Associated Diagnosis Comments CBC WITH DIFFERENTIAL Routine 04/29/2005 6:22 PM UNION STEWARD CBC WITH DIFFERENTIAL Routine 04/29/2005 6:22 PM UNION STEWARD COMPREHENSIVE METABOLIC PANEL Routine 04/29/2005 6:22 PM UNION STEWARD documented in this encounter Results * CBC WITH DIFFERENTIAL (04/29/2005 6:22 PM UNION STEWARD) NEUTROPHILS 48 45 - 70 % INTERFAC E SYSTEM LYMPHOCYTES 36 16 - 45 % INTERFAC E SYSTEM MONOCYTES 12 3 - 13 % INTERFACE SYSTEM EOSINOPHILS 4 0 - 7 % INTERFAC E SYSTEM BASOPHILS 1 0 - 2 % INTERFACE SYSTEM NEUTROPHIL ABSOLUTE 2.85 1.90 - 7.00 K/uL INTERFACE SYSTEM LYMPHOCYTE ABSOLUTE 2.15 0.70 - 4.50 K/uL INTERFACE SYSTEM MONOCYTE ABSOLUTE 0.73 0.10 - 1.30 K/uL INTERFACE SYSTEM EOSINOPHIL ABSOLUTE 0.22 0.00 - 0.70 K/uL INTERFACE SYSTEM BASOPHILS ABSOLUTE 0.04 0.00 - 0.20 K/uL INTERFACE SYSTEM 04/29/2005 6:22 PM UNION STEWARD Chucho De La O MD HEMATOLOGY ORDERABLES Final Res ult Performing Organization Address City/[facility] de Phone Number INTERFACE SYSTEM Refer to clinic/hospital department * (ABNORMAL) CBC WITH DIFFERENTIAL (04/29/2005 6:22 PM UNION STEWARD) WBC 6.0 4.0 - 9.8 K/uL INTERFACE SYSTEM RBC 5.00 4.50 - 5.40 M/uL INTERFACE SYSTEM HEMOGLOBIN 16.4 13.6 - 16.5 g/dL INTERFACE SYSTEM HEMATOCRIT 43.4 40.0 - 48.0 % INTERFACE SYSTEM MCV 86.8 82.0 - 99.0 fL INTERFACE SYSTEM MCH 32.8(H) 27.2 - 32.6 pg INTERFACE SYSTEM MCHC 37.8(H) 31.5 - 35.5 % INTERFACE SYSTEM RDW 13.7 11.5 - 14.5 % INTERFACE SYSTEM RDW-STDEV 42.9 37.1 - 48.7 fL INTERFACE SYSTEM PLATELETS 287 140 - 350 K/uL INTERFACE SYSTEM MPV 9.7 9.3 - 12.4 fL INTERFACE SYSTEM 04/29/2005 6:22 PM UNION STEWARD Chucho De La O MD HEMATOLOGY ORDERABLES Final Res ult Performing Organization Address [facility] Co de Phone Number INTERFACE SYSTEM Refer to clinic/hospital department * (ABNORMAL) COMPREHENSIVE METABOLIC PANEL (04/29/2005 6:22 PM UNION STEWARD) GLUCOSE 107 65 - 109 mg/dL INTERFACE SYSTEM CREATININE 0.8 0.5 - 1.3 mg/dL INTERFACE SYSTEM CALCIUM 9.7 8.6 - 10.2 mg/dL INTERFACE SYSTEM AST 18 12 - 38 U/L INTERFACE SYSTEM ALKALINE PHOSPHATASE 109 40 - 129 U/L INTERFACE SYSTEM BILIRUBIN TOTAL 0.8 0.2 - 1.0 mg/dL INTERFACE SYSTEM ALBUMIN 4.7 3.4 - 4.8 g/dL INTERFACE SYSTEM TOTAL PROTEIN 7.5 6.3 - 8.6 g/dL INTERFACE SYSTEM ALT 19 0 - 41 U/L INTERFACE SYSTEM BUN 8 6 - 20 mg/dL INTERFACE SYSTEM SODIUM 136 135 - 145 mmol/L INTERFACE SYSTEM CHLORIDE 93(L) 96 - 108 mmol/L INTERFACE SYSTEM CO2 33(H) 22 - 30 mmol/L INTERFACE SYSTEM POTASSIUM 2.8(AA) 3.5 - 4.9 mmol/L INTERFACE SYSTEM Comment: Results confirmed by 2nd methodology. Results called to Eunice at 04/29/2005 7:25 PM and read back verified. 04/29/2005 6:22 PM UNION STEWARD us Chucho De La O MD CHEMISTRY ORDERABLES Final Resu lt INTERFACE SYSTEM Refer to clinic/hospital department documented in this encounter Visit Diagnoses Diagnosis Hypopotassemia- Primary documented in this encounter
== END 2024-05-31 11:00 | disposition home or self-care (01) ==
LOC: CHSLAB 11:01
PROVIDERS: PCP Family Medicine; Visit Provider Family Medicine
DX: E87.6 Hypokalemia (principal)
CPT/HCPCS: 36415; 80053

== ENCOUNTER 2024-06-15 10:38 | Outpatient (CLI) | payer MEDICARE, SELFPAY ==
--- NOTE | ~2024-06-15 | XR_ITS ---
EXAMINATION: XR ribs LT 2V w CXR 2V DATE: 06/15/2024 11:10 INDICATION: Left chest pain. TECHNIQUE: Frontal and lateral views of the chest and 2 views on 3 radiographs of the left ribs were obtained. COMPARISON: Chest 2 views 04/02/2024 FINDINGS: CHEST TWO VIEWS: There are lucencies in the lungs, consistent with emphysema. There are airspace opac ities in right midlung zone with interval improvement. There is mild atelectasis in left lower lung z one. A calcified left lung nodule is consistent with old edematous disease. No pleural effusion or pn eumothorax. The heart size is normal. LEFT RIBS: There are old healed left rib fractures. IMPRESSION: 1. No acute fracture. 2. Airspace opacities in right midlung zone with interval improvement, consistent with pneumonia. 3. Mild atelectasis in left lower lung zone. 4. Emphysema. Reviewed, dictated and finalized at location A. EMS INTEGRATION MANAGER IMPRESSION: 1. No acute fracture. 2. Airspace opacities in right midlung zone with interval improvement, consiste nt with pneumonia. 3. Mild atelectasis in left lower lung zone. 4. Emphysema.
[2024-06-15 10:56] LABS: Basophils Absolute Auto 0.07 K/mm3 (0.00-0.10); Basophils Percent Auto 1.3 % (0.0-1.0); Eosinophils Absolute Auto 0.22 K/mm3 (0.02-0.50); Eosinophils Percent Auto 4.2 % (1.0-6.0); Hematocrit 42.7 % (40.0-54.0); Hemoglobin 14.2 g/dL (14.0-18.0); Immature Granulocyte Absolute 0.02 K/mm3 (0.00-0.00); Immature Granulocyte Percent A 0.4 % (0.0-0.0); Lymphocytes Absolute Auto 1.28 K/mm3 (1.10-4.50); Lymphocytes Percent Auto 24.2 % (18.0-42.0); Mean Corpuscular HGB Conc 33.3 g/dL (32-36); Mean Corpuscular Hemoglobin 28.5 pg (27.0-31.0); Mean Corpuscular Volume 85.6 fL (78.0-102.0); Mean Platelet Volume 8.9 fl (8.7-11.0); Monocytes Absolute Auto 0.59 K/mm3 (0.10-0.90); Monocytes Percent Auto 11.2 % (2.0-11.0); Neutrophils Absolute Auto 3.11 K/mm3 (1.70-7.20); Neutrophils Percent Auto 58.7 % (50.0-70.0); Platelet Count Result 318 K/mm3 (150-420); Red Blood Count 4.99 M/mm3 (4.70-6.10); Red Cell Distribution Width 13.8 % (11.6-14.4); White Blood Count 5.3 K/mm3 (4.8-10.8)
--- OUTSIDE RECORDS SUMMARY | 2024-06-15 11:06 | XMS_ITS | Encounter Summary ---
Author Organization [facility] Address [address] [place] [address] Care Team Providers Care Client Services Analyst Name Role Phone Mamadou Morales MD Primary Care Provider [phone] Encounter Details Date Type Department Care Team (Late st Contact Info) Description 10/01/2018 Abstract SFL CONVERSION [address] [place] [address] , Generic Conversion, Social History Tobacco Use Types Packs/Day Years Used Date Smoking Tobacco: Never Assessed Sex and Gender Information Value Date Recorded Sex Assigned at Not on file Legal Sex Male 10:20 PM FENCE ERECTOR Gender Identity Not on file Sexual Orientation Not on file documented as of this encounter Plan of Treatment Not on file documented as of this encounter Visit Diagnoses Not on filedocumented in this encounter Additional Health Concerns Infection Onset Date Last Indicated Resolved Time COVID-19 Rule Out 04/02/2022 04/02/2022 04/02/2022 7:15 PM FENCE ERECTOR documented as of this encounter Care Teams Client Services Analyst Relationship Specialty Start Date End Date Mamadou Morales MD [address] [place] [address] PCP - General FAMILY PRACTICE 03/28/22 documented as of this encounter
--- OUTSIDE RECORDS SUMMARY | 2024-06-15 11:06 | XMS_ITS | Clinical Summary ---
Author Organization [facility] Address [address] [place] [address] Care Team Providers Care Ski Top Trimmer Name Role Phone Mamadou Morales MD Primary Care Provider [phone] Allergies Active Allergy Reactions Criticality Noted Date [...] on file Legal Sex Male 10:20 PM SCHOOL BASED THERAPIST Gender Identity Not on file Sexual Orientation Not on file Last Filed Vital Signs Vital Sign Reading Time Taken Comments Blood Pressure 98/68 04/07/2022 3:39 AM SCHOOL BASED THERAPIST Pulse 75 04/07/2022 3:39 AM SCHOOL BASED THERAPIST Temperature 36.8 C (98.2 F) 04/06/2022 8:41 PM SCHOOL BASED THERAPIST Respiratory Rate 18 04/05/2022 4:15 PM SCHOOL BASED THERAPIST Oxygen Saturation 100% 04/06/2022 4:13 PM SCHOOL BASED THERAPIST Inhaled Oxygen Concentration - - Weight 63 kg (138 lb 14.2 oz) 04/02/2022 12:12 P M SCHOOL BASED THERAPIST Height 182.9 cm (6') 04/02/2022 12:12 PM SCHOOL BASED THERAPIST Body Mass Index 18.84 04/02/2022 12:12 PM SCHOOL BASED THERAPIST Plan of Treatment Health Maintenance Due Date [...] measures Lifestyle Leona Manzanares, RN Insurance MEDICARE [facility] Advance Directives * Full Code (Latest Code Status on File) Date Activated Date Inactivated Comments 04/02/2022 12:30 PM 04/07/2022 4:55 PM Care Teams Ski Top Trimmer Relationship Specialty Start Date End Date Mamadou Morales MD [address] [place] [address] PCP - General FAMILY PRACTICE 03/28/22
--- OUTSIDE RECORDS SUMMARY | 2024-06-15 11:06 | XMS_ITS | Encounter Summary ---
Author Organization [facility] Address [address] [place] [address] Care Team Providers Care Floral Designer Salesperson Name Role Phone Unavailable Primary Care Provider [...] on file Legal Sex Male 4:59 AM NATURAL RESOURCES PROFESSOR Gender Identity Not on file Sexual Orientation Not on file documented as of this encounter Plan of Treatment Not on file documented as of this encounter Visit Diagnoses Diagnosis Sprain of ribs- Primary documented in this encounter
--- OUTSIDE RECORDS SUMMARY | 2024-06-15 11:06 | XMS_ITS | Encounter Summary ---
Author Organization [facility] Address [address] [place] [address] Care Team Providers Care Net Maker Name Role Phone Unavailable Primary Care Provider Unavailabl e Encounter Details Date Type Department Care Team (Late st Contact Info) Description 04/29/2005 Outpatient Historical [facility] Chucho Carballo MD [address] [place] [address] Er, Authorized P NO ADDRESS ON FILE HYPOPOTASSEMIA (Primary Dx) Social History Tobacco Use Types Packs/Day Years Used Date Smoking Tobacco: Never Assessed Sex and Gender Information Value Date Recorded Sex Assigned at Not on file Legal Sex Male 4:59 AM HVAC PROJECT ENGINEER Gender Identity Not on file Sexual Orientation Not on file documented as of this encounter Plan of Treatment Not on file documented as of this encounter Procedures Procedure Name Priority Date/Time Associated Diagnosis Comments CBC WITH DIFFERENTIAL Routine 04/29/2005 6:22 PM HVAC PROJECT ENGINEER CBC WITH DIFFERENTIAL Routine 04/29/2005 6:22 PM HVAC PROJECT ENGINEER COMPREHENSIVE METABOLIC PANEL Routine 04/29/2005 6:22 PM HVAC PROJECT ENGINEER documented in this encounter Results * CBC WITH DIFFERENTIAL (04/29/2005 6:22 PM HVAC PROJECT ENGINEER) NEUTROPHILS 48 45 - 70 % INTERFAC [...] 0.20 K/uL INTERFACE SYSTEM 04/29/2005 6:22 PM HVAC PROJECT ENGINEER Chucho De La O MD HEMATOLOGY ORDERABLES Final Res ult Performing Organization Address City/[facility] de Phone Number INTERFACE SYSTEM Refer to clinic/hospital department * (ABNORMAL) CBC WITH DIFFERENTIAL (04/29/2005 6:22 PM HVAC PROJECT ENGINEER) WBC 6.0 4.0 - 9.8 K/uL INTERFACE [...] 12.4 fL INTERFACE SYSTEM 04/29/2005 6:22 PM HVAC PROJECT ENGINEER Chucho De La O MD HEMATOLOGY ORDERABLES Final Res ult Performing Organization Address [facility] Co de Phone Number INTERFACE SYSTEM Refer to clinic/hospital department * (ABNORMAL) COMPREHENSIVE METABOLIC PANEL (04/29/2005 6:22 PM HVAC PROJECT ENGINEER) GLUCOSE 107 65 - 109 mg/dL INTERFACE [...] and read back verified. 04/29/2005 6:22 PM HVAC PROJECT ENGINEER us Chucho De La O MD CHEMISTRY ORDERABLES Final Resu lt INTERFACE SYSTEM Refer to clinic/hospital department documented in this encounter Visit Diagnoses Diagnosis Hypopotassemia- Primary documented in this encounter
--- OUTSIDE RECORDS SUMMARY | 2024-06-15 11:06 | XMS_ITS | Clinical Summary ---
Author Organization [facility] Address [address] [place] [address] Phone Care Team Providers Care Site Technician Name Role Phone Unavailable Primary Care Provider [...] on file Legal Sex Male 4:59 AM DIRECT CARE WORKER Gender Identity Not on file Sexual Orientation Not on file Last Filed Vital Signs Vital Sign Reading Time Taken Comments Blood Pressure 148/82 01/03/2023 6:00 PM CDT Pulse 88 01/03/2023 6:00 PM CDT Temperature 36.4 C (97.5 F) 01/03/2023 2:57 PM CDT Respiratory Rate 14 01/03/2023 6:00 PM CDT Oxygen Saturation 98% 01/03/2023 6:00 PM CDT Inhaled Oxygen Concentration - - Weight 68 kg (150 lb) 01/03/2023 2:57 PM CDT Height 182.9 cm (6') 01/03/2023 2:57 PM CDT Body Mass Index 20.34 01/03/2023 2:57 PM CDT Plan of Treatment Health Maintenance Due Date Last Done Comments DTAP/TDAP/TD VACCINES (1 - Tdap) 08/30/2007 08/29/19 [...] topic Insurance MEDICARE PART A AND B [employer]
[2024-06-15 11:27] LABS: Alanine Aminotransferase 16 U/L (16-63); Albumin Level 3.9 g/dL (3.4-5.0); Alkaline Phosphatase 157 U/L (46-116); Anion Gap 4 mmol/L (4-12); Aspartate Amino Transferase 17 U/L (15-37); Bilirubin,Total 0.8 mg/dL (0.00-1.00); Blood Urea Nitrogen 12 mg/dL (7-18); Calcium 9.3 mg/dL (8.5-10.1); Carbon Dioxide 34 mmol/L (21-32); Chloride 101 mmol/L (98-108); Creatine Kinase 107 U/L (39-308); Estimated Glomerular Filt Rate > 60; Glucose 90 mg/dL (70-99); Osmolality Calculated 287 mOsm/kg (285-295); Potassium 4.1 mmol/L (3.5-5.1); Sodium 139 mmol/L (136-145); Total Protein 7.2 g/dL (6.4-8.2); Troponin I 7.3 ng/L (0.00-60.4)
== END 2024-06-15 10:39 | disposition home or self-care (01) ==
LOC: CHSLAB 10:41
PROVIDERS: PCP Family Medicine; Visit Provider Family Medicine
DX: R07.9 Chest pain, unspecified (principal); R91.8 Other nonspecific abnormal finding of lung field; J98.11 Atelectasis; J43.9 Emphysema, unspecified
CPT/HCPCS: 36415; 71046; 71100; 80053; 82550; 84484; 85025

== ENCOUNTER 2024-07-05 08:40 | Outpatient (CLI) | payer MEDICARE, SELFPAY ==
--- NOTE | ~2024-07-05 | XR_ITS ---
CHEST RADIOGRAPH, PA AND LATERAL CLINICAL HISTORY: ACUTE COUGH . COMPARISON: 03/05/2024 TECHNIQUE: PA and lateral views of the chest. FINDINGS The cardiomediastinal silhouette is unremarkable. Severe panlobular emphysematous disease is redemonstrated. Interval resolution of the right-sided infiltrate, seen on previous examination. Interval development of a airspace opacity within the left lower lobe. The remainder of the lungs are clear. IMPRESSION: Left basilar opacity, likely an early infiltrate. Reviewed, dictated and finalized at location []
--- OUTSIDE RECORDS SUMMARY | 2024-07-05 09:02 | XMS_ITS | Encounter Summary ---
Author Organization [facility] Address [address] [place] [address] Care Team Providers Care Driver Engineer Name Role Phone Unavailable Primary Care Provider Unavailabl e Encounter Details Date Type Department Care Team (Late st Contact Info) Description 04/29/2005 Outpatient Historical [facility] Chucho Carballo MD [address], [place] [id number] Er, Authorized P NO ADDRESS ON FILE HYPOPOTASSEMIA (Primary Dx) Social History Tobacco Use Types Packs/Day Years Used Date Smoking Tobacco: Never Assessed Sex and Gender Information Value Date Recorded Sex Assigned at Not on file Legal Sex Male 4:59 AM SALES AND SERVICE AGENT Gender Identity Not on file Sexual Orientation Not on file documented as of this encounter Plan of Treatment Not on file documented as of this encounter Procedures Procedure Name Priority Date/Time Associated Diagnosis Comments CBC WITH DIFFERENTIAL Routine 04/29/2005 6:22 PM SALES AND SERVICE AGENT CBC WITH DIFFERENTIAL Routine 04/29/2005 6:22 PM SALES AND SERVICE AGENT COMPREHENSIVE METABOLIC PANEL Routine 04/29/2005 6:22 PM SALES AND SERVICE AGENT documented in this encounter Results * CBC WITH DIFFERENTIAL (04/29/2005 6:22 PM SALES AND SERVICE AGENT) NEUTROPHILS 48 45 - 70 % INTERFAC [...] 0.20 K/uL INTERFACE SYSTEM 04/29/2005 6:22 PM SALES AND SERVICE AGENT Chucho De La O MD HEMATOLOGY ORDERABLES Final Res ult Performing Organization Address City/[facility] de Phone Number INTERFACE SYSTEM Refer to clinic/hospital department * (ABNORMAL) CBC WITH DIFFERENTIAL (04/29/2005 6:22 PM SALES AND SERVICE AGENT) WBC 6.0 4.0 - 9.8 K/uL INTERFACE [...] 12.4 fL INTERFACE SYSTEM 04/29/2005 6:22 PM SALES AND SERVICE AGENT Chucho De La O MD HEMATOLOGY ORDERABLES Final Res ult Performing Organization Address [facility] Co de Phone Number INTERFACE SYSTEM Refer to clinic/hospital department * (ABNORMAL) COMPREHENSIVE METABOLIC PANEL (04/29/2005 6:22 PM SALES AND SERVICE AGENT) GLUCOSE 107 65 - 109 mg/dL INTERFACE [...] and read back verified. 04/29/2005 6:22 PM SALES AND SERVICE AGENT us Chucho De La O MD CHEMISTRY ORDERABLES Final Resu lt INTERFACE SYSTEM Refer to clinic/hospital department documented in this encounter Visit Diagnoses Diagnosis Hypopotassemia- Primary documented in this encounter
--- OUTSIDE RECORDS SUMMARY | 2024-07-05 09:02 | XMS_ITS | Clinical Summary ---
Author Organization [facility] Address [address] [place] [address] Phone Care Team Providers Care Licensed Practical Nurse Instructor Name Role Phone Unavailable Primary Care Provider [...] on file Legal Sex Male 4:59 AM PROOF INSPECTOR Gender Identity Not on file Sexual Orientation [...] topic Insurance MEDICARE PART A AND B [employer]
--- OUTSIDE RECORDS SUMMARY | 2024-07-05 09:02 | XMS_ITS | Encounter Summary ---
Author Organization [facility] Address [address] [place] [address] Care Team Providers Care Car Stower Name Role Phone Unavailable Primary Care Provider [...] on file Legal Sex Male 4:59 AM YOUTH CAREER SPECIALIST Gender Identity Not on file Sexual Orientation Not on file documented as of this encounter Plan of Treatment Not on file documented as of this encounter Visit Diagnoses Diagnosis Sprain of ribs- Primary documented in this encounter
--- OUTSIDE RECORDS SUMMARY | 2024-07-05 09:02 | XMS_ITS | Encounter Summary ---
Author Organization [facility] Address [address] [place] [address] Care Team Providers Care Solar Designer/Installer Name Role Phone Mamadou Morales MD Primary Care Provider [phone] Encounter Details Date Type Department Care Team (Late st Contact Info) Description 10/01/2018 Abstract SFL CONVERSION [address] [place] [address] , Generic Conversion, Social History Tobacco Use Types Packs/Day Years Used Date Smoking Tobacco: Never Assessed Sex and Gender Information Value Date Recorded Sex Assigned at Not on file Legal Sex Male 10:20 PM KNOCKER OFF Gender Identity Not on file Sexual Orientation Not on file documented as of this encounter Plan of Treatment Not on file documented as of this encounter Visit Diagnoses Not on filedocumented in this encounter Additional Health Concerns Infection Onset Date Last Indicated Resolved Time COVID-19 Rule Out 04/02/2022 04/02/2022 04/02/2022 7:15 PM KNOCKER OFF documented as of this encounter Care Teams Solar Designer/Installer Relationship Specialty Start Date End Date Mamadou Morales MD [address] [place] [address] PCP - General FAMILY PRACTICE 03/28/22 documented as of this encounter
--- OUTSIDE RECORDS SUMMARY | 2024-07-05 09:02 | XMS_ITS | Clinical Summary ---
Author Organization [facility] Address [address] [place] [address] Care Team Providers Care Parachute/Combatant Diver Officer Name Role Phone Mamadou Morales MD Primary Care Provider [phone] Allergies Active Allergy Reactions Criticality Noted Date [...] on file Legal Sex Male 10:20 PM CONCRETE MIXING PLANT SUPERINTENDENT Gender Identity Not on file Sexual Orientation Not on file Last Filed Vital Signs Vital Sign Reading Time Taken Comments Blood Pressure 98/68 04/07/2022 3:39 AM CONCRETE MIXING PLANT SUPERINTENDENT Pulse 75 04/07/2022 3:39 AM CONCRETE MIXING PLANT SUPERINTENDENT Temperature 36.8 C (98.2 F) 04/06/2022 8:41 PM CONCRETE MIXING PLANT SUPERINTENDENT Respiratory Rate 18 04/05/2022 4:15 PM CONCRETE MIXING PLANT SUPERINTENDENT Oxygen Saturation 100% 04/06/2022 4:13 PM CONCRETE MIXING PLANT SUPERINTENDENT Inhaled Oxygen Concentration - - Weight 63 kg (138 lb 14.2 oz) 04/02/2022 12:12 P M CONCRETE MIXING PLANT SUPERINTENDENT Height 182.9 cm (6') 04/02/2022 12:12 PM CONCRETE MIXING PLANT SUPERINTENDENT Body Mass Index 18.84 04/02/2022 12:12 PM CONCRETE MIXING PLANT SUPERINTENDENT Plan of Treatment Health Maintenance Due Date [...] measures Lifestyle Leona Manzanares, RN Insurance MEDICARE [facility] Advance Directives * Full Code (Latest Code Status on File) Date Activated Date Inactivated Comments 04/02/2022 12:30 PM 04/07/2022 4:55 PM Care Teams Parachute/Combatant Diver Officer Relationship Specialty Start Date End Date Mamadou Morales MD [address] [place] [address] PCP - General FAMILY PRACTICE 03/28/22
== END 2024-07-05 08:41 | disposition home or self-care (01) ==
LOC: CHSIMG 08:42
PROVIDERS: PCP Family Medicine; Visit Provider Family Medicine
DX: R05.1 Acute cough (principal); M25.561 Pain in right knee; M25.562 Pain in left knee; R91.8 Other nonspecific abnormal finding of lung field
CPT/HCPCS: 71046; 73562

== ENCOUNTER 2024-07-11 08:06 | Outpatient (RCR) | payer MEDICARE, OTHER, SELFPAY ==
--- NOTE | 2024-07-11 08:50 | OPREHPOC ---
Outpatient Therapy Plan of Care This is a Multidisciplinary Plan of Care that may contain components documented by all disciplines (PT, OT, and ST.) PT Problem 1 PT Problem #1 Knowledge Deficit PT Goal 1 Goal / Goal Update 1. independent with HEP Target Visit 4 PT Problem 2 PT Problem #2 Pain PT Goal 1 Goal / Goal Update 1. decreased pain at worst to 3/10 or less Target Visit 8 PT Problem 3 PT Problem #3 Impaired Range of Motion PT Goal 1 Goal / Goal Update 1. 0 degrees active R knee extension Target Visit 8 PT Problem 4 PT Problem #4 Impaired Strength PT Goal 1 Goal / Goal Update 1. 4+/5 bilateral hip abd 2. 4+/5 bilateral hip flex 3. 5/5 bilateral ankle DF Target Visit 8 PT Problem 5 PT Problem #5 Impaired Functional Mobility PT Goal 1 Goal / Goal Update 1. patient to ambulate with normal gait mechanics 2. patient to ambulate up and down step with reciprocal gait mechanics 1 hand rail hold 3. LEFS to display 40% or less functional deficits 4. patient to ambulate 10 minutes in PT without rest or increased pain in the knees. Target Visit 8
--- NOTE | 2024-07-11 08:50 | PTOPEVAL1 ---
Assessment and note entered by JT File, PT Evaluation Information Assessment Status Evaluation ICD-10 Condition Codes (PT) Pain in right knee M25.561,Pain in left knee M25. 562 Other ICD-10 Condition Codes ( M25.569 PT) Onset 07/05/24 Subjective Information patient reports he is having pain in both knees, but the L is worse. he reports his pain hurts day and night, and never lets off. he reports he is unable to take some NSAIDs due to other medications he is on. he reports he has had xrays of the bilateral knees. he reports he has had no injections to the knees. he reports nothing he notices makes his pain worse because he has pain all the time. he reports the L knee has not stopped hurting for 5 days. Reported Pain Level Pain Score 2,8: Self Report Assessment PT Clinical Summary mr. bajwa is a 59 yo man who presents to skilled PT services for evaluation of bilateral knee pain. he presents today with decreased R knee rom, worse pain in the L knee, bilateral hip weakness, and deficits in functional activity performance. he displays signs and symptoms consistent with bilateral OA. he would benefit from continued skilled PT to improve his objective /functional deficits and return to his prior level functional activity performance/quality of life. Plan of Care Interventions Electrical Stimulation,Gait Training,Hot Pack/Cold Pack,Neuro Re-education,Patient/Caregiver Education,Therapeutic Activities,Therapeutic Exercise PT Services Indicated Yes Treatment Frequency and 2x weekly for 8 visits Duration These treatments will address the objective and functional deficits as defined above. The patient will be advanced safely and appropriately in order for the patient to progress towards his/her prior level of function. Additional exercises will be introduced and as well as a comprehensive home exercise program upon discharge, if needed, ?to ensure carryover of functional gains achieved in the clinic. This treatment plan has been reviewed and agreement upon by the patient.
--- NOTE | 2024-07-31 09:19 | PTOPDC ---
Assessment and note entered by Alvaro Marshall Evaluation Information Assessment Status Discharge ICD-10 Condition Codes (PT) Pain in right knee M25.561,Pain in left knee M25. 562 Other ICD-10 Condition Codes ( M25.569 PT) Onset 07/05/24 Subjective Information Pt. reports that his pain is less intense in the knees since beginning therapy. He states that he has 12 steps to his basement and is able to navigate the steps without complication. He reports that he notices less popping in his knees with squatting activities. He states that he will continue with exercise and is ready for discharge at this time. Reported Pain Level Pain Score 1,1: Self Report Assessment PT Clinical Summary Mr. Tracy has attended a total of 6 treatment sessions. In this time he has met all goals established at the initial evaluation. He is encouraged to continue with his HEP and will be discharged from our care. Plan of Care PT Services Indicated No
== END 2024-07-31 20:08 | disposition home or self-care (01) ==
LOC: CHSPT 08:06
PROVIDERS: PCP Family Medicine; Visit Provider Family Medicine
DX: M25.561 Pain in right knee (principal); M25.562 Pain in left knee
CPT/HCPCS: 97110; 97112; 97161; 97530

== ENCOUNTER 2024-09-21 11:44 | Outpatient (CLI) | payer MEDICARE, OTHER, SELFPAY ==
--- OUTSIDE RECORDS SUMMARY | 2024-09-21 11:54 | XMS_ITS | Encounter Summary ---
Author Organization [facility] [employer] Address [address] [place] [address] Care Team Providers Care Crystal Report Developer Name Role Phone Unavailable Primary Care Provider Unavailabl e Encounter Details Date Type Department Care Team (Late st Contact Info) Description 04/29/2005 Outpatient Historical [facility] Chucho Carballo MD [address] [place] [address] Er, Authorized P NO ADDRESS ON FILE HYPOPOTASSEMIA (Primary Dx) Social History Tobacco Use Types Packs/Day Years Used Date Smoking Tobacco: Never Assessed Sex and Gender Information Value Date Recorded Sex Assigned at Not on file Legal Sex Male 4:59 AM INFORMATION SERVICES TECH Gender Identity Not on file Sexual Orientation Not on file documented as of this encounter Plan of Treatment Not on file documented as of this encounter Procedures Procedure Name Priority Date/Time Associated Diagnosis Comments CBC WITH DIFFERENTIAL Routine 04/29/2005 6:22 PM INFORMATION SERVICES TECH CBC WITH DIFFERENTIAL Routine 04/29/2005 6:22 PM INFORMATION SERVICES TECH COMPREHENSIVE METABOLIC PANEL Routine 04/29/2005 6:22 PM INFORMATION SERVICES TECH documented in this encounter Results * CBC WITH DIFFERENTIAL (04/29/2005 6:22 PM INFORMATION SERVICES TECH) NEUTROPHILS 48 45 - 70 % INTERFAC [...] 0.20 K/uL INTERFACE SYSTEM 04/29/2005 6:22 PM INFORMATION SERVICES TECH Chucho De La O MD HEMATOLOGY ORDERABLES Final Res ult Performing Organization Address City/[facility] de Phone Number INTERFACE SYSTEM Refer to clinic/hospital department * (ABNORMAL) CBC WITH DIFFERENTIAL (04/29/2005 6:22 PM INFORMATION SERVICES TECH) WBC 6.0 4.0 - 9.8 K/uL INTERFACE [...] 12.4 fL INTERFACE SYSTEM 04/29/2005 6:22 PM INFORMATION SERVICES TECH Chucho De La O MD HEMATOLOGY ORDERABLES Final Res ult Performing Organization Address [facility] Co de Phone Number INTERFACE SYSTEM Refer to clinic/hospital department * (ABNORMAL) COMPREHENSIVE METABOLIC PANEL (04/29/2005 6:22 PM INFORMATION SERVICES TECH) GLUCOSE 107 65 - 109 mg/dL INTERFACE [...] and read back verified. 04/29/2005 6:22 PM INFORMATION SERVICES TECH us Chucho De La O MD CHEMISTRY ORDERABLES Final Resu lt INTERFACE SYSTEM Refer to clinic/hospital department documented in this encounter Visit Diagnoses Diagnosis Hypopotassemia- Primary documented in this encounter
--- OUTSIDE RECORDS SUMMARY | 2024-09-21 11:54 | XMS_ITS | Encounter Summary ---
Author Organization [facility] Address 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
--- OUTSIDE RECORDS SUMMARY | 2024-09-21 11:54 | XMS_ITS | Clinical Summary ---
Author Organization [facility] Address [address] [place] [address] Phone Care Team Providers Care Degreaser Name Role Phone Unavailable Primary Care Provider [...] on file Legal Sex Male 4:59 AM OFFICE 365 CONSULTANT Gender Identity Not on file Sexual [...] topic Insurance MEDICARE PART A AND B [email or web address]
[2024-09-21 12:17] LABS: Basophils Absolute Auto 0.07 K/mm3 (0.00-0.10); Basophils Percent Auto 0.5 % (0.0-1.0); Eosinophils Absolute Auto 0.52 K/mm3 (0.02-0.50); Hematocrit 41.5 % (40.0-54.0); Hemoglobin 13.1 g/dL (14.0-18.0); Immature Granulocyte Absolute 0.04 K/mm3 (0.00-0.00); Immature Granulocyte Percent A 0.3 % (0.0-0.0); Lymphocytes Absolute Auto 1.46 K/mm3 (1.10-4.50); Lymphocytes Percent Auto 11.1 % (18.0-42.0); Mean Corpuscular HGB Conc 31.6 g/dL (32-36); Mean Corpuscular Hemoglobin 27.2 pg (27.0-31.0); Mean Corpuscular Volume 86.3 fL (78.0-102.0); Mean Platelet Volume 8.7 fl (8.7-11.0); Monocytes Absolute Auto 0.87 K/mm3 (0.10-0.90); Monocytes Percent Auto 6.6 % (2.0-11.0); Neutrophils Absolute Auto 10.17 K/mm3 (1.70-7.20); Neutrophils Percent Auto 77.5 % (50.0-70.0); Platelet Count Result 358 K/mm3 (150-420); Red Blood Count 4.81 M/mm3 (4.70-6.10); Red Cell Distribution Width 13.9 % (11.6-14.4); White Blood Count 13.1 K/mm3 (4.8-10.8)
[2024-09-21 12:45] LABS: Alanine Aminotransferase 15 U/L (6-50); Albumin Level 3.7 g/dL (3.5-5.1); Alkaline Phosphatase 138 U/L (38-126); Anion Gap 5 mmol/L (4-12); Aspartate Amino Transferase 22 U/L (17-59); Bilirubin,Total 0.7 mg/dL (0.2-1.3); Blood Urea Nitrogen 11 mg/dL (9-20); Calcium 9.1 mg/dL (8.4-10.2); Carbon Dioxide 30 mmol/L (22-30); Chloride 102 mmol/L (98-107); Estimated Glomerular Filt Rate > 60; Glucose 68 mg/dL (65-110); Osmolality Calculated 281 mOsm/kg (285-295); Potassium 4.1 mmol/L (3.4-5.0); Sodium 137 mmol/L (137-145); Total Protein 6.7 g/dL (6.3-8.2)
[2024-09-21 13:16] LABS: Thyroid Stimulating Hormone 0.687 uIU/mL (0.465-4.680)
== END 2024-09-21 11:45 | disposition home or self-care (01) ==
LOC: CHSLAB 11:52
PROVIDERS: PCP Family Medicine; Visit Provider Family Medicine
DX: I10 Essential (primary) hypertension (principal)
CPT/HCPCS: 36415; 80053; 84443; 85025

== ENCOUNTER 2025-04-18 08:51 | Outpatient (CLI) | payer MEDICARE, OTHER, SELFPAY ==
--- OUTSIDE RECORDS SUMMARY | 2025-04-18 08:55 | XMS_ITS | Clinical Summary ---
Author Organization [facility] Address [address] [place] [address] Care Team Providers Care Training And Development Rep Name Role Phone Mamadou Morales MD Primary Care Provide r Allergies Active Allergy Reactions Criticality Noted Date Comments Nitrofurantoin Monohyd/M-Cryst Unknown 06/01 Medications amLODIPine (NORVASC) 10 mg tabletIndication s:hypertension Take 5 mg by mouth every morning 9 Active benztropine (COGENTIN) 0.5 mg tabletIndication s:schitophrenia Take 0.5 mg by mouth 2 (two) times a day 9 Active buPROPion (WELLBUTRIN) 100 mg tabletIndication s:major depressive disorder Take 50 mg by mouth 2 (two) times a day 9 Active folic acid (FOLVITE) 1 mg tablet Take 1 mg by mouth every morning 9 Active omeprazole (PriLOSEC) 20 mg capsuleIndicatio ns:GERD Take 20 mg by mouth every morning 9 Active risperiDONE (RisperDAL) 4 mg tabletIndication s:Schizophrenia Take 4 mg by mouth nightly Active haloperidol decanoate (HALDOL DECANOATE) 100 mg/mL injectionIndicat ions:Schizophren ia,Due again 01/10/2019 Inject 200 mg into the muscle as instructed every 21 days Active haloperidol (HALDOL) 5 mg tabletIndication s:Schizophrenia Take by mouth 4 (four) times a day Take 5mg in morning, 5mg at noon and 10mg bedtime Active garlic 1,000 mg capsuleIndicatio ns:overall health Take 2,000 mg by mouth every morning Active cholecalciferol (VITAMIN D3) 1,000 unit capsuleIndicatio ns:Vitamin D Deficiency Take 1,000 Units by mouth every morning Active vitamin B complex capsuleIndicatio ns:Vitamin Deficiency Prevention Take 1 capsule by mouth every morning Active aspirin 325 mg enteric coated tabletIndication s:Pain Take 650 mg by mouth as needed for pain Active docusate sodium (COLACE) 100 mg capsuleIndicatio ns:constipation Take 1 capsule (100 mg total) by mouth 2 (two) times a day 9 Active Additional Information Patient not taking.Reported on 10/12/2024 gabapentin (NEURONTIN) 300 mg capsule TK 2 CS PO TID 9 Active albuterol HFA (ProAir HFA) 90 mcg/actuation inhaler Inhale 1 puff as needed 2 Active silver sulfadiazine (SILVADENE, SSD) 1 % cream [address] (EC NAPROSYN) 500 mg EC tablet Take 1 tablet (500 mg total) by mouth 2 (two) times a day with meals Active Active Problems Problem Noted Date Diagnosed Date 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 We have discussed the importance of obtaining negative surgical margins with respect to the cancer. He wants to again try the cream for another few weeks. We will reach back out to him at that time. If still present he does seem open to the idea of excising this. We have discussed doing this in the office under local anesthetic which he is comfortable with. Lung abscess 06/25/2020 Assessment & Plan (06/25/2020 2:57 PM SPECIAL EDUCATION RESOURCE TEACHER): - Patient reports compliance with Augmentin and is tolerating well with the exception of occasional diarrhea. Denies worsening respiratory symptoms or systemic signs of infection - Continue Augmentin 875-125 mg PO BID until repeat imaging is obtained. Order placed for repeat CT to be performed at [facility] (closer to patient's home). He is agreeable to plan and denies the need for antibiotic refill - When CT scan has been obtained I will review the images with patient to determine the need for additional antibiotic therapy. - Discussed with patient the rational for treatment, culture results, risk of recurrent infection, signs/symptoms of recurrent infection, and to contact ID clinic with any questions or concerns - Augmentin can be associated with GI intolerance, diarrhea, rash, leukopenia, thrombocytopenia, interstitial nephritis, LFT elevation, cholestatic hepatitis. At high risk for injury related to fall 06/04/19 21 Severe malnutrition 06/03/2020 Right lower lobe lung mass 12/13/2018 Encounters Date Type Department Care Team Description 03/13/2025 Telephone [facility] Medicine Ophthalmology [address] [place] [address] Darren Cervantes MD Scheduling Appointments from Last 3 Months Surgical History Surgery Date Site/Laterality Comments LUNG BIOPSY CATARACT EXTRACTION TOOTH EXTRACTION Medical History Medical History Date Comments Schizophrenia Nicotine dependence Essential hypertension Heartburn Angina pectoris COPD (chronic obstructive pulmonary disease) Nontoxic single thyroid nodule At high risk for injury related to fall 06/04/2020 Family History Medical History Relation Name Comments Leukemia Father Heart failure Maternal Grandfather Heart failure Maternal Grandmother Colon cancer Mother Anesthesia problems Neg Hx Relation Name Status Comments Father Maternal Grandfather Maternal Grandmother Mother Social History Tobacco Use Types Packs/Day Years Used Date Smoking Tobacco: Every Day Cigarettes 2 52 Started: 1974 Smokeless Tobacco: Never Tobacco Cessation:Ready to Q uit: Not Asked; Counseling Given: Not Answered Alcohol Use Standard Drinks/Week Comments Not Currently 0 (1 standard drink = 0.6 oz pur e alcohol) Sex and Gender Information Value Date Recorded Sex Assigned at Not on file Legal Sex Male 9:46 AM SPECIAL EDUCATION RESOURCE TEACHER Gender Identity Not on file Sexual Orientation Not on file Last Filed Vital Signs Vital Sign Reading Time Taken Comments Blood Pressure 122/80 10/12/2024 9:38 AM CDT Pulse 72 10/12/2024 9:38 AM CDT Temperature 36.2 C (97.1 F) 10/12/2024 9:38 AM CDT Respiratory Rate 16 06/04/2020 8:00 AM SPECIAL EDUCATION RESOURCE TEACHER Oxygen Saturation 98% 10/12/2024 9:38 AM CDT Inhaled Oxygen Concentration - - Weight 57.6 kg (127 lb) 10/12/2024 9:38 AM CDT Height 182.9 cm (6') 10/12/2024 9:38 AM CDT Body Mass Index 17.22 10/12/2024 9:38 AM CDT Plan of Treatment Health Maintenance Due Date Last Done Comments Colon Cancer Screening-Colonoscopy 1965 Depression Screening 1965 Hepatitis C Screening 1965 Prostate Cancer Screening-PSA 1964 Hepatitis B Screening 01/15/1982 Regular Well Visit/Exam 18-64 01/15/1982 Pneumococcal vaccine <65 (1 of 2 - PCV) 01/15/1983 0 01/23/1998 DTaP/Tdap/Td Vaccine (1 - Tdap) 08/30/2007 8 Lung Cancer Screening 01/15/2014 Zoster Vaccine (1 of 2) 01/15/2014 Influenza Vaccine (#1) 2024 Insurance [employer] [facility] MEDICARE ADVANTAGE FOR LIFE [facility] MEDICARE ADVANTAGE FOR LIFE Advance Directives For more information, please contact: [phone] * Full Code (Latest Code Status on File) Date Activated Date Inactivated Comments 06/01/2020 8:31 AM 06/04/2020 8:41 PM * Full Code Date Activated Date Inactivated Comments 01/05/2019 8:21 PM 01/08/2019 4:32 PM Care Teams Training And Development Rep Relationship Specialty Start Date End Date Mamadou Morales MD [address] [place], [place] [id number] PCP - General Family Medicine 12/14/18
--- OUTSIDE RECORDS SUMMARY | 2025-04-18 08:55 | XMS_ITS | Encounter Summary ---
Author Organization [facility] Address [address] [place] [address] Care Team Providers Care Factory Machine Computer Operator Name Role Phone Mamadou Morales MD Primary Care Provider [phone] Encounter Details Date Type Department Care Team ([facility] st Contact Info) Description 10/01/2018 Abstract SFL CONVERSION [address] [place] [address] , Generic Conversion, Social History Tobacco Use Types Packs/Day Years Used Date Smoking Tobacco: Never Assessed Sex and Gender Information Value Date Recorded Sex Assigned at Not on file Legal Sex Male 10:20 PM AVIATION ALL SOURCE INTELLIGENCE Gender Identity Not on file Sexual Orientation Not on file documented as of this encounter Plan of Treatment Not on file documented as of this encounter Visit Diagnoses Not on filedocumented in this encounter Additional Health Concerns Infection Onset Date Last Indicated Resolved Time COVID-19 Rule Out 04/02/2022 04/02/2022 04/02/2022 7:15 PM AVIATION ALL SOURCE INTELLIGENCE documented as of this encounter Care Teams Factory Machine Computer Operator Relationship Specialty Start Date End Date Mamadou Morales MD [address] [place] [address] PCP - General FAMILY PRACTICE 03/28/22 documented as of this encounter
--- OUTSIDE RECORDS SUMMARY | 2025-04-18 08:55 | XMS_ITS | Encounter Summary ---
Author Organization [facility] Healthcare Address [address] [place] [address] Care Team Providers Care Extrusion Die Template Maker Name Role Phone Mamadou Morales MD Primary Care Provide r Angelina Streeter RN Unavailable Encounter Details Date Type Department Care Team (Late st Contact Info) Description 01/18/2019 Telephone [facility] Surgeon [address] [place] [address] Mary Dobbins NP [address] [facility] [place] [address] Social History Tobacco Use Types Packs/Day Years Used Date Smoking Tobacco: Every Day Cigarettes 2 52 Started: 1974 Smokeless Tobacco: Never Alcohol Use Standard Drinks/Week Comments Not Currently 0 (1 standard drink = 0.6 oz pur e alcohol) Sex and Gender Information Value Date Recorded Sex Assigned at Not on file Legal Sex Male 9:46 AM CARDIAC REHAB NURSE Gender Identity Not on file Sexual Orientation Not on file documented as of this encounter Plan of Treatment Not on file documented as of this encounter Visit Diagnoses Not on filedocumented in this encounter Care Teams Extrusion Die Template Maker Relationship Specialty Start Date End Date Mamadou Morales MD [address] [place], [place] [id number] PCP - General Family Medicine 12/14/18 Angelina Streeter, RN [address] [facility] [address] [place] [address] SHOP Outpatient Ore Fielder 06/05/20 06/09/20 documented as of this encounter
--- OUTSIDE RECORDS SUMMARY | 2025-04-18 08:55 | XMS_ITS | Encounter Summary ---
Author Organization [facility] Address 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
--- OUTSIDE RECORDS SUMMARY | 2025-04-18 08:55 | XMS_ITS | Clinical Summary ---
Author Organization [facility] Address [address] [place] [address] Care Team Providers Care Furnace Maintenance Name Role Phone Mamadou Morales MD Primary Care Provider [phone] Allergies Active Allergy Reactions Criticality Noted Date [...] on file Legal Sex Male 10:20 PM PUMP SERVICER HELPER Gender Identity Not on file Sexual Orientation Not on file Last Filed Vital Signs Vital Sign Reading Time Taken Comments Blood Pressure 98/68 04/07/2022 3:39 AM PUMP SERVICER HELPER Pulse 75 04/07/2022 3:39 AM PUMP SERVICER HELPER Temperature 36.8 C (98.2 F) 04/06/2022 8:41 PM PUMP SERVICER HELPER Respiratory Rate 18 04/05/2022 4:15 PM PUMP SERVICER HELPER Oxygen Saturation 100% 04/06/2022 4:13 PM PUMP SERVICER HELPER Inhaled Oxygen Concentration - - Weight 63 kg (138 lb 14.2 oz) 04/02/2022 12:12 P M PUMP SERVICER HELPER Height 182.9 cm (6') 04/02/2022 12:12 PM PUMP SERVICER HELPER Body Mass Index 18.84 04/02/2022 12:12 PM PUMP SERVICER HELPER Plan of Treatment Health Maintenance Due Date Last Done Comments Colorectal Cancer Screening Colonoscopy (10 Years) 1964 Annual Physical 01/15/1967 Hepatitis C 01/15/1982 DTaP, Tdap and Td Vaccines ( 1 - Tdap) 01/15/1983 Zoster Vaccines (1 of 2) 01/15/2014 Pneumococcal Vaccine: 50+ Years (2 of 2 - PCV) 02/13/2022 02/13/2021 COVID-19 Vaccine (4 - 2024-2 6 season) 2024 03/09/2021, 07/23/2020, 07/02/2020 Influenza Adult (#1) 2025 12/17/2021, 02/05/2021 RSV Immunization or 60+ Years (1 - 1-dose 75+ series) 01/15/2039 Hepatitis A Vaccines Aged Out No long er eligible based [...] Leona Manzanares, RN Insurance MEDICARE [facility] Advance Directives * Full Code (Latest Code Status on File) Date Activated Date Inactivated Comments 04/02/2022 12:30 PM 04/07/2022 4:55 PM Care Teams Furnace Maintenance Relationship Specialty Start Date End Date Mamadou Morales MD [address] [place] [address] PCP - General FAMILY PRACTICE 03/28/22
--- OUTSIDE RECORDS SUMMARY | 2025-04-18 08:55 | XMS_ITS | Clinical Summary ---
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 Address: [facility] [address] [place] [address]
--- OUTSIDE RECORDS SUMMARY | 2025-04-18 08:55 | XMS_ITS | Encounter Summary ---
Author Organization [employer] Address [address] [place] [address] Care Team Providers Care Hand Winder Name Role Phone Unavailable Primary Care Provider Unavailabl e Encounter Details Date Type Department Care Team (Late st Contact Info) Description 04/29/2005 Emergency [facility] STChucho Hernandez MD [address] [place] [address] Er, Authorized P NO ADDRESS ON FILE HYPOPOTASSEMIA (Primary Dx) Social History Tobacco Use Types Packs/Day Years Used Date Smoking Tobacco: Never Assessed Sex and Gender Information Value Date Recorded Sex Assigned at Not on file Legal Sex Male 4:59 AM TECHNOLOGY SALES SPECIALIST Gender Identity Not on file Sexual Orientation Not on file documented as of this encounter Plan of Treatment Not on file documented as of this encounter Procedures Procedure Name Priority Date/Time Associated Diagnosis Comments CBC WITH DIFFERENTIAL Routine 04/29/2005 6:22 PM TECHNOLOGY SALES SPECIALIST CBC WITH DIFFERENTIAL Routine 04/29/2005 6:22 PM TECHNOLOGY SALES SPECIALIST COMPREHENSIVE METABOLIC PANEL Routine 04/29/2005 6:22 PM TECHNOLOGY SALES SPECIALIST documented in this encounter Results * CBC WITH DIFFERENTIAL (04/29/2005 6:22 PM TECHNOLOGY SALES SPECIALIST) NEUTROPHILS 48 45 - 70 % INTERFAC [...] 0.20 K/uL INTERFACE SYSTEM 04/29/2005 6:22 PM TECHNOLOGY SALES SPECIALIST Chucho De La O MD HEMATOLOGY ORDERABLES Final Res ult Performing Organization Address City/[facility] Co de Phone Number INTERFACE SYSTEM Refer to clinic/hospital department * (ABNORMAL) CBC WITH DIFFERENTIAL (04/29/2005 6:22 PM TECHNOLOGY SALES SPECIALIST) WBC 6.0 4.0 - 9.8 K/uL INTERFACE [...] 12.4 fL INTERFACE SYSTEM 04/29/2005 6:22 PM TECHNOLOGY SALES SPECIALIST Chucho De La O MD HEMATOLOGY ORDERABLES Final Res ult INTERFACE SYSTEM Refer to clinic/hospital department * (ABNORMAL) COMPREHENSIVE METABOLIC PANEL (04/29/2005 6:22 PM TECHNOLOGY SALES SPECIALIST) GLUCOSE 107 65 - 109 mg/dL INTERFACE [...] and read back verified. 04/29/2005 6:22 PM TECHNOLOGY SALES SPECIALIST us Chucho De La O MD CHEMISTRY ORDERABLES Final Resu lt INTERFACE SYSTEM Refer to clinic/hospital department documented in this encounter Visit Diagnoses Diagnosis Hypopotassemia- Primary documented in this encounter
[2025-04-18 09:12] LABS: Hematocrit 45.5 % (40.0-54.0); Hemoglobin 15.2 g/dL (14.0-18.0); Immature Granulocyte Percent A 0.5 % (0.0-0.0); Lymphocytes Absolute Auto 1.39 K/mm3 (1.10-4.50); Mean Corpuscular HGB Conc 33.4 g/dL (32-36); Mean Corpuscular Hemoglobin 29.7 pg (27.0-31.0); Mean Corpuscular Volume 88.9 fL (78.0-102.0); Nucleated Red Blood Cells Absolute Auto 0.00 K/mm3 (0.00-0.00); Nucleated Red Blood Cells Perc 0.0 % (0-0.0); Platelet Count Result 327 K/mm3 (150-420); Red Blood Count 5.12 M/mm3 (4.70-6.10); White Blood Count 6.3 K/mm3 (4.8-10.8)
[2025-04-18 09:13] LABS: Add Urine Microscopic? NO; Appearance Urine Clear (Clear); Glucose Urine UA Negative (Negative); Leukocyte Esterase Ur Negative (Negative); Nitrate Urine Negative (Negative); Specific Grav Ur 1.010 (1.010-1.020)
[2025-04-18 09:26] LABS: MALB Creatinine Ratio 0.0 mg/g (0-30)
[2025-04-18 11:01] LABS: Alanine Aminotransferase 42 U/L (6-50); Albumin Level 4.8 g/dL (3.5-5.1); Alkaline Phosphatase 145 U/L (38-126); Anion Gap 10 mmol/L (4-12); Aspartate Amino Transferase 42 U/L (17-59); Bilirubin,Total 0.7 mg/dL (0.2-1.3); Blood Urea Nitrogen 11 mg/dL (9-20); Calcium 9.9 mg/dL (8.4-10.2); Carbon Dioxide 30 mmol/L (22-30); Chloride 96 mmol/L (98-107); Estimated Glomerular Filt Rate > 60; Osmolality Calculated 278 mOsm/kg (285-295); Potassium 4.6 mmol/L (3.4-5.0); Sodium 136 mmol/L (137-145); Total Protein 7.8 g/dL (6.3-8.2)
[2025-04-18 11:06] LABS: Glucose 45 mg/dL (65-110)
[2025-04-18 11:32] LABS: Prostate Specific Antigen 0.9 ng/mL (< OR = 4.0); Thyroid Stimulating Hormone 1.250 uIU/mL (0.465-4.680)
[2025-04-18 11:52] LABS: Vitamin B12 656.0 pg/mL (239-931)
== END 2025-04-18 08:52 | disposition home or self-care (01) ==
PROVIDERS: PCP Family Medicine; Visit Provider Family Medicine
DX: I10 Essential (primary) hypertension (principal); Z12.5 Encounter for screening for malignant neoplasm of prostate; E53.8 Deficiency of other specified B group vitamins; E55.9 Vitamin D deficiency, unspecified
CPT/HCPCS: 36415; 80053; 81003; 82043; 82306; 82607; 82746; 83525; 84153; 84443; 84681; 85025; G0103

== ENCOUNTER 2025-04-20 11:59 | Outpatient (CLI) | payer MEDICARE, OTHER, SELFPAY ==
--- OUTSIDE RECORDS SUMMARY | 2025-04-20 12:04 | XMS_ITS | Encounter Summary ---
Author Organization [facility] Address [address] [place] [address] Care Team Providers Care Double End Trimmer Name Role Phone Mamadou Morales MD Primary Care Provider [phone] Encounter Details Date Type Department Care Team ([facility] st Contact Info) Description 10/01/2018 Abstract SFL CONVERSION [address] [place] [address] , Generic Conversion, Social History Tobacco Use Types Packs/Day Years Used Date Smoking Tobacco: Never Assessed Sex and Gender Information Value Date Recorded Sex Assigned at Not on file Legal Sex Male 10:20 PM TOXICOLOGY TEACHER Gender Identity Not on file Sexual Orientation Not on file documented as of this encounter Plan of Treatment Not on file documented as of this encounter Visit Diagnoses Not on filedocumented in this encounter Additional Health Concerns Infection Onset Date Last Indicated Resolved Time COVID-19 Rule Out 04/02/2022 04/02/2022 04/02/2022 7:15 PM TOXICOLOGY TEACHER documented as of this encounter Care Teams Double End Trimmer Relationship Specialty Start Date End Date Mamadou Morales MD [address] [place] [address] PCP - General FAMILY PRACTICE 03/28/22 documented as of this encounter
--- OUTSIDE RECORDS SUMMARY | 2025-04-20 12:04 | XMS_ITS | Clinical Summary ---
Author Organization [facility] Address [address] [place] [address] Phone Care Team Providers Care Home Energy Rater Name Role Phone Unavailable Primary Care Provider [...] on file Legal Sex Male 4:59 AM EVALUATOR TRANSFER STUDENTS Gender Identity Not on file Sexual Orientation [...] 2024 Insurance MEDICARE PART A AND B [employer]
--- OUTSIDE RECORDS SUMMARY | 2025-04-20 12:04 | XMS_ITS | Clinical Summary ---
Author Organization [facility] Address [address] [place] [address] Care Team Providers Care Neuroscientist Name Role Phone Mamadou Morales MD Primary Care Provider [phone] Allergies Active Allergy Reactions Criticality Noted Date [...] on file Legal Sex Male 10:20 PM CASING WRINGER OPERATOR Gender Identity Not on file Sexual Orientation Not on file Last Filed Vital Signs Vital Sign Reading Time Taken Comments Blood Pressure 98/68 04/07/2022 3:39 AM CASING WRINGER OPERATOR Pulse 75 04/07/2022 3:39 AM CASING WRINGER OPERATOR Temperature 36.8 C (98.2 F) 04/06/2022 8:41 PM CASING WRINGER OPERATOR Respiratory Rate 18 04/05/2022 4:15 PM CASING WRINGER OPERATOR Oxygen Saturation 100% 04/06/2022 4:13 PM CASING WRINGER OPERATOR Inhaled Oxygen Concentration - - Weight 63 kg (138 lb 14.2 oz) 04/02/2022 12:12 P M CASING WRINGER OPERATOR Height 182.9 cm (6') 04/02/2022 12:12 PM CASING WRINGER OPERATOR Body Mass Index 18.84 04/02/2022 12:12 PM CASING WRINGER OPERATOR Plan of Treatment Health Maintenance Due [...] measures Lifestyle Leona Manzanares, RN Insurance MEDICARE [facility] Advance Directives * Full Code (Latest Code Status on File) Date Activated Date Inactivated Comments 04/02/2022 12:30 PM 04/07/2022 4:55 PM Care Teams Neuroscientist Relationship Specialty Start Date End Date Mamadou Morales MD [address] [place] [address] PCP - General FAMILY PRACTICE 03/28/22
--- OUTSIDE RECORDS SUMMARY | 2025-04-20 12:04 | XMS_ITS | Encounter Summary ---
Author Organization [facility] Healthcare Address [address] [place] [address] Care Team Providers Care Radiologic Technology Program Director Name Role Phone Mamadou Morales MD Primary Care Provide r Angelina Streeter RN Unavailable [phone] Encounter Details Date Type Department Care Team (Late st Contact Info) Description 01/18/2019 Telephone [facility] Surgeon [address] [place] [address] Mary Dobbins NP [address] [facility] [place] [address] Social History Tobacco Use Types Packs/Day Years Used Date Smoking Tobacco: Every Day Cigarettes 2 52 Started: 1974 Smokeless Tobacco: Never Alcohol Use Standard Drinks/Week Comments Not Currently 0 (1 standard drink = 0.6 oz pur e alcohol) Sex and Gender Information Value Date Recorded Sex Assigned at Not on file Legal Sex Male 9:46 AM VALET PARKING ATTENDANT Gender Identity Not on file Sexual Orientation Not on file documented as of this encounter Plan of Treatment Not on file documented as of this encounter Visit Diagnoses Not on filedocumented in this encounter Care Teams Radiologic Technology Program Director Relationship Specialty Start Date End Date Mamadou Morales MD [address] [place], [place] [id number] PCP - General Family Medicine 12/14/18 Angelina Streeter, RN [address] [facility] [address] [place] [address] SHOP Outpatient Director Of Child Welfare Services 06/05/20 06/09/20 documented as of this encounter
--- OUTSIDE RECORDS SUMMARY | 2025-04-20 12:04 | XMS_ITS | Encounter Summary ---
Author Organization [facility] Address 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
--- OUTSIDE RECORDS SUMMARY | 2025-04-20 12:04 | XMS_ITS | Encounter Summary ---
Author Organization [employer] [facility] Address [address] [place] [address] Care Team Providers Care Marketing Designer Name Role Phone Unavailable Primary Care Provider Unavailabl e Encounter Details Date Type Department Care Team (Late st Contact Info) Description 04/29/2005 Emergency [facility] ST[facility]o Hernandez MD [address] [place] [address] Er, Authorized P NO ADDRESS ON FILE HYPOPOTASSEMIA (Primary Dx) Social History Tobacco Use Types Packs/Day Years Used Date Smoking Tobacco: Never Assessed Sex and Gender Information Value Date Recorded Sex Assigned at Not on file Legal Sex Male 4:59 AM CLAIM TECHNICIAN Gender Identity Not on file Sexual Orientation Not on file documented as of this encounter Plan of Treatment Not on file documented as of this encounter Procedures Procedure Name Priority Date/Time Associated Diagnosis Comments CBC WITH DIFFERENTIAL Routine 04/29/2005 6:22 PM CLAIM TECHNICIAN CBC WITH DIFFERENTIAL Routine 04/29/2005 6:22 PM CLAIM TECHNICIAN COMPREHENSIVE METABOLIC PANEL Routine 04/29/2005 6:22 PM CLAIM TECHNICIAN documented in this encounter Results * CBC WITH DIFFERENTIAL (04/29/2005 6:22 PM CLAIM TECHNICIAN) NEUTROPHILS 48 45 - 70 % INTERFAC [...] 0.20 K/uL INTERFACE SYSTEM 04/29/2005 6:22 PM CLAIM TECHNICIAN Chucho De La O MD HEMATOLOGY ORDERABLES Final Res ult Performing Organization Address City/[facility] Co de Phone Number INTERFACE SYSTEM Refer to clinic/hospital department * (ABNORMAL) CBC WITH DIFFERENTIAL (04/29/2005 6:22 PM CLAIM TECHNICIAN) WBC 6.0 4.0 - 9.8 K/uL INTERFACE [...] 12.4 fL INTERFACE SYSTEM 04/29/2005 6:22 PM CLAIM TECHNICIAN Chucho De La O MD HEMATOLOGY ORDERABLES Final Res ult INTERFACE SYSTEM Refer to clinic/hospital department * (ABNORMAL) COMPREHENSIVE METABOLIC PANEL (04/29/2005 6:22 PM CLAIM TECHNICIAN) GLUCOSE 107 65 - 109 mg/dL INTERFACE [...] and read back verified. 04/29/2005 6:22 PM CLAIM TECHNICIAN us Chucho De La O MD CHEMISTRY ORDERABLES Final Resu lt INTERFACE SYSTEM Refer to clinic/hospital department documented in this encounter Visit Diagnoses Diagnosis Hypopotassemia- Primary documented in this encounter
[2025-04-20 13:18] LABS: Anion Gap 11 mmol/L (4-12); Blood Urea Nitrogen 9 mg/dL (9-20); Calcium 9.8 mg/dL (8.4-10.2); Carbon Dioxide 25 mmol/L (22-30); Chloride 99 mmol/L (98-107); Estimated Glomerular Filt Rate > 60; Glucose 88 mg/dL (65-110); Osmolality Calculated 277 mOsm/kg (285-295); Potassium 4.0 mmol/L (3.4-5.0); Sodium 135 mmol/L (137-145)
== END 2025-04-20 12:00 | disposition home or self-care (01) ==
PROVIDERS: PCP Family Medicine; Visit Provider Family Medicine
DX: E16.2 Hypoglycemia, unspecified (principal)
CPT/HCPCS: 36415; 80048